=== PATIENT | female | born 2005 | race African-American/Black ===

== ENCOUNTER 2024-01-14 17:22 | Inpatient (IN) | payer MEDICAID, SELFPAY ==
--- NOTE | ~2024-01-14 | CT_ITS ---
EXAMINATION: CT head/brain wo IV con CLINICAL INFORMATION: head strike, altered COMPARISON: No prior imaging available on PACS at time of dictation TECHNIQUE: Contiguous axial imaging was performed from the skull base to vertex without intravenous contrast. Sagittal and coronal reformatted images were obtained. This CT examination was performed using dose optimization techniques as appropriate, variously including the following: * Automated exposure control * Adjustment of mA and/or kV according to patient size (this includes techniques or standardized protocols for targeted exams where dose is matched to indication/reason for exam; i.e. extremities or head) Use of iterative reconstruction technique DLP: 681 mGy-cm FINDINGS: The ventricles and sulci are normal in size and configuration without significant volume loss or hydrocephalus. There is no abnormal attenuation within the brain parenchyma. No territorial loss of costa-white differentiation. No acute intracranial hemorrhage or extra-axial fluid collection. No mass lesion, significant mass effect, or herniation pattern. The orbits are grossly normal. Paranasal sinuses are well aerated. Small right mastoid effusion. Osseous structures are intact. CT/CT head/brain wo IV con IMPRESSION: No acute intracranial abnormality. Electronically signed by: Rayne Clemons MD 01/14/2024 09:20 PM EDT
--- NOTE | 2024-01-14 17:26 | PC.NURSE ---
immediately upon arriving to ed 13H, patient asked if she would behave if hand cuffs are removed, patient states no security called to bedside, PD at bedside
[2024-01-14 17:35] VITALS: BP 162/94; PULSE 118; O2SAT 98
[2024-01-14 17:50] VITALS: BMI 25.8
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
[2024-01-14] MEDS: LORazepam 2 MG/ML VIAL IM (18:20)
[2024-01-14] MEDS: Haloperidol Lactate 5 MG/ML VIAL 10 MG IM (18:20)
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
[2024-01-14 19:13] LABS: Appearance Urine Clear; Color Urine Yellow; Glucose Urine UA Negative (Negative); Leukocyte Esterase Urine Negative (Negative); Nitrite Urine Negative (Negative); Specific Gravity - Urine 1.015 (1.005-1.025); UMIC TRIGGER UA YES; Urine Blood Small (1+) (Negative); Urine Ketones Negative (Negative); Urine Protein Negative (Neg-Trace)
[2024-01-14 19:14] LABS: UPreg QC Valid YES; Urine Pregnancy NEGATIVE (NEGATIVE)
[2024-01-14 19:21] LABS: Amphetamine Screen Urine Not Detected (Not Detect); Barbiturates, Urine Not Detected (Not Detect); Benzodiazepines Screen Urine Not Detected (Not Detect); Buprenorphine Scr Not Detected (Not Detect); Cannabinoid Screen Urine Not Detected (Not Detect); Cocaine Screen Urine Not Detected (Not Detect); Fentanyl, urine Not Detected (Not Detect); Methadone Screen, Urine Not Detected (Not Detect); Opiate Screen Urine Not Detected (Not Detect); Oxycodone Screen Urine Not Detected (Not Detect); Phencyclidine Screen Urine Not Detected (Not Detect)
[2024-01-14 19:42] LABS: Bacteria Urine None Seen (None Seen); Hyaline Casts Urine 0-2 /LPF (0-2); RBC Urine 0-2 /HPF (0-2); Squamous Epithelial Cell Urine 0-2 /HPF (0-2); WBC Urine 0-5 /HPF (0-5)
[2024-01-14 20:00] VITALS: BP 145/89; PULSE 92; RESP 16; TEMP 37; O2SAT 96
--- NOTE | 2024-01-14 20:03 | PC.NURSE ---
Restraints removed, pt clam and cooperative.
[2024-01-14 20:11] LABS: MANUAL DIFF FLAG NO
[2024-01-14 20:12] LABS: Basophils Absolute Auto 0.1 X10*3/uL (0.0-0.2); Basophils Percent Auto 0.6 % (0-2); Eosinophils Percent Auto 0.2 % (0-4); Hematocrit 40.1 % (37.0-47.0); Hemoglobin 14.6 g/dl (12.0-16.0); Imm Gran Abs Auto 0.03 X10*3/uL (0.00-0.03); Imm Gran Pct Auto 0.3 % (0.0-0.4); Lymphocytes Absolute Auto 1.6 X10*3/uL (1.2-4.9); Lymphocytes Percent Auto 14.1 % (20-40); Mean Corpuscular HGB Conc 36.4 g/dl (31.0-35.0); Mean Corpuscular Hemoglobin 31.7 pg (27.0-33.0); Mean Corpuscular Volume 87.2 fL (80.0-98.0); Mean Platelet Volume 9.1 fL (9.4-12.3); Monocytes Absolute Auto 0.5 X10*3/uL (0.1-1.2); Monocytes Percent Auto 4.5 % (2-11); Neutrophils Absolute Auto 9.3 x10*3/uL (2.0-8.3); Neutrophils Percent Auto 80.3 % (45-73); Platelet Count 316 X10*3/uL (160-400); Red Cell Distribution Width 11.4 % (11.0-16.0); White Blood Count 11.5 X10*3/uL (4.8-10.8)
[2024-01-14 20:47] LABS: Alanine Aminotransferase 17 U/L (0-31); Albumin Level 4.2 g/dL (3.5-5.0); Alkaline Phosphatase 68 U/L (39-117); Anion Gap 11 (12-20); Aspartate Amino Transferase 16 U/L (5-31); Bilirubin Total 0.3 mg/dL (0.0-1.0); Blood Urea Nitrogen 12 mg/dL (9-16); Calcium 10.1 mg/dL (8.4-10.2); Carbon Dioxide 22 mmol/L (22-29); Chloride 110 mmol/L (96-108); Creatinine Clr Calc Pharmacy 120.2; Estimated Glomerular Filt Rate > 60; Ethanol < 10 mg/dL; Glucose Random 92 mg/dL (60-115); Potassium 4.1 mmol/L (3.3-5.1); Sodium 139 mmol/L (135-145); Total Protein 7.1 g/dL (6.5-8.0)
[2024-01-14 20:48] LABS: Acetaminophen LAB < 3 mcg/mL (<30); Salicylate < 5.0 mg/dL (15-30)
[2024-01-14 22:00] VITALS: RESP 20
[2024-01-15] VITALS (7 sets, daily range): BP systolic 112–145; BP diastolic 62–85; PULSE 65–103; RESP 14–20; TEMP 36.6–37.2; O2SAT 94–100
[2024-01-15] MEDS: Acetaminophen 325 MG TABLET 650 MG PO (01:08)
[2024-01-15] MEDS: Ondansetron ODT 4 MG TAB.RAPDIS TRANSLINGU (01:09)
--- NOTE | 2024-01-15 01:30 | PC.NURSE ---
PT complaining of headache. 10/10 pain, and nausea. PA verbal read back order for tylenol and zofran. Careteam plan for follow up in the morning. If pt is settle and stable through the night pt can be discharged home to [facility].
[2024-01-15] MEDS: diphenhydrAMINE HCL 25 MG CAPSULE 50 MG PO (05:53)
[2024-01-15] MEDS: LORazepam 1 MG TABLET 2 MG PO ×2 (05:54→14:55)
[2024-01-15] MEDS: HaloperidoL 5 MG TABLET PO (05:54)
--- NOTE | 2024-01-15 06:13 | PC.NURSE ---
PT hitting head and endorsing SI. provided pt with headphones to listen to music, provided theraputic communication, and medicated PT as per MA. Pt appears to be more calm and in more pleasant mood at this time. sitter at bedside. safety precautions in place
--- NOTE | 2024-01-15 08:42 | PC.NURSE ---
Pt has been calm since this RN arrival at 7am. Ate breakfast. AMbulatory to BR w/o difficulty to bathroom with sitter. Listening to music, making needs known w/o incident. Skin PWD. restraints removed from bed rails.
[2024-01-15] MEDS: QUEtiapine Fumarate 50 MG TABLET PO (11:38)
[2024-01-15] MEDS: fluPHENAZine HCl 5 MG TABLET PO (11:38)
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
--- NOTE | 2024-01-15 12:21 | PHA.MEDREC ---
Addendum entered by Sofía Mark RPh 01/15/24 12:45: Med rec reviewed by this [facility]. Naltrexone is 1/2 tablet daily. Original Note: Pharmacy Consult ? Medication Reconciliation Pharmacy has completed the medication reconciliation. Confirmed medications with [facility] on [address] [place] [address] CT found in patient claims. They confirmed she picked up Fluphenazine 5mg 1 tab TID on 01/10, Quetiapine 50mg 1 tab BID on 01/08, Trazodone 150mg 1 tab at bedtime on 12/28, Naltrexone 50mg 1 tab daily on 12/18, Levomefolate Calcium 7.5mg 1 tab daily on 12/17, Vienva 0.1-20mg 1 tab daily, and Famotidine 40mg 1 tab BID on 10/25.
--- NOTE | 2024-01-15 12:59 | MHC.CARE ---
T/w spoke with patient's father José Miguel, who is agreeable to picking patinet up after work. He is in [facility] so anticipates arriving around 5pm. He shares that typically patient discharges from the ED go more smoothly for patient when she is given a sedating medication so she is calmly able to leave and then tends to return home and go right to bed. This was communicated to Dr Albrecht.
[2024-01-15] MEDS: diphenhydrAMINE HCL 50 MG/ML VIAL IM (17:56)
[2024-01-15] MEDS: Haloperidol Lactate 5 MG/ML VIAL 10 MG IM (17:56)
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
--- NOTE | 2024-01-15 18:28 | PC.NURSE ---
RE; belongings all belongings moved to pod locker 6
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
[2024-01-16 06:41] VITALS: RESP 16
[2024-01-16] MEDS: Calcium Carbonate 750 MG TAB.CHEW 1500 MG PO (07:04)
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
--- NOTE | 2024-01-16 08:18 | MHC.EDTECH ---
Patient ambulated to bathroom to shower, AM care done , bed lined change. Sitting in community room to listen to music. RN aware
[2024-01-16] MEDS: OLANZapine ODT 10 MG TAB.RAPDIS TRANSLINGU (08:19)
--- NOTE | 2024-01-16 08:21 | PC.NURSE ---
Nursing Communication PT approached nursing station c/o Ah - unspecified voices. made aware with orders.
--- NOTE | 2024-01-16 11:43 | MHC.CARE ---
Pt went to meet with Pt to complete updated MSU. Pt was asleep in her room and unable to be woken. Care team spoke with pod nurse who stated that Pt was hearing voices and having hallucinations and was given 10mg of Zyprexa. Pt will be asleep for a few hours. MSU followup needed.
[2024-01-16 14:00] VITALS: BP 124/70; PULSE 90; RESP 20; TEMP 36.9; O2SAT 97
--- NOTE | 2024-01-16 15:00 | MHC.CARE ---
Innovation Manager called and spoke with Mar at [facility] to inquire on bed availability for patient. Needs to be F/U on Thursday, per Mar.
[2024-01-16] MEDS: polyethylene glycoL 3350 17 GM POWD.PACK PO (15:12)
[2024-01-16] MEDS: traZODone HCL 50 MG TABLET 150 MG PO (20:34)
[2024-01-16] MEDS: QUEtiapine Fumarate 50 MG TABLET PO (20:34)
[2024-01-16] MEDS: Famotidine 20 MG TABLET 40 MG PO (20:34)
[2024-01-16] MEDS: Naltrexone HCl 50 MG TABLET 25 MG PO (20:34)
[2024-01-16] MEDS: fluPHENAZine HCl 2.5 MG TABLET 7.5 MG PO (20:57)
[2024-01-17 06:21] VITALS: BP 140/65; PULSE 85; RESP 14; TEMP 36.1; O2SAT 97
[2024-01-17] MEDS: Albuterol Sulfate 90 MCG 8 GM INHALER 2 PUFF INHALE (07:55)
[2024-01-17] MEDS: Famotidine 20 MG TABLET 40 MG PO ×2 (08:36→20:07)
[2024-01-17] MEDS: QUEtiapine Fumarate 50 MG TABLET PO ×2 (08:36→20:08)
[2024-01-17] MEDS: fluPHENAZine HCl 2.5 MG TABLET 7.5 MG PO ×3 (08:36→20:08)
[2024-01-17] MEDS: Naltrexone HCl 50 MG TABLET 25 MG PO (08:36)
[2024-01-17] MEDS: Calcium Carbonate 750 MG TAB.CHEW PO (16:43)
[2024-01-17] MEDS: Ondansetron ODT 4 MG TAB.RAPDIS TRANSLINGU (18:28)
[2024-01-17] MEDS: traZODone HCL 50 MG TABLET 150 MG PO (20:07)
[2024-01-17 21:05] VITALS: BP 143/75; PULSE 83; RESP 18; TEMP 36.6; O2SAT 98
--- NOTE | 2024-01-17 21:15 | MHC.EDTECH ---
Patient was given two tuna sandwiches and a cup of sarabjit tim.
--- NOTE | 2024-01-17 23:26 | PC.NURSE ---
Assumed care of pt. Pt sleeping, easily rousable, no acute distress at this time.
--- NOTE | 2024-01-18 | ECG_ITS ---
Test Reason : check for prolonged qt Blood Pressure : / mmHG Vent. Rate : 097 BPM Atrial Rate : 097 BPM P-R Int : 112 ms QRS Dur : 082 ms QT Int : 348 ms P-R-T Axes : 048 068 046 degrees QTc Int : 441 ms Normal sinus rhythm with sinus arrhythmia Normal ECG No previous ECGs available Referred By: Generic ED Physician Electronically Signed By:OLGA DE LA CRUZ
[2024-01-18] MEDS: LORazepam 1 MG TABLET 2 MG PO (05:44)
[2024-01-18] MEDS: OLANZapine 5 MG TABLET PO ×2 (05:44→16:32)
--- NOTE | 2024-01-18 05:49 | PC.NURSE ---
Pt woke and notified this RN that she was hearing voices, was feeling unsafe and requested medication. MD Muniz ordered meds, given by this RN.
[2024-01-18 06:00] VITALS: RESP 16
[2024-01-18] MEDS: QUEtiapine Fumarate 50 MG TABLET PO ×2 (08:22→20:28)
[2024-01-18] MEDS: Naltrexone HCl 50 MG TABLET 25 MG PO (08:22)
[2024-01-18] MEDS: fluPHENAZine HCl 2.5 MG TABLET 7.5 MG PO ×3 (08:22→20:28)
[2024-01-18] MEDS: Famotidine 20 MG TABLET 40 MG PO ×2 (08:22→20:28)
--- NOTE | 2024-01-18 08:49 | MHC.CARE ---
CARE Team spoke with Pts father José Miguel, he is in agreement with admission at [facility].
[2024-01-18 12:46] VITALS: BP 112/79; PULSE 75; RESP 16; TEMP 37.1; O2SAT 99
[2024-01-18 13:24] VITALS: BP 138/86; PULSE 100; RESP 18; TEMP 36.6; O2SAT 98
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
[2024-01-18] MEDS: LORazepam 2 MG/ML VIAL IM (17:10)
[2024-01-18] MEDS: OLANZapine 10 MG VIAL IM (17:11)
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
[2024-01-18] MEDS: Albuterol Sulfate 90 MCG 8 GM INHALER 2 PUFF INHALE (18:22)
[2024-01-18] MEDS: traZODone HCL 50 MG TABLET 150 MG PO (20:28)
[2024-01-19] MEDS: Albuterol Sulfate 90 MCG 8 GM INHALER 2 PUFF INHALE (07:18)
[2024-01-19] MEDS: Naltrexone HCl 50 MG TABLET 25 MG PO (07:54)
[2024-01-19] MEDS: fluPHENAZine HCl 2.5 MG TABLET 7.5 MG PO ×3 (07:54→19:44)
[2024-01-19] MEDS: Famotidine 20 MG TABLET 40 MG PO ×2 (07:54→16:36)
[2024-01-19] MEDS: QUEtiapine Fumarate 50 MG TABLET PO ×2 (07:54→19:43)
[2024-01-19 08:00] VITALS: BP 124/67; PULSE 101; RESP 18; TEMP 36.5; O2SAT 96
[2024-01-19] MEDS: OLANZapine 5 MG TABLET PO ×2 (08:07→11:54)
[2024-01-19] MEDS: LORazepam 1 MG TABLET PO ×3 (08:07→19:08)
[2024-01-19 08:23] LABS: Estimated Average Glucose 100 mg/dL; Hemoglobin A1C 118.0644 umol/L; Hemoglobin A1c % 5.1 % (<6.0)
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
[2024-01-19 08:44] LABS: Cholesterol 195 mg/dL (<200); HDL Cholesterol 49 mg/dL (>40); LDL Cholesterol Calculated 117 mg/dL (<100); Magnesium 1.7 mg/dL (1.6-2.6); Triglycerides 149 mg/dL (<150)
[2024-01-19 08:59] LABS: Free T4 (Free Thyroxine) 0.86 ng/dL (0.71-1.85); Thyroid Stimulating Hormone 0.89 uIU/mL (0.32-4.0)
[2024-01-19 09:11] LABS: Folate 17.7 ng/mL (> or = 4.0); Vitamin B12 644 pg/mL (200-900)
[2024-01-19] MEDS: Magnesium Hydrox/Alum Hydrox 30 ML ORAL.SUSP PO ×3 (14:19→19:44)
[2024-01-19 14:55] VITALS: BP 117/59; PULSE 123; RESP 18; TEMP 37.1; O2SAT 96
[2024-01-19] MEDS: Milk of Magnesia 30 ML ORAL.SUSP PO (15:41)
[2024-01-19] MEDS: Acetaminophen 325 MG TABLET 650 MG PO (16:02)
[2024-01-19] MEDS: OLANZapine ODT 10 MG TAB.RAPDIS TRANSLINGU (19:08)
[2024-01-19] MEDS: traZODone HCL 50 MG TABLET 150 MG PO (19:43)
[2024-01-19] MEDS: Calcium Carbonate 750 MG TAB.CHEW PO (20:22)
[2024-01-20 08:00] VITALS: BP 111/57; PULSE 70; TEMP 36.4; O2SAT 98
[2024-01-20] MEDS: fluPHENAZine HCl 2.5 MG TABLET 7.5 MG PO ×3 (08:33→19:55)
[2024-01-20] MEDS: Famotidine 20 MG TABLET 40 MG PO ×2 (08:33→17:27)
[2024-01-20] MEDS: Naltrexone HCl 50 MG TABLET 25 MG PO (08:34)
[2024-01-20] MEDS: QUEtiapine Fumarate 50 MG TABLET PO ×4 (08:39→20:00)
[2024-01-20] MEDS: Lactase TABLET 2 TAB PO ×2 (12:27→17:27)
[2024-01-20] MEDS: Acetaminophen 325 MG TABLET 650 MG PO ×2 (13:23→19:55)
[2024-01-20 15:20] VITALS: BP 98/54; PULSE 77; RESP 16; TEMP 36.9; O2SAT 99
--- NOTE | 2024-01-20 17:07 | HO.PSYCHPN ---
Subjective Subjective Date of Service: 01/20/24 Reason For Visit: Psychosis Subjective Notes: Conditional Voluntary Healthcare Proxy: No Guardianship: No Medical Problems Affecting Mental Status: No Interim History: Pt presents with an improved mood today. She reports she slept well (team reports 8 hours). She requested Ensure/Lactaid. Team was able to get her a boot s/p ankle sprain R side pre admission. She approaches tw with appropriate questions States she fees safe, comfortable on the unit. Denies SI, HI, AH, VH Some mood lability noted at times. Tolerating Seroquel increase to QID without sedation or agitation at this time. Medication Compliance: Yes Side effects from medications: No Attending Groups: Intermittent Review of Systems Acute medical concerns: No Medical Review of Systems: unchanged Review of Systems Review of Systems R Foot s/p ankle sprain with boot per team efforts Yes all other systems are reviewed and are negative Mental Status Exam Mental Status Exam Patient Appearance: Appropriate Patient Orientation: Person, Place, Time and Situation Level of Consciousness: Alert Patient Behavior: Talkative, Anxious, Distractible and Good Eye Contact Mood Description: Labile Affect Description: Labile Patient Cognition Impaired: No Ability to Follow Directions: Good Speech Pattern: Spontaneous Speech Memory Description: Episodic Impaired Hallucinations: None Thought Process: Distracted and Rumination Thought Content: positive for Circumstantial, positive for Perseveration and positive for Suicidal Ideation (denies) Depressive Symptoms: Thoughts of /Suicide (denies) Judgement: Fair Diagnostics Vital Signs (24Hr): Vital Signs - 24 hr 01/20/24 08:00 01/20/24 15:20 Temperature 97.6 F 98.4 F Pulse Rate 70 77 Respiratory Rate 16 Blood Pressure 111/57 L 98/54 L Pulse Oximetry 98 99 Oxygen Delivery Method Room Air Room Air BMI result Body Mass Index 25.8 Labs 01/14/24 20:07 01/14/24 20:07 Labs: Laboratory Results - last 48 hr 01/19/24 08:00 Estimat Average Glucose 100 Hemoglobin A1c % 5.1 Magnesium 1.7 Triglycerides 149 Cholesterol 195 LDL Cholesterol, Calc 117 H HDL Cholesterol 49 Vitamin B12 644 Folate 17.7 TSH 0.89 Free T4 0.86 Imaging Radiology Impressions: ITS Impressions Head CT 01/14/24 20:03 IMPRESSION: No acute intracranial abnormality. Electronically signed by: Rayne Clemons MD 01/14/2024 09:20 PM EDT Medications Medications Current Medications Acetaminophen (Acetaminophen 325 Mg Tablet) 650 mg PO Q6H PRN PRN Reason: Headache/Pain Mild Scale (1-3) Last Admin: 01/20/24 13:23 Dose: 650 mg Al Hydroxide/Mg Hydroxide (Magnesium Hydrox/Alum Hydrox 30 Ml Oral.Susp) 30 ml PO Q6H PRN PRN Reason: Heartburn/Nausea Last Admin: 01/19/24 19:44 Dose: 30 ml Albuterol Sulfate (Albuterol Sulfate 90 Mcg 8 Gm Inhaler) 2 puff INHALE Q6H PRN PRN Reason: Shortness of Breath Last Admin: 01/19/24 07:18 Dose: 2 puff Calcium Carbonate (Calcium Carbonate 750 Mg Tab.Chew) 750 mg PO Q6H PRN PRN Reason: Heartburn Last Admin: 01/19/24 20:22 Dose: 750 mg Famotidine (Famotidine 20 Mg Tablet) 40 mg PO 0900,1700 [facility] Last Admin: 01/20/24 08:33 Dose: 40 mg Fluphenazine HCl (Fluphenazine Hcl 2.5 Mg Tablet) 7.5 mg PO TID [facility] Last Admin: 01/20/24 15:14 Dose: 7.5 mg Hydroxyzine HCl (Hydroxyzine Hcl 25 Mg Tablet) 25 mg PO Q6H PRN PRN Reason: Anxiety Lactase (Lactase Tablet) 2 tab PO TIDWM [facility] Last Admin: 01/20/24 12:27 Dose: 2 tab Lorazepam (Lorazepam 1 Mg Tablet) 1 mg PO Q4H PRN PRN Reason: anxiety, agitation, aggression Last Admin: 01/19/24 11:54 Dose: 1 mg Magnesium Hydroxide (Milk Of Magnesia 30 Ml Oral.Susp) 30 ml PO DAILY PRN PRN Reason: Constipation Last Admin: 01/19/24 15:41 Dose: 30 ml Naltrexone HCl (Naltrexone Hcl 50 Mg Tablet) 25 mg PO DAILY [facility] Last Admin: 01/20/24 08:34 Dose: 25 mg Nicotine (Nicotine 21 Mg Patch.Td24) 21 mg TRANSDERMA DAILY PRN PRN Reason: nicotine cravings Nicotine Polacrilex (Nicotine Polacrilex 2 Mg Gum) 4 mg BUCCAL Q2H PRN PRN Reason: Nicotine Cravings Non-Formulary Medication (Levomefolate Calcium) 7.5 mg PO DAILY [facility] Non-Formulary Medication (Levonorgestrel-Ethinyl Estrad [Vienva]) 1 tab PO DAILY [facility] Olanzapine (Olanzapine 5 Mg Tablet) 5 mg PO TID PRN PRN Reason: agitation, aggression Last Admin: 01/19/24 11:54 Dose: 5 mg Quetiapine Fumarate (Quetiapine Fumarate 50 Mg Tablet) 50 mg PO QID [facility] Last Admin: 01/20/24 12:27 Dose: 50 mg Trazodone HCl (Trazodone Hcl 50 Mg Tablet) 150 mg PO BEDTIME [facility] Last Admin: 01/19/24 19:43 Dose: 150 mg Allergies Allergies Allergy/AdvReac Type Severity Reaction Status Date / Time divalproex sodium Allergy Unknown Unknown Verified 01/14/24 17:53 [facility] Assessment & Plan Assessment & Plan (1) Autism: Status: Acute Code(s): F84.0 - Autistic disorder (2) Intellectual disability: Status: Acute Code(s): F79 - Unspecified intellectual disabilities (3) Disruptive mood dysregulation disorder: Status: Acute Code(s): F34.81 - Disruptive mood dysregulation disorder Plan Intellectual Disability, Disruptive Mood Dysregulation Disorder, Autism. Plan: Increase Seroquel to 50 mg qid prn Olanzapine prn Collateral Contacts Diagnostics as needed Encourage full milieu Observe, alliance building 01/20/24 Continue tx. Reason for continued inpatient stay Substantial Risk for: rapid decompensation Time Spent With Patient Time: Total time managing care of this patient today ____ minutes.
[2024-01-20] MEDS: LORazepam 1 MG TABLET PO (18:59)
[2024-01-20] MEDS: traZODone HCL 50 MG TABLET 150 MG PO (19:55)
--- NOTE | 2024-01-20 19:56 | PC.NURSE ---
Patient's mood fluctuated from blunted to bright depending on situation. Sometimes I hear voices but I am not hearing them right now. Multiple complaints of left leg pain with frequent requests for an orthopedic boot. Ordered by provider, and arrived at 3:40pm and given to her by the charge entry at which time checks were changed to q 5 minutes for ligature risk. To be handed in to nursing when not in use and also at bedtime. Patient required lots of attention and recognition throughout the shift. I don't want to talk to him. I am mad at him. That's what got me here. Patient refused to call her father to request that 2 medications not in our formulary be brought in for her. 19:33 addendum: Just before change of shift patient became extremely agitated when she was unable to get in touch with her father. Screaming and light headbang x 2 until charg nurse intervened and asked her to talk about her upset. Ativan PRN administered with good effect.
[2024-01-20 20:00] VITALS: BP 129/74; PULSE 84; RESP 16; TEMP 37.1; O2SAT 94
[2024-01-20] MEDS: Calcium Carbonate 750 MG TAB.CHEW PO (20:10)
[2024-01-20] MEDS: OLANZapine 5 MG TABLET PO (20:12)
[2024-01-20] MEDS: Milk of Magnesia 30 ML ORAL.SUSP PO (22:16)
--- NOTE | 2024-01-21 03:33 | PC.NURSE ---
Patient agitation subsided following conversation with father.Observed to be calmer and less demanding. Utilizing boot for c/o L ankle pain. Requested prn Tylenol which was administered with good effect. Boot was turned in to this nurse when patient was ready for bed.
[2024-01-21] MEDS: Calcium Carbonate 750 MG TAB.CHEW PO (07:15)
[2024-01-21] MEDS: Acetaminophen 325 MG TABLET 650 MG PO ×3 (07:20→19:46)
[2024-01-21] MEDS: Lactase TABLET 2 TAB PO ×3 (07:49→16:53)
[2024-01-21 08:00] VITALS: BP 141/103; PULSE 141; RESP 18; TEMP 36.8; O2SAT 96
[2024-01-21] MEDS: fluPHENAZine HCl 2.5 MG TABLET 7.5 MG PO ×3 (08:25→19:54)
[2024-01-21] MEDS: Naltrexone HCl 50 MG TABLET 25 MG PO (08:25)
[2024-01-21] MEDS: QUEtiapine Fumarate 50 MG TABLET PO ×4 (08:26→19:54)
[2024-01-21] MEDS: Famotidine 20 MG TABLET 40 MG PO ×2 (08:26→16:53)
[2024-01-21] MEDS: Magnesium Hydrox/Alum Hydrox 30 ML ORAL.SUSP PO (09:33)
--- NOTE | 2024-01-21 12:09 | P.PNPSI_ITS ---
Subjective Subjective Date of Service: 01/21/24 Reason For Visit: Psychosis Subjective Notes: Conditional Voluntary Healthcare Proxy: No Guardianship: No Medical Problems Affecting Mental Status: No Interim History: Team report pt has been able to talk with her dad and is discussing discharge and a return to school. Tolerating Seroquel increase without adverse effects. Team has talked with father and all agree that pt is in need of a DIRECTOR PATIENT when discharged to assist her and allow family improved boundaries with decrease in potential conflicts with her needed care. As pt and father report she self medicates, VNA for medication assist will probably be helpful as well. Pt states she is feeling better and does not want to miss school. She asks to return to school on Thursday. She is in milieu today, social with peers, mildly labile, and interacting well when observed. Medication Compliance: Yes Side effects from medications: No Attending Groups: Intermittent Review of Systems Acute medical concerns: No Medical Review of Systems: unchanged Review of Systems Review of Systems Yes all other systems are reviewed and are negative Mental Status Exam Mental Status Exam Patient Appearance: Appropriate Patient Orientation: Person, Place, Time and Situation Level of Consciousness: Alert Patient Behavior: Talkative, Anxious, Distractible and Good Eye Contact Mood Description: Labile Affect Description: Labile Patient Cognition Impaired: No Ability to Follow Directions: Good Speech Pattern: Spontaneous Speech Memory Description: Episodic Impaired Hallucinations: None Thought Process: Distracted and Rumination Thought Content: positive for Circumstantial, positive for Perseveration and positive for Suicidal Ideation (denies) Depressive Symptoms: Thoughts of /Suicide (denies) Judgement: Fair Diagnostics Vital Signs (24Hr): Vital Signs - 24 hr 01/20/24 15:20 01/20/24 20:00 01/21/24 08:00 Temperature 98.4 F 98.7 F 98.3 F Pulse Rate 77 84 141 H Respiratory Rate 16 16 18 Blood Pressure 98/54 L 129/74 141/103 H Pulse Oximetry 99 94 96 Oxygen Delivery Method Room Air Room Air Room Air BMI result Body Mass Index 25.8 Labs 01/14/24 20:07 01/14/24 20:07 Imaging Radiology Impressions: ITS Impressions Head CT 01/14/24 20:03 IMPRESSION: No acute intracranial abnormality. Electronically signed by: Rayne Clemons MD 01/14/2024 09:20 PM EDT RP Medications Medications Current Medications Acetaminophen (Acetaminophen 325 Mg Tablet) 650 mg PO Q6H PRN PRN Reason: Headache/Pain Mild Scale (1-3) Last Admin: 01/21/24 12:06 Dose: 650 mg Al Hydroxide/Mg Hydroxide (Magnesium Hydrox/Alum Hydrox 30 Ml Oral.Susp) 30 ml PO Q6H PRN PRN Reason: Heartburn/Nausea Last Admin: 01/21/24 09:33 Dose: 30 ml Albuterol Sulfate (Albuterol Sulfate 90 Mcg 8 Gm Inhaler) 2 puff INHALE Q6H PRN PRN Reason: Shortness of Breath Last Admin: 01/19/24 07:18 Dose: 2 puff Calcium Carbonate (Calcium Carbonate 750 Mg Tab.Chew) 750 mg PO Q6H PRN PRN Reason: Heartburn Last Admin: 01/21/24 07:15 Dose: 750 mg Famotidine (Famotidine 20 Mg Tablet) 40 mg PO 0900,1700 [facility] Last Admin: 01/21/24 08:26 Dose: 40 mg Fluphenazine HCl (Fluphenazine Hcl 2.5 Mg Tablet) 7.5 mg PO TID [facility] Last Admin: 01/21/24 08:25 Dose: 7.5 mg Hydroxyzine HCl (Hydroxyzine Hcl 25 Mg Tablet) 25 mg PO Q6H PRN PRN Reason: Anxiety Lactase (Lactase Tablet) 2 tab PO TIDWM [facility] Last Admin: 01/21/24 12:06 Dose: 2 tab Lorazepam (Lorazepam 1 Mg Tablet) 1 mg PO Q4H PRN PRN Reason: anxiety, agitation, aggression Last Admin: 01/20/24 18:59 Dose: 1 mg Magnesium Hydroxide (Milk Of Magnesia 30 Ml Oral.Susp) 30 ml PO DAILY PRN PRN Reason: Constipation Last Admin: 01/20/24 22:16 Dose: 30 ml Naltrexone HCl (Naltrexone Hcl 50 Mg Tablet) 25 mg PO DAILY [facility] Last Admin: 01/21/24 08:25 Dose: 25 mg Nicotine (Nicotine 21 Mg Patch.Td24) 21 mg TRANSDERMA DAILY PRN PRN Reason: nicotine cravings Nicotine Polacrilex (Nicotine Polacrilex 2 Mg Gum) 4 mg BUCCAL Q2H PRN PRN Reason: Nicotine Cravings Non-Formulary Medication (Levomefolate Calcium) 7.5 mg PO DAILY [facility] Non-Formulary Medication (Levonorgestrel-Ethinyl Estrad [Vienva]) 1 tab PO DAILY [facility] Olanzapine (Olanzapine 5 Mg Tablet) 5 mg PO TID PRN PRN Reason: agitation, aggression Last Admin: 01/20/24 20:12 Dose: 5 mg Quetiapine Fumarate (Quetiapine Fumarate 50 Mg Tablet) 50 mg PO QID [facility] Last Admin: 01/21/24 12:06 Dose: 50 mg Trazodone HCl (Trazodone Hcl 50 Mg Tablet) 150 mg PO BEDTIME [facility] Last Admin: 01/20/24 19:55 Dose: 150 mg Allergies Allergies Allergy/AdvReac Type Severity Reaction Status Date / Time divalproex sodium Allergy Unknown Unknown Verified 01/14/24 17:53 [From Depakote] Assessment & Plan Assessment & Plan (1) Autism: Status: Acute Code(s): F84.0 - Autistic disorder (2) Intellectual disability: Status: Acute Code(s): F79 - Unspecified intellectual disabilities (3) Disruptive mood dysregulation disorder: Status: Acute Code(s): F34.81 - Disruptive mood dysregulation disorder Plan Intellectual Disability, Disruptive Mood Dysregulation Disorder, Autism. Plan: Increase Seroquel to 50 mg qid prn Olanzapine prn Collateral Contacts Diagnostics as needed Encourage full milieu Observe, alliance building 01/21/24 Discharge planning for 01/22/24 with a return to school on 01/25/24. Reason for continued inpatient stay Substantial Risk for: rapid decompensation Time Spent With Patient Time: Total time managing care of this patient today ____ minutes.
[2024-01-21] MEDS: Albuterol Sulfate 90 MCG 8 GM INHALER 2 PUFF INHALE (15:56)
[2024-01-21] MEDS: Flu Vacc TS2024-25(6mos up)/PF 0.5 ML SYRINGE IM (16:53)
[2024-01-21] MEDS: OLANZapine 5 MG TABLET PO (17:15)
[2024-01-21] MEDS: LORazepam 1 MG TABLET PO (17:15)
[2024-01-21] MEDS: Milk of Magnesia 30 ML ORAL.SUSP PO (18:29)
[2024-01-21] MEDS: traZODone HCL 50 MG TABLET 150 MG PO (19:54)
[2024-01-21 20:00] VITALS: BP 133/78; PULSE 108; TEMP 36.7; O2SAT 96
[2024-01-21] MEDS: hydrOXYzine HCL 25 MG TABLET PO (20:37)
[2024-01-22] MEDS: Acetaminophen 325 MG TABLET 650 MG PO (07:58)
[2024-01-22] MEDS: Lactase TABLET 2 TAB PO ×2 (07:58→13:09)
[2024-01-22 08:17] VITALS: BP 136/78; PULSE 124; RESP 16; TEMP 36.6; O2SAT 96
[2024-01-22] MEDS: fluPHENAZine HCl 2.5 MG TABLET 7.5 MG PO (08:56)
[2024-01-22] MEDS: Famotidine 20 MG TABLET 40 MG PO (08:56)
[2024-01-22] MEDS: Naltrexone HCl 50 MG TABLET 25 MG PO (08:57)
[2024-01-22] MEDS: QUEtiapine Fumarate 50 MG TABLET PO ×2 (08:59→13:09)
[2024-01-22] MEDS: Calcium Carbonate 750 MG TAB.CHEW PO (09:26)
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
== END 2024-01-22 14:12 | disposition home or self-care (01) | DRG 753 ==
LOC: HO.ED 01-15 17:56 → HO.PM5 01-18 12:37
PROVIDERS: Physician Assistant; Admitting Provider Clinical Nurse Specialist Psychiatric/Mental Health, Adult; Emergency Provider Emergency Medicine Emergency Medical Services; Visit Provider Clinical Nurse Specialist Psychiatric/Mental Health, Adult
DX: F34.81 Disruptive mood dysregulation disorder (principal); F79 Unspecified intellectual disabilities; F84.0 Autistic disorder; Z23 Encounter for immunization; Z78.1 Physical restraint status; Z79.899 Other long term (current) drug therapy
CPT/HCPCS: 36415; 70450; 80053; 80061; 80143; 80179; 80307; 81001; 81025; 82607; 82746; 83036; 83735; 84439; 84443; 85025; 90656; 92950; 93005; 99285; J1200; J1630; J2060; J2359; S9485

== ENCOUNTER → 2024-01-18 12:29 | Outpatient (BNV) | payer MEDICAID, SELFPAY | PROVIDERS: Admitting Provider Clinical Nurse Specialist Psychiatric/Mental Health, Adult; Emergency Provider Emergency Medicine Emergency Medical Services; Visit Provider Clinical Nurse Specialist Psychiatric/Mental Health, Adult | DX: F34.81 Disruptive mood dysregulation disorder (principal); F84.0 Autistic disorder; F79 Unspecified intellectual disabilities | CPT/HCPCS: 90792; 99231; 99232; 99238 ==

== ENCOUNTER 2024-09-07 15:33 | Inpatient (IN) | payer MEDICAID, SELFPAY ==
[2024-09-07] VITALS (8 sets, daily range): BP systolic 128–138; BP diastolic 62–69; PULSE 91–113; RESP 14–20; TEMP 36.9; O2SAT 94–99; BMI 34.3
--- NOTE | ~2024-09-07 | CT_ITS ---
CLINICAL HISTORY: Strike her head on the floor CT of the head without contrast. Comparison 01/14/2024. Findings: No acute hemorrhage or infarct is seen. No masses are identified and there is no hydrocephalus. There is no mass-effect. Impression: No acute intracranial abnormality is identified. This document has been electronically signed by: Carrington Carrera MD on 09/07/2024 17:54:43
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
--- OUTSIDE RECORDS SUMMARY | 2024-09-07 16:34 | XMS_ITS | Encounter Summary ---
Author Organization [facility] Address [address] [place] [address] Care Team Providers Care Bdc Manager Name Role Phone Vivian Robertson MD Primary Care Provider [phone] Reason for Referral * PRODUCT ANALYST-Consult (Urgent) - Authorized Specialty Diagnoses / Procedures Referred By Shireen christianson Referred To Contact Orthopedic Surgery Diagnoses Left hip pain ORTHO HFC - constipation with acute L hip area/gluteal pain Vivian Robertson MD [address] [place] [address] Phone: tel: fax: [facility] Department of Orthopedics, [address] [address] Phone: tel: fax: Referral ID Status Reason Start Date Expiration Date Visits Requested Visits Authorized [id number] Authorized Specialty Services Required 09/06/2024 03/05/2025 1 1 Encounter Details Date Type Department Care Team (Late st Contact Info) Description 09/06/2024 Community Orders EPICCARE LINK DFLT DEP Vivian Robertson MD [address] [place] [phone] Left hip pain (Primary Dx) Social History Tobacco Use Types Packs/Day Years Used Date Smoking Tobacco: Never Passive Smoke Exposure: Yes Smokeless Tobacco: Never Comments:MOM and dad Alcohol Use Standard Drinks/Week Comments No 0 (1 standard drink = 0.6 oz pur e alcohol) Comments No Sex and Gender Information Value Date Recorded Sex Assigned at Female 09/16/2020 11:50 PM EDT Legal Sex Female 2:19 AM EST Gender Identity Female 09/16/2020 11:50 PM EDT Sexual Orientation Straight 09/16/2020 11 :50 PM EDT documented as of this encounter Plan of Treatment Upcoming Encounters Date Type Department Care Team (Late st Contact Info) Description 11/29/2024 10:15 AM EDT Office Visit [facility], Weight Management [address] [place] [address] Winsome Blackburn MD [address] [place] [address] 11/29/2024 11:00 AM EDT Telemedicine Support [facility], Weight Management [address] [place] [address] Ju Jacinto [address] [place] [address] 11/29/2024 11:45 AM EDT Nutrition [facility], Clinical Nutrition [address] [place] [address] Cindy Juan, YANET [address] [place] [address] Scheduled Referrals Name Type Priority Associated Diagnoses Order Schedule Community Referral to Orthopedics Outpatient Referral Routine Left hip pain Ordered: 09/06/2024 documented as of this encounter Visit Diagnoses Diagnosis Left hip pain- Primary Pain in joint, pelvic region and thigh documented in this encounter Care Teams Bdc Manager Relationship Specialty Start Date End Date Vivian Robertson MD [address] [place] [address] PCP - General General Pediatrics 09/06/24 documented as of this encounter
--- OUTSIDE RECORDS SUMMARY | 2024-09-07 16:34 | XMS_ITS | Encounter Summary ---
Author Organization [facility] Address [address] [place] [address] Care Team Providers Care Child Care Center Assistant Director Name Role Phone Jeanne Rodgers MD Primary Care Provider Vivian Robertson MD Primary Care Provider [phone] Reason for Visit * Reason Comments Medication Refill Encounter Details Date Type Department Care Team (Late st Contact Info) Description 02/20/2022 Refill [facility] Gastroenterology, [address], [address] [place] [address] Brody Wilson MD [address] [place] [address] Gastroesophageal reflux disease, unspecified whether esophagitis present Social History Tobacco Use Types Packs/Day Years Used Date Smoking Tobacco: Passive Smo ke Exposure - Never Smoker Smokeless Tobacco: Never Comments:MOM AND GRANDMOTHER SMOKE Alcohol Use Standard Drinks/Week Comments No 0 (1 standard drink = 0.6 oz pur e alcohol) Comments No Sex and Gender Information Value Date Recorded Sex Assigned at Female 09/16/2020 11:50 PM EDT Legal Sex Female 2:19 AM EST Gender Identity Female 09/16/2020 11:50 PM EDT Sexual Orientation Straight 09/16/2020 11 :50 PM EDT documented as of this encounter Miscellaneous Notes * Telephone Encounter - Sita Silva RN - 02/21/2022 2:03 PM EDT Please sched KP follow up One refill given * Telephone Encounter - Sita Silva RN - 02/21/2022 9:16 AM EDT KP pt Last seen 06-04-21 Dose correct No pending appts documented in this encounter Plan of Treatment Upcoming Encounters Date Type Department Care Team (Late st Contact Info) Description 11/29/2024 10:15 AM EDT Office Visit [facility], Weight Management [address] [place] [address] Winsome Blackburn MD [address] [place] [address] 11/29/2024 11:00 AM EDT Telemedicine Support [facility], Weight Management [address] [place] [address] Ju Jacinto [address] [place] [address] 11/29/2024 11:45 AM EDT Nutrition [facility], Clinical Nutrition [address] [place] [address] Cindy Juan, YANET [address] [place] [address] documented as of this encounter Visit Diagnoses Diagnosis Gastroesophageal reflux disease, unspecified whether esophagitis present documented in this encounter Care Teams Child Care Center Assistant Director Relationship Specialty Start Date End Date Jeanne Rodgers MD [address] [place] [address] PCP - General 01/03/20 09/05/24 Vivian Robertosn MD [address] [place] [address] PCP - General General Pediatrics 09/06/24 documented as of this encounter
--- OUTSIDE RECORDS SUMMARY | 2024-09-07 16:34 | XMS_ITS | Encounter Summary ---
Author Organization [facility] Address [address] [place] [address] Care Team Providers Care Key Operator Name Role Phone Jeanne Rodgers MD Primary Care Provider [phone] Vivian Robertson MD Primary Care Provider [phone] Reason for Referral * NUT STEAMER-Consult (Routine) - Authorized Specialty Diagnoses / Procedures Referred By Contac t Referred To Contact Other Specialties / Weight Management Diagnoses Obesity, unspecified classification, unspecified obesity type, unspecified whether serious comorbidity present Jessica Sorto [address] [place] [address] Phone: tel: fax: Referral ID Status Reason Start Date Expiration Date Visits Requested Visits Authorized [id number] Authorized Specialty Services Required 12/31/2023 12/23/2024 1 1 Encounter Details Date Type Department Care Team (Late st Contact Info) Description 12/31/2023 Community Orders EPICCARE LINK DFLT Jessica Almendarez [address] [place] [phone] Obesity, unspecified classification, unspecified obesity type, unspecified whether serious comorbidity present (Primary Dx) Social History Tobacco Use Types Packs/Day Years Used Date Smoking Tobacco: Never Passive Smoke Exposure: Yes Smokeless Tobacco: Never Comments:MOM AND GRANDMOTHER SMOKE [...] Description 11/29/2024 10:15 AM EDT Office Visit [facility], Weight Management [address] [place], [place] [id number] Winsome Blackburn MD [address] [place] [address] 11/29/2024 11:00 AM EDT Telemedicine Support [facility], Weight Management [address] [place] [address] Ju Jacinto [address] [place] [address] 11/29/2024 11:45 AM EDT Nutrition [facility], Clinical Nutrition [address] [place] [address] [place] [address] Scheduled Referrals Name Type Priority Associated Diagnoses Orde r Schedule Community Referral to Weight Management Outpatient Referral Routine Obesity, unspecified classification, unspecified obesity type, unspecified whether serious comorbidity present Ordered: 12/31/2023 documented as of this encounter Visit Diagnoses Diagnosis Obesity, unspecified classification, unspecified obesity type, unspecified whether serious comorbidity present- Primary documented in this encounter Care Teams Key Operator Relationship Specialty Start Date End Date Jeanne Rodgers MD [address] [place], [place] [id number] PCP - General 01/03/20 09/05/24 Vivian Robertson MD [address] [place] [address] PCP - General General Pediatrics 09/06/24 documented as of this encounter
--- OUTSIDE RECORDS SUMMARY | 2024-09-07 16:34 | XMS_ITS | Encounter Summary ---
Author Organization [facility] Address [address] [place] [address] Care Team Providers Care Rn Or Lvn Name Role Phone Jeanne Rodgers MD Primary Care Provider Vivian Robertson MD Primary Care Provider Reason for Visit * Reason Comments Medication Refill Encounter Details Date Type Department Care Team ([facility] st Contact Info) Description 12/23/[address] [facility] Gastroenterology[address] [address] Angelique Rebolledo, CLAIMS ADJUDICATOR[address] [address] Gastroesophageal reflux disease, unspecified whether esophagitis present [...] Telephone Encounter - Sita Silva RN - 12/24/2020 3:15 PM EDT KP pt Last seen in clinic 09-17-20-NEW Dose correct No pending appts documented in this encounter Plan of Treatment Upcoming Encounters Date Type Department Care Team (Late st Contact Info) Description 11/29/2024 10:15 AM EDT Office Visit [facility], Weight Management [address] [place] [address] Winsome Blackburn MD [address] [place] [address] 11/29/2024 11:00 AM EDT Telemedicine Support [facility], Weight Management [address] [place] [address] Ju Jacinto [address] [place] [address] 11/29/2024 11:45 AM EDT Nutrition [facility], Clinical Nutrition [address] [address] Cindy Juan, YANET [address] [place] [address] documented as of this encounter Visit Diagnoses Diagnosis Gastroesophageal reflux disease, unspecified whether esophagitis present documented in this encounter Care Teams Rn Or Lvn Relationship Specialty Start Date End Date Jeanne Rodgers MD [address] [place] [address] PCP - General 01/03/20 09/05/24 Vivian Robertson MD [address] [place] [address] PCP - General General Pediatrics 09/06/24 documented as of this encounter
--- OUTSIDE RECORDS SUMMARY | 2024-09-07 16:34 | XMS_ITS | Encounter Summary ---
Author Organization [facility] Address [address] [place] [address] Care Team Providers Care Construction Skills Teacher Name Role Phone Jeanne Rodgers MD Primary Care Provider [phone] Vivian Robertson MD Primary Care Provider Reason for Visit * Reason Comments Medication Refill Encounter Details Date Type Department Care Team ([facility] st Contact Info) Description 04/28/2021 Refill [facility] Gastroenterology[address] [address] Angelique Rebolledo, INSPECTOR MACHINE CUT GLASS[address] [address] Gastroesophageal reflux disease, unspecified whether esophagitis present [...] Telephone Encounter - Sita Silva RN - 04/29/2021 10:42 AM EST Scoped 10-16-20 Last seen clinic- NEW 09-17-20 No pending appts- front office left msg in February documented in this encounter Plan of Treatment Upcoming Encounters Date Type Department Care Team (Late st Contact Info) Description 11/29/2024 10:15 AM EDT Office Visit [facility], Weight Management [address] [address] Winsome Blackburn MD [address] [place] [address] 11/29/2024 11:00 AM EDT Telemedicine Support [facility], Weight Management [address] [place] [address] Ju Jacinto [address] [place] [address] 11/29/2024 11:45 AM EDT Nutrition [facility], Clinical Nutrition [address] [address] Cindy Juan, YANET [address] [place] [address] documented as of this encounter Visit Diagnoses Diagnosis Gastroesophageal reflux disease, unspecified whether esophagitis present documented in this encounter Care Teams Construction Skills Teacher Relationship Specialty Start Date End Date Jeanne Rodgers MD [address] [place] [address] PCP - General 01/03/20 09/05/24 Vivian Robertson MD [address] [place] [address] PCP - General General Pediatrics 09/06/24 documented as of this encounter
--- OUTSIDE RECORDS SUMMARY | 2024-09-07 16:34 | XMS_ITS | Encounter Summary ---
Author Organization [facility] Address [address] [place] [address] Care Team Providers Care Detention Attendant Name Role Phone Jeanne Rodgers MD Primary Care Provider Vivian Robertson MD Primary Care Provider [phone] Reason for Visit * Reason Comments Medication Refill Encounter Details Date Type Department Care Team ([facility] st Contact Info) Description 01/01/2022 Refill [facility] Gastroenterology[address] [address] Angelique Rebolledo, PRODUCTION LINE TECHNICIAN[address] [address] Gastroesophageal reflux disease, unspecified whether esophagitis present [...] Telephone Encounter - Sita Silva RN - 01/01/2022 11:57 AM EDT Please schedule follow up Refill provided * Telephone Encounter - Sita Silva RN - 01/01/2022 10:18 AM EDT Last seen 06-04-21 Dose correct No pending appts documented in this encounter Plan of Treatment Upcoming Encounters Date Type Department Care Team (Late st Contact Info) Description 11/29/2024 10:15 AM EDT Office Visit [facility], Weight Management [address] [place] [address] Winsome Blackburn MD [address] [place] [address] 11/29/2024 11:00 AM EDT Telemedicine Support [facility], Weight Management [address] [place] [address] Ju Jacinto [address] [place] [address] 11/29/2024 11:45 AM EDT Nutrition [facility], Clinical Nutrition 505 [place] [address] [place] [address] documented as of this encounter Visit Diagnoses Diagnosis Gastroesophageal reflux disease, unspecified whether esophagitis present documented in this encounter Care Teams Detention Attendant Relationship Specialty Start Date End Date Jeanne Rodgers MD [address] [place] [address] PCP - General 01/03/20 09/05/24 Vivian Robertson MD [address] [place] [address] PCP - General General Pediatrics 09/06/24 documented as of this encounter
--- OUTSIDE RECORDS SUMMARY | 2024-09-07 16:34 | XMS_ITS | Encounter Summary ---
Author Organization [facility] Address [address] [place] [address] Care Team Providers Care Dairy Machine Operator Farmworker Name Role Phone Jeanne Rodgers MD Primary Care Provider Vivian Robertson MD Primary Care Provider [phone] Reason for Visit * Reason Comments Medication Refill Encounter Details Date Type Department Care Team ([facility] st Contact Info) Description 01/22/2021 Refill [facility] Gastroenterology[address] [address] Kiersten Salazar, CHIEF TECHNICAL OFFICER [address] [place] [address] Gastroesophageal reflux disease, unspecified whether esophagitis present [...] Telephone Encounter - Sita Silva RN - 01/22/2021 10:11 AM EDT NEW pt 09-17-20 Scoped 10-19-20- normal Dose correct No pending appts documented in this encounter Plan of Treatment Upcoming Encounters Date Type Department Care Team (Late st Contact Info) Description 11/29/2024 10:15 AM EDT Office Visit [facility], Weight Management [address] [place] [address] Winsome Blackburn MD [address] [place] [address] 11/29/2024 11:00 AM EDT Telemedicine Support [facility], Weight Management [address] [place] [address] Ju Jacinto [address] [place] [address] 11/29/2024 11:45 AM EDT Nutrition [facility], Clinical Nutrition [address] [address] Cindy Juan, YANET [address] [place] [address] documented as of this encounter Visit Diagnoses Diagnosis Gastroesophageal reflux disease, unspecified whether esophagitis present documented in this encounter Care Teams Dairy Machine Operator Farmworker Relationship Specialty Start Date End Date Jeanne Rodgers MD [address] [place] [address] PCP - General 01/03/20 09/05/24 Vivian Robertson MD [address] [place] [address] PCP - General General Pediatrics 09/06/24 documented as of this encounter
--- OUTSIDE RECORDS SUMMARY | 2024-09-07 16:34 | XMS_ITS | Encounter Summary ---
Author Organization [facility] Address [address] [place] [address] Care Team Providers Care Deburring And Tooling Machine Operator Name Role Phone Jeanne Rodgers MD Primary Care Provider [phone] Vivian Robertson MD Primary Care Provider Reason for Visit * Reason Comments Medication Refill Encounter Details Date Type Department Care Team ([facility] st Contact Info) Description 08/16/[address] [facility] Gastroenterology[address] [address] Angelique Rebolledo, CENTRIFUGE SEPARATOR TENDER[address] [address] Gastroesophageal reflux disease, unspecified whether esophagitis present [...] Telephone Encounter - Sita Silva RN - 08/16/2021 12:53 PM EDT KP pt Last seen 06-04-21- pantoprazole was stoped and changed to aciphex documented in this encounter Plan of Treatment Upcoming Encounters Date Type Department Care Team (Late st Contact Info) Description 11/29/2024 10:15 AM EDT Office Visit [facility], Weight Management [address] [place] [address] Winsome Blackburn MD [address] [place] [address] 11/29/2024 11:00 AM EDT Telemedicine Support [facility], Weight Management [address] [place] [address] Ju Jacinto [address] [place] [address] 11/29/2024 11:45 AM EDT Nutrition [facility], Clinical Nutrition [address] [address] Cindy Juan, YANET [address] [place] [address] documented as of this encounter Visit Diagnoses Diagnosis Gastroesophageal reflux disease, unspecified whether esophagitis present documented in this encounter Care Teams Deburring And Tooling Machine Operator Relationship Specialty Start Date End Date Jeanne Rodgers MD [address] [place] [address] PCP - General 01/03/20 09/05/24 Vivian Robertson MD [address] [place] [address] PCP - General General Pediatrics 09/06/24 documented as of this encounter
--- OUTSIDE RECORDS SUMMARY | 2024-09-07 16:34 | XMS_ITS | Encounter Summary ---
Author Organization [facility] Address [address] [place] [address] Care Team Providers Care Security Incident Response Engineer Name Role Phone Jeanne Rodgers MD Primary Care Provider [phone] Vivian Robertson MD Primary Care Provider Reason for Visit * Reason Comments Medication Refill Encounter Details Date Type Department Care Team ([facility] st Contact Info) Description 10/04/2021 Refill [facility] Gastroenterology[address] [address] Angelique Rebolledo, VENUE ATTENDANT[address] [address] Gastroesophageal reflux disease, unspecified whether esophagitis present [...] encounter Miscellaneous Notes * Telephone Encounter - Dian Lugo RN - 10/07/2021 9:52 AM EDT Please refuse. No longer taking per 06/04/21 OV note plan. documented in this encounter Plan of Treatment Upcoming Encounters Date Type Department Care Team (Late st Contact Info) Description 11/29/2024 10:15 AM EDT Office Visit [facility], Weight Management [address] [place] [address] Winsome Blackburn MD [address] [place] [address] 11/29/2024 11:00 AM EDT Telemedicine Support [facility], Weight Management [address] [place] [address] Ju Jacinto [address] [place] [address] 11/29/2024 11:45 AM EDT Nutrition [facility], Clinical Nutrition 505 [place] [address] Cindy Juan, YANET [address] [place] [address] documented as of this encounter Visit Diagnoses Diagnosis Gastroesophageal reflux disease, unspecified whether esophagitis present documented in this encounter Care Teams Security Incident Response Engineer Relationship Specialty Start Date End Date Jeanne Rodgers MD [address] [place] [address] PCP - General 01/03/20 09/05/24 Vivian Robertson MD [address] [place] [address] PCP - General General Pediatrics 09/06/24 documented as of this encounter
--- OUTSIDE RECORDS SUMMARY | 2024-09-07 16:34 | XMS_ITS | Encounter Summary ---
Author Organization [facility] Address [address] [place] [address] Care Team Providers Care Director Craft Center Name Role Phone Jeanne Rodgers MD Primary Care Provider [phone] Vivian Robertson MD Primary Care Provider [phone] Reason for Visit * Reason Onset Date Comments Medication Refill Medication Refill 06/03/2021 Encounter Details Date Type Department Care Team (Late st Contact Info) Description 05/30/2021 Refill [facility] Gastroenterology[address] [phone] Angelique Rebolledo, VP STRATEGY [address] [place] [address] Gastroesophageal reflux disease, unspecified whether esophagitis present [...] encounter Miscellaneous Notes * Telephone Encounter - Ave Moreland RN - 06/03/2021 1:08 PM EST Refill request for famotidine Last seen: 09/17/2020 Angelique Rebolledo APRN Next appt: 06/04/2021 Angelique Rebolledo APRN Allergies verified Medication Verified Needs 90 day supply * Telephone Encounter - Sita Silva RN - 05/31/2021 10:12 AM EST KP pt Last seen 09-17-2020 Scoped 10-16-2020 Dose correct Next appt 06-04-21 documented in this encounter Plan of Treatment Upcoming Encounters Date Type Department Care Team (Late st Contact Info) Description 11/29/2024 10:15 AM EDT Office Visit [facility], Weight Management 505 [place] [address] Winsome Blackburn MD [address] [place] [address] 11/29/2024 11:00 AM EDT Telemedicine Support [facility], Weight Management [address] [place] [address] Ju Jacinto [address] [place] [address] 11/29/2024 11:45 AM EDT Nutrition [facility], Clinical Nutrition 505 [place] [address] Cindy Juan, YANET [address] [place] [address] documented as of this encounter Visit Diagnoses Diagnosis Gastroesophageal reflux disease, unspecified whether esophagitis present documented in this encounter Care Teams Director Craft Center Relationship Specialty Start Date End Date Jeanne Rodgers MD [address] [place] [address] PCP - General 01/03/20 09/05/24 Vivian Robertson MD [address] [place] [address] PCP - General General Pediatrics 09/06/24 documented as of this encounter
--- OUTSIDE RECORDS SUMMARY | 2024-09-07 16:34 | XMS_ITS | Encounter Summary ---
Author Organization [facility] Address [address] [place] [address] Care Team Providers Care Engineer Exhauster Name Role Phone Yvon Pandey MD Primary Care Provider [phone] Reason for Visit * Reason Comments Medication Refill Encounter Details Date Type Department Care Team (Late st Contact Info) Description 10/12/2022 Refill [facility] [address] [place] [address] Sammi Hyatt, ARELY [address] [place] [address] Medication Refill Social History Tobacco Use Types Packs/Day Years Used Date Smoking Tobacco: Never Assessed Overall Financial Resource Strain (CARDIA) Answe r Date Recorded How hard is it for you to pa y for the very basics like food, housing, medical care, and heating? Not hard at all 09/04/2022 PHQ-2 Answer Date Recorded PHQ-2 Total Score 6 09/04/2022 Hunger Vital Sign Answer Date Recorded Within the past 12 months, y ou worried that your food would run out before you got the money to buy more. Never true 09/05/19 23 Within the past 12 months, t he food you bought just didn't last and you didn't have money to get more. Never true 09/04/2022 PRAPARE - Transportation Answer Date Re corded In the past 12 months, has l ack of transportation kept you from medical appointments or from getting medications? No 08/2022 In the past 12 months, has l ack of transportation kept you from meetings, work, or from getting things needed for daily living? No 09/04/2022 Housing Stability Answer Date Recorded Housing Stability I have a steady place to live 09/04/2022 Interpersonal Safety Answer Date Record ed Is there anyone in your life that is hurting or threatening you in anyway? Not on file 09/04/2022 Physical Indicators of Abuse No evidence of phys ical abuse 09/04/2022 Comments Unknown Sex and Gender Information Value Date Recorded Sex Assigned at Female 09/03/2022 4:58 PM EDT Legal Sex Female 6:29 PM EST Gender Identity Female 09/03/2022 4:58 PM EDT Sexual Orientation Straight 09/03/2022 4: 58 PM EDT documented as of this encounter Plan of Treatment Not on file documented as of this encounter Visit Diagnoses Not on filedocumented in this encounter Additional Health Concerns Assessment Noted Time PHQ-9 Depression Total Score: 6 09/05/19 23 10:00 PM EDT documented as of this encounter Care Teams Engineer Exhauster Relationship Specialty Start Date End Date Yvon Pandey MD [address] [place] [address] PCP - General Pediatrics 07/10/22 documented as of this encounter
--- OUTSIDE RECORDS SUMMARY | 2024-09-07 16:34 | XMS_ITS | Clinical Summary ---
Author Organization [address] Address [address] [place] [address] Phone Care Team Providers Care Pinion And Wheel Truer Name Role Phone Yvon Pandey MD Primary Care Provider [phone] Allergies Active Allergy Reactions Criticality Noted Date Comments Cariprazine Other (See Comments) Medium 07/12/2022 Per father, UNSURE what reactions are to them Haloperidol Lactate Other (See Comments) Medium 2022 rolling eyes Lactase GI Upset Medium 09/04/2022 Olanzapine Other (See Comments) Medium 07/12/2022 Per father, UNSURE what reactions are to them Risperidone Other (See Comments) Medium 09/15/2022 Galactorrhea Medications propranoloL (INDERAL) 10 mg immediate release tablet Take 1 tablet (10 mg total) by mouth 2 (two) times daily. Dispensed 07/07/22, 90 day supply Active cholecalciferol, vitamin D3, 25 mcg (1,000 unit) tablet Take 1 tablet (1,000 Units total) by mouth every morning. 2 Active STOOL SOFTENER 100 mg capsule Take 1 capsule (100 mg total) by mouth every evening. 2 Active levomefolate calcium 7.5 mg Tab Take 7.5 mg by mouth every morning. 3 Active LESSINA 0.1-20 mg-mcg per tablet Take 1 tablet by mouth daily. 2 Active traZODone (DESYREL) 150 mg tablet Take 1 tablet (150 mg total) by mouth at bedtime. 3 Active benztropine (COGENTIN) 0.5 mg tabletIndications: drug-induced extrapyramidal reaction Take 1 tablet (0.5 mg total) by mouth 2 (two) times daily. 28 tablet 1 3 Active fluPHENAZine (PROLIXIN) 5 mg tablet Take 1 tablet (5 mg total) by mouth every 8 (eight) hours. 42 tablet 1 3 Active hydrOXYzine (ATARAX) 25 mg tabletIndications: anxiety Take 1 tablet (25 mg total) by mouth every 4 (four) hours as needed (Anxiety). 30 tablet 3 Active naltrexone (REVIA) 50 mg tabletIndications: Reduction in self harm ideations Take 0.5 tablets (25 mg total) by mouth daily. 14 tablet 1 3 Active sucralfate (CARAFATE) 1 gram tabletIndications: gastric ulcer,gastroesopha geal reflux disease,heartburn Take 1 tablet (1 g total) by mouth 4 (four) times daily before meals & at bedtime. 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 09/05/2022 Severe recurrent major depre ssion without psychotic features 09/04/2022 Rule out, Malingering versus factitious disorder 07/10/2022 Cluster B personality disorder 07/10/2022 Autism 07/09/2022 Major depressive disorder, r ecurrent severe without psychotic features 07/09/2022 Social History Tobacco Use Types Packs/Day Years Used Date Smoking Tobacco: Never Assessed Tobacco Cessation:Counseling Given: Not Answered Overall Financial Resource Strain (CARDIA) Answe r [...] Orientation Straight 09/03/2022 4: 58 PM EDT Last Filed Vital Signs Vital Sign Reading Time Taken Comments Blood Pressure 130/66 09/15/2022 7:53 AM EDT Pulse 80 09/15/2022 7:53 AM EDT Temperature 36 ??C (96.8 ??F) 09/15/2022 7:5 3 AM EDT Respiratory Rate 16 09/15/2022 7:53 AM EDT Oxygen Saturation 98% 09/15/2022 7:5 3 AM EDT Inhaled Oxygen Concentration - - Weight 103.7 kg (228 lb 9.6 oz) 09/04/2022 10:00 PM EDT Height 160 cm (5' 3 ) 09/10/2022 9:00 AM EDT per 06/04/21 office visit documentation Body Mass Index 40.49 09/04/2022 10:00 PM EDT Plan of Treatment Health Maintenance Due Date Last Done Comments MMR Vaccines (1 of 1 - Stand benedicto series) 11/30/2004 DTaP/TDaP Vaccines (1 - Tdap) 11/30/2010 HIV screening 11/30/2016 Varicella Vaccines (1 of 2 - 13+ 2-dose series) 11/30/2016 HPV vaccine series (1 - 3-do se series) 11/30/2018 Chlamydia screening 11/30/2020 Hepatitis C screening 11/30/2021 Hepatitis B vaccine series ( 1 of 3 - 19+ 3-dose series) 11/30/2022 Tetanus adult (Td q 10,TDAP once) 2023 Covid-19 vaccine series ( season) 2024 Influenza Vaccine Pediatric (Season Ended) 2024 RSV Immunization (1 - 1-dose 75+ series) 11/30/2078 HIB Vaccines Aged Out No longer eligi ble based on patient's age to complete this topic Hepatitis A Vaccines Aged Out No long er eligible based on patient's age to complete this topic IPV Vaccines Aged Out No longer eligi ble based on patient's age to complete this topic Meningococcal Vaccine Aged Out No bhavik amando eligible based on patient's age to complete this topic Pneumococcal Vaccine (2 - 49 years) Aged Out No longer eligible based on patient's age to complete this topic Rotavirus Vaccines Aged Out No longer eligible based on patient's age to complete this topic [place] Advance Directives * Full Code (Latest Code Status on File) Date Activated Date Inactivated Comments 09/04/2022 6:34 PM 09/15/2022 9:39 PM Care Teams Pinion And Wheel Truer Relationship Specialty Start Date End Date Yvon Pandey MD [address] [place] [phone] PCP - General Pediatrics 07/10/22
--- OUTSIDE RECORDS SUMMARY | 2024-09-07 16:34 | XMS_ITS | Encounter Summary ---
Author Organization [facility] Address [address] [place] [address] Care Team Providers Care Lead Coater Name Role Phone Yvon Pandey MD Primary Care Provider [phone] Reason for Visit * Reason Comments Medication Refill Encounter Details Date Type Department Care Team (Late st Contact Info) Description 10/25/2022 Refill [facility] [address] [place] [address] Sammi Hyatt, ARELY [address] [place] [address] Medication Refill Social History Tobacco [...] documented as of this encounter Care Teams Lead Coater Relationship Specialty Start Date End Date Yvon Pandey MD [address] [place] [address] PCP - General Pediatrics 07/10/22 documented as of this encounter
--- OUTSIDE RECORDS SUMMARY | 2024-09-07 16:34 | XMS_ITS | Encounter Summary ---
Author Organization [facility] Address [address] [place] [address] Care Team Providers Care Lens Edge Grinder Machine Name Role Phone Yvon Pandey MD Primary Care Provider [phone] Marylou, Jude RPH Unavailable Marylou, Jude RPH Unavailable Marylou, Jude RPH Unavailable Marylou, Jude RPH Unavailable Marylou, Jude RPH Unavailable Encounter Details Date Type Department Care Team (Late st Contact Info) Description 07/02/2024 10:01 AM EST Hospital Encounter [facility] [address] [place] [address] Man Sims MD [address] [place], [place] [id number] Social History Tobacco Use Types Packs/Day Years [...] AM EST XR FINGER (4TH) 2+ VIEWS-RIGHT ??07/02/2024 10:01 AM REASON FOR STUDY: Fourth digit [...] disease. IMPRESSION: No acute fracture or dislocation. Jodee Baker PA-C IMG DIAGNOSTIC IMAGING ORD ERABLES Final Result documented in this encounter Visit Diagnoses Not on filedocumented in this encounter Care Teams Lens Edge Grinder Machine Relationship Specialty Start Date End Date Yvon Pandey MD [address] [place] [address] PCP - General Pediatric, General 08/19/17 Jude Hickman [facility] [address] [place], [place] [phone] Pharmacist 08/20/17 Jude Hickman [facility] [address] [place] [address] Pharmacist 05/31/18 Jude Hickman [facility] [address] [place] [address] Pharmacist 09/13/18 Jude Hickman [facility] [address] [place] [address] Pharmacist 09/21/18 Jude Hickman [facility] [address] [place] [address] Pharmacist 10/18/18 documented as of this encounter
--- OUTSIDE RECORDS SUMMARY | 2024-09-07 16:34 | XMS_ITS | Encounter Summary ---
Author Organization [facility] Address [address] [place] [address] Care Team Providers Care Parachute Repairer Name Role Phone Jeanne Rodgers MD Primary Care Provider [phone] Vivian Robertson MD Primary Care Provider Reason for Visit * Reason Comments Medication Refill Encounter Details Date Type Department Care Team ([facility] st Contact Info) Description 09/28/2021 Refill [facility] Gastroenterology[address] [address] Angelique Rebolledo, HARBOR TUG CAPTAIN[address] [address] Gastroesophageal reflux disease, unspecified whether esophagitis present [...] encounter Miscellaneous Notes * Telephone Encounter - Barbra Elias - 10/02/2021 9:31 AM EDT LVM to schedule * Telephone Encounter - Sita Sliva RN - 10/01/2021 4:27 PM EDT Please schedule follow up Refill provided * Telephone Encounter - Sita Silva RN - 10/01/2021 4:18 PM EDT Last seen clinic 06-04-21 Dose correct No pending appts documented in this encounter Plan of Treatment Upcoming Encounters Date Type Department Care Team (Late st Contact Info) Description 11/29/2024 10:15 AM EDT Office Visit [facility], Weight Management [address] [place] [address] Winsome Blackburn MD [address] [place] [address] 11/29/2024 11:00 AM EDT Telemedicine Support [facility], Weight Management [address] [place] [address] Ju Jacinto [address] [place] [address] 11/29/2024 11:45 AM EDT Nutrition [facility], Clinical Nutrition 505 [place] [address] [place] [address] documented as of this encounter Visit Diagnoses Diagnosis Gastroesophageal reflux disease, unspecified whether esophagitis present documented in this encounter Care Teams Parachute Repairer Relationship Specialty Start Date End Date Jeanne Rodgers MD [address] [place] [address] PCP - General 01/03/20 09/05/24 Vivian Robertson MD [address] [place] [address] PCP - General General Pediatrics 09/06/24 documented as of this encounter
--- OUTSIDE RECORDS SUMMARY | 2024-09-07 16:34 | XMS_ITS | Encounter Summary ---
Author Organization [facility] Address [address] [place] [address] Care Team Providers Care Groundsman Name Role Phone Jeanne Rodgers MD Primary Care Provider Vivian Robertson MD Primary Care Provider Encounter Details Date Type Department Care Team (Late st Contact Info) Description 02/24/2024 Community Orders EPICCARE LINK DFLT [facility] Jeanne Rodgers MD [address] [place] [address] Social History Tobacco Use Types Packs/Day Years [...] Description 11/29/2024 10:15 AM EDT Office Visit [facility], Weight Management 505 [facility] [place] [address] [place] [address] Winsome Blackburn MD [address] [place] [address] 11/29/2024 11:00 AM EDT Telemedicine Support [facility], Weight Management [address] [address] Ju Jacinto [address] [place] [id number] 11/29/2024 11:45 AM EDT Nutrition [facility], Clinical Nutrition [address] [address] Cindy Juan, RD [address] [place] [address] documented as of this encounter Visit Diagnoses Not on filedocumented in this encounter Care Teams Groundsman Relationship Specialty Start Date End Date Jeanne Rodgers MD [address] [place], [place] [id number] PCP - General 01/03/20 09/05/24 Vivian Robertson MD [address] [place], [place] [phone] PCP - General General Pediatrics 09/06/24 documented as of this encounter
--- OUTSIDE RECORDS SUMMARY | 2024-09-07 16:34 | XMS_ITS | Encounter Summary ---
Author Organization [facility] Address [address] [place] [address] Care Team Providers Care Musical Instrument Maker Name Role Phone Jeanne Rodgers MD Primary Care Provider [phone] Vivian Robertson MD Primary Care Provider Reason for Visit * Reason Comments Medication Refill Encounter Details Date Type Department Care Team ([facility] st Contact Info) Description 07/01/2021 Refill [facility] Gastroenterology[address] [address] Brody Wilson MD [address] [place] [address] Gastroesophageal reflux disease, unspecified whether esophagitis present [...] Telephone Encounter - Sita Silva RN - 07/01/2021 9:26 AM EST Last seen 06-04-21 Dose correct No pending appts documented in this encounter Plan of Treatment Upcoming Encounters Date Type Department Care Team (Late st Contact Info) Description 11/29/2024 10:15 AM EDT Office Visit [facility], Weight Management [address] [address] Winsome Blackburn MD [address] [place] [address] 11/29/2024 11:00 AM EDT Telemedicine Support [facility], Weight Management 505 [place] [address] Ju Jacinto [address] [place] [address] 11/29/2024 11:45 AM EDT Nutrition [facility], Clinical Nutrition [address] [place] [address] Cindy Juan, RD [address] [place] [address] documented as of this encounter Visit Diagnoses Diagnosis Gastroesophageal reflux disease, unspecified whether esophagitis present documented in this encounter Care Teams Musical Instrument Maker Relationship Specialty Start Date End Date Jeanne Rodgers MD [address] [place] [address] PCP - General 01/03/20 09/05/24 Vivian Robertson MD [address] [place] [address] PCP - General General Pediatrics 09/06/24 documented as of this encounter
--- OUTSIDE RECORDS SUMMARY | 2024-09-07 16:34 | XMS_ITS | Encounter Summary ---
Author Organization [facility] Address [address] [place] [address] Care Team Providers Care Gold Beater Name Role Phone Jeanne Rodgers MD Primary Care Provider Vivian Robertson MD Primary Care Provider [phone] Reason for Visit * Reason Comments Medication Refill Encounter Details Date Type Department Care Team (Late st Contact Info) Description 12/24/2020 Refill [facility] Gastroenterology[address] [address] Kiersten Salazar, RESIDENT CARE COORDINATOR [address] [place] [address] Gastroesophageal reflux disease, unspecified whether esophagitis present [...] Description 11/29/2024 10:15 AM EDT Office Visit [facility], Weight Management [address] [address] Winsome Blackburn MD [address] [place] [address] 11/29/2024 11:00 AM EDT Telemedicine Support [facility], Weight Management [address] [address] Ju Jacinto [address] [place] [address] 11/29/2024 11:45 AM EDT Nutrition [facility], Clinical Nutrition [address] [place] [address] Cindy Juan, YANET [address] [place] [address] documented as of this encounter Visit Diagnoses Diagnosis Gastroesophageal reflux disease, unspecified whether esophagitis present documented in this encounter Care Teams Gold Beater Relationship Specialty Start Date End Date Jeanne Rodgers MD [address] [place] [address] PCP - General 01/03/20 09/05/24 Vivian Robertson MD [address] [place] [address] PCP - General General Pediatrics 09/06/24 documented as of this encounter
--- OUTSIDE RECORDS SUMMARY | 2024-09-07 16:34 | XMS_ITS | Encounter Summary ---
Author Organization [facility] Address [address] [place] [address] Care Team Providers Care Floodplain Manager Name Role Phone Jeanne Rodgers MD Primary Care Provider [phone] Vivian Robertson MD Primary Care Provider [phone] Reason for Visit * Reason Comments Medication Refill Encounter Details Date Type Department Care Team ([facility] st Contact Info) Description 05/26/2021 Refill [facility] Gastroenterology[address] [address] Angelique Rebolledo, QUARRYING MANAGER[address] [address] Gastroesophageal reflux disease, unspecified whether esophagitis present [...] Telephone Encounter - Ave Moreland RN - 05/27/2021 9:42 AM EST Refill request for protonix Last seen: 09/17/2020 Angelique Rebolledo APRN Next appt: Visit date not found Allergies verified Medication Verified Needs f/u appt documented in this encounter Plan of Treatment Upcoming Encounters Date Type Department Care Team (Late st Contact Info) Description 11/29/2024 10:15 AM EDT Office Visit [facility], Weight Management [address] [address] Winsome Blackburn MD [address] [place] [address] 11/29/2024 11:00 AM EDT Telemedicine Support [facility], Weight Management [address] [address] Ju Jacinto [address] [place] [address] 11/29/2024 11:45 AM EDT Nutrition [facility], Clinical Nutrition [address] [address] Cindy Juan, YANET [address] [place] [address] documented as of this encounter Visit Diagnoses Diagnosis Gastroesophageal reflux disease, unspecified whether esophagitis present documented in this encounter Care Teams Floodplain Manager Relationship Specialty Start Date End Date Jeanne Rodgers MD [address] [place] [address] PCP - General 01/03/20 09/05/24 Vivian Robertson MD [address] [place] [address] PCP - General General Pediatrics 09/06/24 documented as of this encounter
--- OUTSIDE RECORDS SUMMARY | 2024-09-07 16:34 | XMS_ITS | Encounter Summary ---
Author Organization [facility] Address [address] [place] [address] Care Team Providers Care Fitness Studies Teacher Name Role Phone Jeanne Rodgers MD Primary Care Provider Vivian Robertson MD Primary Care Provider Reason for Visit * Reason Comments Medication Refill Encounter Details Date Type Department Care Team (Late st Contact Info) Description 10/08/2021 Refill [facility] Gastroenterology, [address], [address] [place] [address] Angelique Rebolledo, WATER FABRICATOR OPERATOR [address] [place] [address] Gastroesophageal reflux disease, unspecified whether esophagitis present [...] Telephone Encounter - Sita Silva RN - 10/16/2021 1:16 PM EDT Last seen 06-04-21 Dose correct No pending appts documented in this encounter Plan of Treatment Upcoming Encounters Date Type Department Care Team (Late st Contact Info) Description 11/29/2024 10:15 AM EDT Office Visit [facility], Weight Management [address] [place] [address] Winsome Blackburn MD [address] [place] [address] 11/29/2024 11:00 AM EDT Telemedicine Support [facility], Weight Management [address] [place] [address] Ju Jacinto [address] [place] [address] 11/29/2024 11:45 AM EDT [facility], Clinical Nutrition [address] [place] [phone] Cindy Juan, YANET [address] [place] [address] documented as of this encounter Visit Diagnoses Diagnosis Gastroesophageal reflux disease, unspecified whether esophagitis present documented in this encounter Care Teams Fitness Studies Teacher Relationship Specialty Start Date End Date Jeanne Rodgers MD [address] [place] [address] PCP - General 01/03/20 09/05/24 Vivian Robertson MD [address] [place] [address] PCP - General General Pediatrics 09/06/24 documented as of this encounter
--- OUTSIDE RECORDS SUMMARY | 2024-09-07 16:34 | XMS_ITS | Clinical Summary ---
Author Organization [facility] Address [address] [place] [address] Care Team Providers Care Coffin Maker Name Role Phone Yvon Pandey MD Primary Care Provider [phone] Marylou, Jude RPH Unavailable Marylou, Jude RPH Unavailable Marylou, Jude RPH Unavailable Marylou, Jude RPH Unavailable Marylou, Jude RPH Unavailable Allergies Active Allergy Reactions Criticality Noted Date Comments Aripiprazole Diarrhea,Dyskinesia/ Dystonia Medium 09/12/2018 Chlorpromazine Dyskinesia/Dystonia, Other (See Comments) Medium 09/23/2018 Mother unsure Valproic Acid GI Intolerance/Nausea/V omiting Low 12/30/2021 Haloperidol Dyskinesia/Dystonia, Other (See Comments) Medium 09/23/2018 Mother unsure No Known Food Allergy Unknown/Patient an d Family Unable to Define Medium 09/03/2018 Olanzapine Other (See Comments),Dyskinesia /Dystonia Medium 09/09/2018 Reported facial ticks and erratic behaviors Medications * This document contains information received from the source organization and may not represent a complete record from that organization. Levonorgestrel-Et hinyl Estrad (LESSINA PO) Take 1 tablet by mouth daily. Active docusate sodium (COLACE) 100 MG capsuleIndication s:Constipation, unspecified constipation type Take 1 capsule (100 mg total) by mouth nightly. 30 capsule 2 Active famotidine (PEPCID) 40 MG tabletIndications :Autism spectrum disorder Take 1 tablet (40 mg total) by mouth daily. Do not start before March 01, 2022. 30 tablet 2 Active PANTOprazole (PROTONIX) 40 MG EC tabletIndications :Autism spectrum disorder Take 1 tablet (40 mg total) by mouth daily. Do not start before March 01, 2022. 30 tablet 2 Active traZODone (DESYREL) 150 MG tabletIndications :Autism spectrum disorder Take 1 tablet (150 mg total) by mouth nightly. 30 tablet 2 Active hydrOXYzine HCl (ATARAX) 50 MG tabletIndications :Autism spectrum disorder Take 1 tablet (50 mg total) by mouth 4 times daily (every 6 hours) as needed for anxiety. 30 tablet 2 Active QUEtiapine (SEROquel) 50 MG tabletIndications :Autism spectrum disorder Take 1 tablet (50 mg total) by mouth 4 times daily (every 6 hours) as needed (agitation) . 14 tablet 1 4 Active benztropine (COGENTIN) 0.5 MG tabletIndications :Autism spectrum disorder Take 1 tablet (0.5 mg total) by mouth 2 (two) times a day. 28 tablet 1 4 Active fluPHENAZine (PROLIXIN) 2.5 MG tabletIndications :Autism spectrum disorder Take 3 tablets (7.5 mg total) by mouth 3 (three) times a day. 126 tablet 1 4 Active QUEtiapine (SEROquel) 50 MG tablet Take 1 tablet (50 mg total) by mouth 2 (two) times a day. 14 tablet 4 Active ARIPiprazole (ABILIFY) 5 MG tablet Take 2.5 mg by mouth nightly. 06/01/19 19 Discontinu ed(Stop Taking at Discharge) Active Problems Problem Noted Date Diagnosed Date My Safety Plan 09/08/2023 Overview (09/08/2023): Jeanne Safety Plan Creation Date: 09/08/23 ?? Step 1: Warning signs: Warning Signs Start hurting self - hitting self, hitting head against wall, scratching Hearing voices Yelling ?? Step 2: Internal coping strategies - Things I can do to take my mind off my problems without contacting another person: Strategies Music Sleep Weighted vest ?? Step 3: People and social settings that provide distraction: Name Contact Information Paulo Encarnacion ? Step 4: People whom I can ask for help during a crisis: Name Contact Information [facility]lysha Vazquez [facility] [address] Janeen Garza ?? Step 5: Professionals or agencies I can contact during a crisis: Clinician/Agency Name Phone Emergency Contact Mom ?? Suicide Prevention Lifeline Phone: Call or Text 698 Crisis Text Line: Text HOME to 108580 ?? Step 6: Making the environment safer (plan for lethal means safety): -no access to firearms, keep medications locked/out of access ?? Optional: What is most important to me and worth living for?: ?? Jeanne Safety Plan. Addie Bettencourt and Ambrose Mccurdy. Used with permission of the authors. 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 Aggressive behavior 05/26/2018 Depression 05/26/2018 Depression with suicidal ideation 08/19/2017 Depressive disorder 08/19/2017 Threatening to others 08/19/2017 Suicidal ideation 08/19/2017 Encounters Date Type Department Care Team Description 07/02/2024 10:01 AM EST Hospital Encounter [facility] [address] [place] [address] Man Sims MD 07/02/2024 9:30 AM EST Office Visit [facility] [employer] [address] [place] [address] Man Sims MD Prucker, Haylie A, PA-C Soft tissue injury of finger of right hand, initial encounter (Primary Dx); Pain of finger of right hand 07/02/2024 Travel from Last 3 Months Family History Medical History Relation Name Comments Drug abuse Father Suicide completion Maternal Uncle Anxiety disorder Mother Depression Mother Relation Name Status Comments Father Maternal Uncle Mother Social History Tobacco Use Types Packs/Day Years Used Date Smoking Tobacco: Never Smokeless Tobacco: Never Tobacco Cessation:Counseling Given: Not Answered Alcohol Use Standard Drinks/Week Comments No 0 [...] Orientation Heterosexual (straight) 01/07 9:10 PM EDT Last Filed Vital Signs Vital Sign Reading Time Taken Comments Blood Pressure 118/80 07/02/2024 9:53 AM EST Pulse 96 07/02/2024 9:53 AM EST Temperature 36.6 ??C (97.9 ??F) 07/02/2024 9:53 AM ES T Respiratory Rate 18 09/20/2023 2:49 PM EDT Oxygen Saturation 98% 07/02/2024 9:53 AM EST Inhaled Oxygen Concentration - - Weight 95.3 kg (210 lb) 07/02/2024 9:53 AM EST Height 160 cm (5' 3 ) 07/02/2024 9:53 AM EST Body Mass Index 37.2 07/02/2024 9:53 AM EST Plan of Treatment Health Maintenance Due Date Last Done Comments HPV Vaccines (1 - 3-dose series) 11/30/2018 DTaP/Tdap/Td Vaccines (1 - Tdap) 11/30/2022 Hepatitis B Vaccines (1 of 3 - 19+ 3-dose series) 11/30/2022 COVID-19 Vaccine ( season) 2024 Influenza Vaccine 12/02/2024 02/06/2019, , 03/03/2017, Additional history exists HIV Screening Completed 11/02/2018 Hepatitis C Virus Screening Completed 11/02/2018 Influenza Vaccine Discontinued 02/06/2019, , 03/03/2017, Additional history exists Pneumococcal Vaccine: Pediatric (0-5 Years) and At-Risk Patients (6 to 49 Years) Aged Out No longer eligible based on patient's age to complete this topic Procedures Procedure Name Priority Date/Time Associated Diagnosis Comments XR FINGER (4TH) 2+ VIEWS-RIGHT STAT 07/02/2024 10:08 AM EST Pain of finger of right hand HIV 1/2 AG/AB CMIA REFLEX TO CONFIRMATION Routine 11/02/2018 8:00 AM EDT HEPATITIS C ANTIBODY REFLEX HCV RT-PCR, QUANT Routine 11/02/2018 8:00 AM EDT from Last 3 Months or Most Recently Relevant to Health Maintenance Results * XR Finger (4th) 2+ views-Right [...] IMG DIAGNOSTIC IMAGING ORD ERABLES Final Result * Hepatitis C Antibody reflex HCV RT-PCR, Quant (11/02/2018 8:00 AM EDT) Hepatitis C Antibody 0.19 0.00 - 0.79 S/CO ratio HOSPITAL LAB Comment: Nonreactive Performed at [facility], [place], [place] License [id number] ??CLIA [id number] 11/02/2018 8:00 AM EDT 11/02/2018 1:58 PM EDT us Raquel Tello MANAGER [facility] BLOOD ORDERABLES Zamzam l Result HOSPITAL LAB * HIV 1/2 Ag/Ab CMIA Reflex to Confirmation (11/02/2018 8:00 AM EDT) HIV 1/2 Ag/Ab CMIA Nonreactive Nonreactive HOSPITAL LAB Comment: Results show no evidence of infection by HIV 1/2. If clinically indicated, repeat CMIA or test by nucleic acid amplification. Performed at [facility], [place], [place] ??[place] License [id number] ??CLIA [id number] 11/02/2018 8:00 AM EDT 11/02/2018 1:58 PM EDT us Raquel Tello MANAGER [facility] BLOOD ORDERABLES Zamzam l Result HOSPITAL LAB from Last 3 Months or Most Recently Relevant to Health Maintenance Insurance [facility] Advance Directives * Full Code (Latest Code Status on File) Date Activated Date Inactivated Comments 09/01/2023 10:21 AM 09/10/2023 8:48 AM * Full Code Date Activated Date Inactivated Comments 08/31/2023 12:10 PM 09/01/2023 10:21 AM * Full Code Date Activated Date Inactivated Comments 02/14/2022 4:15 PM 08/27/2023 5:14 AM * Full Code Date Activated Date Inactivated Comments 01/07/2022 8:36 PM 02/03/2022 2:22 PM * Full Code Date Activated Date Inactivated Comments 09/03/2018 9:20 PM 09/12/2018 5:40 PM Question Answer Comments Decision Thoroughly Discussed with: Patient Care Teams Coffin Maker Relationship Specialty Start Date End Date Yvon Pandey MD [address] [place] [address] PCP - General Pediatric, General 08/19/17 [facility] [address] [facility] [place], [place] [phone] Pharmacist 08/20/17 Jude Hickman [facility] [address] [facility], [place] [id number] Pharmacist 05/31/18 [facility] [address] [facility], [place] [phone] Pharmacist 09/13/18 uJde Hickman [facility] [address] [facility] [place] [address] Pharmacist 09/21/18 Jude Hickman [facility] [address] [facility] [place] [address] Pharmacist 10/18/18
--- OUTSIDE RECORDS SUMMARY | 2024-09-07 16:34 | XMS_ITS | Clinical Summary ---
Author Organization [facility] Address [address] [place] [address] Care Team Providers Care Chef Under Name Role Phone Vivian Robertson MD Primary Care Provider [phone] Source Comments Please note that some or all of the patient's information could have additional privacy protections. State laws allow health care providers to render certain types of treatment to minors without parental consent. Please do not assume that this information can be shared solely by obtaining just the consent of the patient's parent/guardian. Please determine if all or part of the patient's care was rendered without parent/guardian involvement. And, if so, obtain the minor's consent prior to disclosure.[facility] Allergies Active Allergy Reactions Criticality Noted Date Comments Aripiprazole Diarrhea Medium 09/12/2018 Cariprazine Other (See Comments) Medium 07/12/2022 Per father, UNSURE what reactions are to them Chlorpromazine Other (See Comments) Medium 09/23/2018 Mother unsure Haloperidol Other (See Comments) Medium 09/23/2018 Mother unsure Lactose (Intolerance) 09/17/2020 Mother reports lactaid pills used as needed Olanzapine Other (See Comments) Medium 09/09/2018 Reported facial ticks and erratic behaviors Risperidone Other (See Comments) Medium 09/15/2022 Galactorrhea Valproic Acid Nausea And Vomiting Low 12/30/2021 Medications levomefolate (L-METHYLFOLATE) 7.5 mg Tablet tablet Take 7.5 mg by mouth daily Active cholecalciferol, vitamin D3, (VITAMIN D3) 25 mcg (1,000 unit) tablet Take 2,000 Units by mouth Active docusate (COLACE) 100 MG capsule Take by mouth 2 (two) times daily Active levonorgestrel-et hinyl estradiol (AVIANE,ALESSE,LE SSINA) 0.1-20 mg-mcg per tablet Take by mouth daily Active traZODone (DESYREL) 150 MG tablet Take 150 mg by mouth Active benztropine (COGENTIN) 0.5 MG tablet Take 0.5 mg by mouth 2 (two) times daily Active fluphenazine (PROLIXIN) 5 MG tablet TAKE 1 TABLET BY MOUTH THREE TIMES DAILY Active hydrOXYzine (ATARAX) 25 MG tablet Active naltrexone (DEPADE) 50 mg tablet Take 25 mg by mouth daily Active omega 4-mej-gag-fish oil (FISH OIL) 1,200 (144-216) mg Capsule Take by mouth Active fluPHENAZine (PROLIXIN) 2.5 MG tablet 4 Active famotidine (PEPCID) 40 MG tabletIndications :Gastroesophageal reflux disease, unspecified whether esophagitis present,Other constipation TAKE 1 TABLET(40 MG) BY MOUTH TWICE DAILY 180 tablet 4 Active QUEtiapine (SEROQUEL) 50 MG tablet Take 50 mg by mouth 4 Active polyethylene glycol (MIRALAX) 17 gram/dose powder Take 17 g by mouth daily Active dexlansoprazole (DEXILANT) 30 mg capsuleIndication s:Gastroesophagea l reflux disease, unspecified whether esophagitis present,Vomiting, unspecified vomiting type, unspecified whether nausea present Take 1 capsule (30 mg) by mouth daily 30 capsule 2 5 10/18/19 25 Active Active Problems Patient Care Coordination No te Formatting of this note migh t be different from the original. [facility] Nedra Brown LCSW, Clinical Dramatic Teacher, (05.20.2018) Re-referral: Kaylee Garcia LCSW - Tel. [phone] (03.01.2024) Problem Noted Date Diagnosed Date Gastroesophageal reflux dise ase, unspecified whether esophagitis present 09/17/2020 Overview (09/17/2020): Added automatically from request for surgery [id number] Behavior problem in pediatric patient 06/15/2018 Syncope, unspecified syncope type 06/24/2017 DMDD (disruptive mood dysregulation disorder) Encounters Date Type Department Care Team Description 09/06/2024 Community Orders EPICCARE LINK DFLT Vivian Roland MD Left hip pain (Primary Dx) 07/12/2024 8:05 AM EDT Ancillary Procedure [facility] OR IMAGING [address] [place] [phone] Brody Wilson MD 07/12/2024 8:01 AM EDT Anesthesia Event [facility] [address] [place] [address] Jonathan Perdue MD Breitmaier, Mallory, NP 07/12/2024 7:51 AM EDT - 07/12/2024 8:21 AM EDT Surgery [facility] [address] [place], [place] [phone] Brody Wilson MD PANENDOSCOPY BIOPSY/EGD/UPPER ENDOSCOPY 07/12/2024 6:53 AM EDT - 07/12/2024 9:45 AM EDT Hospital Encounter [facility] [address] [place] [address] Brody Wilson MD Discharge Disposition: Home or Self Care 06/27/2024 Orders Only [facility] Diagnostic Imagin [address] [phone] Radiology, Radiologist, MD 06/14/2024 2:15 PM EST Office Visit [facility] G[facility]ology, [place] [address] [facility] [address] [place] [address] Angelique Rebolledo, KARENA Gastroesophageal reflux disease, unspecified whether esophagitis present (Primary Dx) from Last 3 Months Family History Medical History Relation Name Comments ADD / ADHD Brother 1 Anxiety disorder Brother 1 Autism Brother 1 Depression Brother 1 Developmental delay Brother 2 Justice Eliazar Learning disabilities Brother 2 Justice Eliazar Obesity Brother 3 José Miguel Mayorga Anxiety disorder Father José Miguel Mayorga Depression Father José Miguel Mayorga Gallbladder disease Father José Miguel Mayorga Obesity Father José Miguel Mayorga Anemia Maternal Grandmother Naomi Pendleton Thalass emia Anesthesia problems Maternal Grandmother Naomi Pendleton PONV Asthma Maternal Grandmother Naomi Pendleton All the time Cancer Maternal Grandmother Naomi Pendleton Breast x 3/had breast surgery to remove them Depression Maternal Grandmother Naomi Pendleton Diabetes Maternal Grandmother Naomi Pendleton Type 2 Esophagitis Maternal Grandmother Naomi Pendleton ROSANGELA disease Maternal Grandmother Naomi Pendleton Hypertension Maternal Grandmother Naomi Pendleton Anxiety disorder Maternal Uncle 1 Anemia Maternal Uncle 2 Dejuan Pendleton Thallasse sarah Gallbladder disease Maternal Uncle 2 Dejuan Pendleton Hypertension Maternal Uncle 2 Dejuan Pendleton Anesthesia problems Maternal great-grandmother PONV Anemia Mother Jazmine Pendleton Thalassemia Anesthesia problems Mother Jazmine Pendleton PONV Anxiety disorder Mother Jazmine Pendleton Asthma Mother Jazmine Pendleton Seasonal Autoimmune disease Mother Jazmine Pendleton Psoriat ic Arthritis, Thalassemia Anemia, Antiphosphilipid Syndrome, Hx DVT/PE, Depression Mother Jazmine Pendleton Esophagitis Mother Jazmine Pendleton ROSANGELA disease Mother Jazmine Pendleton Gallbladder disease Mother Jazmine Pendleton Irritable bowel syndrome Mother Jazmine Pendleton Obesity Mother Jazmine Pendleton Anxiety disorder Paternal Aunt Anxiety disorder Paternal Uncle ADD / ADHD Sister 1 Aura Mayorga Anxiety disorder Sister 1 Aura Mayorga Autism Sister 1 Aura Mayorga Depression Sister 1 Aura Mayorga ROSANGELA disease Sister 1 Aura Mayorga Obesity Sister 1 Aura Mayorga Anemia Sister 2 Mine Mayorga Thalassemia Depression Sister 2 Mine Mayorga Diabetes Sister 2 Mine Mayorga Pre ROSANGELA disease Sister 2 Mine Mayorga Obesity Sister 2 Mine Mayorga Relation Name Status Comments Brother 1 Brother 2 Justice Mayorga Brother 3 José Miguel Mayorga Father José Miguel Mayorga Maternal Grandmother Naomi Pendleton Maternal Uncle 1 Maternal Uncle 2 Dejuan Pendleton Maternal great-grandmother Mother Jazmine Pendleton Other Great Uncle completed suici de Paternal Aunt Paternal Uncle Sister 1 Aura Mayorga Sister 2 Mine Mayorga Social History Tobacco Use Types Packs/Day Years Used Date Smoking Tobacco: Never Passive Smoke Exposure: Yes Smokeless Tobacco: Never Tobacco Cessation:Counseling Given: Not Answered Comments:MOM and dad Alcohol Use Standard Drinks/Week Comments No 0 (1 standard drink = 0.6 oz pur e alcohol) Comments No Sex and Gender Information Value Date Recorded Sex Assigned at Female 09/16/2020 11:50 PM EDT Legal Sex Female 2:19 AM EST Gender Identity Female 09/16/2020 11:50 PM EDT Sexual Orientation Straight 09/16/2020 11 :50 PM EDT Last Filed Vital Signs Vital Sign Reading Time Taken Comments Blood Pressure 121/87 07/12/2024 9:16 AM EDT Pulse 111 07/12/2024 9:16 AM EDT Temperature 36.7 ??C (98.1 ??F) 07/12/2024 9:16 AM ED T Respiratory Rate 21 07/12/2024 9:16 AM EDT Oxygen Saturation 96% 07/12/2024 9:16 AM EDT Inhaled Oxygen Concentration - - Weight 119 kg (262 lb 5.6 oz) 07/12/2024 7:21 AM EDT Height 163 cm (5' 4.17 ) 07/12/2024 7:21 AM EDT Body Mass Index 44.79 07/12/2024 7:21 AM EDT Plan of Treatment Upcoming Encounters Date Type Department Care Team (Late st Contact Info) Description 11/29/2024 10:15 AM EDT Office Visit [facility], Weight Management [address] [place] [address] Winsome Blackburn MD [address] [place] [address] 11/29/2024 11:00 AM EDT Telemedicine Support [facility], Weight Management [address] [place] [address] Ju Jacinto [address] [place], [place] [phone] 11/29/2024 11:45 AM EDT Nutrition [facility], Clinical Nutrition [address] [place] [address] Cindy Juan, YANET [address] [place] [address] Health Maintenance Due Date Last Done Comments DTaP/TDAP/TD VACCINES (1 - Tdap) 11/30/2010 ADOLESCENT HIV SCREENING 11/30/2016 COVID-19 Vaccine (2023-2 5 season) 2024 INFLUENZA Discontinued NIRSEVIMAB VACCINES UNDER 8 MONTHS Aged Out No longer eligible b ased on patient's age to complete this topic Procedures Procedure Name Priority Date/Time Associated Diagnosis Comments ES INTRAOPERATIVE IMAGING Routine 07/12/2024 8:01 AM EDT NC EGD TRANSORAL BIOPSY SINGLE/MULTIPLE 07/12/2024 7:56 AM EDT Gastroesophageal reflux disease, unspecified whether esophagitis present Special Needs Autism, ADHD,Asthma POCT, , URINE(ED&IP) Routine 07/12/2024 7:35 AM EDT SURGICAL PATHOLOGY EXAM Routine 07/12/2024 12:00 AM EDT FL UPPER GI OUTSIDE STUDY 06/21/2024 12:00 AM EST VITAMIN D 25 HYDROXY Routine 06/14/2024 2:55 PM EST Gastroesophageal reflux disease, unspecified whether esophagitis present TSH AND FREE T4 Routine 06/14/2024 2:55 PM EST Gastroesophageal reflux disease, unspecified whether esophagitis present TISSUE TRANSGLUTAMINASE, IGA Routine 06/14/2024 2:55 PM EST Gastroesophageal reflux disease, unspecified whether esophagitis present IMMUNOGLOBULIN A, QUANTITATIVE Routine 06/14/2024 2:55 PM EST Gastroesophageal reflux disease, unspecified whether esophagitis present GAMMA GLUTAMYL TRANS (GGT) Routine 06/14/2024 2:55 PM EST Gastroesophageal reflux disease, unspecified whether esophagitis present ERYTHROCYTE SEDIMENT RATE (ESR) Routine 06/14/2024 2:55 PM EST Gastroesophageal reflux disease, unspecified whether esophagitis present ENDOMYSIAL IGA AB SCREEN, REFLEX TO TITER Routine 06/14/2024 2:55 PM EST Gastroesophageal reflux disease, unspecified whether esophagitis present COMPREHENSIVE METABOLIC PANEL Routine 06/14/2024 2:55 PM EST Gastroesophageal reflux disease, unspecified whether esophagitis present CBC WITH AUTO DIFFERENTIAL Routine 06/14/2024 2:55 PM EST Gastroesophageal reflux disease, unspecified whether esophagitis present from Last 3 Months Results * ES Intraoperative Imaging (07/12/2024 8:01 AM EDT) Narrative 07/12/2024 8:01 AM EDT NOTE: ??These images were obtained as part of an Operating Room procedure. An interpretation of these images in not included in the Radiology PACS system. ??Please refer to Operative Notes. us Brody Wilson MD OR ENDO IMAGING Final Result * POCT,,urine(ED&IP) (07/12/2024 7:35 AM EDT) Preg Test, Ur Negative Negative [facility] POCT Lot Number [id number] [facility] POCT QC Check [facility] POCT Urine URINE SPECIMEN / Unknown 07/12/2024 7:35 AM EDT Brody Wilson MD POINT OF CARE TEST ORDERABLE S Final Result [facility] POCT CLIA ID: [id number] State ID: [id number] [place] [id number] * Surgical pathology exam (07/12/2024 12:00 AM EDT) [facility] [id number] ?? CLIA ID [id number] [address] [place], [place] ??[address] / [phone] Surgical Pathology Report PATIENT NAME: QUOC MAYORGA [facility] REC NUMBER: [id number] (AGE): 2005 (Age: 18) SPECIMEN NUMBER: [id number] DATE OBTAINED: 07/12/2024 DIAGNOSIS A ??DUODENUM, BIOPSY: ??DUODENAL MUCOSA; NO INTRAEPITHELIAL LYMPHOCYTOSIS; NORMAL VILLOUS ARCHITECTURE. ?? B ??STOMACH, BIOPSY: ??GASTRIC OXYNTIC MUCOSA; NO HELICOBACTER PYLORI ORGANISMS. ?? C ??ESOPHAGUS, BIOPSY: ??ESOPHAGEAL SQUAMOUS MUCOSA; NO EOSINOPHILS. ?? la/07/13/2024 Electronically Signed Out ? WAYNE CHRISTINE MD COMMENT [id number] X 3 Clinical Information and History: HX GE reflux F/U TRT 806 TIF 810 Tissue(s) Submitted: A: DUODENUM B: STOMACH C: ESOPHAGUS Gross Description: Specimen A is received in formalin labeled per the requisition as duodenum and consists of four meyers-white to meyers-pink irregular soft tissues ranging in size from 0.2 cm to 0.3 cm in greatest dimension. ??The specimen is submitted in toto labeled A1. Specimen B is received in formalin labeled per the requisition as stomach and consists of three meyers-white to meyers-pink irregular soft tissues ranging in size from 0.2 cm to 0.3 cm in greatest dimension. ??The specimen is submitted in toto labeled B1. Specimen C is received in formalin labeled per the requisition as esophagus and consists of three meyers-white irregular soft tissues ranging in size from 0.2 cm to 0.3 cm in greatest dimension. ??The specimen is submitted in toto labeled C1. [facility] Tissue (Esophagus, Distal third) 07/12/2024 07/12/2024 1:07 PM EDT us Brody Wilson MD PATHOLOGY/CYTOLOGY ORDERABLE S Final Result [facility] [address] [place] [phone], [facility] [phone] * FL upper gi outside study (06/21/2024 12:00 AM EST) 06/27/2024 1:40 PM EST Narrative [facility] - 06/27/2024 1:40 PM EST This is a non-reportable study used for image storage. It has been automatically finalized and does not contain a result. Procedure Note Radiology, Paper [facility] - 06/27/2024 This is a non-reportable study used for image storage. It has beenautomatically finalized and does not contain a result. Radiologist Radiology RAD FLUOROSCOPY ORDERAB LES Final Result Performing Organization Address [facility]/ZIP Co de Phone Number [facility] [address] [place], [place] [id number] * TSH and Free T4 (06/14/2024 2:55 PM EST) TSH 1.49 mIU/L [facility] Comment: ?Reference Range ?> or = 20 Years ??0.40-4.50 ? Ranges ?First trimester ?0.26-2.66 ?Second trimester ?? 0.55-2.73 ?Third trimester ?0.43-2.91 Free T4 0.9 0.8 - 1.4 ng/dL [facility] Blood 06/14/2024 2:55 PM EST 06/14/2024 2:56 PM EST Narrative [facility] - 06/17/2024 8:09 AM EST FASTING:NO FASTING: NO Resulting Agency Comment Performing Organization Information: ?Site ID: [id number] ?Name: [facility] ?Address: [address] [place] [phone] ?Director: Tita Gonzalez M.D. Angelique Rebolledo APRN LAB BLOOD ORDERABLES Fin al Result Performing Organization Address City/[facility]/ZIP Co de Phone Number [facility] [address] [phone] [facility] [address] [place] [address] * Erythrocyte Sediment Rate (ESR) (06/14/2024 2:55 PM EST) [facility] Sed Rate by Modified Westergren 17 < OR = 20 mm/h [facility] [employer] Blood 06/14/2024 2:55 PM EST 06/14/2024 2:56 PM EST Narrative [facility] - 06/17/2024 8:09 AM EST FASTING:NO FASTING: NO Resulting Agency Comment Performing Organization Information: ?Site ID: [id number] ?Name: [facility] ?Address: [address] [place] [phone] ?Director: Tita Gonzalez M.D. Angelique Rebolledo FILM PROCESS OPERATOR LAB BLOOD ORDERABLES Fin al Result [facility] [address] [phone] [facility] [address] [place] [address] * CBC auto differential (06/14/2024 2:55 PM EST) [facility] WBC 7.3 3.8 - 10.8 Thousand/u L [facility] [employer] [employer] RBC 4.44 3.80 - 5.10 Million/uL [facility] [employer] Hemoglobin 13.8 11.7 - 15.5 g/dL [facility] Hematocrit 40.3 35.0 - 45.0 % [facility] MCV 90.8 80.0 - 100.0 fL [facility] MCH 31.1 27.0 - 33.0 pg [facility] [employer] [facility] MCHC 34.2 32.0 - 36.0 g/dL [facility] Comment: For adults, a slight decrease in the calculated MCHC value (in the range of 30 to 32 g/dL) is most likely not clinically significant; however, it should be interpreted with caution in correlation with other red cell parameters and the patient's clinical condition. RDW 11.9 11.0 - 15.0 % [facility] [employer] Platelets 340 140 - 400 Thousand/u L [facility] MPV 9.7 7.5 - 12.5 fL [facility] [employer] Neutrophils Absolute 4,285 1,500 - 7,800 cells/uL [facility] Lymphocytes Absolute 2,321 850 - 3,900 cells/uL [facility] Monocytes Absolute 409 200 - 950 cells/uL [facility] Eosinophils Absolute 234 15 - 500 cells/uL [facility] Basophils Absolute 51 0 - 200 cells/uL [facility] Neutrophils 58.7 % [facility] [employer] Lymphs 31.8 % [facility] Monocytes 5.6 % [facility] [employer] Eos 3.2 % [facility] [employer] Basos 0.7 % [facility] Blood 06/14/2024 2:55 PM EST 06/14/2024 2:56 PM EST Narrative [facility] - 06/17/2024 8:09 AM EST FASTING:NO FASTING: NO Resulting Agency Comment Performing Organization Information: ?Site ID: [id number] ?Name: [facility] [employer] ?Address: [address] [place] [phone] ?Director: Tita Gonzalez M.D. Angelique Rebolledo APRN LAB BLOOD ORDERABLES Fin al Result [facility] [address] [place] [address] [facility] [address] [place] [address] * Endomysial antibody, IgA titer (06/14/2024 2:55 PM EST) Endomysial IgA Negative Negative [facility] 06/14/2024 2:55 PM EST 06/14/2024 2:56 PM EST Narrative [facility] - 06/17/2024 8:09 AM EST FASTING:NO FASTING: NO Resulting Agency Comment Performing Organization Information: ?Site ID: [id number] ?Name: [facility] ?Address: [address] [place] [address] [place] ?Director: Fernando Martinez M.D.,PhD Angelique Rebolledo APRN LAB BLOOD ORDERABLES Fin al Result Performing Organization Address [facility] de Phone Number [facility] [address] [facility]/[address] [place], [place] * Tissue transglutaminase, IgA (06/14/2024 2:55 PM EST) [facility] Signature Transglutaminase IgA <1.0 U/mL [facility] Comment: Value ?Interpretation ----- ? <15.0 ?Antibody not detected > or = 15.0 ?Antibody detected Blood 06/14/2024 2:55 PM EST 06/14/2024 2:56 PM EST Narrative [facility] - 06/17/2024 8:09 AM EST FASTING:NO FASTING: NO Resulting Agency Comment Performing Organization Information: ?Site ID: [id number] ?Name: [facility] ?Address: [address] [place] [phone] ?Director: Tita Gonzalez M.D. Angelique Rebolledo APRN LAB BLOOD ORDERABLES Fin al Result Performing Organization Address City/[facility]/ZIP Co de Phone Number [facility] [address] [place] [phone] [facility] [address] [place] [address] * Vitamin D 25 hydroxy (06/14/2024 2:55 PM EST) Vitamin D, 25-OH, Total, IA 46 30 - 100 ng/mL [facility] Comment: Vitamin D Status ? 25-OH Vitamin D: Deficiency: ?<20 ng/mL Insufficiency: ? 20 - 29 ng/mL Optimal: ? > or = 30 ng/mL For 25-OH Vitamin D testing on patients on D2-supplementation and patients for whom quantitation of D2 and D3 fractions is required, the [facility](TM) 25-OH VIT D, (D2,D3), LC/MS/MS is recommended: order code 66832 (patients >2yrs). See Note 1 Note 1 For additional information, please refer to http://education.[employer]/faq/XGP991 (This link is being provided for informational/ educational purposes only.) Blood 06/14/2024 2:55 PM EST 06/14/2024 2:56 PM EST Narrative [facility] - 06/17/2024 8:09 AM EST FASTING:NO FASTING: NO Resulting Agency Comment Performing Organization Information: ?Site ID: [id number] ?Name: [facility] ?Address: [address] [place] [phone] ?Director: Tita Gonzalez M.D. Angelique Rebolledo APRN LAB BLOOD ORDERABLES Fin al Result [facility] [address] [phone] [facility] [address] [place] [address] * Gamma GT (06/14/2024 2:55 PM EST) GGT 32 3 - 40 U/L [facility] [employer] Blood 06/14/2024 2:55 PM EST 06/14/2024 2:56 PM EST Narrative [facility] - 06/17/2024 8:09 AM EST FASTING:NO FASTING: NO Resulting Agency Comment Performing Organization Information: ?Site ID: [id number] ?Name: [facility] ?Address: [address] [place] [phone] ?Director: Tita Gonzalez M.D. Angelique Rebolledo APRN LAB BLOOD ORDERABLES Fin al Result Performing Organization Address [facility] Number [facility] [address] [place] [phone] [facility] [address] [place] [phone] * Immunoglobulin A, Quantitative (06/14/2024 2:55 PM EST) IgA 113 47 - 310 mg/dL [facility] [employer] Blood 06/14/2024 2:55 PM EST 06/14/2024 2:56 PM EST Narrative [facility] - 06/17/2024 8:09 AM EST FASTING:NO FASTING: NO Resulting Agency Comment Performing Organization Information: ?Site ID: [id number] ?Name: [facility] [employer] [employer] ?Address: [address] [place] [phone] ?Director: Tita Gonzalez M.D. Angelique Rebolledo APRN LAB BLOOD ORDERABLES Fin al Result Performing Organization Address [facility] Phone Number [facility] [address] [place] [phone] [facility] [address] [place] [phone] * Comprehensive metabolic panel (CMP): Na, K, CL, Co2, Gluc, Ca, BUN, Creat, B/C, T.Prot, Alb, Glb, A/G, AST, ALT, ALKP, T.Bili (06/14/2024 2:55 PM EST) Glucose 92 65 - 139 mg/dL [facility] Comment: ? Non-fasting reference interval BUN 11 7 - 25 mg/dL [facility] Creatinine 0.71 0.50 - 0.96 mg/dL [facility] EGFR 125 > OR = 60 mL/min/1. 73m2 [facility] BUN/Creatinine Ratio SEE NOTE: 6 - 22 (calc) [facility] Comment: ?? Not Reported: BUN and Creatinine are within ?? reference range. ? Sodium 138 135 - 146 mmol/L [facility] Potassium 4.2 3.5 - 5.3 mmol/L [facility] Chloride 108 98 - 110 mmol/L [facility] CO2 22 20 - 32 mmol/L [facility] Calcium 9.2 8.6 - 10.2 mg/dL [facility] Total Protein 6.5 6.1 - 8.1 g/dL [facility] Albumin 4.1 3.6 - 5.1 g/dL [facility] Globulin, Total 2.4 1.9 - 3.7 g/dL (calc) Proximetry A/G Ratio 1.7 1.0 - 2.5 (calc) Proximetry Total Bilirubin 0.3 0.2 - 1.2 mg/dL Proximetry Alkaline Phosphatase 67 31 - 125 U/L Proximetry AST 17 10 - 30 U/L Proximetry ALT 26 6 - 29 U/L Proximetry Blood 06/14/2024 2:55 PM EST 06/14/2024 2:56 PM EST Narrative P2[facility]-Next [facility] - 06/17/2024 8:09 AM EST FASTING:NO FASTING: NO Resulting Agency Comment Performing Organization Information: ?Site ID: [id number] ?Name: [email or web address] ?Address: [address] [place] [id number] ?Director: Tita Gonzalez M.D. Angelique Karina Rebolledo APRN LAB BLOOD ORDERABLES Fin al Result [facility] [address] [place] [address] [facility] [address] [place] [address] from Last 3 Months Insurance Care Teams Chef Under Relationship Specialty Start Date End Date Vivian Robertson MD [address] [place] [address] PCP - General General Pediatrics 09/06/24
--- OUTSIDE RECORDS SUMMARY | 2024-09-07 16:34 | XMS_ITS | Encounter Summary ---
Author Organization [facility] Address [address] [place] [address] Care Team Providers Care Compliance And Control Analyst Name Role Phone Jeanne Rodgers MD Primary Care Provider [phone] Vivian Robertson MD Primary Care Provider Reason for Visit * Reason Comments Medication Refill Encounter Details Date Type Department Care Team (Late st Contact Info) Description 01/24/2022 Refill [facility] Gastroenterology, [address] Floor, [address] [place] [address] Brody Wilson MD [address] [place] [address] Gastroesophageal reflux disease, unspecified whether esophagitis present [...] Telephone Encounter - Sita Silva RN - 01/27/2022 9:29 AM EDT Last seen 06-04-21 ?? Dose correct ?? No pending appts Refill sent - now requesting 90 day supply documented in this encounter Plan of Treatment Upcoming Encounters Date Type Department Care Team (Late st Contact Info) Description 11/29/2024 10:15 AM EDT Office Visit [facility], Weight Management [address] [address] Winsome Blackburn MD [address] [place] [address] 11/29/2024 11:00 AM EDT Telemedicine Support [facility], Weight Management [address] [place] [address] Ju Jacinto [address] [place] [address] 11/29/2024 11:45 AM EDT Nutrition [facility], Clinical Nutrition [address] [address] Cindy Juan, YANET [address] [place] [address] documented as of this encounter Visit Diagnoses Diagnosis Gastroesophageal reflux disease, unspecified whether esophagitis present documented in this encounter Care Teams Compliance And Control Analyst Relationship Specialty Start Date End Date Jeanne Rodgers MD [address] [place] [address] PCP - General 01/03/20 09/05/24 Vivian Robertson MD [address] [place] [address] PCP - General General Pediatrics 09/06/24 documented as of this encounter
--- OUTSIDE RECORDS SUMMARY | 2024-09-07 16:34 | XMS_ITS ---
Author Name [facility] Organization Unknown Results Test Name/Text Value Interpretation Date Range Source INFLUENZA A BY PCR INFLUENZA A NEGATIVE. Normal [id number] [facility] INFLUENZA B BY PCR INFLUENZA B NEGATIVE. Normal [id number] [facility] RPR NONREACTIVE Normal [id number] - [facility] GLYCOHEMOGLOBIN (A1C) 5.5% Normal [id number] 4 - 5.6 [facility] ALT (SGPT) 20U/L Normal [id number] 12 - 78 [facility] TSH 1.64uIU/mL Normal [id number] 0.35 - 4.5 [facility] POTASSIUM SERUM 4.6mmol/L Normal [id number] 3.5 - 5.1 C [facility] SODIUM 141mmol/L Normal [id number] 136 - 145 [facility] CO2 24mmol/L Normal [id number] 21 - 32 [facility] GLUCOSE 88mg/dL Normal [id number] 74 - 100 [facility] CHLORIDE 108mmol/L Above high normal [id number] 98 - 107 [facility] CREATININE 0.95mg/dL Normal [id number] 0.55 - 1.3 [facility] BUN 11mg/dL Normal [id number] 7 - 18 [facility] CALCIUM 9.8mg/dL Normal [id number] 8.5 - 10.1 [facility] PATIENT FASTING? NO Normal [id number] [facility] LDL 147 Above high normal [id number] 0 - 129 [facility] CHOLESTEROL 207mg/dL Above high normal [id number] - 200 [facility] HDL 46mg/dL Normal [id number] - [facility] TRIGLYCERIDE 72mg/dL Normal [id number] - 150 [facility] GFRE 81 Normal [id number] 60 - [facility] GGT 27U/L Normal [id number] 5 - 55 [facility] AST (SGOT) 17U/L Normal [id number] 15 - 37 [facility] LYMPHS 36% Normal [id number] 16 - 50 [facility] PLATELET COUNT 277K/uL Normal [id number] 150 - 480 [facility] MPV 10fL Normal [id number] 8 - 12 [facility] MCHC 32.8g/dL Normal [id number] 31 - 36 [facility] ABSOLUTE NUCLEATED RBC 0K/uL Normal [id number] 0 - 0.012 [facility] BASOPHILS 1% Normal [id number] 0 - 2 [facility] ABSOLUTE GRANULOCYTES 3.6K/uL Normal [id number] 2.2 - 7.3 [facility] MCH 31PG Normal [id number] 27 - 34 [facility] EOSINOPHILS 1% Normal [id number] 0 - 6 [facility] ABSOLUTE BASO 0.1K/uL Normal [id number] 0 - 0.2 [facility] GRANULOCYTES 55% Normal [id number] 23 - 78 [facility] RBC 5.08M/uL Normal [id number] 4 - 5.4 [facility] NUCLEATED RBC 0% Normal [id number] 0 - 0.2 [facility] HCT 47.9% Above high normal [id number] 36 - 46 [facility] WBC 6.6K/uL Normal [id number] 3.7 - 10.3 [facility] MONOCYTES 7% Normal [id number] 0 - 12 [facility] IMMATURE GRANULOCYTES 0% Normal [id number] 0 - 0.45 [facility] HGB 15.7g/dL Normal [id number] 12.1 - 15.7 [facility] ABSOLUTE LYMPHS 2.4K/uL Normal [id number] 1.5 - 4.9 C [facility] MCV 94fL Normal [id number] 83 - 102 [facility] ABSOLUTE IMMATURE GRANULOCYTES 0K/uL Normal [id number] 0 - 0.3 [facility] RDW 11.9% Normal [id number] 11.1 - 13.3 [facility] ABSOLUTE EOS 0.1K/uL Normal [id number] 0 - 0.7 [facility] ABSOLUTE MONOS 0.5K/uL Normal [id number] 0.2 - 1.5 [facility] PCP NEG Normal [id number] - [facility] AMPHETAMINES NEG Normal [id number] - [facility] COCAINE NEG Normal [id number] - [facility] BARBITURATES NEG Normal [id number] - [facility] BENZODIAZEPINES NEG Normal [id number] - C [facility] MARIJUANA NEG Normal [id number] - [facility] H OPIATES NEG Normal [id number] - [facility] HCO3 SerPl-sCnc 29mmol/L Normal [id number] 21 - 32 Y [facility] Calcium SerPl-mCnc 9.4mg/dL Normal [id number] 9.1 - 10.3 [facility] Glucose SerPl-mCnc 91mg/dL Normal [id number] 65 - 110 [facility] Creat SerPl-mCnc 0.8mg/dL Normal [id number] 0.55 - 1.02 [facility] BUN SerPl-mCnc 9mg/dL Normal [id number] 7 - 18 [facility] eGFRcr SerPlBld CKD-EPI 1 60mL/min/1.73m2 Normal [id number] - [facility] Sodium SerPl-sCnc 141mmol/L Normal [id number] 136 - 145 [facility] Anion Gap3 SerPl-sCnc 5mmol/L Normal [id number] 5 - 15 [facility] Potassium SerPl-sCnc 4.2mmol/L Normal [id number] 3.5 - 5.1 [facility] Chloride SerPl-sCnc 107mmol/L Normal [id number] 98 - 10 7 [facility] Hgb A1c MFr Bld 5.2% Normal [id number] 4.2 - 6.3 Y [facility] RBC # Bld Auto 4.67M/uL Normal [id number] 4 - 6 YN [facility] PMV Bld Auto 9.5fL Normal [id number] 8 - 12 [facility] RDW RBC Auto-Rto 11.8% Normal [id number] 11 - 15 [facility] BKR WAM BASOPHIL ABSOLUTE COUNT. 0.79t3829/uL Normal [id number] 0 - 1 [facility] Basophils/leuk NFr Bld Auto 1% Normal [id number] 0 - 1.4 [facility] Eosinophil # Bld Auto 0.49p2342/uL Normal [id number] 0 - 1 [facility] Monocytes # Bld Auto 0.02b9085/uL Normal [id number] 0 - 1 [facility] MCV RBC Auto 93.4fL Normal [id number] 80 - 100 [facility] Platelet # Bld Auto 667f1084/uL Normal [id number] 150 - 420 [facility] Lymphocytes # Bld Auto 2.45c3616/uL Normal [id number] 0.6 - 3.7 [facility] Eosinophil/leuk NFr Bld Auto 5.3% Above high normal [id number] 0 - 5 [facility] MCH RBC Qn Auto 31pg Normal [id number] 27 - 33 Y [facility] WBC # Bld Auto 6.2s5639/uL Normal [id number] 4 - 11 [facility] Imm Granulocytes/leuk NFr Bld Auto 0.1% Normal [id number] 0 - 1 [facility] Neutrophils/leuk NFr Bld Auto 55.9% Normal [id number] 39 - 72 [facility] Hct VFr Bld Auto 43.6% Normal [id number] 35 - 45 [facility] Imm Granulocytes # Bld Auto 0.47q4890/uL Normal [id number] 0 - 0.3 [facility] MCHC RBC Auto-mCnc 33.3g/dL Normal [id number] 31 - 36 [facility] Monocytes/leuk NFr Bld Auto 6.6% Normal [id number] 4 - 12 [facility] BKR WAM ABSOLUTE NEUTROPHIL COUNT. 3.1l0376/uL Normal [id number] 2 - 7.6 [facility] Lymphocytes/leuk NFr Bld Auto 31.1% Normal [id number] 17 - 50 [facility] nRBC/100 WBC Bld Auto-Rto 0% Normal [id number] 0 - 1 [facility] Hgb Bld-mCnc 14.5g/dL Normal [id number] 11.7 - 15.5 [facility] History of Medication Use Medication Directions Dispensed Refills Start Date End Date [facility] 0.9% sodium chloride infusion at 40 mL/hr, Intravenous, Continuous, Starting on Thu07/12/24 at 0745, Begin IV fluid prior to the start of the procedure, Pre-op 07/12/2024 active lidocaine (LMX) 4 % cream Topical (Top), Every 1 hour PRN, Venipuncture, Starting on Thu07/12/24 at 0735, For 2 doses, Pre-op, Apply to: Venipuncture Site 07/12/2024 active QUEtiapine (SEROquel) 50 MG tablet Take 1 tablet (50 mg total) by mouth 2 (two) times a day. 09/08/2023 active QUEtiapine (SEROQUEL) 50 MG tablet Take 50 mg by mouth 09/08/2023 activ e fluPHENAZine (PROLIXIN) 2.5 MG tablet 08/01/2023 active famotidine (PEPCID) 40 MG tablet Take 1 tablet (40 mg) by mouth 2 (two) times daily 03/31/2023 06/30/2023 aborted docusate sodium (COLACE) 100 MG capsule Take 1 capsule (100 mg total) by mouth nightly. 02/28/2022 active RABEprazole (ACIPHEX) 20 mg tablet TAKE 1 TABLET(20 MG) BY MOUTH DAILY 10/16/2021 01/24/2022 active RABEprazole (ACIPHEX) 20 mg tablet Take 1 tablet (20 mg) by mouth daily 06/04/2021 06/05/2022 active famotidine (PEPCID) 40 MG tablet TAKE 1 TABLET BY MOUTH EVERY NIGHT AT BEDTIME 10/19/2020 01/25/2021 active FLUoxetine (PROZAC) 20 MG capsule Take 20 mg by mouth daily 03/31/2023 aborted polyethylene glycol (MIRALAX) 17 gram/dose powder Take 17 g by mouth daily prn 03/31/2023 aborted fluphenazine (PROLIXIN) 5 MG tablet TAKE 1 TABLET BY MOUTH THREE TIMES DAILY active levonorgestrel-ethi nyl estradiol (AVIANE,ALESSE,LESS TA) 0.1-20 mg-mcg per tablet Take by mouth daily activ e sucralfate (CARAFATE) 1 gram tablet TAKE 1 TABLET BY MOUTH TWICE DAILY FOR 4 WEEKS active trazodone HCl (TRAZODONE ORAL) Take 100 mg by mouth nightly active Problems Problem Status Onset Date Problem Type Date of Resolution Source DMDD (disruptive mood dysregulation disorder) active [facility]Act [facility] Syncope, unspecified syncope type active 2017-06-24 ProblemAct [facility] Behavior problem in pediatric patient active 2018-06-15 [facility]Act [facility] Gastroesophageal reflux disease, unspecified whether esophagitis present active 2020-09-17 ProblemAct [facility] Alteration in patient safety due to identified suicide risk active 2023-09-08 ProblemAct [facility] Autism spectrum disorder active 2022-02-14 ProblemAct [facility] Perirectal skin irritation active 2018-11-01 ProblemAct [facility] Suicidal ideation active 2017-08-19 ProblemAct [facility] Pain of finger of right hand active EncounterDiagnosisAct [facility] Heartburn active 2018-11-01 ProblemAct [facility] Depression active 2018-05-26 ProblemAct [facility] Soft tissue injury of finger of right hand, initial encounter active EncounterDiagnosisAct [facility] Takes dietary supplements active 2018-11-01 ProblemAct [facility] Homicidal ideation active 2018-09-03 ProblemAct [facility] Aggressive behavior active 2018-05-26 ProblemAct [facility] 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 Ambulatory Gastro-esophageal reflux disease without esophagitis Gastro-esophageal reflux disease without esophagitis [facility] ([facility]) 5 Ambulatory [facility] 5 Ambulatory Unspecified injury o f right wrist, hand and finger(s), initial encounter Unspecified injury of right wrist, hand and finger(s), initial encounter [facility]ulatory GASTROESOPHAGEAL REFLUX DISEASE GASTROESOPHAGEAL REFLUX DISEASE [facility] 5 Ambulatory Gastro-esophageal reflux disease without esophagitis Gastro-esophageal reflux disease without esophagitis [facility] ([facility]) 5 Ambulatory [place] [facility] 4 Observation Suicidal ideations Suicidal ideations [facility] 4 Emergency Autistic disorder Autistic disorder [facility] 4 Emergency Autistic disorder [place] [facility] 4 Ambulatory [facility] 4 Ambulatory Gastroesophageal Reflux Gastroesophageal Reflux [facility] ([facility]) 4 Inpatient ASD ASD [facility] 4 Ambulatory Other constipation Other constipation [facility] ([facility]) 3 Ambulatory [facility] [address] [facility] 3 Emergency Psychiatric Evaluation [facility] 3 Emergency [place] [facility] 2 Emergency Psychiatric Evaluation [facility] 2 Ambulatory [facility] 2 Observation Unspecified beha vioral and emotional disorders with onset usually occurring in childhood and adolescence [place] [facility] 2 Emergency Depression, unspecified [place] [facility] 2 Emergency Impulse disorder , unspecified [place] [facility] 2 Ambulatory [facility] 2 Ambulatory [facility] 1 Care Team Organization Name Specialty Phone Email Start Date End Da te [facility] ([facility]) 09/01/2023 [facility] 08/18/2023 024 [facility] ([facility]) Jeanne Rodgers Primary Care 023 03/31/2023 [facility] Jeanne Rodgers Primary Care 03/31/2023 [facility] 03/05/2023 024 [facility] YVON PANDEY Primary Care 09/03/2022 12/21/2023 [facility] Yvon Pandey MD Primary Care 09/03/2022 3 [facility] 07/09/2022 12/21/2023 [facility] 07/09/2022 07/09/2022 [facility] Yvon Primary Care 04/04/2022 [facility]. Yvon Pandey MD Primary Care 03/07/202204/03 [facility] 03/05/2022 [facility] YVON PANDEY Primary Care 02/11/2022 08/11/2024 [facility] eJanne Rodgers Primary Care 01/25/2022 [facility] Yvon Pandey MD Primary Care 12/30/2021 02/04/20
--- OUTSIDE RECORDS SUMMARY | 2024-09-07 16:34 | XMS_ITS | Encounter Summary ---
Author Organization [facility] Address [address] [place] [address] Care Team Providers Care Torpedo Specialist Name Role Phone Jeanne Rodgers MD Primary Care Provider [phone] Vivian Robertson MD Primary Care Provider Reason for Visit * Reason Comments Medication Refill Encounter Details Date Type Department Care Team (Late st Contact Info) Description 07/30/2022 Refill [facility] Gastroenterology[address] [address] Angelique Rebolledo, FOOD SUPERVISOR[address] [address] Gastroesophageal reflux disease, unspecified whether esophagitis present [...] 11/29/2024 10:15 AM EDT Office Visit [facility], Weight Management [address] [address] Winsome Blackburn MD [address] [place] [address] 11/29/2024 11:00 AM EDT Telemedicine Support [facility], Weight Management [address] [address] Ju Jacinto [address] [place] [address] 11/29/2024 11:45 AM EDT Nutrition [facility], Clinical Nutrition [address] [place] [address] Cindy Juan, YANET [address] [place] [address] documented as of this encounter Visit Diagnoses Diagnosis Gastroesophageal reflux disease, unspecified whether esophagitis present documented in this encounter Care Teams Torpedo Specialist Relationship Specialty Start Date End Date Jeanne Rodgers MD [address] [place] [address] PCP - General 01/03/20 09/05/24 Vivian Robertson MD [address] [place] [address] PCP - General General Pediatrics 09/06/24 documented as of this encounter
[2024-09-07 16:54] LABS: Appearance Urine Clear; Color Urine Yellow; Glucose Urine UA Negative (Negative); Leukocyte Esterase Urine Negative (Negative); Nitrite Urine Negative (Negative); PH 8.5 (5.0-9.0); Specific Gravity - Urine 1.015 (1.005-1.025); Urine Blood Negative (Negative); Urine Ketones Negative (Negative); Urine Protein Negative (Neg-Trace)
[2024-09-07 16:55] LABS: UPreg QC Valid YES; Urine Pregnancy NEGATIVE (NEGATIVE)
[2024-09-07 17:01] LABS: Amphetamine Screen Urine Not Detected (Not Detect); Barbiturates, Urine Not Detected (Not Detect); Benzodiazepines Screen Urine Not Detected (Not Detect); Buprenorphine Scr Not Detected (Not Detect); Cannabinoid Screen Urine Not Detected (Not Detect); Cocaine Screen Urine Not Detected (Not Detect); Fentanyl, urine Not Detected (Not Detect); Methadone Screen, Urine Not Detected (Not Detect); Opiate Screen Urine Not Detected (Not Detect); Oxycodone Screen Urine Not Detected (Not Detect); Phencyclidine Screen Urine Not Detected (Not Detect)
[2024-09-07 17:05] LABS: MANUAL DIFF FLAG NO
[2024-09-07 17:12] LABS: Basophils Absolute Auto 0.1 X10*3/uL (0.0-0.2); Basophils Percent Auto 0.8 % (0-2); Eosinophils Absolute Auto 0.1 X10*3/uL (0.0-0.4); Eosinophils Percent Auto 0.7 % (0-4); Hematocrit 37.9 % (37.0-47.0); Hemoglobin 13.7 g/dl (12.0-16.0); Imm Gran Abs Auto 0.05 X10*3/uL (0.00-0.03); Imm Gran Pct Auto 0.6 % (0.0-0.4); Lymphocytes Absolute Auto 1.5 X10*3/uL (1.2-4.9); Lymphocytes Percent Auto 17.3 % (20-40); Mean Corpuscular HGB Conc 36.1 g/dl (31.0-35.0); Mean Corpuscular Hemoglobin 31.1 pg (27.0-33.0); Mean Corpuscular Volume 86.1 fL (80.0-98.0); Mean Platelet Volume 9.2 fL (9.4-12.3); Monocytes Absolute Auto 0.3 X10*3/uL (0.1-1.2); Monocytes Percent Auto 3.9 % (2-11); Neutrophils Absolute Auto 6.7 x10*3/uL (2.0-8.3); Neutrophils Percent Auto 76.7 % (45-73); Platelet Count 321 X10*3/uL (160-400); Red Cell Distribution Width 11.2 % (11.0-16.0); White Blood Count 8.7 X10*3/uL (4.8-10.8)
[2024-09-07 17:18] LABS: Ethanol < 10 mg/dL
[2024-09-07 17:28] LABS: Alanine Aminotransferase 23 U/L (0-31); Albumin Level 4.3 g/dL (3.5-5.0); Alkaline Phosphatase 78 U/L (39-117); Anion Gap 12 (12-20); Aspartate Amino Transferase 20 U/L (5-31); Bilirubin Direct 0.1 mg/dL (0.0-0.5); Bilirubin Total 0.3 mg/dL (0.0-1.0); Blood Urea Nitrogen 12 mg/dL (9-16); Calcium 9.7 mg/dL (8.4-10.2); Carbon Dioxide 22 mmol/L (22-29); Chloride 110 mmol/L (96-108); Estimated Glomerular Filt Rate > 60; Glucose Random 97 mg/dL (60-115); Lipase 30 U/L (8-78); Potassium 4.5 mmol/L (3.3-5.1); Sodium 139 mmol/L (135-145); Total Protein 7.2 g/dL (6.5-8.0)
--- NOTE | 2024-09-07 17:52 | PC.NURSE ---
Pt in [place] starting to escalate, starting to scratch herself, hit her head, yelling at staff. aware, IM ordered, pt moved to room at this time, pt to be moved to POD once room available. Christinay aware as pt is unwilling to take medication and is now yelling and swearing at staff that she is not hurting herself and she is fine. This RN educated that she is not proving to be showing safe behaviors at this time.
[2024-09-07] MEDS: OLANZapine 10 MG VIAL IM (18:10)
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
--- NOTE | 2024-09-08 | ECG_ITS ---
Test Reason : CHECK QTC Blood Pressure : */* mmHG Vent. Rate : 78 BPM Atrial Rate : 78 BPM P-R Int : 122 ms QRS Dur : 90 ms QT Int : 360 ms P-R-T Axes : 33 62 24 degrees QTcB Int : 410 ms Normal sinus rhythm with sinus arrhythmia Normal ECG When compared with ECG of 18-Jan-2024 07:46, No significant change was found Referred By: Akanksha Knapp Electronically Signed By: RUPAL DE LA ROSA
[2024-09-08 05:47] VITALS: BP 115/55; PULSE 68; RESP 16; TEMP 36.3; O2SAT 98
[2024-09-08] MEDS: Acetaminophen 325 MG TABLET 650 MG PO ×2 (07:21→16:17)
--- NOTE | 2024-09-08 07:24 | MHC.EDTECH ---
This pct brought in patients tray and the patient refused her breakfast another pct offerd alternative and the patient still refused. RN Aware
--- NOTE | 2024-09-08 08:24 | PHA.MEDREC ---
Addendum entered by Hunter Mann RPh 09/08/24 08:37: Reviewed by [facility] Original Note: Pharmacy Consult ? Medication Reconciliation Pharmacy has reviewed the medication reconciliation done by nursing. Utilized claims to confirm med list.
--- NOTE | 2024-09-08 08:24 | MHC.EDTECH ---
pt set up for shower s/p vomiting on self after attempting to eat breakfast. RN aware
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
--- NOTE | 2024-09-08 11:49 | PC.NURSE ---
med rec completed with patients father
[2024-09-08] MEDS: Naltrexone HCl 50 MG TABLET 25 MG PO (12:37)
[2024-09-08] MEDS: Benztropine Mesylate 0.5 MG TABLET PO ×2 (12:37→20:16)
[2024-09-08] MEDS: Famotidine 20 MG TABLET 40 MG PO ×2 (12:37→20:14)
[2024-09-08] MEDS: polyethylene glycoL 3350 17 GM POWD.PACK PO (12:37)
--- NOTE | 2024-09-08 13:20 | PC.NURSE ---
report given to aldo vora
[2024-09-08 14:44] VITALS: BMI 45.4
[2024-09-08 14:45] VITALS: BP 124/89; PULSE 92; RESP 18; TEMP 36.4; O2SAT 98
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
[2024-09-08] MEDS: QUEtiapine Fumarate 50 MG TABLET PO ×2 (15:35→20:15)
[2024-09-08] MEDS: fluPHENAZine HCl 5 MG TABLET PO ×2 (15:35→20:15)
[2024-09-08] MEDS: Magnesium Hydrox/Alum Hydrox 30 ML ORAL.SUSP PO (15:41)
[2024-09-08] MEDS: Nicotine Polacrilex 2 MG GUM 4 MG BUCCAL ×2 (16:47→20:03)
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
[2024-09-08] MEDS: hydrOXYzine HCL 25 MG TABLET PO (18:11)
[2024-09-08 19:34] VITALS: BP 114/59; PULSE 86; RESP 18; TEMP 36.9; O2SAT 98
[2024-09-08] MEDS: traZODone HCL 50 MG TABLET 150 MG PO (20:15)
[2024-09-08] MEDS: Docusate Sodium 100 MG CAPSULE PO (20:16)
[2024-09-08] MEDS: carBAMazepine ER 200 MG TAB.ER.12H PO (20:16)
[2024-09-08] MEDS: Milk of Magnesia 30 ML ORAL.SUSP PO (20:16)
[2024-09-09] MEDS: hydrOXYzine HCL 25 MG TABLET PO ×2 (05:30→16:06)
[2024-09-09] MEDS: Acetaminophen 325 MG TABLET 650 MG PO ×2 (06:22→12:25)
[2024-09-09 07:25] VITALS: BP 109/51; PULSE 86; RESP 16; TEMP 36.4; O2SAT 98
[2024-09-09] MEDS: fluPHENAZine HCl 5 MG TABLET PO ×3 (08:17→21:29)
[2024-09-09] MEDS: Famotidine 20 MG TABLET 40 MG PO ×2 (08:17→21:29)
[2024-09-09] MEDS: Naltrexone HCl 50 MG TABLET 25 MG PO (08:17)
[2024-09-09] MEDS: carBAMazepine ER 200 MG TAB.ER.12H PO ×2 (08:17→21:29)
[2024-09-09] MEDS: Benztropine Mesylate 0.5 MG TABLET PO ×2 (08:17→21:29)
[2024-09-09] MEDS: QUEtiapine Fumarate 50 MG TABLET PO ×4 (08:18→21:29)
[2024-09-09 08:22] LABS: Estimated Average Glucose 105 mg/dL; Hemoglobin A1C 127.0602 umol/L; Hemoglobin A1c % 5.3 % (<6.0)
[2024-09-09] MEDS: Magnesium Hydrox/Alum Hydrox 30 ML ORAL.SUSP PO ×2 (08:34→16:37)
[2024-09-09 08:36] LABS: Cholesterol 191 mg/dL (<200); HDL Cholesterol 37 mg/dL (>40); LDL Cholesterol Calculated 128 mg/dL (<100); Triglycerides 134 mg/dL (<150)
[2024-09-09 08:44] LABS: Free T4 (Free Thyroxine) 0.96 ng/dL (0.71-1.85); Thyroid Stimulating Hormone 1.52 uIU/mL (0.32-4.0)
--- NOTE | 2024-09-09 08:49 | P.PNPSI_ITS ---
Subjective Subjective Date of Service: 09/09/24 Reason For Visit: agitation Interim History: Active on unit, social with peers. attending groups. labile. Patient reports feeling angry today; pt stated, I feel pissed off because I want to hurt my dad but I can't because I'm in here . Patient reports auditory hallucinations of Micky , telling her to hurt people in my school and my dad . denies SI/VH. Per nursing slept 8 hours. Medication Compliance: Yes Side effects from medications: No Attending Groups: Yes Mental Status Exam Mental Status Exam Patient Appearance: Appropriate Patient Orientation: Person, Place and Situation Level of Consciousness: Awake and Alert Patient Behavior: Appropriate and Cooperative Mood Description: Labile Affect Description: Labile Ability to Follow Directions: Good Speech Pattern: Mumbled and Rapid Hallucinations: Auditory Delusions: Not Present Thought Process: Linear Thought Content: positive for Homicidal Ideation Judgement: Poor Diagnostics Vital Signs (24Hr): Vital Signs - 24 hr 09/08/24 14:45 09/08/24 19:34 09/09/24 07:25 Temperature 97.5 F 98.4 F 97.6 F Pulse Rate 92 86 86 Respiratory Rate 18 18 16 Blood Pressure 124/89 114/59 L 109/51 L Pulse Oximetry 98 98 98 Oxygen Delivery Method Room Air Room Air Room Air BMI result Body Mass Index 45.4 Labs 09/07/24 16:59 09/07/24 16:59 Labs: Laboratory Results - last 48 hr 09/07/24 09/07/24 09/09/24 16:43 16:59 07:46 WBC 8.7 RBC 4.40 Hgb 13.7 Hct 37.9 MCV 86.1 MCH 31.1 MCHC 36.1 H RDW 11.2 Plt Count 321 MPV 9.2 L Immature Gran % (Auto) 0.6 H Neut % (Auto) 76.7 H Lymph % (Auto) 17.3 L [place] % (Auto) 3.9 Eos % (Auto) 0.7 Baso % (Auto) 0.8 Lymph # (Auto) 1.5 [place] # (Auto) 0.3 Eos # (Auto) 0.1 Baso # (Auto) 0.1 Abs Immat Gran (auto) 0.05 H Absolute Neuts (auto) 6.7 Absolute Nucleated RBC 0.000 Nucleated RBC % (auto) 0.0 Sodium 139 Potassium 4.5 Chloride 110 H Carbon Dioxide 22 Anion Gap 12 BUN 12 Creatinine 0.73 Estim Creat Clear Calc 134.0 Estimated GFR > 60 Random Glucose 97 Estimat Average Glucose 105 Hemoglobin A1c % 5.3 Calcium 9.7 Total Bilirubin 0.3 Direct Bilirubin 0.1 AST 20 ALT 23 Alkaline Phosphatase 78 Total Protein 7.2 Albumin 4.3 Triglycerides 134 Cholesterol 191 LDL Cholesterol, Calc 128 H HDL Cholesterol 37 L Lipase 30 TSH 1.52 Free T4 0.96 Urine Color Yellow Urine Appearance Clear Urine pH 8.5 Ur Specific [place] 1.015 Urine Protein Negative Urine Glucose (UA) Negative Urine Ketones Negative Urine Blood Negative Urine Nitrite Negative Ur Leukocyte Esterase Negative Urine Test NEGATIVE Urine Opiates Screen Not Detected Ur Buprenorphine Scrn Not Detected Ur Oxycodone Screen Not Detected Urine Methadone Screen Not Detected Urine Fentanyl Screen Not Detected Ur Barbiturates Screen Not Detected Ur Phencyclidine Scrn Not Detected Ur Amphetamines Screen Not Detected U Benzodiazepines Scrn Not Detected Urine Cocaine Screen Not Detected U Marijuana (THC) Screen Not Detected Ethyl Alcohol < 10 Medications Medications Current Medications Acetaminophen (Acetaminophen 325 Mg Tablet) 650 mg PO Q6H PRN PRN Reason: Headache/Pain, Scale 1-10 Last Admin: 09/09/24 06:22 Dose: 650 mg Al Hydroxide/Mg Hydroxide (Magnesium Hydrox/Alum Hydrox 30 Ml Oral.Susp) 30 ml PO Q6H PRN PRN Reason: Heartburn/Nausea Last Admin: 09/09/24 08:34 Dose: 30 ml Benztropine Mesylate (Benztropine Mesylate 0.5 Mg Tablet) 0.5 mg PO BID [facility] Last Admin: 09/09/24 08:17 Dose: 0.5 mg Calcium Carbonate (Calcium Carbonate 750 Mg Tab.Chew) 750 mg PO Q4H PRN PRN Reason: Heartburn Carbamazepine (Carbamazepine Er 200 Mg Tab.Er.12h) 200 mg PO BID [facility] Last Admin: 09/09/24 08:17 Dose: 200 mg Docusate Sodium (Docusate Sodium 100 Mg Capsule) 100 mg PO BEDTIME [facility] Last Admin: 09/08/24 20:16 Dose: 100 mg Famotidine (Famotidine 20 Mg Tablet) 40 mg PO BID [facility] Last Admin: 09/09/24 08:17 Dose: 40 mg Fluphenazine HCl (Fluphenazine Hcl 5 Mg Tablet) 5 mg PO TID [facility] Last Admin: 09/09/24 08:17 Dose: 5 mg Hydroxyzine HCl (Hydroxyzine Hcl 25 Mg Tablet) 25 mg PO Q6H PRN PRN Reason: mild anxiety Last Admin: 09/09/24 05:30 Dose: 25 mg Magnesium Hydroxide (Milk Of Magnesia 30 Ml Oral.Susp) 30 ml PO DAILY PRN PRN Reason: Constipation Last Admin: 09/08/24 20:16 Dose: 30 ml Naltrexone HCl (Naltrexone Hcl 50 Mg Tablet) 25 mg PO DAILY [facility] Last Admin: 09/09/24 08:17 Dose: 25 mg Nicotine Polacrilex (Nicotine Polacrilex 2 Mg Gum) 4 mg BUCCAL Q2H PRN PRN Reason: Nicotine Cravings Last Admin: 09/08/24 20:03 Dose: 4 mg Non-Formulary Medication (Levomefolate Calcium) 7.5 mg PO DAILY [facility] Non-Formulary Medication (Levonorgestrel-Ethinyl Estrad [Vienva]) 1 tab PO DAILY [facility] Olanzapine (Olanzapine 5 Mg Tablet) 5 mg PO TID PRN PRN Reason: Agitation/Psychosis Polyethylene Glycol (Polyethylene Glycol 3350 17 Gm Powd.Pack) 17 gm PO ONCE PRN PRN Reason: Constipation Last Admin: 09/08/24 12:37 Dose: 17 gm Quetiapine Fumarate (Quetiapine Fumarate 50 Mg Tablet) 50 mg PO TID [facility] Last Admin: 09/09/24 08:18 Dose: 50 mg Trazodone HCl (Trazodone Hcl 50 Mg Tablet) 150 mg PO BEDTIME [facility] Last Admin: 09/08/24 20:15 Dose: 150 mg Allergies Allergies Allergy/AdvReac Type Severity Reaction Status Date / Time divalproex sodium Allergy Unknown Unknown Verified 09/07/24 15:49 [From Depakote] Assessment & Plan Assessment & Plan (1) Disruptive mood dysregulation disorder: Status: Acute Code(s): F34.81 - Disruptive mood dysregulation disorder (2) Autism: Status: Acute Code(s): F84.0 - Autistic disorder (3) Intellectual disability: Status: Acute Code(s): F79 - Unspecified intellectual disabilities Plan currently presenting as in a manic state. start tegretol for mood stabilization (VPA listed as an allergy). continue outpt regimen otherwise. 09/09: Active on unit, social with peers. attending groups. labile. Patient reports feeling angry today; pt stated, I feel pissed off because I want to hurt my dad but I can't because I'm in here . Patient reports auditory hallucinations of Micky , telling her to hurt people in my school and my dad . denies SI/VH. Per nursing slept 8 hours. Continue current tx plan. Patient educated on: medication risk/benefits Reason for continued inpatient stay Substantial Risk for: harm to others and med/psych decompensation Time Spent With Patient Time: Total time managing care of this patient today _20___ minutes.
[2024-09-09] MEDS: Nicotine Polacrilex 2 MG GUM 4 MG BUCCAL (08:51)
[2024-09-09 08:59] LABS: Folate 17.2 ng/mL (> or = 4.0); Vitamin B12 681 pg/mL (200-900)
[2024-09-09] MEDS: OLANZapine 5 MG TABLET PO ×3 (12:26→21:29)
[2024-09-09] MEDS: Calcium Carbonate 750 MG TAB.CHEW PO (12:54)
[2024-09-09] MEDS: Ondansetron ODT 8 MG TAB.RAPDIS TRANSLINGU (12:54)
[2024-09-09] MEDS: Ibuprofen 400 MG TABLET PO ×2 (14:25→21:30)
[2024-09-09] MEDS: polyethylene glycoL 3350 17 GM POWD.PACK PO (17:50)
[2024-09-09 20:00] VITALS: RESP 16
[2024-09-09] MEDS: traZODone HCL 50 MG TABLET 150 MG PO (21:29)
[2024-09-09] MEDS: Docusate Sodium 100 MG CAPSULE PO (21:29)
[2024-09-10] MEDS: Acetaminophen 325 MG TABLET 650 MG PO ×2 (06:52→20:20)
[2024-09-10] MEDS: OLANZapine 5 MG TABLET PO ×3 (06:54→20:19)
[2024-09-10] MEDS: Magnesium Hydrox/Alum Hydrox 30 ML ORAL.SUSP PO (06:54)
[2024-09-10 08:00] VITALS: BP 134/67; PULSE 106; RESP 16; TEMP 36.6; O2SAT 97
[2024-09-10] MEDS: Naltrexone HCl 50 MG TABLET 25 MG PO (08:31)
[2024-09-10] MEDS: Benztropine Mesylate 0.5 MG TABLET PO ×2 (08:31→20:20)
[2024-09-10] MEDS: Famotidine 20 MG TABLET 40 MG PO ×2 (08:31→20:19)
[2024-09-10] MEDS: QUEtiapine Fumarate 50 MG TABLET PO ×4 (08:31→20:19)
[2024-09-10] MEDS: fluPHENAZine HCl 5 MG TABLET PO ×3 (08:31→20:19)
[2024-09-10] MEDS: carBAMazepine ER 200 MG TAB.ER.12H PO ×2 (08:31→20:19)
[2024-09-10] MEDS: Ibuprofen 400 MG TABLET PO (10:52)
--- NOTE | 2024-09-10 11:55 | P.PNPSI_ITS ---
Subjective Subjective Date of Service: 09/10/24 Reason For Visit: agitation Subjective Notes: Section 12B Interim History: Patient was seen and discussed in rounds today. Records and plans were reviewed. She has some somatic complaints. Eating is variable. She is on ensure. Does have auditory and some visual hallucinations. Continues to endorse depression and anxiety also. Hyperverbal. Need he at times. Encouraged to use her p.r.n. Zyprexa. No changes were made today Review of Systems Review of Systems Yes all other systems are reviewed and are negative Mental Status Exam Mental Status Exam Patient Appearance: Appropriate Patient Orientation: Person, Place and Situation Level of Consciousness: Awake and Alert Patient Behavior: Appropriate and Cooperative Mood Description: Labile Affect Description: Labile Ability to Follow Directions: Good Speech Pattern: Mumbled and Rapid Hallucinations: Auditory Delusions: Not Present Thought Process: Linear Thought Content: positive for Homicidal Ideation Judgement: Poor Diagnostics Vital Signs (24Hr): Vital Signs - 24 hr 09/09/24 20:00 09/10/24 08:00 Temperature 97.8 F Pulse Rate 106 H Respiratory Rate 16 16 Blood Pressure 134/67 Pulse Oximetry 97 Oxygen Delivery Method Room Air BMI result Body Mass Index 45.4 Labs 09/07/24 16:59 09/07/24 16:59 Labs: Laboratory Results - last 48 hr 09/09/24 07:46 Estimat Average Glucose 105 Hemoglobin A1c % 5.3 Triglycerides 134 Cholesterol 191 LDL Cholesterol, Calc 128 H HDL Cholesterol 37 L Vitamin B12 681 Folate 17.2 TSH 1.52 Free T4 0.96 Medications Medications Current Medications Acetaminophen (Acetaminophen 325 Mg Tablet) 650 mg PO Q6H PRN PRN Reason: Headache/Pain, Scale 1-10 Last Admin: 09/10/24 06:52 Dose: 650 mg Al Hydroxide/Mg Hydroxide (Magnesium Hydrox/Alum Hydrox 30 Ml Oral.Susp) 30 ml PO Q6H PRN PRN Reason: Heartburn/Nausea Last Admin: 09/10/24 06:54 Dose: 30 ml Benztropine Mesylate (Benztropine Mesylate 0.5 Mg Tablet) 0.5 mg PO BID [facility] Last Admin: 09/10/24 08:31 Dose: 0.5 mg Calcium Carbonate (Calcium Carbonate 750 Mg Tab.Chew) 750 mg PO Q4H PRN PRN Reason: Heartburn Last Admin: 09/09/24 12:54 Dose: 750 mg Carbamazepine (Carbamazepine Er 200 Mg Tab.Er.12h) 200 mg PO BID [facility] Last Admin: 09/10/24 08:31 Dose: 200 mg Docusate Sodium (Docusate Sodium 100 Mg Capsule) 100 mg PO BEDTIME [facility] Last Admin: 09/09/24 21:29 Dose: 100 mg Famotidine (Famotidine 20 Mg Tablet) 40 mg PO BID [facility] Last Admin: 09/10/24 08:31 Dose: 40 mg Fluphenazine HCl (Fluphenazine Hcl 5 Mg Tablet) 5 mg PO TID [facility] Last Admin: 09/10/24 08:31 Dose: 5 mg Hydroxyzine HCl (Hydroxyzine Hcl 25 Mg Tablet) 25 mg PO Q6H PRN PRN Reason: mild anxiety Last Admin: 09/09/24 16:06 Dose: 25 mg Ibuprofen (Ibuprofen 400 Mg Tablet) 400 mg PO Q6H PRN PRN Reason: Pain, Moderate(Pain Scale 4-6) Last Admin: 09/10/24 10:52 Dose: 400 mg Magnesium Hydroxide (Milk Of Magnesia 30 Ml Oral.Susp) 30 ml PO DAILY PRN PRN Reason: Constipation Last Admin: 09/08/24 20:16 Dose: 30 ml Naltrexone HCl (Naltrexone Hcl 50 Mg Tablet) 25 mg PO DAILY [facility] Last Admin: 09/10/24 08:31 Dose: 25 mg Nicotine Polacrilex (Nicotine Polacrilex 2 Mg Gum) 4 mg BUCCAL Q2H PRN PRN Reason: Nicotine Cravings Last Admin: 09/09/24 08:51 Dose: 4 mg Non-Formulary Medication (Levomefolate Calcium) 7.5 mg PO DAILY [facility] Non-Formulary Medication (Levonorgestrel-Ethinyl Estrad [Vienva]) 1 tab PO DAILY [facility] Olanzapine (Olanzapine 5 Mg Tablet) 5 mg PO TID PRN PRN Reason: Agitation/Psychosis Last Admin: 09/10/24 06:54 Dose: 5 mg Ondansetron HCl (Ondansetron Odt 8 Mg Tab.Rapdis) 8 mg TRANSLINGU Q12H PRN PRN Reason: Nausea and Vomiting Last Admin: 09/09/24 12:54 Dose: 8 mg Polyethylene Glycol (Polyethylene Glycol 3350 17 Gm Powd.Pack) 17 gm PO ONCE PRN PRN Reason: Constipation Last Admin: 09/09/24 17:50 Dose: 17 gm Quetiapine Fumarate (Quetiapine Fumarate 50 Mg Tablet) 50 mg PO QID [facility] Last Admin: 09/10/24 08:31 Dose: 50 mg Trazodone HCl (Trazodone Hcl 50 Mg Tablet) 150 mg PO BEDTIME [facility] Last Admin: 09/09/24 21:29 Dose: 150 mg Allergies Allergies Allergy/AdvReac Type Severity Reaction Status Date / Time divalproex sodium Allergy Unknown Unknown Verified 09/07/24 15:49 [From Depakote] Assessment & Plan Assessment & Plan (1) Disruptive mood dysregulation disorder: Status: Acute Code(s): F34.81 - Disruptive mood dysregulation disorder (2) Autism: Status: Acute Code(s): F84.0 - Autistic disorder (3) Intellectual disability: Status: Acute Code(s): F79 - Unspecified intellectual disabilities Plan currently presenting as in a manic state. start tegretol for mood stabilization (VPA listed as an allergy). continue outpt regimen otherwise. 09/09: Active on unit, social with peers. attending groups. labile. Patient reports feeling angry today; pt stated, I feel pissed off because I want to hurt my dad but I can't because I'm in here . Patient reports auditory hallucinations of Micky , telling her to hurt people in my school and my dad . denies SI/VH. Per nursing slept 8 hours. Continue current tx plan. 09/10: Continue current regimen and plans Reason for continued inpatient stay Substantial Risk for: med/psych decompensation Time Spent With Patient Time: Total time managing care of this patient today ____ minutes.
[2024-09-10] MEDS: Lidocaine 4 % Patch ADH..PATCH 1 PATCH TRANSDERMA (14:03)
[2024-09-10] MEDS: hydrOXYzine HCL 25 MG TABLET PO (14:41)
[2024-09-10] MEDS: Artificial Tears 15 ML DROPS 2 DROP EYE-BOTH (16:08)
[2024-09-10] MEDS: Nicotine 7 MG PATCH.TD24 TRANSDERMA (16:53)
[2024-09-10] MEDS: Calcium Carbonate 750 MG TAB.CHEW PO (17:05)
[2024-09-10 19:51] VITALS: BP 147/85; PULSE 110; RESP 18; TEMP 36.8; O2SAT 96
[2024-09-10] MEDS: Docusate Sodium 100 MG CAPSULE PO (20:19)
[2024-09-10] MEDS: traZODone HCL 50 MG TABLET 150 MG PO (20:20)
[2024-09-10] MEDS: Ondansetron ODT 8 MG TAB.RAPDIS TRANSLINGU (20:45)
[2024-09-10] MEDS: chlorproMAZINE HCl 25 MG TABLET 50 MG PO (22:42)
[2024-09-11] MEDS: OLANZapine 5 MG TABLET PO (05:39)
[2024-09-11] MEDS: hydrOXYzine HCL 25 MG TABLET PO ×2 (05:39→20:16)
[2024-09-11] MEDS: Artificial Tears 15 ML DROPS 2 DROP EYE-BOTH ×2 (05:47→13:05)
[2024-09-11] MEDS: Acetaminophen 325 MG TABLET 650 MG PO ×3 (06:00→19:11)
[2024-09-11] MEDS: Ondansetron ODT 8 MG TAB.RAPDIS TRANSLINGU (07:43)
--- NOTE | 2024-09-11 07:48 | P.PNPSI_ITS ---
Subjective Subjective Date of Service: 09/11/24 Reason For Visit: agitation Subjective Notes: Section 12B Interim History: Patient was seen and discussed in rounds today. Records and plans were reviewed. She had difficulty evening, becoming agitated, complaining of auditory and some visual hallucinations, hitting herself on the head etc.. I ordered p.r.n. Thorazine which was very helpful. I discontinued p.r.n. Zyprexa and added Thorazine 50 mg t.i.d. p.r.n.. No side effects reported She has been redirectable. She also had a bout of diarrhea and is requesting medication but I encouraged her to wait and see how things show this morning. She was okay with that. No active SI. Zofran was changed to 4 mg t.i.d. p.r.n. with meals. Review of Systems Review of Systems Possible diarrhea Yes all other systems are reviewed and are negative Mental Status Exam Mental Status Exam Narrative: In today's visit she is alert, oriented and pleasant. Normal speech. Minimal eye contact. Affect is appropriate and somewhat irritable. No overt signs of psychosis but admits to AVH. No overt delusions. Denies active SI. Cognitively is grossly intact. Judgment is intact Diagnostics Vital Signs (24Hr): Vital Signs - 24 hr 09/10/24 08:00 09/10/24 19:51 Temperature 97.8 F 98.2 F Pulse Rate 106 H 110 H Respiratory Rate 16 18 Blood Pressure 134/67 147/85 H Pulse Oximetry 97 96 Oxygen Delivery Method Room Air Room Air BMI result Body Mass Index 45.4 Labs 09/07/24 16:59 09/07/24 16:59 Labs: Laboratory Results - last 48 hr 09/09/24 07:46 Estimat Average Glucose 105 Hemoglobin A1c % 5.3 Triglycerides 134 Cholesterol 191 LDL Cholesterol, Calc 128 H HDL Cholesterol 37 L Vitamin B12 681 Folate 17.2 TSH 1.52 Free T4 0.96 Medications Medications Current Medications Acetaminophen (Acetaminophen 325 Mg Tablet) 650 mg PO Q6H PRN PRN Reason: Headache/Pain, Scale 1-10 Last Admin: 09/11/24 06:00 Dose: 650 mg Al Hydroxide/Mg Hydroxide (Magnesium Hydrox/Alum Hydrox 30 Ml Oral.Susp) 30 ml PO Q6H PRN PRN Reason: Heartburn/Nausea Last Admin: 09/10/24 06:54 Dose: 30 ml Artificial Tears (Artificial Tears 15 Ml Drops) 2 drop EYE-BOTH Q4H PRN PRN Reason: Dry Eyes Last Admin: 09/11/24 05:47 Dose: 2 drop Benztropine Mesylate (Benztropine Mesylate 0.5 Mg Tablet) 0.5 mg PO BID [facility] Last Admin: 09/10/24 20:20 Dose: 0.5 mg Calcium Carbonate (Calcium Carbonate 750 Mg Tab.Chew) 750 mg PO Q4H PRN PRN Reason: Heartburn Last Admin: 09/10/24 17:05 Dose: 750 mg Carbamazepine (Carbamazepine Er 200 Mg Tab.Er.12h) 200 mg PO BID [facility] Last Admin: 09/10/24 20:19 Dose: 200 mg Docusate Sodium (Docusate Sodium 100 Mg Capsule) 100 mg PO BEDTIME [facility] Last Admin: 09/10/24 20:19 Dose: 100 mg Famotidine (Famotidine 20 Mg Tablet) 40 mg PO BID [facility] Last Admin: 09/10/24 20:19 Dose: 40 mg Fluphenazine HCl (Fluphenazine Hcl 5 Mg Tablet) 5 mg PO TID [facility] Last Admin: 09/10/24 20:19 Dose: 5 mg Hydroxyzine HCl (Hydroxyzine Hcl 25 Mg Tablet) 25 mg PO Q6H PRN PRN Reason: mild anxiety Last Admin: 09/11/24 05:39 Dose: 25 mg Ibuprofen (Ibuprofen 400 Mg Tablet) 400 mg PO Q6H PRN PRN Reason: Pain, Moderate(Pain Scale 4-6) Last Admin: 09/10/24 10:52 Dose: 400 mg Lidocaine (Lidocaine 4 % Patch Adh..Patch) 1 patch TRANSDERMA DAILY [facility]; Protocol Last Admin: 09/10/24 14:03 Dose: 1 patch Magnesium Hydroxide (Milk Of Magnesia 30 Ml Oral.Susp) 30 ml PO DAILY PRN PRN Reason: Constipation Last Admin: 09/08/24 20:16 Dose: 30 ml Naltrexone HCl (Naltrexone Hcl 50 Mg Tablet) 25 mg PO DAILY [facility] Last Admin: 09/10/24 08:31 Dose: 25 mg Nicotine (Nicotine 7 Mg Patch.Td24) 7 mg TRANSDERMA DAILY PRN PRN Reason: Nicotine Cravings Last Admin: 09/10/24 16:53 Dose: 7 mg Nicotine Polacrilex (Nicotine Polacrilex 2 Mg Gum) 4 mg BUCCAL Q2H PRN PRN Reason: Nicotine Cravings Last Admin: 09/09/24 08:51 Dose: 4 mg Non-Formulary Medication (Levomefolate Calcium) 7.5 mg PO DAILY [facility] Non-Formulary Medication (Levonorgestrel-Ethinyl Estrad [Vienva]) 1 tab PO DAILY [facility] Olanzapine (Olanzapine 5 Mg Tablet) 5 mg PO TID PRN PRN Reason: Agitation/Psychosis Last Admin: 09/11/24 05:39 Dose: 5 mg Polyethylene Glycol (Polyethylene Glycol 3350 17 Gm Powd.Pack) 17 gm PO ONCE PRN PRN Reason: Constipation Last Admin: 09/09/24 17:50 Dose: 17 gm Quetiapine Fumarate (Quetiapine Fumarate 50 Mg Tablet) 50 mg PO QID [facility] Last Admin: 09/10/24 20:19 Dose: 50 mg Trazodone HCl (Trazodone Hcl 50 Mg Tablet) 150 mg PO BEDTIME [facility] Last Admin: 09/10/24 20:20 Dose: 150 mg Allergies Allergies Allergy/AdvReac Type Severity Reaction Status Date / Time divalproex sodium Allergy Unknown Unknown Verified 09/07/24 15:49 [From Depakote] Assessment & Plan Assessment & Plan (1) Disruptive mood dysregulation disorder: Status: Acute Code(s): F34.81 - Disruptive mood dysregulation disorder (2) Autism: Status: Acute Code(s): F84.0 - Autistic disorder (3) Intellectual disability: Status: Acute Code(s): F79 - Unspecified intellectual disabilities Plan currently presenting as in a manic state. start tegretol for mood stabilization (VPA listed as an allergy). continue outpt regimen otherwise. 09/09: Active on unit, social with peers. attending groups. labile. Patient reports feeling angry today; pt stated, I feel pissed off because I want to hurt my dad but I can't because I'm in here . Patient reports auditory hallucinations of Micky , telling her to hurt people in my school and my dad . denies SI/VH. Per nursing slept 8 hours. Continue current tx plan. 09/10: Continue current regimen and plans 09/11: Continue current regimen and plans. Zofran was changed to 4 mg t.i.d. p.r.n. with meals Guardian/Caregiver educated on: medication risk/benefits Reason for continued inpatient stay Substantial Risk for: med/psych decompensation Time Spent With Patient Time: Total time managing care of this patient today ____ minutes.
[2024-09-11 07:53] VITALS: BP 116/69; PULSE 93; RESP 16; TEMP 36.4; O2SAT 97
[2024-09-11] MEDS: Naltrexone HCl 50 MG TABLET 25 MG PO (08:27)
[2024-09-11] MEDS: carBAMazepine ER 200 MG TAB.ER.12H PO ×2 (08:27→20:07)
[2024-09-11] MEDS: Famotidine 20 MG TABLET 40 MG PO ×2 (08:27→20:07)
[2024-09-11] MEDS: fluPHENAZine HCl 5 MG TABLET PO ×2 (08:27→20:06)
[2024-09-11] MEDS: QUEtiapine Fumarate 50 MG TABLET PO ×4 (08:27→20:06)
[2024-09-11] MEDS: Benztropine Mesylate 0.5 MG TABLET PO ×2 (08:27→20:07)
[2024-09-11] MEDS: Lidocaine 4 % Patch ADH..PATCH 1 PATCH TRANSDERMA (08:30)
[2024-09-11] MEDS: Nicotine 7 MG PATCH.TD24 TRANSDERMA (08:45)
[2024-09-11] MEDS: Calcium Carbonate 750 MG TAB.CHEW PO (10:11)
[2024-09-11] MEDS: chlorproMAZINE HCl 25 MG TABLET 50 MG PO (13:14)
[2024-09-11] MEDS: Sodium Chloride 0.65 % Nasal 44 ML SPRBTL 1 SPRAY NOSTRIL-B (13:41)
[2024-09-11 14:00] VITALS: BP 136/80; PULSE 76; RESP 16; TEMP 36.8; O2SAT 96
[2024-09-11 20:00] VITALS: BP 133/63; PULSE 105; RESP 16; TEMP 36.6; O2SAT 96
[2024-09-11] MEDS: traZODone HCL 50 MG TABLET 150 MG PO (20:08)
[2024-09-11] MEDS: Magnesium Hydrox/Alum Hydrox 30 ML ORAL.SUSP PO (20:16)
[2024-09-11] MEDS: Docusate Sodium 100 MG CAPSULE PO (22:17)
[2024-09-12] MEDS: hydrOXYzine HCL 25 MG TABLET PO ×3 (03:19→20:16)
[2024-09-12] MEDS: Ibuprofen 400 MG TABLET PO (06:39)
[2024-09-12 07:05] VITALS: BP 118/67; PULSE 106; RESP 14; TEMP 36.7; O2SAT 95
[2024-09-12] MEDS: Famotidine 20 MG TABLET 40 MG PO ×2 (08:19→20:15)
[2024-09-12] MEDS: Naltrexone HCl 50 MG TABLET 25 MG PO (08:19)
[2024-09-12] MEDS: carBAMazepine ER 200 MG TAB.ER.12H PO (08:19)
[2024-09-12] MEDS: QUEtiapine Fumarate 50 MG TABLET PO ×2 (08:19→11:34)
[2024-09-12] MEDS: fluPHENAZine HCl 5 MG TABLET PO (08:19)
[2024-09-12] MEDS: Benztropine Mesylate 0.5 MG TABLET PO ×2 (08:19→20:16)
[2024-09-12] MEDS: Sodium Chloride 0.65 % Nasal 44 ML SPRBTL 1 SPRAY NOSTRIL-B (08:23)
[2024-09-12] MEDS: Artificial Tears 15 ML DROPS 2 DROP EYE-BOTH (08:23)
[2024-09-12] MEDS: Nicotine 7 MG PATCH.TD24 TRANSDERMA (08:26)
[2024-09-12] MEDS: Lidocaine 4 % Patch ADH..PATCH 1 PATCH TRANSDERMA (08:59)
[2024-09-12] MEDS: Magnesium Hydrox/Alum Hydrox 30 ML ORAL.SUSP PO (09:56)
[2024-09-12] MEDS: QUEtiapine Fumarate 25 MG TABLET 75 MG PO ×3 (12:41→20:16)
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
[2024-09-12] MEDS: fluPHENAZine HCl 2.5 MG TABLET 7.5 MG PO ×2 (15:36→20:15)
[2024-09-12 20:00] VITALS: BP 135/70; PULSE 112; RESP 20; TEMP 37.1; O2SAT 96
[2024-09-12] MEDS: Calcium Carbonate 750 MG TAB.CHEW PO (20:14)
[2024-09-12] MEDS: Acetaminophen 325 MG TABLET 650 MG PO (20:15)
[2024-09-12] MEDS: Docusate Sodium 100 MG CAPSULE PO (20:15)
[2024-09-12] MEDS: carBAMazepine ER 200 MG TAB.ER.12H 400 MG PO (20:16)
[2024-09-12] MEDS: traZODone HCL 50 MG TABLET 150 MG PO (20:16)
[2024-09-12 20:59] LABS: MANUAL DIFF FLAG NO
[2024-09-12 21:05] LABS: Basophils Absolute Auto 0.1 X10*3/uL (0.0-0.2); Basophils Percent Auto 0.8 % (0-2); Eosinophils Absolute Auto 0.1 X10*3/uL (0.0-0.4); Eosinophils Percent Auto 1.7 % (0-4); Hematocrit 39.5 % (37.0-47.0); Hemoglobin 13.8 g/dl (12.0-16.0); Imm Gran Abs Auto 0.01 X10*3/uL (0.00-0.03); Imm Gran Pct Auto 0.1 % (0.0-0.4); Lymphocytes Absolute Auto 2.3 X10*3/uL (1.2-4.9); Lymphocytes Percent Auto 31.6 % (20-40); Mean Corpuscular HGB Conc 34.9 g/dl (31.0-35.0); Mean Corpuscular Hemoglobin 30.8 pg (27.0-33.0); Mean Corpuscular Volume 88.2 fL (80.0-98.0); Mean Platelet Volume 9.1 fL (9.4-12.3); Monocytes Absolute Auto 0.4 X10*3/uL (0.1-1.2); Monocytes Percent Auto 5.4 % (2-11); Neutrophils Absolute Auto 4.3 x10*3/uL (2.0-8.3); Neutrophils Percent Auto 60.4 % (45-73); Platelet Count 337 X10*3/uL (160-400); Red Blood Count 4.48 X10*6/uL (4.20-5.50); Red Cell Distribution Width 11.4 % (11.0-16.0); White Blood Count 7.2 X10*3/uL (4.8-10.8)
[2024-09-12 21:15] LABS: Alanine Aminotransferase 45 U/L (0-31); Albumin Level 4.2 g/dL (3.5-5.0); Alkaline Phosphatase 78 U/L (39-117); Anion Gap 13 (12-20); Aspartate Amino Transferase 25 U/L (5-31); Bilirubin Direct < 0.2 mg/dL (0.0-0.5); Bilirubin Total 0.2 mg/dL (0.0-1.0); Blood Urea Nitrogen 15 mg/dL (9-16); Calcium 9.2 mg/dL (8.4-10.2); Carbon Dioxide 22 mmol/L (22-29); Chloride 108 mmol/L (96-108); Creatinine Clr Calc Pharmacy 127.2; Estimated Glomerular Filt Rate > 60; Glucose Random 101 mg/dL (60-115); Potassium 4.2 mmol/L (3.3-5.1); Sodium 139 mmol/L (135-145)
[2024-09-12 21:16] LABS: Carbamazepine Tegretol 8.8 mcg/mL (5.0-12.0)
[2024-09-13] MEDS: hydrOXYzine HCL 25 MG TABLET PO (03:31)
[2024-09-13] MEDS: QUEtiapine Fumarate 50 MG TABLET PO (03:31)
[2024-09-13] MEDS: fluPHENAZine HCl 2.5 MG TABLET 7.5 MG PO (07:50)
[2024-09-13] MEDS: Naltrexone HCl 50 MG TABLET 25 MG PO (07:50)
[2024-09-13] MEDS: Benztropine Mesylate 0.5 MG TABLET PO (07:51)
[2024-09-13] MEDS: carBAMazepine ER 200 MG TAB.ER.12H 400 MG PO (07:51)
[2024-09-13] MEDS: Famotidine 20 MG TABLET 40 MG PO (07:52)
[2024-09-13] MEDS: QUEtiapine Fumarate 25 MG TABLET 75 MG PO (07:52)
[2024-09-13] MEDS: Lidocaine 4 % Patch ADH..PATCH 1 PATCH TRANSDERMA (07:53)
[2024-09-13] MEDS: Acetaminophen 325 MG TABLET 650 MG PO (07:59)
[2024-09-13] MEDS: Nicotine 7 MG PATCH.TD24 TRANSDERMA (08:00)
[2024-09-13] MEDS: Ondansetron ODT 4 MG TAB.RAPDIS TRANSLINGU (08:50)
[2024-09-13] MEDS: LORazepam 1 MG TABLET 2 MG PO (10:10)
[2024-09-13] MEDS: QUEtiapine Fumarate 100 MG TABLET PO (10:11)
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
== END 2024-09-13 11:28 | disposition home or self-care (01) | DRG 753 ==
LOC: HO.ED 18:13 → HO.PADLT16 09-08 12:23
PROVIDERS: Admitting Provider Psychiatry & Neurology Psychiatry; Emergency Provider Emergency Medicine; Visit Provider Psychiatry & Neurology Psychiatry
DX: F34.81 Disruptive mood dysregulation disorder (principal); R45.850 Homicidal ideations; F84.0 Autistic disorder; F17.210 Nicotine dependence, cigarettes, uncomplicated; F79 Unspecified intellectual disabilities; Z71.6 Tobacco abuse counseling; Z79.899 Other long term (current) drug therapy
CPT/HCPCS: 36415; 70450; 80048; 80061; 80076; 80156; 80307; 81003; 81025; 82607; 82746; 83036; 83690; 84439; 84443; 85025; 93005; 99285; J2359

== ENCOUNTER → 2024-09-07 15:57 | Outpatient (BNV) | payer MEDICAID, SELFPAY | PROVIDERS: Emergency Provider Emergency Medicine; Visit Provider Radiology Diagnostic Radiology | DX: S09.90XA Unspecified injury of head, initial encounter (principal); W22.8XXA Striking against or struck by other objects, initial encounter | CPT/HCPCS: 70450 ==

== ENCOUNTER → 2024-09-08 09:16 | Outpatient (BNV) | payer MEDICAID, SELFPAY | PROVIDERS: Admitting Provider Psychiatry & Neurology Psychiatry; Emergency Provider Emergency Medicine; Visit Provider Internal Medicine | DX: Z13.6 Encounter for screening for cardiovascular disorders (principal) | CPT/HCPCS: 93010 ==

== ENCOUNTER → 2024-09-08 12:15 | Outpatient (BNV) | payer MEDICAID, SELFPAY | PROVIDERS: Admitting Provider Psychiatry & Neurology Psychiatry; Emergency Provider Emergency Medicine; Visit Provider Psychiatry & Neurology Psychiatry | DX: F34.81 Disruptive mood dysregulation disorder (principal); F84.0 Autistic disorder; F79 Unspecified intellectual disabilities | CPT/HCPCS: 90792; 99231; 99232; 99239 ==

== ENCOUNTER 2024-09-13 11:48 | Inpatient (IN) | payer MEDICAID, SELFPAY ==
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
[2024-09-13 12:04] VITALS: BP 140/92; PULSE 98; RESP 15; TEMP 36.4; O2SAT 98; BMI 51.5
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
[2024-09-13 13:04] LABS: Alanine Aminotransferase 37 U/L (0-31); Albumin Level 4.3 g/dL (3.5-5.0); Alkaline Phosphatase 83 U/L (39-117); Anion Gap 16 (12-20); Aspartate Amino Transferase 22 U/L (5-31); Bilirubin Total 0.2 mg/dL (0.0-1.0); Blood Urea Nitrogen 14 mg/dL (9-16); Calcium 9.3 mg/dL (8.4-10.2); Carbon Dioxide 19 mmol/L (22-29); Chloride 107 mmol/L (96-108); Creatinine Clr Calc Pharmacy 169.3; Estimated Glomerular Filt Rate > 60; Ethanol 12 mg/dL; Glucose Random 87 mg/dL (60-115); Potassium 4.2 mmol/L (3.3-5.1); Sodium 138 mmol/L (135-145); Total Protein 7.1 g/dL (6.5-8.0)
[2024-09-13 13:06] LABS: HCG Quantitative < 2 mIU/mL
[2024-09-13] MEDS: QUEtiapine Fumarate 25 MG TABLET 75 MG PO ×2 (13:22→23:48)
--- OUTSIDE RECORDS SUMMARY | 2024-09-13 13:30 | XMS_ITS | Clinical Summary ---
Author Organization [address] Address [address] [place] [address] Phone Care Team Providers Care Lactation Consultant Name Role Phone Yvon Pandey MD Primary Care Provider [phone] Allergies Active Allergy Reactions Criticality Noted Date [...] 6:34 PM 09/15/2022 9:39 PM Care Teams Lactation Consultant Relationship Specialty Start Date End Date Yvon Pandey MD [address] [place] [id number] PCP - General Pediatrics 07/10/22
--- OUTSIDE RECORDS SUMMARY | 2024-09-13 13:30 | XMS_ITS | Clinical Summary ---
Author Organization [facility] Address [address] [place] [address] Care Team Providers Care Solder Deposit Operator Name Role Phone Yvon Pandey MD Primary Care Provider [phone] Marylou, Jude RPH Unavailable Marylou, Jude RPH [...] crisis: Name Contact Information Alysha Vazquez [facility] Janeen Garza ?? Step 5: Professionals or agencies I can contact during a crisis: Clinician/Agency Name Phone Emergency Contact Mom ?? Suicide Prevention Lifeline Phone: Call or Text 888 Crisis Text Line: Text HOME to 870371 ?? Step 6: Making the environment safer [...] Description 07/02/2024 10:01 AM EST Hospital Encounter [facility] [address] [place] [address] Man Sims MD 07/02/2024 9:30 AM EST Office Visit [facility] [place] [address] [place] [address] Man Sims MD Prucker, Haylie A, PA-C [...] ratio HOSPITAL LAB Comment: Nonreactive Performed at [facility], [place], [place] ??CT License [id number] ??CLIA [id number] 11/02/2018 8:00 AM EDT 11/02/2018 1:58 PM EDT us Raquel Tello [facility] LAB BLOOD ORDERABLES Zamzam l Result HOSPITAL LAB * HIV 1/2 Ag/Ab CMIA Reflex to Confirmation (11/02/2018 8:00 AM EDT) HIV 1/2 Ag/Ab CMIA Nonreactive Nonreactive HOSPITAL LAB Comment: Results show no evidence of infection by HIV 1/2. If clinically indicated, repeat CMIA or test by nucleic acid amplification. Performed at [facility], [place], [place] ??CT License [id number] ??CLIA [id number] 11/02/2018 8:00 AM EDT 11/02/2018 1:58 PM EDT us Raquel Tello [facility] BLOOD ORDERABLES Zamzam l Result HOSPITAL LAB from Last 3 Months or Most Recently Relevant to Health Maintenance Insurance [facility] Advance Directives * Full Code (Latest Code [...] Decision Thoroughly Discussed with: Patient Care Teams Solder Deposit Operator Relationship Specialty Start Date End Date Yvon Pandey MD [address] [facility] [address] PCP - General Pediatric, General 08/19/17 [facility] [address] [facility], [place] [phone] Pharmacist 08/20/17 Jude Hickman [facility] [address] [facility], [place] [phone] Pharmacist 05/31/18 [facility] [address] [facility], [place] [phone] Pharmacist 09/13/18 Jude Hickman [facility] [address] [facility] [address] Pharmacist 09/21/18 Jude Hickman [facility] [address] [facility] [address] Pharmacist 10/18/18
--- OUTSIDE RECORDS SUMMARY | 2024-09-13 13:30 | XMS_ITS | Encounter Summary ---
Author Organization [facility] Address [address] [place] [address] Care Team Providers Care Tower Erector Name Role Phone Yvon Pandey MD Primary Care Provider [phone] Marylou, Jude RPH Unavailable Marylou, Jude RPH Unavailable Marylou, Jude RPH Unavailable Marylou, Jude RPH Unavailable Marylou, Jude RPH Unavailable Encounter Details Date Type Department Care Team (Late st Contact Info) Description 07/02/2024 10:01 AM EST Hospital Encounter [facility] [address] [place] [address] Man Sims MD [address] [place], [place] [phone] Social History Tobacco Use Types Packs/Day Years [...] on filedocumented in this encounter Care Teams Tower Erector Relationship Specialty Start Date End Date Yvon Pandey MD [address] [place] [address] PCP - General Pediatric, General 08/19/17 Jude Hickman [facility] [address] [place], [place] [phone] Pharmacist 08/20/17 Jude Hickman [facility] [address] [place] [address] Pharmacist 05/31/18 Jude Hickman [facility] [address] [place] [address] Pharmacist 09/13/18 Jude Hickman [facility] [address] [place] [address] Pharmacist 09/21/18 Jude Hickman [facility] [address] [place] [address] Pharmacist 10/18/18 documented as of this encounter
--- OUTSIDE RECORDS SUMMARY | 2024-09-13 13:30 | XMS_ITS | Encounter Summary ---
Author Organization [facility] Address [address] [place] [address] Care Team Providers Care Catering Cook Name Role Phone Jeanne Rodgers MD Primary Care Provider Vivian Robertson MD Primary Care Provider Reason for Visit * Reason Comments Medication Refill Encounter Details Date Type Department Care Team ([facility] st Contact Info) Description 12/23/2020 Refill [facility] Gastroenterology[address] [address] Angelique Rebolledo, CAB SUPERVISOR[address] [address] Gastroesophageal reflux disease, unspecified whether esophagitis present [...] Visit [facility], Weight Management [address] [place] [address] Winsome Blackburn MD [address] [place] [address] 11/29/2024 11:00 AM EDT Telemedicine Support [facility], Weight Management [address] [place] [address] Ju Jacinto [address] [place] [address] 11/29/2024 11:45 AM EDT Nutrition [facility], Clinical Nutrition [address] [address] Cindy Juan, YANET [address] [place] [address] documented as of this encounter Visit Diagnoses Diagnosis Gastroesophageal reflux disease, unspecified whether esophagitis present documented in this encounter Care Teams Catering Cook Relationship Specialty Start Date End Date Jeanne Rodgers MD [address] [place] [address] PCP - General 01/03/20 09/05/24 Vivian Robertson MD [address] [place] [address] PCP - General General Pediatrics 09/06/24 documented as of this encounter
--- OUTSIDE RECORDS SUMMARY | 2024-09-13 13:31 | XMS_ITS | Encounter Summary ---
Author Organization [facility] Address [address] [place] [phone] Care Team Providers Care Service Desk Technician Name Role Phone Yvon Pandey MD Primary Care Provider [phone] Reason for Visit * Reason Comments Medication Refill Encounter Details Date Type Department Care Team (Late st Contact Info) Description 10/12/2022 Refill [facility] [address] [place] [address] Sammi Hyatt, ARELY [address] [place] [address] Medication Refill Social History Tobacco [...] documented as of this encounter Care Teams Service Desk Technician Relationship Specialty Start Date End Date Yvon Pandey MD [address] [place] [address] PCP - General Pediatrics 07/10/22 documented as of this encounter
--- OUTSIDE RECORDS SUMMARY | 2024-09-13 13:31 | XMS_ITS | Encounter Summary ---
Author Organization [facility] Address [address] [place] [address] Care Team Providers Care Intelligence Support Officer Name Role Phone Vivian Robertson MD Primary Care Provider [phone] Reason for Referral * CHECKER DUMP GROUNDS-Consult (Urgent) - Closed Specialty Diagnoses / Procedures Referred By Shireen christianson Referred To Contact Orthopedic Surgery Diagnoses Left hip pain ORTHO HFC - constipation with acute L hip area/gluteal pain Vivian Robertson MD [address] [place] [address] Phone: tel: fax: [facility] Department of Orthopedics, [address] [address] Phone: tel: fax: Referral ID Status Reason Start Date Expiration Date V isits Requested Visits Authorized [id number] Closed Specialty Services Required 09/06/2024 03/05/2025 1 1 Encounter Details Date Type Department Care Team (Late st Contact Info) Description 09/06/2024 Community Orders EPICCARE LINK DFLT DEP Vivian Robertson MD [address] [place] [phone] Left hip pain (Primary Dx) Social History [...] Description 11/29/2024 10:15 AM EDT Office Visit [facility], Weight Management [address] [place] [address] Winsome Blackburn MD [address] [place] [address] 11/29/2024 11:00 AM EDT Telemedicine Support [facility], Weight Management [address] [place] [address] uJ Jacinto [address] [place] [address] 11/29/2024 11:45 AM EDT Nutrition [facility], Clinical Nutrition [address] [place] [address] [place] [address] Scheduled Referrals Name Type Priority Associated Diagnoses Order Schedule Community Referral to Orthopedics Outpatient Referral Routine Left hip pain Ordered: 09/06/2024 documented as of this encounter Visit Diagnoses Diagnosis Left hip pain- Primary Pain in joint, pelvic region and thigh documented in this encounter Care Teams Intelligence Support Officer Relationship Specialty Start Date End Date Vivian Robertson MD [address] [place] [phone] PCP - General General Pediatrics 5/6/25 documented as of this encounter
--- OUTSIDE RECORDS SUMMARY | 2024-09-13 13:31 | XMS_ITS | Encounter Summary ---
Author Organization [facility] Address [address] [place] [address] Care Team Providers Care Scheme Technician Name Role Phone Jeanne Rodgers MD Primary Care Provider [phone] Vivian Robertson MD Primary Care Provider [phone] Reason for Visit * Reason Comments Medication Refill Encounter Details Date Type Department Care Team (Late st Contact Info) Description 07/30/2022 Refill [facility] Gastroenter[address] [address] Angelique Rebolledo, PARACHUTE MANUFACTURING SUPERVISOR[address] [address] Gastroesophageal reflux disease, unspecified whether esophagitis present [...] 11/29/2024 10:15 AM EDT Office Visit [facility], Weight Management [address] [address] Winsome Blackburn MD [address] [place] [address] 11/29/2024 11:00 AM EDT Telemedicine Support [facility], Weight Management [address] [address] Ju Jacinto [address] [place] [address] 11/29/2024 11:45 AM EDT Nutrition [facility], Clinical Nutrition 505 [place] [address] Cindy Juan, YANET [address] [place] [address] documented as of this encounter Visit Diagnoses Diagnosis Gastroesophageal reflux disease, unspecified whether esophagitis present documented in this encounter Care Teams Scheme Technician Relationship Specialty Start Date End Date Jeanne Rodgers MD [address] [place] [address] PCP - General 01/03/20 09/05/24 Vivian Robertson MD [address] [place] [address] PCP - General General Pediatrics 09/06/24 documented as of this encounter
--- OUTSIDE RECORDS SUMMARY | 2024-09-13 13:31 | XMS_ITS | Encounter Summary ---
Author Organization [facility] Address [address] [place] [address] Care Team Providers Care Manager Customer Service Name Role Phone Jeanne Rodgers MD Primary Care Provider [phone] Vivian Robertson MD Primary Care Provider [phone] Reason for Referral * SHORE MAN-Consult (Routine) - Authorized Specialty Diagnoses / Procedures Referred By Contac t Referred To Contact Other Specialties / Weight Management Diagnoses Obesity, unspecified classification, unspecified obesity type, unspecified whether serious comorbidity present Jessica Sorto [address] [place] [address] Phone: tel: fax: Referral ID Status Reason Start Date Expiration Date Visits Requested Visits Authorized [id number] Authorized Specialty Services Required 12/31/2023 12/23/2024 1 1 Encounter Details Date Type Department Care Team (Late st Contact Info) Description 12/31/2023 Community Orders EPICCARE LINK DFLT Jessica Almendarez [address] [place] [address] Obesity, unspecified classification, unspecified obesity type, unspecified [...] Description 11/29/2024 10:15 AM EDT Office Visit [facility], Weight Management [address] [place], [place] [phone] Winsome Blackburn MD [address] [place] [address] 11/29/2024 11:00 AM EDT Telemedicine Support [facility], Weight Management [address] [place] [address] Ju Jacinto [address] [place] [address] 11/29/2024 11:45 AM EDT Nutrition , Clinical Nutrition 505 [place] [address] [place] [address] Scheduled Referrals Name Type Priority Associated Diagnoses Orde r Schedule Community Referral to Weight Management Outpatient Referral Routine Obesity, unspecified classification, unspecified obesity type, unspecified whether serious comorbidity present Ordered: 12/31/2023 documented as of this encounter Visit Diagnoses Diagnosis Obesity, unspecified classification, unspecified obesity type, unspecified whether serious comorbidity present- Primary documented in this encounter Care Teams Manager Customer Service Relationship Specialty Start Date End Date Jeanne Rodgers MD [address] [place], [place] [id number] PCP - General 01/03/20 09/05/24 Vivian Robertson MD [address] [place] [address] PCP - General General Pediatrics 09/06/24 documented as of this encounter
--- OUTSIDE RECORDS SUMMARY | 2024-09-13 13:31 | XMS_ITS | Encounter Summary ---
Author Organization [facility] Address [address] [place] [address] Care Team Providers Care Health Companion Name Role Phone Jeanne Rodgers MD Primary Care Provider Vivian Robertson MD Primary Care Provider Reason for Visit * Reason Comments Medication Refill Encounter Details Date Type Department Care Team ([facility] st Contact Info) Description 09/28/2021 Refill [facility] Gastroenterology[address] [address] Angelique Rebolledo, GENERAL SERVICE TECHNICIAN[address] [address] Gastroesophageal reflux disease, unspecified whether esophagitis present [...] to schedule * Telephone Encounter - Sita Silva RN - 10/01/2021 4:27 PM EDT Please schedule follow up Refill provided * Telephone Encounter - Sita Silva RN - 10/01/2021 4:18 PM EDT Last seen clinic 06-04-21 Dose correct No pending appts documented in this encounter Plan of Treatment Upcoming Encounters Date Type Department Care Team (Late st Contact Info) Description 11/29/2024 10:15 AM EDT Office Visit [facility], Weight Management [address] [place] [address] Winsome Blackburn MD [address] [place] [address] 11/29/2024 11:00 AM EDT Telemedicine Support [facility], Weight Management 505 [place] [address] Ju Jacinto [address] [place] [address] 11/29/2024 11:45 AM EDT Nutrition [facility], Clinical Nutrition 505 [place] [address] [place] [address] documented as of this encounter Visit Diagnoses Diagnosis Gastroesophageal reflux disease, unspecified whether esophagitis present documented in this encounter Care Teams Health Companion Relationship Specialty Start Date End Date Jeanne Rodgers MD [address] [place] [address] PCP - General 01/03/20 09/05/24 Vivian Robertson MD [address] [place] [address] PCP - General General Pediatrics 09/06/24 documented as of this encounter
--- OUTSIDE RECORDS SUMMARY | 2024-09-13 13:31 | XMS_ITS | Encounter Summary ---
Author Organization [facility] Address [address] [place] [id number] Care Team Providers Care Seo Professional Name Role Phone Yvon Pandey MD Primary Care Provider [phone] Reason for Visit * Reason Comments Medication Refill Encounter Details Date Type Department Care Team (Late st Contact Info) Description 10/25/2022 Refill [facility] [address] [place] [address] Sammi Hyatt, ARELY [address] [place] [address] Medication Refill Social History Tobacco [...] documented as of this encounter Care Teams Seo Professional Relationship Specialty Start Date End Date Yvon Pandey MD [address] [place] [address] PCP - General Pediatrics 07/10/22 documented as of this encounter
--- OUTSIDE RECORDS SUMMARY | 2024-09-13 13:31 | XMS_ITS | Encounter Summary ---
Author Organization [facility] Address [address] [place] [address] Care Team Providers Care Consumer Credit Counselor Name Role Phone Jeanne Rodgers MD Primary Care Provider [phone] Vivian Robertson MD Primary Care Provider Reason for Visit * Reason Comments Medication Refill Encounter Details Date Type Department Care Team (Late st Contact Info) Description 02/20/2022 Refill [facility] Gastroenterology, [address], [address] [place] [address] Brody Wilson MD [address] [place] [address] Gastroesophageal reflux disease, unspecified whether esophagitis present [...] Description 11/29/2024 10:15 AM EDT Office Visit [facility], Weight Management 505 [place] [address] Winsome Blackburn MD [address] [place] [address] 11/29/2024 11:00 AM EDT Telemedicine Support [facility], Weight Management 505 [place] [address] Ju Jacinto [address] [place] [address] 11/29/2024 11:45 AM EDT Nutrition [facility], Clinical Nutrition [address] [place] [address] Cindy Juan, YANET [address] [place] [address] documented as of this encounter Visit Diagnoses Diagnosis Gastroesophageal reflux disease, unspecified whether esophagitis present documented in this encounter Care Teams Consumer Credit Counselor Relationship Specialty Start Date End Date Jeanne Rodgers MD [address] [place] [address] PCP - General 01/03/20 09/05/24 Vivian Robertson MD [address] [place] [address] PCP - General General Pediatrics 09/06/24 documented as of this encounter
--- OUTSIDE RECORDS SUMMARY | 2024-09-13 13:31 | XMS_ITS | Encounter Summary ---
Author Organization [facility] Address [address] [place] [address] Care Team Providers Care Setter Out Name Role Phone Jeanne Rodgers MD Primary Care Provider Vivian Robertson MD Primary Care Provider [phone] Reason for Visit * Reason Comments Medication Refill Encounter Details Date Type Department Care Team ([facility] st Contact Info) Description 05/26/2021 Refill [facility] Gastroenterology[address] [address] Angelique Rebolledo, SUPERVISOR TREATING AND PUMPING[address] [address] Gastroesophageal reflux disease, unspecified whether esophagitis present [...] [facility], Weight Management [address] [address] Winsome Blackburn MD [address] [place] [address] 11/29/2024 11:00 AM EDT Telemedicine Support [facility], Weight Management [address] [address] Ju Jacinto [address] [place] [address] 11/29/2024 11:45 AM EDT Nutrition [facility], Clinical Nutrition [address] [address] Cindy Juan, YANET [address] [place] [address] documented as of this encounter Visit Diagnoses Diagnosis Gastroesophageal reflux disease, unspecified whether esophagitis present documented in this encounter Care Teams Setter Out Relationship Specialty Start Date End Date Jeanne Rodgers MD [address] [place] [address] PCP - General 01/03/20 09/05/24 Vivian Robertson MD [address] [place] [address] PCP - General General Pediatrics 09/06/24 documented as of this encounter
--- OUTSIDE RECORDS SUMMARY | 2024-09-13 13:31 | XMS_ITS | Encounter Summary ---
Author Organization [facility] Address [address] [place] [address] Care Team Providers Care Laundry Agent Name Role Phone Jeanne Rodgers MD Primary Care Provider [phone] Vivian Robertson MD Primary Care Provider Reason for Visit * Reason Onset Date Comments Medication Refill Medication Refill 06/03/2021 Encounter Details Date Type Department Care Team (Late st Contact Info) Description 05/30/2021 Refill [facility] Gastroenter[address] [phone] Angelique Rebolledo, ONLINE CONTENT DEVELOPER [address] [place] [address] Gastroesophageal reflux disease, unspecified whether esophagitis present [...] Description 11/29/2024 10:15 AM EDT Office Visit [facility], Weight Management [address] [place] [address] Winsome Blackburn MD [address] [place] [address] 11/29/2024 11:00 AM EDT Telemedicine Support [facility], Weight Management [address] [place] [address] Ju Jacinto [address] [place] [address] 11/29/2024 11:45 AM EDT Nutrition [facility], Clinical Nutrition 505 [place] [address] Cindy Juan, YANET [address] [place] [address] documented as of this encounter Visit Diagnoses Diagnosis Gastroesophageal reflux disease, unspecified whether esophagitis present documented in this encounter Care Teams Laundry Agent Relationship Specialty Start Date End Date Jeanne Rodgers MD [address] [place] [address] PCP - General 01/03/20 09/05/24 Vivian Robertson MD [address] [place] [address] PCP - General General Pediatrics 09/06/24 documented as of this encounter
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
--- NOTE | 2024-09-13 18:57 | MHC.CARE ---
Patient evaluated by the CARE Team, current disposition [facility] IPLOC. Provider, Trista york
[2024-09-13] MEDS: Magnesium Hydrox/Alum Hydrox 30 ML ORAL.SUSP PO (22:45)
[2024-09-13] MEDS: Famotidine 20 MG TABLET 40 MG PO (23:48)
[2024-09-13] MEDS: Benztropine Mesylate 0.5 MG TABLET PO (23:48)
[2024-09-13] MEDS: traZODone HCL 50 MG TABLET 150 MG PO (23:48)
[2024-09-13] MEDS: carBAMazepine ER 200 MG TAB.ER.12H PO (23:57)
[2024-09-13] MEDS: Docusate Sodium 100 MG CAPSULE PO (23:57)
[2024-09-14 06:09] VITALS: BP 132/70; PULSE 85; RESP 16; TEMP 37; O2SAT 97
--- NOTE | 2024-09-14 08:26 | ECG_ITS ---
Test Reason : ADMISSION Blood Pressure : */* mmHG Vent. Rate : 87 BPM Atrial Rate : 87 BPM P-R Int : 124 ms QRS Dur : 90 ms QT Int : 344 ms P-R-T Axes : 36 66 33 degrees QTcB Int : 413 ms Normal sinus rhythm Low voltage QRS Borderline ECG When compared with ECG of 08-Sep-2024 09:16, No significant change was found Referred By: Benson Allen Electronically Signed By: LANA SPAIN MD
[2024-09-14] MEDS: QUEtiapine Fumarate 25 MG TABLET 75 MG PO ×4 (09:51→20:34)
[2024-09-14] MEDS: Famotidine 20 MG TABLET 40 MG PO ×2 (09:51→20:33)
[2024-09-14] MEDS: carBAMazepine ER 200 MG TAB.ER.12H PO (09:51)
[2024-09-14] MEDS: fluPHENAZine HCl 2.5 MG TABLET 7.5 MG PO ×3 (09:51→20:32)
[2024-09-14] MEDS: Benztropine Mesylate 0.5 MG TABLET PO ×2 (09:51→20:33)
[2024-09-14] MEDS: Naltrexone HCl 50 MG TABLET 25 MG PO (09:52)
[2024-09-14] MEDS: Lidocaine 4 % Patch ADH..PATCH 1 PATCH TRANSDERMA (09:53)
--- NOTE | 2024-09-14 10:21 | PC.NURSE ---
pt's father will bring non formulary meds in later today, pt sleeping in room, ate some breakfast, states she has a dairy and gluten allergy, father states she does not have a gluten allergy, pt medicated as ordered, pleasant and cooperative skin wpd,
[2024-09-14 14:23] LABS: Basophils Absolute Auto 0.1 X10*3/uL (0.0-0.2); Eosinophils Absolute Auto 0.1 X10*3/uL (0.0-0.4); Eosinophils Percent Auto 1.8 % (0-4); Hematocrit 43.4 % (37.0-47.0); Hemoglobin 14.5 g/dl (12.0-16.0); Imm Gran Abs Auto 0.03 X10*3/uL (0.00-0.03); Imm Gran Pct Auto 0.5 % (0.0-0.4); Lymphocytes Percent Auto 33.2 % (20-40); Mean Corpuscular HGB Conc 33.4 g/dl (31.0-35.0); Mean Corpuscular Hemoglobin 30.1 pg (27.0-33.0); Mean Platelet Volume 9.2 fL (9.4-12.3); Monocytes Absolute Auto 0.3 X10*3/uL (0.1-1.2); Monocytes Percent Auto 5.5 % (2-11); NRBC Pct Auto 0.3 /100WBC (0.0-0.2); Neutrophils Absolute Auto 3.5 x10*3/uL (2.0-8.3); Platelet Count 328 X10*3/uL (160-400); Red Blood Count 4.82 X10*6/uL (4.20-5.50); Red Cell Distribution Width 11.5 % (11.0-16.0)
--- NOTE | 2024-09-14 15:22 | PHA.MEDREC ---
Pharmacy Consult ? Medication Reconciliation Pharmacy reviewed med rec done by nursing. Spoke with patients father in ED waiting room and he had list on his phone that he stated was up to date and I was able to utilize. He confirmed the Quetiapine 25mg tab changed and the patient is now taking it TID instead of QID and that changed a few months ago . He also stated the patient is not taking Carbamazepine as far as the dad knows and doesn't know why she is taking that medication here.
[2024-09-14] MEDS: Nicotine Polacrilex 2 MG GUM 4 MG BUCCAL ×2 (16:03→19:16)
[2024-09-14 18:00] VITALS: BP 126/74; PULSE 84; RESP 18; TEMP 36.6; O2SAT 98
[2024-09-14] MEDS: Magnesium Hydrox/Alum Hydrox 30 ML ORAL.SUSP PO (18:19)
[2024-09-14] MEDS: hydrOXYzine HCL 25 MG TABLET PO (19:16)
[2024-09-14] MEDS: OLANZapine 5 MG TABLET PO (19:16)
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
[2024-09-14 20:00] VITALS: BP 145/64; PULSE 117; TEMP 36.8; O2SAT 98
[2024-09-14] MEDS: Acetaminophen 325 MG TABLET 650 MG PO (20:14)
[2024-09-14 20:22] VITALS: BMI 51.5
[2024-09-14] MEDS: carBAMazepine 200 MG TABLET PO (20:31)
[2024-09-14] MEDS: traZODone HCL 50 MG TABLET 150 MG PO (20:31)
[2024-09-14] MEDS: Docusate Sodium 100 MG CAPSULE PO (20:33)
[2024-09-14] MEDS: Milk of Magnesia 30 ML ORAL.SUSP PO (20:34)
[2024-09-15] MEDS: hydrOXYzine HCL 25 MG TABLET PO ×2 (05:59→11:35)
[2024-09-15] MEDS: OLANZapine 5 MG TABLET PO ×2 (05:59→15:46)
[2024-09-15] MEDS: Nicotine Polacrilex 2 MG GUM 4 MG BUCCAL (05:59)
[2024-09-15] MEDS: Acetaminophen 325 MG TABLET 650 MG PO (07:56)
[2024-09-15] MEDS: Naltrexone HCl 50 MG TABLET 25 MG PO (07:57)
[2024-09-15] MEDS: carBAMazepine 200 MG TABLET PO ×2 (07:57→19:49)
[2024-09-15] MEDS: QUEtiapine Fumarate 25 MG TABLET 75 MG PO ×4 (07:57→19:51)
[2024-09-15] MEDS: Benztropine Mesylate 0.5 MG TABLET PO ×2 (07:57→19:51)
[2024-09-15] MEDS: Nicotine 7 MG PATCH.TD24 TRANSDERMA (07:58)
[2024-09-15] MEDS: Famotidine 20 MG TABLET 40 MG PO ×2 (07:58→19:50)
[2024-09-15] MEDS: Lidocaine 4 % Patch ADH..PATCH 1 PATCH TRANSDERMA (07:58)
[2024-09-15] MEDS: fluPHENAZine HCl 2.5 MG TABLET 7.5 MG PO ×3 (07:58→19:50)
[2024-09-15] MEDS: Cholecalciferol (Vitamin D3) 25 MCG TABLET 50 MCG PO (08:09)
[2024-09-15 08:17] VITALS: BP 122/78; PULSE 104; TEMP 37.3; O2SAT 98
[2024-09-15] MEDS: LEVONORGESTREL ETHINYL ESTRAD 1 EACH PO (08:50)
[2024-09-15] MEDS: LEVOMEFOLATE CALCIUM 7.5 MG 7.5 EACH PO (08:51)
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
[2024-09-15 09:15] LABS: Estimated Average Glucose 105 mg/dL; Hemoglobin A1C 132.9364 umol/L; Hemoglobin A1c % 5.3 % (<6.0); Total Hemoglobin (HGBA1C) 3853.0837 umol/L
[2024-09-15 09:20] LABS: Alanine Aminotransferase 32 U/L (0-31); Albumin Level 4.4 g/dL (3.5-5.0); Alkaline Phosphatase 90 U/L (39-117); Anion Gap 12 (12-20); Aspartate Amino Transferase 19 U/L (5-31); Bilirubin Total 0.3 mg/dL (0.0-1.0); Blood Urea Nitrogen 13 mg/dL (9-16); Calcium 9.7 mg/dL (8.4-10.2); Carbon Dioxide 27 mmol/L (22-29); Chloride 103 mmol/L (96-108); Cholesterol 210 mg/dL (<200); Creatinine Clr Calc Pharmacy 138.8; Estimated Glomerular Filt Rate > 60; Glucose Random 133 mg/dL (60-115); HDL Cholesterol 42 mg/dL (>40); LDL Cholesterol Calculated 141 mg/dL (<100); Sodium 137 mmol/L (135-145); Total Protein 7.4 g/dL (6.5-8.0); Triglycerides 135 mg/dL (<150)
[2024-09-15 09:33] LABS: Free T4 (Free Thyroxine) 0.89 ng/dL (0.71-1.85)
[2024-09-15 09:46] LABS: Folate 16.1 ng/mL (> or = 4.0); Vitamin B12 654 pg/mL (200-900)
[2024-09-15 11:50] VITALS: BMI 45.3
[2024-09-15] MEDS: polyethylene glycoL 3350 17 GM POWD.PACK PO (15:38)
--- NOTE | 2024-09-15 16:03 | ED.GENADULT ---
HPI - General Adult General Chief complaint: Psychiatric Symptoms Stated complaint: Crisis Time Seen by Provider: 09/13/24 12:21 Source: patient, family, RN notes reviewed and old records reviewed Mode of arrival: ambulatory Limitations: no limitations Related Data Previous Rx's ?Medication ?Instructions ?Recorded acetaminophen 325 mg tablet 650 mg (2 x 325 mg) PO Q6H PRN 09/22/24 Headache/Pain, Scale 1-10 #0 tabs benztropine 0.5 mg tablet 0.5 mg PO BID #60 tabs 09/22/24 carbamazepine 200 mg tablet 200 mg PO BID #60 tabs 09/22/24 cholecalciferol (vitamin D3) 25 50 mcg (2 x 25 mcg (1,000 unit)) 09/22/24 mcg (1,000 unit) tablet PO DAILY #60 tabs docusate sodium 100 mg capsule 100 mg PO BEDTIME #30 caps 09/22/24 famotidine 20 mg tablet 40 mg (2 x 20 mg) PO BID #60 tabs 09/22/24 fluphenazine HCl 10 mg tablet 10 mg PO TID #90 tabs 09/22/24 hydroxyzine HCl 25 mg tablet 25 mg PO Q6H PRN mild anxiety #30 09/22/24 tabs levomefolate calcium 7.5 mg tablet 7.5 mg PO DAILY #30 tabs 09/22/24 levonorgestrel-ethinyl estradiol 1 tab PO DAILY #30 tabs 09/22/24 0.1 mg-20 mcg tablet lidocaine 4 % topical patch 1 patch transdermal DAILY #30 ea 09/22/24 (Lidocaine Pain Relief) naltrexone 50 mg tablet 25 mg (1/2 x 50 mg) PO DAILY #30 09/22/24 tabs nicotine (polacrilex) 2 mg gum 4 mg buccal Q2H PRN Nicotine 09/22/24 Cravings #100 ea nicotine 7 mg/24 hr daily 7 mg transdermal DAILY PRN 09/22/24 transdermal patch Nicotine Cravings #30 ea olanzapine 5 mg tablet 5 mg PO Q4H PRN agitation #30 tabs 09/22/24 polyethylene glycol 3350 17 gram 17 g PO DAILY PRN Constipation #30 09/22/24 oral powder packet packets prazosin 1 mg capsule 3 mg PO BEDTIME #90 caps 09/22/24 quetiapine 25 mg tablet 75 mg (3 x 25 mg) PO QID #360 tabs 09/22/24 trazodone 50 mg tablet 50 mg PO BEDTIME MRX1 PRN Insomnia 09/22/24 #60 tabs trazodone 50 mg tablet 150 mg (3 x 50 mg) PO BEDTIME #90 09/22/24 tabs Allergies Allergy/AdvReac Type Severity Reaction Status Date / Time divalproex sodium Allergy Unknown Unknown Verified 09/13/24 12:14 [From Depakote] gluten Allergy Stomach Verified 09/14/24 10:07 Upset Milk Containing Products Allergy Stomach Verified 09/14/24 10:07 (Dairy) Upset PMFSH Past Medical History Medical History Disruptive mood dysregulation disorder Intellectual disability Autism Social History Social History Household Members: Family Household Members Other:: brother, father Housing: House Do you presently have visiting nurse or other home services: No Patient Tobacco Use Status: Current everyday Tobacco user e-Cigarette/Vaping Use: Currently Using Second Hand Smoke Exposure: No service: No Sexual orientation: Unable to collect Physical Exam ED Vital Signs: BMI result Body Mass Index 51.5 Medications Administered Discontinued Medications Generic Name Dose Route Start Last Admin Trade Name Freq PRN Reason Stop Dose Admin Acetaminophen 650 mg 09/14/24 15:47 09/23/24 08:53 Acetaminophen 325 Mg Tablet PO 650 mg Q6H PRN Administration Headache/Pain, Scale 1-10 Al Hydroxide/Mg Hydroxide 30 ml 09/13/24 22:40 09/13/24 22:45 Magnesium Hydrox/Alum Hydrox 30 Ml Oral.Susp PO 09/13/24 22:41 30 ml ONCE ONE Administration Al Hydroxide/Mg Hydroxide 30 ml 09/14/24 15:47 09/23/24 07:19 Magnesium Hydrox/Alum Hydrox 30 Ml Oral.Susp PO 30 ml Q6H PRN Administration Heartburn/Nausea Benztropine Mesylate 0.5 mg 09/13/24 23:15 09/23/24 08:24 Benztropine Mesylate 0.5 Mg Tablet PO 0.5 mg BID CHUCK Administration Carbamazepine 200 mg 09/13/24 23:15 09/14/24 09:51 Carbamazepine Er 200 Mg Tab.Er.12h PO 200 mg BID CHUCK Administration Carbamazepine 200 mg 09/14/24 21:00 09/23/24 08:24 Carbamazepine 200 Mg Tablet PO 200 mg BID CHUCK Administration Docusate Sodium 100 mg 09/13/24 23:15 09/22/24 20:41 Docusate Sodium 100 Mg Capsule PO 100 mg BEDTIME CHUCK Administration Famotidine 40 mg 09/13/24 23:15 09/23/24 08:27 Famotidine 20 Mg Tablet PO 40 mg BID CHUCK Administration Fluphenazine HCl 7.5 mg 09/13/24 23:15 09/16/24 08:50 Fluphenazine Hcl 2.5 Mg Tablet PO 7.5 mg TID CHUCK Administration Fluphenazine HCl 10 mg 09/16/24 15:00 09/23/24 08:27 Fluphenazine Hcl 5 Mg Tablet PO 10 mg TID CHUCK Administration Hydroxyzine HCl 25 mg 09/14/24 15:47 09/20/24 17:04 Hydroxyzine Hcl 25 Mg Tablet PO 25 mg Q6H PRN Administration mild anxiety Lidocaine 1 patch 09/14/24 09:00 09/23/24 08:21 Lidocaine 4 % Patch Adh..Patch TRANSDERMA 1 patch DAILY CHUCK Administration Protocol Magnesium Hydroxide 30 ml 09/14/24 15:47 09/14/24 20:34 Milk Of Magnesia 30 Ml Oral.Susp PO 30 ml DAILY PRN Administration Constipation Naltrexone HCl 25 mg 09/14/24 09:00 09/23/24 08:25 Naltrexone Hcl 50 Mg Tablet PO 25 mg DAILY CHUCK Administration Nicotine 7 mg 09/13/24 23:15 09/23/24 08:53 Nicotine 7 Mg Patch.Td24 TRANSDERMA 7 mg DAILY PRN Administration Nicotine Cravings Nicotine Polacrilex 4 mg 09/14/24 15:47 09/15/24 05:59 Nicotine Polacrilex 2 Mg Gum BUCCAL 4 mg Q2H PRN Administration Nicotine Cravings Pt Own (Levomefolate 7.5 mg 09/14/24 09:00 09/23/24 08:19 Calcium 7.5 Mg PO 7.5 mg Tablet) DAILY CHUCK Administration Pt Own ( 1 tab 09/14/24 09:00 09/23/24 08:20 Levonorgestrel- PO 1 tab Ethinyl Estrad [ DAILY CHUCK Administration Vienva] 0.1-20 Mg- Mcg Tablet) Olanzapine 5 mg 09/14/24 15:50 09/22/24 18:30 Olanzapine 5 Mg Tablet PO 5 mg Q4H PRN Administration agitation Ondansetron HCl 4 mg 09/15/24 13:34 09/19/24 13:25 Ondansetron Odt 4 Mg Tab.Rapdis TRANSLINGU 09/19/24 23:59 4 mg Q8H PRN Administration Nausea and Vomiting Polyethylene Glycol 17 gm 09/15/24 15:25 09/21/24 09:28 Polyethylene Glycol 3350 17 Gm Powd.Pack PO 17 gm DAILY PRN Administration Constipation Prazosin HCl 1 mg 09/16/24 21:00 09/16/24 20:30 Prazosin Hcl 1 Mg Capsule PO 1 mg BEDTIME CHUCK Administration Protocol Prazosin HCl 2 mg 09/17/24 21:00 09/17/24 20:16 Prazosin Hcl 1 Mg Capsule PO 2 mg BEDTIME CHUCK Administration Protocol Prazosin HCl 3 mg 09/18/24 21:00 09/22/24 20:40 Prazosin Hcl 1 Mg Capsule PO 3 mg BEDTIME CHUCK Administration Protocol Quetiapine Fumarate 75 mg 09/13/24 13:06 09/13/24 13:22 Quetiapine Fumarate 25 Mg Tablet PO 09/13/24 13:07 75 mg ONCE ONE Administration Quetiapine Fumarate 75 mg 09/13/24 23:15 09/23/24 08:26 Quetiapine Fumarate 25 Mg Tablet PO 75 mg QID CHUCK Administration Trazodone HCl 150 mg 09/13/24 23:15 09/22/24 20:40 Trazodone Hcl 50 Mg Tablet PO 150 mg BEDTIME CHUCK Administration Trazodone HCl 50 mg 09/14/24 15:47 09/22/24 20:40 Trazodone Hcl 50 Mg Tablet PO 50 mg BEDTIME MRX1 PRN Administration Insomnia Vitamin D 50 mcg 09/15/24 09:00 09/23/24 08:26 Cholecalciferol (Vitamin D3) 25 Mcg Tablet PO 50 mcg DAILY CHUCK Administration Medical Decision Making Lab Data 09/14/24 14:06 09/15/24 08:43 Labs: Lab Results 09/13/24 09/14/24 Range/Units 12:27 14:06 WBC 6.0 (4.8-10.8) X10*3/uL RBC 4.82 (4.20-5.50) X10*6/uL Hgb 14.5 (12.0-16.0) g/dl Hct 43.4 (37.0-47.0) % MCV 90.0 (80.0-98.0) fL MCH 30.1 (27.0-33.0) pg MCHC 33.4 (31.0-35.0) g/dl RDW 11.5 (11.0-16.0) % Plt Count 328 (160-400) X10*3/uL MPV 9.2 L (9.4-12.3) fL Immature Gran % (Auto) 0.5 H (0.0-0.4) % Neut % (Auto) 58.0 (45-73) % Lymph % (Auto) 33.2 (20-40) % [place] % (Auto) 5.5 (2-11) % Eos % (Auto) 1.8 (0-4) % Baso % (Auto) 1.0 (0-2) % Lymph # (Auto) 2.0 (1.2-4.9) X10*3/uL [place] # (Auto) 0.3 (0.1-1.2) X10*3/uL Eos # (Auto) 0.1 (0.0-0.4) X10*3/uL Baso # (Auto) 0.1 (0.0-0.2) X10*3/uL Abs Immat Gran (auto) 0.03 (0.00-0.03) X10*3/uL Absolute Neuts (auto) 3.5 (2.0-8.3) x10*3/uL Absolute Nucleated RBC 0.020 H (0.0-0.012) X10*3/uL Nucleated RBC % (auto) 0.3 H (0.0-0.2) /100WBC Sodium 138 (135-145) mmol/L Potassium 4.2 (3.3-5.1) mmol/L Chloride 107 (96-108) mmol/L Carbon Dioxide 19 L (22-29) mmol/L Anion Gap 16 (12-20) BUN 14 (9-16) mg/dL Creatinine 0.73 (0.5-1.4) mg/dL Estim Creat Clear Calc 169.3 Estimated GFR > 60 Random Glucose 87 (60-115) mg/dL Calcium 9.3 (8.4-10.2) mg/dL Total Bilirubin 0.2 (0.0-1.0) mg/dL AST 22 (5-31) U/L ALT 37 H (0-31) U/L Alkaline Phosphatase 83 (39-117) U/L Total Protein 7.1 (6.5-8.0) g/dL Albumin 4.3 (3.5-5.0) g/dL Beta HCG, Quant < 2 mIU/mL Ethyl Alcohol 12 mg/dL Discharge Plan Discharge Clinical Impression: Homicidal ideation Patient Disposition: Admitted As Inpatient Interventions: Admission Worksheet (ED) Last Done: 09/14/24 17:52 Discharge Date/Time: 09/14/24 17:53
[2024-09-15] MEDS: traZODone HCL 50 MG TABLET 150 MG PO (19:50)
[2024-09-15] MEDS: Docusate Sodium 100 MG CAPSULE PO (19:51)
[2024-09-15 20:00] VITALS: BP 136/65; BP 136/85; PULSE 104; RESP 16; TEMP 36.3; O2SAT 98
[2024-09-16] MEDS: OLANZapine 5 MG TABLET PO ×3 (01:51→15:33)
[2024-09-16] MEDS: hydrOXYzine HCL 25 MG TABLET PO ×2 (01:51→15:34)
[2024-09-16] MEDS: Famotidine 20 MG TABLET 40 MG PO ×2 (05:01→20:28)
[2024-09-16 08:00] VITALS: BP 116/54; PULSE 90; RESP 16; TEMP 36.3; O2SAT 96
[2024-09-16] MEDS: LEVONORGESTREL ETHINYL ESTRAD 1 EACH PO (08:49)
[2024-09-16] MEDS: LEVOMEFOLATE CALCIUM 7.5 MG 7.5 EACH PO (08:49)
[2024-09-16] MEDS: Nicotine 7 MG PATCH.TD24 TRANSDERMA (08:50)
[2024-09-16] MEDS: QUEtiapine Fumarate 25 MG TABLET 75 MG PO ×4 (08:50→20:28)
[2024-09-16] MEDS: fluPHENAZine HCl 2.5 MG TABLET 7.5 MG PO (08:50)
[2024-09-16] MEDS: Cholecalciferol (Vitamin D3) 25 MCG TABLET 50 MCG PO (08:52)
[2024-09-16] MEDS: Benztropine Mesylate 0.5 MG TABLET PO ×2 (08:52→20:29)
[2024-09-16] MEDS: carBAMazepine 200 MG TABLET PO ×2 (08:52→20:29)
[2024-09-16] MEDS: Naltrexone HCl 50 MG TABLET 25 MG PO (08:53)
[2024-09-16] MEDS: Lidocaine 4 % Patch ADH..PATCH 1 PATCH TRANSDERMA (08:53)
[2024-09-16] MEDS: Ondansetron ODT 4 MG TAB.RAPDIS TRANSLINGU (09:31)
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
[2024-09-16] MEDS: Magnesium Hydrox/Alum Hydrox 30 ML ORAL.SUSP PO ×2 (12:58→21:25)
[2024-09-16] MEDS: fluPHENAZine HCl 5 MG TABLET 10 MG PO ×2 (15:33→20:27)
[2024-09-16] MEDS: polyethylene glycoL 3350 17 GM POWD.PACK PO (16:51)
[2024-09-16 20:00] VITALS: BP 135/84; PULSE 97; RESP 16; TEMP 36.7; O2SAT 99
[2024-09-16] MEDS: traZODone HCL 50 MG TABLET 150 MG PO (20:29)
[2024-09-16] MEDS: Prazosin HCL 1 MG CAPSULE PO (20:30)
[2024-09-16] MEDS: Docusate Sodium 100 MG CAPSULE PO (20:30)
[2024-09-17] MEDS: OLANZapine 5 MG TABLET PO ×3 (05:47→16:56)
[2024-09-17] MEDS: hydrOXYzine HCL 25 MG TABLET PO ×2 (05:47→11:40)
[2024-09-17] MEDS: Lidocaine 4 % Patch ADH..PATCH 1 PATCH TRANSDERMA (08:55)
[2024-09-17] MEDS: Famotidine 20 MG TABLET 40 MG PO ×2 (08:56→20:16)
[2024-09-17] MEDS: fluPHENAZine HCl 5 MG TABLET 10 MG PO ×3 (08:56→20:17)
[2024-09-17] MEDS: QUEtiapine Fumarate 25 MG TABLET 75 MG PO ×4 (08:56→20:15)
[2024-09-17] MEDS: LEVONORGESTREL ETHINYL ESTRAD 1 EACH PO (08:56)
[2024-09-17] MEDS: Benztropine Mesylate 0.5 MG TABLET PO ×2 (08:56→20:17)
[2024-09-17] MEDS: Cholecalciferol (Vitamin D3) 25 MCG TABLET 50 MCG PO (08:57)
[2024-09-17] MEDS: LEVOMEFOLATE CALCIUM 7.5 MG 7.5 EACH PO (08:57)
[2024-09-17] MEDS: carBAMazepine 200 MG TABLET PO ×2 (08:58→20:17)
[2024-09-17] MEDS: Ondansetron ODT 4 MG TAB.RAPDIS TRANSLINGU ×2 (09:00→17:41)
[2024-09-17] MEDS: Naltrexone HCl 50 MG TABLET 25 MG PO (09:20)
[2024-09-17 10:00] VITALS: BP 124/79; PULSE 87; TEMP 37.2; O2SAT 99
[2024-09-17] MEDS: Acetaminophen 325 MG TABLET 650 MG PO (10:07)
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
[2024-09-17] MEDS: Magnesium Hydrox/Alum Hydrox 30 ML ORAL.SUSP PO (18:33)
[2024-09-17 20:00] VITALS: BP 132/86; PULSE 117; RESP 16; TEMP 36.3; O2SAT 97
[2024-09-17 20:16] VITALS: BP 132/64
[2024-09-17] MEDS: Docusate Sodium 100 MG CAPSULE PO (20:16)
[2024-09-17] MEDS: Prazosin HCL 1 MG CAPSULE 2 MG PO (20:16)
[2024-09-17] MEDS: traZODone HCL 50 MG TABLET 150 MG PO (20:16)
[2024-09-18] MEDS: hydrOXYzine HCL 25 MG TABLET PO (02:40)
[2024-09-18] MEDS: OLANZapine 5 MG TABLET PO (02:40)
[2024-09-18] MEDS: traZODone HCL 50 MG TABLET PO (02:41)
[2024-09-18 07:55] VITALS: BP 137/66; PULSE 97; TEMP 36.7; O2SAT 96
[2024-09-18] MEDS: LEVOMEFOLATE CALCIUM 7.5 MG 7.5 EACH PO (08:23)
[2024-09-18] MEDS: LEVONORGESTREL ETHINYL ESTRAD 1 EACH PO (08:24)
[2024-09-18] MEDS: QUEtiapine Fumarate 25 MG TABLET 75 MG PO ×4 (08:25→20:12)
[2024-09-18] MEDS: Cholecalciferol (Vitamin D3) 25 MCG TABLET 50 MCG PO (08:25)
[2024-09-18] MEDS: Benztropine Mesylate 0.5 MG TABLET PO ×2 (08:26→20:11)
[2024-09-18] MEDS: Famotidine 20 MG TABLET 40 MG PO ×2 (08:26→20:11)
[2024-09-18] MEDS: fluPHENAZine HCl 5 MG TABLET 10 MG PO ×3 (08:26→20:12)
[2024-09-18] MEDS: carBAMazepine 200 MG TABLET PO ×2 (08:27→20:11)
[2024-09-18] MEDS: Naltrexone HCl 50 MG TABLET 25 MG PO (08:28)
[2024-09-18] MEDS: Lidocaine 4 % Patch ADH..PATCH 1 PATCH TRANSDERMA (08:28)
[2024-09-18] MEDS: Nicotine 7 MG PATCH.TD24 TRANSDERMA (08:44)
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
[2024-09-18] MEDS: Acetaminophen 325 MG TABLET 650 MG PO (16:57)
[2024-09-18] MEDS: Magnesium Hydrox/Alum Hydrox 30 ML ORAL.SUSP PO (19:49)
[2024-09-18 20:00] VITALS: BP 126/64; PULSE 104; RESP 16; TEMP 36.6; O2SAT 99
[2024-09-18] MEDS: Docusate Sodium 100 MG CAPSULE PO (20:11)
[2024-09-18] MEDS: traZODone HCL 50 MG TABLET 150 MG PO (20:11)
[2024-09-18 20:12] VITALS: BP 124/74
[2024-09-18] MEDS: Prazosin HCL 1 MG CAPSULE 3 MG PO (20:12)
[2024-09-19] MEDS: hydrOXYzine HCL 25 MG TABLET PO (03:31)
[2024-09-19] MEDS: OLANZapine 5 MG TABLET PO (03:31)
--- NOTE | 2024-09-19 05:32 | PC.NURSE ---
Patient woke up at 0320 c/o nightmares despite increase in Prazosin. She was given prn Zyprexa and Hydroxyzine with positive effect. She was able to sleep in a chair in the kitchen until 0515, at which time she woke up and said she was going to her room to sleep.
[2024-09-19 08:00] VITALS: BP 128/60; PULSE 77; RESP 18; TEMP 38; O2SAT 98
[2024-09-19] MEDS: Benztropine Mesylate 0.5 MG TABLET PO ×2 (08:46→20:21)
[2024-09-19] MEDS: QUEtiapine Fumarate 25 MG TABLET 75 MG PO ×4 (08:46→20:19)
[2024-09-19] MEDS: Naltrexone HCl 50 MG TABLET 25 MG PO (08:47)
[2024-09-19] MEDS: Famotidine 20 MG TABLET 40 MG PO ×2 (08:47→20:21)
[2024-09-19] MEDS: fluPHENAZine HCl 5 MG TABLET 10 MG PO ×3 (08:47→20:18)
[2024-09-19] MEDS: Cholecalciferol (Vitamin D3) 25 MCG TABLET 50 MCG PO (08:47)
[2024-09-19] MEDS: carBAMazepine 200 MG TABLET PO ×2 (08:47→20:20)
[2024-09-19] MEDS: LEVONORGESTREL ETHINYL ESTRAD 1 EACH PO (09:11)
[2024-09-19] MEDS: LEVOMEFOLATE CALCIUM 7.5 MG 7.5 EACH PO (09:11)
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
[2024-09-19] MEDS: Ondansetron ODT 4 MG TAB.RAPDIS TRANSLINGU (13:25)
[2024-09-19] MEDS: Magnesium Hydrox/Alum Hydrox 30 ML ORAL.SUSP PO (18:40)
[2024-09-19] MEDS: Acetaminophen 325 MG TABLET 650 MG PO (19:14)
[2024-09-19 20:00] VITALS: BP 136/73; PULSE 123; TEMP 37.7; O2SAT 97
[2024-09-19] MEDS: traZODone HCL 50 MG TABLET 150 MG PO (20:18)
[2024-09-19 20:19] VITALS: BP 136/73
[2024-09-19] MEDS: Prazosin HCL 1 MG CAPSULE 3 MG PO (20:19)
[2024-09-19] MEDS: Docusate Sodium 100 MG CAPSULE PO (20:20)
[2024-09-19 20:35] VITALS: PULSE 115; TEMP 36.9
[2024-09-20] MEDS: traZODone HCL 50 MG TABLET PO (00:31)
[2024-09-20] MEDS: OLANZapine 5 MG TABLET PO ×2 (00:31→17:05)
[2024-09-20 07:56] VITALS: BP 141/59; PULSE 104; TEMP 36.3; O2SAT 96
[2024-09-20] MEDS: Magnesium Hydrox/Alum Hydrox 30 ML ORAL.SUSP PO ×2 (08:24→20:56)
[2024-09-20] MEDS: Benztropine Mesylate 0.5 MG TABLET PO ×2 (08:47→20:20)
[2024-09-20] MEDS: fluPHENAZine HCl 5 MG TABLET 10 MG PO ×3 (08:47→20:22)
[2024-09-20] MEDS: QUEtiapine Fumarate 25 MG TABLET 75 MG PO ×4 (08:47→20:20)
[2024-09-20] MEDS: Cholecalciferol (Vitamin D3) 25 MCG TABLET 50 MCG PO (08:48)
[2024-09-20] MEDS: Naltrexone HCl 50 MG TABLET 25 MG PO (08:48)
[2024-09-20] MEDS: Lidocaine 4 % Patch ADH..PATCH 1 PATCH TRANSDERMA (08:48)
[2024-09-20] MEDS: Famotidine 20 MG TABLET 40 MG PO ×2 (08:48→20:21)
[2024-09-20] MEDS: LEVOMEFOLATE CALCIUM 7.5 MG 7.5 EACH PO (08:50)
[2024-09-20] MEDS: LEVONORGESTREL ETHINYL ESTRAD 1 EACH PO (08:51)
[2024-09-20] MEDS: carBAMazepine 200 MG TABLET PO ×2 (08:54→20:22)
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
[2024-09-20] MEDS: hydrOXYzine HCL 25 MG TABLET PO (17:04)
[2024-09-20] MEDS: Acetaminophen 325 MG TABLET 650 MG PO (18:01)
[2024-09-20 20:00] VITALS: BP 118/64; PULSE 112; TEMP 36.6; O2SAT 97
[2024-09-20] MEDS: traZODone HCL 50 MG TABLET 150 MG PO (20:18)
[2024-09-20 20:19] VITALS: BP 118/69
[2024-09-20] MEDS: Prazosin HCL 1 MG CAPSULE 3 MG PO (20:19)
[2024-09-20] MEDS: Docusate Sodium 100 MG CAPSULE PO (20:19)
[2024-09-21] MEDS: Acetaminophen 325 MG TABLET 650 MG PO ×2 (07:11→20:46)
[2024-09-21 07:52] VITALS: BP 127/73; PULSE 104; TEMP 36.4; O2SAT 96
[2024-09-21] MEDS: LEVONORGESTREL ETHINYL ESTRAD 1 EACH PO (08:44)
[2024-09-21] MEDS: LEVOMEFOLATE CALCIUM 7.5 MG 7.5 EACH PO (08:44)
[2024-09-21] MEDS: Naltrexone HCl 50 MG TABLET 25 MG PO (08:44)
[2024-09-21] MEDS: fluPHENAZine HCl 5 MG TABLET 10 MG PO ×3 (08:46→20:42)
[2024-09-21] MEDS: Benztropine Mesylate 0.5 MG TABLET PO ×2 (08:46→20:46)
[2024-09-21] MEDS: Famotidine 20 MG TABLET 40 MG PO ×2 (08:46→20:43)
[2024-09-21] MEDS: Cholecalciferol (Vitamin D3) 25 MCG TABLET 50 MCG PO (08:46)
[2024-09-21] MEDS: carBAMazepine 200 MG TABLET PO ×2 (08:47→20:45)
[2024-09-21] MEDS: Nicotine 7 MG PATCH.TD24 TRANSDERMA (08:47)
[2024-09-21] MEDS: Lidocaine 4 % Patch ADH..PATCH 1 PATCH TRANSDERMA (08:47)
[2024-09-21] MEDS: polyethylene glycoL 3350 17 GM POWD.PACK PO (09:28)
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
[2024-09-21] MEDS: QUEtiapine Fumarate 25 MG TABLET 75 MG PO ×4 (09:43→20:45)
[2024-09-21] MEDS: Magnesium Hydrox/Alum Hydrox 30 ML ORAL.SUSP PO ×2 (12:17→18:13)
[2024-09-21 19:45] VITALS: BP 134/78; PULSE 114; RESP 16; TEMP 36.6; O2SAT 98
[2024-09-21] MEDS: Prazosin HCL 1 MG CAPSULE 3 MG PO (20:41)
[2024-09-21] MEDS: Docusate Sodium 100 MG CAPSULE PO (20:45)
[2024-09-21] MEDS: traZODone HCL 50 MG TABLET 150 MG PO (20:48)
[2024-09-22 07:00] VITALS: BMI 45.0
[2024-09-22 08:00] VITALS: BP 164/97; PULSE 116; RESP 18; TEMP 36.9; O2SAT 98
[2024-09-22] MEDS: Benztropine Mesylate 0.5 MG TABLET PO ×2 (08:21→20:39)
[2024-09-22] MEDS: fluPHENAZine HCl 5 MG TABLET 10 MG PO ×3 (08:21→20:41)
[2024-09-22] MEDS: carBAMazepine 200 MG TABLET PO ×2 (08:22→20:41)
[2024-09-22] MEDS: Cholecalciferol (Vitamin D3) 25 MCG TABLET 50 MCG PO (08:22)
[2024-09-22] MEDS: QUEtiapine Fumarate 25 MG TABLET 75 MG PO ×4 (08:23→20:41)
[2024-09-22] MEDS: Famotidine 20 MG TABLET 40 MG PO ×2 (08:23→20:39)
[2024-09-22] MEDS: Naltrexone HCl 50 MG TABLET 25 MG PO (08:25)
[2024-09-22] MEDS: Nicotine 7 MG PATCH.TD24 TRANSDERMA (08:29)
[2024-09-22] MEDS: LEVONORGESTREL ETHINYL ESTRAD 1 EACH PO (08:31)
[2024-09-22] MEDS: LEVOMEFOLATE CALCIUM 7.5 MG 7.5 EACH PO (08:31)
[2024-09-22] MEDS: Lidocaine 4 % Patch ADH..PATCH 1 PATCH TRANSDERMA (08:32)
[2024-09-22] MEDS: Magnesium Hydrox/Alum Hydrox 30 ML ORAL.SUSP PO ×2 (08:49→14:59)
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
[2024-09-22] MEDS: Acetaminophen 325 MG TABLET 650 MG PO (13:50)
[2024-09-22] MEDS: OLANZapine 5 MG TABLET PO (18:30)
[2024-09-22 20:00] VITALS: BP 151/85; PULSE 113; RESP 16; TEMP 37.7; O2SAT 95
[2024-09-22] MEDS: Prazosin HCL 1 MG CAPSULE 3 MG PO (20:40)
[2024-09-22] MEDS: traZODone HCL 50 MG TABLET 150 MG PO (20:40)
[2024-09-22] MEDS: traZODone HCL 50 MG TABLET PO (20:40)
[2024-09-22] MEDS: Docusate Sodium 100 MG CAPSULE PO (20:41)
[2024-09-23] MEDS: Magnesium Hydrox/Alum Hydrox 30 ML ORAL.SUSP PO (07:19)
[2024-09-23 08:00] VITALS: BP 156/84; PULSE 124; RESP 16; TEMP 36.6; O2SAT 96
[2024-09-23] MEDS: LEVOMEFOLATE CALCIUM 7.5 MG 7.5 EACH PO (08:19)
[2024-09-23] MEDS: LEVONORGESTREL ETHINYL ESTRAD 1 EACH PO (08:20)
[2024-09-23] MEDS: Lidocaine 4 % Patch ADH..PATCH 1 PATCH TRANSDERMA (08:21)
[2024-09-23] MEDS: Benztropine Mesylate 0.5 MG TABLET PO (08:24)
[2024-09-23] MEDS: carBAMazepine 200 MG TABLET PO (08:24)
[2024-09-23] MEDS: Naltrexone HCl 50 MG TABLET 25 MG PO (08:25)
[2024-09-23] MEDS: QUEtiapine Fumarate 25 MG TABLET 75 MG PO (08:26)
[2024-09-23] MEDS: Cholecalciferol (Vitamin D3) 25 MCG TABLET 50 MCG PO (08:26)
[2024-09-23] MEDS: fluPHENAZine HCl 5 MG TABLET 10 MG PO (08:27)
[2024-09-23] MEDS: Famotidine 20 MG TABLET 40 MG PO (08:27)
[2024-09-23] MEDS: Nicotine 7 MG PATCH.TD24 TRANSDERMA (08:53)
[2024-09-23] MEDS: Acetaminophen 325 MG TABLET 650 MG PO (08:53)
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
== END 2024-09-23 11:15 | disposition home or self-care (01) | DRG 753 ==
LOC: HO.ED 14:12 → HO.PM5 09-14 15:53
PROVIDERS: Registered Nurse Emergency; Admitting Provider Clinical Nurse Specialist Psychiatric/Mental Health, Adult; Emergency Provider Emergency Medicine; Visit Provider Clinical Nurse Specialist Psychiatric/Mental Health, Adult
DX: F34.81 Disruptive mood dysregulation disorder (principal); R45.850 Homicidal ideations; F84.0 Autistic disorder; F17.210 Nicotine dependence, cigarettes, uncomplicated; F79 Unspecified intellectual disabilities; Z71.6 Tobacco abuse counseling; Z79.899 Other long term (current) drug therapy
CPT/HCPCS: 36415; 80053; 80061; 80307; 82607; 82746; 83036; 83735; 84439; 84443; 84702; 85025; 93005; 99285; S9485

== ENCOUNTER → 2024-09-14 08:26 | Outpatient (BNV) | payer MEDICAID, SELFPAY | PROVIDERS: Admitting Provider Clinical Nurse Specialist Psychiatric/Mental Health, Adult; Emergency Provider Emergency Medicine; Visit Provider Internal Medicine Cardiovascular Disease | DX: Z13.6 Encounter for screening for cardiovascular disorders (principal) | CPT/HCPCS: 93010 ==

== ENCOUNTER → 2024-09-14 15:47 | Outpatient (BNV) | payer MEDICAID, SELFPAY | PROVIDERS: Admitting Provider Clinical Nurse Specialist Psychiatric/Mental Health, Adult; Emergency Provider Emergency Medicine; Visit Provider Nurse Practitioner Family | DX: F34.81 Disruptive mood dysregulation disorder (principal); F84.0 Autistic disorder; R45.850 Homicidal ideations; F79 Unspecified intellectual disabilities | CPT/HCPCS: 90792; 99231; 99232; 99238 ==

== ENCOUNTER 2024-12-12 14:46 | Inpatient (IN) | payer MEDICAID, SELFPAY ==
--- OUTSIDE RECORDS SUMMARY | 2024-07-02 11:01 | XMS_ITS | Encounter Summary ---
Author Organization [facility] Address [address] [place] [address] Care Team Providers Care Order Management Specialist Name Role Phone Yvon Pandey MD Primary Care Provider [phone] Marylou, Jude RPH Unavailable Marylou, Jude RPH Unavailable Marylou, Jude RPH Unavailable Marylou, Jude RPH Unavailable Marylou, Jude RPH Unavailable Encounter Details Date Type Department Care Team (Late st Contact Info) Description 07/02/2024 10:01 AM EST Hospital Encounter [facility] [address] [place] [phone] Man Sims MD [address] [place] [address] Social History Tobacco Use Types [...] on filedocumented in this encounter Care Teams Order Management Specialist Relationship Specialty Start Date End Date Yvon Pandey MD [address] [place] [phone] PCP - General Pediatric, General 08/19/17 Jude Hickman [facility] [address] [facility] [place] [address] Pharmacist 08/20/17 Jude Hickman [facility] [address] [facility] [place] [address] Pharmacist 05/31/18 Jude Hickman [facility] [address] [facility] [place] [address] Pharmacist 09/13/18 Jude Hickman [facility] [address] [facility] [place] [address] Pharmacist 09/21/18 Jude Hickman [facility] [address] [facility] [place] [address] Pharmacist 10/18/18 documented as of this encounter
--- NOTE | ~2024-12-12 | CT_ITS ---
EXAMINATION: CT HEAD WITHOUT CONTRAST CLINICAL INFORMATION: Headache, head banging today COMPARISON: December 25, 2024 TECHNIQUE: Contiguous axial imaging was performed from the skull base to vertex without intravenous administration of contrast. This CT examination was performed using dose optimization techniques as appropriate, variously including the following: *Automated exposure control *Adjustment of mA and/or kV according to patient size (this includes techniques or standardized protocols for targeted exams where dose is matched to indication/reason for exam; i.e. extremities or head) *Use of iterative reconstruction technique DLP: 823 mGY*cm FINDINGS: There is no acute ischemic change. There is no intracranial hemorrhage. There is no mass-effect or midline shift. Basal cisterns and ventricles are within normal limits for age/cerebral volume. Orbits are symmetrical and unremarkable. Paranasal sinuses and mastoid air cells are pneumatized. There are no bony abnormalities. CT/CT head/brain wo IV con IMPRESSION: No acute intracranial abnormality. Electronically signed by: Ashvin Lee MD 12/30/2024 04:33 PM EDT
--- NOTE | ~2024-12-12 | XR_ITS ---
EXAMINATION: XR FOOT, LEFT CLINICAL INFORMATION: pain, edema COMPARISON: None available. TECHNIQUE: AP, lateral, and oblique views of the left foot. FINDINGS: No fracture or destructive bone lesion. Normal alignment. Joint spaces are preserved. No radiopaque foreign body. XR/XR foot LT min 3V IMPRESSION: No acute fracture or dislocation. Electronically signed by: Nathaly Harris MD 12/15/2024 12:54 PM EDT
--- NOTE | ~2024-12-12 | CT_ITS ---
CLINICAL HISTORY: head banging CT head without contrast Comparison: CT/SR - CT HEAD/BRAIN WO IV CON - 09/07/24 17:05 EDT Findings: No intra-axial mass, midline shift, hydrocephalus, or acute hemorrhage. No significant atrophy-like change or white matter disease. There is no sinus or mastoid fluid. The orbits are unremarkable. There is no acute fracture. IMPRESSION: 1. No acute intracranial findings. This document has been electronically signed by: Kandice Schaffer MD on 12/25/2024 13:25:57
--- NOTE | ~2024-12-12 | XR_ITS ---
CLINICAL HISTORY: nausea and vomiting 1 view abdomen Comparison: None provided Findings: No consolidation of the imaged lung bases with mild atelectasis. No small bowel dilatation in the imaged abdomen. Severe stool burden is present, including the cecum. Mild/minimal pubic rami deformities appear old/chronic. IMPRESSION: 1. No small bowel obstruction. 2. Severe stool burden. This document has been electronically signed by: Be Avitia MD on 01/02/2025 19:10:50
[2024-12-12 14:48] VITALS: BP 130/86; PULSE 107; O2SAT 98; BMI 29.9
[2024-12-12 14:57] VITALS: BP 137/77; PULSE 107; RESP 16; O2SAT 96
[2024-12-12 15:06] VITALS: BP 137/77; PULSE 107; RESP 16; O2SAT 96
--- NOTE | 2024-12-12 15:23 | ED_ITS ---
HPI - Psych General Chief Complaint: Psychiatric Symptoms Stated Complaint: SI, FALL +VE HEADSTRIKE Time Seen by Provider: 12/12/24 15:23 Source: patient and EMS Mode of arrival: EMS Limitations: no limitations History of Present Illness ED Provider: Shi Mueller PA-C HPI Narrative: 19-year-old female with history of autism, intellectual disability, disruptive mood dysregulation disorder who presents to the ER via EMS from [employer] [facility] for evaluation after she was banging her head against the wall and hitting herself in the head. No LOC. She denies being on anticoagulation. She states she has been wanting to hurt herself since Thursday and has had suicidial thoughts. She reports she went deep sea fishing on Thursday and she tried to jump overboard to kill herself and the police were called. She went to the police station until she calmed down and never went to a hospital. She states she flushed all of her psych medications down the toilet and does not want to take them. She states her father makes her want to kill herself. She denies any physical or verbal abuse at home. She reports drinking 1 can of alcoholic [place] this morning and smoking a little bit of marijuana today. She denies other drug use. She states she was last admitted psychiatrically here at some point this year but can not recall when. She denies a headache, she has an ice pack on a small hematoma on her forehead. She denies any neck pain, vision changes, lethargy, confusion, nausea or vomiting. No chest pain or shortness of breath. MD complaint: suicidal ideation, feels depressed and other (self harm) Onset (ago): day(s) (4) Duration: constant History of same: Yes Relieving factors: none Exacerbating factors: none Context: recent alcohol abuse, recent drug abuse and not taking psychiatric medications Associated psychiatric symptoms: depression and suicidal ideation Associated symptoms: denies other symptoms Treatments prior to arrival: placed on mental health hold If self harm: admits thoughts of self harm, has plan, has acted on plan and self-inflicted trauma Related Data Home Medications ?Medication ?Instructions ?Recorded ?Confirmed dexlansoprazole 30 mg 30 mg PO DAILY 12/12/2412/02 capsule,biphase delayed release (Dexilant) levomefolate calcium 7.5 mg tablet 7.5 mg PO DAILY 03/2812/12/24 levonorgestrel-ethinyl estradiol 1 tab PO DAILY 12/12/24 0.1 mg-20 mcg tablet (Vienva) quetiapine 50 mg tablet 50 mg PO QID 12/12/24 trazodone 50 mg tablet 50 mg PO BEDTIME 12/12/24 Previous Rx's ?Medication ?Instructions ?Recorded benztropine 0.5 mg tablet 0.5 mg PO BID #60 tabs 09/22 naltrexone 50 mg tablet 25 mg (1/2 x 50 mg) PO DAILY #30 09/22/24 tabs nicotine (polacrilex) 2 mg gum 4 mg buccal Q2H PRN [place] otine 09/22/24 Cravings #100 ea prazosin 1 mg capsule 3 mg PO BEDTIME #90 caps quetiapine 25 mg tablet 75 mg (3 x 25 mg) PO QID #36 0 tabs 09/22/24 trazodone 50 mg tablet 150 mg (3 x 50 mg) PO BEDTIM E #90 09/22/24 tabs Allergies Allergy/AdvReac Type Severity Reaction Status Date / Time divalproex sodium (From Allergy Unknown Unknown Verified 12/12/24 14:51 Depakote) chlorpromazine (From Allergy Unknown Verified 12/12/24 14:51 Thorazine) egg Allergy Abdominal Verified 12/13/24 07:07 Pain gluten Allergy Stomach Verified 12/12/24 14:51 Upset Milk Containing Products Allergy Stomach Verified 12/12/24 14:51 (Dairy) Upset Review of Systems 2 Review of Systems: Yes all other systems are reviewed and are negative [facility] Past Medical History Medical History Acute anxiety Disruptive mood dysregulation disorder Intellectual disability Autism Social History Social History Household Members: Family Household Members Other:: brother, father Housing: House Do you presently have visiting nurse or other home services: No Alcohol intake: current Alcohol type: beer Patient Tobacco Use Status: Current everyday Tobacco user Smoked in Last 30 Days: Yes e-Cigarette/Vaping Use: Currently Using Frequency of e-Cigarette/Vaping Use: daily Patient Interested in Nicotine Replacement: Yes Patient Given Instructions on How to Stop Smoking: Yes Date Education Initiated: 12/13/24 Second Hand Smoke Exposure: No Use of substances other than those prescribed or required for medical reasons: Yes Substance Use Type: Marijuana Substance Use Frequency: Chronic Longstanding Currently Displaying Signs/Symptoms of Drug Intoxication Withdrawal: No Have you been hit, kicked, punched, or otherwise hurt by someone within the past year? If so, by whom?: No Do you feel safe in your current relationship?: No Current Relationship Is there a partner from a previous relationship who is making you feel unsafe now?: No Are you made to feel afraid or neglected: No Advance Directives: No Advance Directives Information Provided: Yes Do you have thoughts of harming others: None Do you have a plan to hurt others: No Plan Recently lost weight without trying: Unsure Patient : No : No Poor oral hygiene: No service: No Sexual orientation: Straight/Heterosexual Physical Exam 2 Vital Signs: Vital Signs: Last Vital Signs Temp 97.3 F 12/15/24 08:00 Pulse 115 H 12/15/24 08:00 Resp 16 12/15/24 08:00 BP 154/93 H 12/15/24 08:00 Pulse Ox 96 12/15/24 08:00 O2 Del Method Room Air 12/14/24 20:00 BMI result Body Mass Index 29.9 Appearance: Alert. Oriented X3. No acute distress. Head: normocephalic, 2-3cm area on the superior forehead with swelling and erythema, mildly tender. no crepitus. Eyes: Pupils equal, round and reactive to light. ENT: Pharynx normal. No tonsillar swelling or exudate. Neck: Normal inspection. Neck supple. no midline tenderness CVS: Normal heart rate and rhythm. Pulses normal. Respiratory: No respiratory distress. Breath sounds normal. Abdomen: Obese, soft and nontender. +BS x4 Skin: Skin warm and dry. Normal skin color. Normal skin turgor. No rashes. Extremities: No lower extremity edema. No joint swelling. Neuro/psych: Oriented X 3. No motor deficit. No sensory deficit. CN II-XII intact. Hyperactive speech, impulsive behavior, +SI Course Reevaluation(s) Reevaluation #1: Physician observation started at 1629. Patient placed in physician observation because patient is awaiting CARE team evaluation for the possible need of inpatient psych admission. At the time observation was started patient's vital signs were stable. Patient is alert and oriented. Neuro exam is non-focal. CV: RRR and lungs are clear. Will continue to monitor. Time: 16:29 Reevaluation #2: Time: 06:45 Date: 12/13/24 Provider: Benson Allen MD Patient in physician observation for psychiatric evaluation.? No acute events reported overnight. No current complaints. VS stable.? Patient is in bed search status/pending CARE team evaluation. Will continue to monitor. Medications Administered Generic Name Dose Route Start Last Admin Trade Name Freq PRN Reason Stop Dose Admin Acetaminophen 650 mg 12/13/24 14:13 12/15/24 13:51 Acetaminophen 325 Mg Tablet PO 650 mg Q6H PRN Administration Headache/Pain, Scale 1-10 Al Hydroxide/Mg Hydroxide 30 ml 12/13/24 14:13 12/13/24 18:39 Magnesium Hydrox/Alum Hydrox 30 Ml Oral.Susp PO 30 ml Q6H PRN Administration Heartburn/Nausea Benztropine Mesylate 0.5 mg 12/13/24 09:00 12/15/24 08:12 Benztropine Mesylate 0.5 Mg Tablet PO 0.5 mg BID CHUCK Administration Hydroxyzine HCl 25 mg 12/13/24 14:13 12/15/24 07:18 Hydroxyzine Hcl 25 Mg Tablet PO 25 mg Q6H PRN Administration mild anxiety Ibuprofen 800 mg 12/14/24 15:41 12/15/24 08:12 Ibuprofen 800 Mg Tablet PO 800 mg TIDWM PRN Administration severe headache Lidocaine 1 patch 12/14/24 17:15 12/15/24 08:11 Lidocaine 4 % Patch Adh..Patch TRANSDERMA 1 patch DAILY CHUCK Administration Protocol Loratadine 10 mg 12/15/24 09:30 12/15/24 13:51 Loratadine 10 Mg Tablet PO 10 mg DAILY CHUCK Administration Naltrexone HCl 25 mg 12/13/24 09:00 12/15/24 08:12 Naltrexone Hcl 50 Mg Tablet PO 25 mg DAILY CHUCK Administration Nicotine 21 mg 12/13/24 14:13 12/15/24 08:11 Nicotine 21 Mg Patch.Td24 TRANSDERMA 21 mg DAILY PRN Administration smoking cessation Nicotine Polacrilex 4 mg 12/12/24 22:01 12/14/24 05:44 Nicotine Polacrilex 2 Mg Gum BUCCAL 4 mg Q2H PRN Administration Nicotine Cravings Olanzapine 5 mg 12/13/24 14:13 12/15/24 15:59 Olanzapine 5 Mg Tablet PO 5 mg TID PRN Administration agitation Omeprazole 20 mg 12/13/24 09:00 12/15/24 07:03 Omeprazole 20 Mg Capsule.Dr PO 20 mg DAILY@0630 CHUCK Administration Prazosin HCl 3 mg 12/13/24 21:00 12/14/24 21:03 Prazosin Hcl 1 Mg Capsule PO 3 mg BEDTIME CHUCK Administration Protocol Quetiapine Fumarate 50 mg 12/13/24 09:00 12/15/24 16:01 Quetiapine Fumarate 50 Mg Tablet PO 50 mg QID CHUCK Administration Trazodone HCl 150 mg 12/13/24 21:00 12/14/24 21:02 Trazodone Hcl 50 Mg Tablet PO 150 mg BEDTIME CHUCK Administration Trazodone HCl 50 mg 12/13/24 21:00 12/14/24 21:05 Trazodone Hcl 50 Mg Tablet PO 50 mg BEDTIME CHUCK Administration Trazodone HCl 50 mg 12/13/24 14:13 12/14/24 01:46 Trazodone Hcl 50 Mg Tablet PO 50 mg BEDTIME MRX1 PRN Administration Insomnia Discontinued Medications Generic Name Dose Route Start Last Admin Trade Name Freq PRN Reason Stop Dose Admin Benztropine Mesylate 0.5 mg 12/12/24 22:41 12/12/24 22:46 Benztropine Mesylate 0.5 Mg Tablet PO 12/12/24 22:42 0.5 mg ONCE ONE Administration Ibuprofen 600 mg 12/13/24 08:25 12/13/24 08:37 Ibuprofen 600 Mg Tablet PO 12/13/24 08:26 600 mg ONCE ONE Administration Quetiapine Fumarate 75 mg 12/13/24 09:00 12/13/24 12:23 Quetiapine Fumarate 25 Mg Tablet PO 75 mg QID CHUCK Administration Quetiapine Fumarate 75 mg 12/12/24 22:39 12/12/24 22:46 Quetiapine Fumarate 25 Mg Tablet PO 12/12/24 22:40 75 mg ONCE ONE Administration Trazodone HCl 150 mg 12/12/24 22:39 12/12/24 22:47 Trazodone Hcl 50 Mg Tablet PO 12/12/24 22:40 150 mg ONCE ONE Administration Medical Decision Making Medical Decision Making [facility] Narrative: 19-year-old female with history of intellectual disability, autism, disruptive mood dysregulation disorder who presents to the ER from her day program for evaluation of self-harm. She was hitting herself in the head and hit her head against the wall. No loss of consciousness. She has a small hematoma on her forehead it is minimally tender. She denies headache. No neck pain. CT head not necessary at this point per [place] [facility] Injury receommendations. Will monitor closely in the ER patient admitted to Differential Diagnosis Differential Diagnoses: The differential diagnosis associated with the presentation includes closed heady injury, low suspicion for intracranial bleed or skull fracture, substance induced mood disorder, acute psychosis, schizophrenia, schizoaffective disorder, PTSD, bipolar disorder, major depression with psychotic features Admission/Observation Consideration of admission/observation: Escalation of care including admission/observation considered Lab Data [facility] Lab Attestation statement: I reviewed the patient's lab results. no metabolic derangement 12/12/24 15:35 12/14/24 09:13 Labs: Lab Results 12/12/24 Range/Units 15:35 WBC 7.1 (4.8-10.8) X10*3/uL RBC 4.45 (4.20-5.50) X10*6/uL Hgb 13.5 (12.0-16.0) g/dl Hct 39.9 (37.0-47.0) % MCV 89.7 (80.0-98.0) fL MCH 30.3 (27.0-33.0) pg MCHC 33.8 (31.0-35.0) g/dl RDW 11.7 (11.0-16.0) % Plt Count 268 (160-400) X10*3/uL MPV 9.1 L (9.4-12.3) fL Immature Gran % (Auto) 0.4 (0.0-0.4) % Neut % (Auto) 67.1 (45-73) % Lymph % (Auto) 23.0 (20-40) % [place] % (Auto) 7.5 (2-11) % Eos % (Auto) 1.3 (0-4) % Baso % (Auto) 0.7 (0-2) % Lymph # (Auto) 1.6 (1.2-4.9) X10*3/uL [place] # (Auto) 0.5 (0.1-1.2) X10*3/uL Eos # (Auto) 0.1 (0.0-0.4) X10*3/uL Baso # (Auto) 0.1 (0.0-0.2) X10*3/uL Abs Immat Gran (auto) 0.03 (0.00-0.03) X10*3/uL Absolute Neuts (auto) 4.7 (2.0-8.3) x10*3/uL Absolute Nucleated RBC 0.000 (0.0-0.012) X10*3/uL Nucleated RBC % (auto) 0.0 (0.0-0.2) /100WBC Sodium 140 (135-145) mmol/L Potassium 4.0 (3.3-5.1) mmol/L Chloride 110 H (96-108) mmol/L Carbon Dioxide 23 (22-29) mmol/L Anion Gap 11 L (12-20) BUN 13 (9-16) mg/dL Creatinine 0.78 (0.5-1.4) mg/dL Estim Creat Clear Calc 124.5 Estimated GFR > 60 Random Glucose 96 (60-115) mg/dL Calcium 8.9 D (8.4-10.2) mg/dL Magnesium 1.9 (1.6-2.6) mg/dL Total Bilirubin 0.3 (0.0-1.0) mg/dL Direct Bilirubin 0.1 (0.0-0.5) mg/dL AST 23 (5-31) U/L ALT 21 (0-31) U/L Alkaline Phosphatase 75 (39-117) U/L Total Protein 6.9 (6.5-8.0) g/dL Albumin 4.4 (3.5-5.0) g/dL Urine Color Yellow Urine Appearance Cloudy Urine pH 8.5 (5.0-9.0) Ur Specific Pep 1.010 (1.005-1.025) Urine Protein Negative (Neg-Trace) mg/dL Urine Glucose (UA) Negative (Negative) mg/dL Urine Ketones Negative (Negative) mg/dL Urine Blood Negative (Negative) Urine Nitrite Negative (Negative) Ur Leukocyte Esterase Negative (Negative) Urine Test NEGATIVE (NEGATIVE) Urine Opiates Screen POSITIVE H (Not Detect) Ur Buprenorphine Scrn Not Detected (Not Detect) ng/mL Ur Oxycodone Screen Not Detected (Not Detect) ng/mL Urine Methadone Screen Not Detected (Not Detect) ng/mL Urine Fentanyl Screen POSITIVE H (Not Detect) Ur Barbiturates Screen Not Detected (Not Detect) Ur Phencyclidine Scrn Not Detected (Not Detect) Ur Amphetamines Screen Not Detected (Not Detect) U Benzodiazepines Scrn Not Detected (Not Detect) Urine Cocaine Screen POSITIVE H (Not Detect) U Marijuana (THC) Screen Not Detected (Not Detect) Ethyl Alcohol < 10 mg/dL Independent Historian Clinical information obtained from an independent historian. History obtained from or confirmed by: EMS External Record Review External record reviewed: Inpatient record, Prior outpatient labs and Prior outpatient radiology Prescription Management I considered prescription management with: Other (antipsychotic ) Chronic Conditions Patient?s care impacted by: Other (autism, intellectual disability ) Social Determinants Patient?s care significantly limited by Social Determinants of Health including: Problems related to primary support group and Other Social Determinant of Health Critical Care Time Critical Care Time Critical Care Time: No Discharge Plan Discharge Clinical Impression: Disruptive mood dysregulation disorder, Suicidal ideation Closed head injury Qualifiers: Encounter type: initial encounter Qualified Code(s): S09.90XA - Unspecified injury of head, initial encounter Patient Disposition: Admitted As Inpatient Interventions: Admission Worksheet (ED) Last Done: 12/13/24 16:03 Discharge Date/Time: 12/13/24 16:03
--- OUTSIDE RECORDS SUMMARY | 2024-12-12 15:36 | XMS_ITS | Clinical Summary ---
Author Organization [address] Address [address] [place] [address] Phone Care Team Providers Care Project Internship Name Role Phone Yvon Pandey MD Primary Care Provider [phone] Allergies Active Allergy Reactions Criticality Noted Date [...] 80 09/15/2022 7:53 AM EDT Temperature 36 C (96.8 F) 09/15/2022 7:53 AM EDT Respiratory Rate 16 09/15/2022 7:53 [...] 2023 Covid-19 vaccine series ( season) 2024 Cervical cancer screening 11/30/2024 Influenza Vaccine Pediatric (#1) 2024 RSV Immunization (1 - 1-dose 75+ [...] 6:34 PM 09/15/2022 9:39 PM Care Teams Project Internship Relationship Specialty Start Date End Date Yvon Pandey MD [address] [place] [id number] PCP - General Pediatrics 07/10/22
--- OUTSIDE RECORDS SUMMARY | 2024-12-12 15:36 | XMS_ITS ---
Author Name [facility] Organization Unknown Results Test Name/Text Value Interpretation Date Range Source INFLUENZA A BY PCR INFLUENZA A NEGATIVE. Normal 06/26/2023 [facility] INFLUENZA B BY PCR INFLUENZA B NEGATIVE. Normal 06/26/2023 [facility] RPR NONREACTIVE Normal 06/18/2023 - [facility] GLYCOHEMOGLOBIN (A1C) 5.5 % Normal 06/17/2023 4 - 5.6 [facility] ALT (SGPT) 20.0 U/L Normal 06/17/2023 12 - 78 [facility] TSH 1.64 uIU/mL Normal 06/17/2023 0.35 - 4.5 [facility] POTASSIUM SERUM 4.6 mmol/L Normal 06/17/2023 3.5 - 5.1 [facility] SODIUM 141.0 mmol/L Normal 06/17/2023 136 - 145 [facility] MH CO2 24.0 mmol/L Normal 06/17/2023 21 - 32 [facility] GLUCOSE 88.0 mg/dL Normal 06/17/2023 74 - 100 [facility] CHLORIDE 108.0 mmol/L Above high normal 06/17/2023 98 - 107 [facility] CREATININE 0.95 mg/dL Normal 06/17/2023 0.55 - 1.3 [facility] MH BUN 11.0 mg/dL Normal 06/17/2023 7 - 18 [facility] CALCIUM 9.8 mg/dL Normal 06/17/2023 8.5 - 10.1 [facility] PATIENT FASTING? NO Normal 06/17/2023 [facility] LDL 147.0 Above high normal 06/17/2023 0 - 129 [facility] CHOLESTEROL 207.0 mg/dL Above high normal 06/17/2023 - 200 [facility] HDL 46.0 mg/dL Normal 06/17/2023 - [facility] TRIGLYCERIDE 72.0 mg/dL Normal 06/17/2023 - 150 [facility] GFRE 81.0 Normal 06/17/2023 60 - [facility] GGT 27.0 U/L Normal 06/17/2023 5 - 55 [facility] AST (SGOT) 17.0 U/L Normal 06/17/2023 15 - 37 [facility] LYMPHS 36.0 % Normal 06/17/2023 16 - 50 [facility] PLATELET COUNT 277.0 K/uL Normal 06/17/2023 150 - 480 [facility] MPV 10.0 fL Normal 06/17/2023 8 - 12 [facility] MCHC 32.8 g/dL Normal 06/17/2023 31 - 36 [facility] ABSOLUTE NUCLEATED RBC 0.0 K/uL Normal 06/17/2023 0 - 0.012 [facility] BASOPHILS 1.0 % Normal 06/17/2023 0 - 2 [facility] ABSOLUTE GRANULOCYTES 3.6 K/uL Normal 06/17/2023 2.2 - 7 .3 [facility] MCH 31.0 PG Normal 06/17/2023 27 - 34 [facility] EOSINOPHILS 1.0 % Normal 06/17/2023 0 - 6 [facility] ABSOLUTE BASO 0.1 K/uL Normal 06/17/2023 0 - 0.2 [facility]H GRANULOCYTES 55.0 % Normal 06/17/2023 23 - 78 [facility] MH RBC 5.08 M/uL Normal 06/17/2023 4 - 5.4 [facility] NUCLEATED RBC 0.0 % Normal 06/17/2023 0 - 0.2 [facility]H HCT 47.9 % Above high normal 06/17/2023 36 - 46 C [facility] WBC 6.6 K/uL Normal 06/17/2023 3.7 - 10.3 [facility] MONOCYTES 7.0 % Normal 06/17/2023 0 - 12 [facility] IMMATURE GRANULOCYTES 0.0 % Normal 06/17/2023 0 - 0.4 5 [facility] HGB 15.7 g/dL Normal 06/17/2023 12.1 - 15.7 [facility] ABSOLUTE LYMPHS 2.4 K/uL Normal 06/17/2023 1.5 - 4.9 [facility] MCV 94.0 fL Normal 06/17/2023 83 - 102 [facility] IMMATURE GRANULOCYTES 0.0 K/uL Normal 06/17/2023 0 - 0.3 [facility] RDW 11.9 % Normal 06/17/2023 11.1 - 13.3 [facility] ABSOLUTE EOS 0.1 K/uL Normal 06/17/2023 0 - 0.7 [facility] ABSOLUTE MONOS 0.5 K/uL Normal 06/17/2023 0.2 [facility]G Normal 06/16/2023 - [facility] AMPHETAMINES NEG Normal 06/16/2023 - [facility] COCAINE [facility]G Normal 06/16/2023 - [facility] BARBITURATES NEG Normal 06/16/2023 - [facility] BENZODIAZEPINES NEG Normal 06/16/2023 - [facility] NEG Normal 06/16/2023 - [facility] OPIATES NEG Normal 06/16/2023 - [facility] History of Medication Use Medication Directions Dispensed Refills Start Date End Date Stat 0.9% sodium chloride infusion at 40 mL/hr, Intravenous, Continuous, Starting on Thu07/12/24 at 0745, Begin IV fluid prior to the start of the procedure, Pre-op 07/12/2024 active lidocaine (LMX) 4 % cream Topical (Top), Every 1 hour PRN, Venipuncture, Starting on Thu07/12/24 at 0735, For 2 doses, Pre-op, Apply to: Venipuncture Site 07/12/2024 active 03/03/2024 active 12/31/2023 active QUEtiapine (SEROquel) 50 MG tablet Take 1 tablet (50 mg total) by mouth 2 (two) times a day. 09/08/2023 active QUEtiapine (SEROQUEL) 50 MG tablet Take 50 mg by mouth 09/08/2023 active 08/04/2023 active fluPHENAZine (PROLIXIN) 2.5 MG tablet 08/01/2023 active 06/29/2023 active 04/15/2023 04/22/2023 completed famotidine (PEPCID) 40 MG tablet Take 1 tablet (40 mg) by mouth 2 (two) times daily 03/31/2023 06/30/2023 aborted 12/25/2022 active 11/10/2022 active 11/10/2022 active 11/10/2022 active 11/10/2022 active OptiChamber Ginger Lg Mask null 11/10/2022 active docusate sodium (COLACE) 100 MG capsule Take 1 capsule (100 mg total) by mouth nightly. 02/28/2022 active 01/27/2022 active 11/28/2021 active 11/28/2021 active 11/28/2021 active 11/28/2021 active 11/28/2021 active 11/28/2021 active 11/28/2021 active 11/28/2021 active RABEprazole (ACIPHEX) 20 mg tablet TAKE 1 TABLET(20 MG) BY MOUTH DAILY 10/16/2021 01/24/2022 active 10/07/2021 active RABEprazole (ACIPHEX) 20 mg tablet Take 1 tablet (20 mg) by mouth daily 06/04/2021 06/05/2022 active 04/23/2021 active 04/23/2021 active famotidine (PEPCID) 40 MG tablet TAKE 1 TABLET BY MOUTH EVERY NIGHT AT BEDTIME 10/19/2020 01/25/2021 active 05/07/2020 active 05/07/2020 active 12/30/2019 active 12/30/2019 active FLUoxetine (PROZAC) 20 MG capsule Take 20 mg by mouth daily 03/31/2023 aborted polyethylene glycol (MIRALAX) 17 gram/dose powder Take 17 g by mouth daily prn 03/31/2023 aborted fluphenazine (PROLIXIN) 5 MG tablet TAKE 1 TABLET BY MOUTH THREE TIMES DAILY active levonorgestrel-eth inyl estradiol (AVIANE,ALESSE,LES SYLVAIN) 0.1-20 mg-mcg per tablet Take by mouth daily active sucralfate (CARAFATE) 1 gram tablet TAKE 1 TABLET BY MOUTH TWICE DAILY FOR 4 WEEKS active trazodone HCl (TRAZODONE ORAL) Take 100 mg by mouth nightly active Allergies Allergen Reaction Severity Comment Documented Date Source Status RISPERIDONE OTHER (SEE COMMENTS) Galactorrhea 09/15/2022 [facility] active CARIPRAZINE OTHER (SEE COMMENTS) Per father, UNSURE what reactions are to them 07/12/2022 [facility] active VALPROIC ACID NAUSEA AND VOMITING 12/30/2021 [facility] active LACTOSE (INTOLERANCE) Mother reports lactaid pills used as needed 09/17/2020 [facility] active HALOPERIDOL OTHER (SEE COMMENTS) Mother unsure 09/23/2018 [facility] active ARIPIPRAZOLE DYSKINESIA/D YSTONIA 09/12/2018 [facility] active OLANZAPINE OTHER (SEE COMMENTS)DYS KINESIA/DYST ONIA Reported facial ticks and erratic behaviors 09/09/2018 [facility] active NO KNOWN FOOD ALLERGY UNKNOWN/CHRIS ENT AND FAMILY UNABLE TO DEFINE 09/03/2018 [facility] active CHLORPROMAZINE OTHER (SEE COMMENTS) Mother unsure [facility] EGG ENS_[facility] HCT DEPAKOTE E[facility] KLONOPIN ENS_[facility] HCT MILK CONTAINING PRODUCTS (DAIRY) ENS_[facility] RISPERDAL ENS_[facility] HCT ZYPREXA ENS_[facility] Problems Problem Status Onset Date Problem Type Date of Resolution Source Cutting self active ProblemAct E[facility]J [facility] Autistic disorder active ProblemAct E NS_[facility] Obesity active ProblemAct [facility] Chronic constipation active ProblemAct [facility] Intermittent explosive outburst active ProblemAct [facility] Halina thyroiditis active ProblemAct [facility] Hypercholesterolemia active ProblemAct [facility] Oppositional defiant disorder active ProblemAct [facility] Gastroesophageal reflux disease without esophagitis active ProblemAct E[facility] Disorder of vision active ProblemAct [facility] Attention deficit hyperactivity disorder active ProblemAct ENS_F JBUS [facility] Asthma active ProblemAct [facility] Suicidal thoughts active ProblemAct E [facility] Intolerance to lactose active ProblemAct [facility] Food allergy diet active ProblemAct E NS_[facility] Headache active ProblemAct E[facility] DMDD (disruptive mood dysregulation disorder) active ProblemAct [facility] Syncope, unspecified syncope type active 2017-06-05 1 [facility]Act [facility] Behavior problem in pediatric patient active 2018-06-04 2 ProblemAct [facility] Gastroesophageal reflux disease, unspecified whether esophagitis present active 2020-09-01 7 ProblemAct [facility] Alteration in patient safety due to identified suicide risk active 7 ProblemAct CCT Autism spectrum disorder active 2022-02 4 ProblemAct [facility] Perirectal skin irritation active 1 ProblemAct [facility] Suicidal ideation active 2017-08-02 8 ProblemAct [facility] Pain of finger of right hand active EncounterDiagnosisAct [facility] Heartburn active 1 ProblemAct [facility] Depression active 2018-05-05 3 ProblemAct [facility] Soft tissue injury of finger of right hand, initial encounter active EncounterDiagnosisAct H [facility] Takes dietary supplements active 1 ProblemAct [facility] Homicidal ideation active 3 ProblemAct [facility] Aggressive behavior active 2018-05-05 3 ProblemAct [facility] Affective psychosis active 3 ProblemAct [facility] Pain active 1 ProblemAct [facility] Lactose intolerance active 1 ProblemAct [facility] Encounters Encounter Type Encounter Reason Primary Diagnosis Location Date [facility] 5 Ambulatory [facility] ([facility] 5 [facility] ([facility]) 5 Ambulatory Morbid (severe) obesity due to excess calories Morbid (severe) obesity due to excess calories [facility] ([facility]) 5 Ambulatory [facility] 5 Ambulatory [facility] 5 Ambulatory [facility] 5 Ambulatory Gastro-esophageal reflux disease without esophagitis Gastro-esophageal reflux disease without esophagitis [facility] ([facility]) 5 Ambulatory [facility] 5 Ambulatory Unspecified injury o f right wrist, hand and finger(s), initial encounter Unspecified injury of right wrist, hand and finger(s), initial encounter [facility] 5 Ambulatory GASTROESOPHAGEAL REFLUX DISEASE GASTROESOPHAGEAL REFLUX DISEASE [facility] 5 Ambulatory Gastro-esophageal reflux disease without esophagitis Gastro-esophageal reflux disease without esophagitis [facility] ([facility]) 5 Ambulatory [facility] 4 Observation Suicidal ideations Suicidal ideations [facility] [employer] 4 Emergency Autistic disorder Autistic disorder [facility] 4 Emergency Autistic disorder [place] [employer] 4 Ambulatory [facility] 4 Ambulatory Gastroesophageal Reflux Gastroesophageal Reflux [facility] ([facility]) 4 Inpatient ASD ASD [facility] 4 Ambulatory Other constipation Other constipation Con [facility] ([facility]) 3 Ambulatory [facility] 3 Inpatient [facility] 3 Emergency Psychiatric Evaluation [facility] 3 Emergency [place] [employer] 2 Emergency Psychiatric Evaluation [facility] [employer] 2 Ambulatory [facility] 2 Observation Unspecified beha vioral and emotional disorders with onset usually occurring in childhood and adolescence [place] [employer] 2 Emergency Depression, unspecified [place] [employer] 2 Emergency Impulse disorder , unspecified [place] [employer] 2 Ambulatory [facility] 2 Ambulatory [facility] 1 Care Team Organization Name Specialty Phone Email Start Date End [facility] Yvon Pandey MD Primary Care 12/07/2024 [facility] Primary Care 11/30/2024 [facility] ([facility]) 11/03/2024 [facility] 09/01/2023 [facility] 08/18/2023 024 [facility] ([facility] Jeanne Rodgers Primary Care 023 03/31/2023 [facility] Jeanne Rodgers Primary Care 03/31/2023 [facility] 03/05/2023 024 [facility] YVON PANDEY Primary Care 09/03/2022 12/21/2023 [facility] Yvon Pandey MD Primary Care 09/03/2022 3 [facility] 07/09/2022 12/21/2023 [facility] 07/09/2022 07/09/2022 [facility] Dannie Sanz Primary Care 04/04/[address] [facility] 03/07/202204/03 [facility] 03/05/2022 [facility] YVON PANDEY Primary Care 02/11/2022 08/11/2024 [facility] Jeanne Rodgers Primary Care 01/25/2022 [facility] Yvon Pandey MD Primary Care 12/30/2021 02/04/20 22
[2024-12-12 15:48] LABS: MANUAL DIFF FLAG NO
[2024-12-12 15:51] LABS: Hematocrit 39.9 % (37.0-47.0); Hemoglobin 13.5 g/dl (12.0-16.0); Imm Gran Abs Auto 0.03 X10*3/uL (0.00-0.03); Imm Gran Pct Auto 0.4 % (0.0-0.4); Lymphocytes Absolute Auto 1.6 X10*3/uL (1.2-4.9); Mean Corpuscular HGB Conc 33.8 g/dl (31.0-35.0); Mean Corpuscular Hemoglobin 30.3 pg (27.0-33.0); Mean Corpuscular Volume 89.7 fL (80.0-98.0); NRBC Abs Auto 0.000 X10*3/uL (0.0-0.012); NRBC Pct Auto 0.0 /100WBC (0.0-0.2); Platelet Count 268 X10*3/uL (160-400); Red Blood Count 4.45 X10*6/uL (4.20-5.50); White Blood Count 7.1 X10*3/uL (4.8-10.8)
[2024-12-12 15:52] LABS: Appearance Urine Cloudy; Glucose Urine UA Negative (Negative); PH 8.5 (5.0-9.0); Specific Gravity - Urine 1.010 (1.005-1.025); UPreg QC Valid YES
[2024-12-12 16:14] LABS: Alanine Aminotransferase 21 U/L (0-31); Albumin Level 4.4 g/dL (3.5-5.0); Alkaline Phosphatase 75 U/L (39-117); Anion Gap 11 (12-20); Aspartate Amino Transferase 23 U/L (5-31); Blood Urea Nitrogen 13 mg/dL (9-16); Calcium 8.9 mg/dL (8.4-10.2); Carbon Dioxide 23 mmol/L (22-29); Chloride 110 mmol/L (96-108); Creatinine Clr Calc Pharmacy 124.5; Estimated Glomerular Filt Rate > 60; Magnesium 1.9 mg/dL (1.6-2.6); Potassium 4.0 mmol/L (3.3-5.1); Sodium 140 mmol/L (135-145); Total Protein 6.9 g/dL (6.5-8.0)
[2024-12-12 17:39] VITALS: BP 139/67; PULSE 104; RESP 19; O2SAT 95
[2024-12-12 19:13] LABS: Cannabinoid Screen Urine Not Detected (Not Detect)
[2024-12-12 22:51] VITALS: BP 143/83; PULSE 86; RESP 18; TEMP 36.6; O2SAT 98
--- NOTE | 2024-12-13 | ECG_ITS ---
Test Reason : CHECK PROLONGED QT Blood Pressure : */* mmHG Vent. Rate : 82 BPM Atrial Rate : 82 BPM P-R Int : 124 ms QRS Dur : 88 ms QT Int : 366 ms P-R-T Axes : 35 59 19 degrees QTcB Int : 427 ms Normal sinus rhythm with sinus arrhythmia Normal ECG When compared with ECG of 14-Sep-2024 09:06, No significant change was found Referred By: Medhat Muniz Electronically Signed By: Apollo Jones
[2024-12-13 06:21] VITALS: BP 148/83; PULSE 64; RESP 16; TEMP 36.7; O2SAT 99
[2024-12-13 07:33] VITALS: BP 140/97; PULSE 100; RESP 12; TEMP 36.4; O2SAT 97
--- NOTE | 2024-12-13 07:48 | PC.NURSE ---
Assumed care of patient at 0645, patient appears to be in no apparent this am, ambulating around BH pod with steady gait, calm and cooperative, offering no complaints to this RN. Pt continues to be loud and boisterous when conversing with peers. Continue plan of care for IPLOC
[2024-12-13 15:30] VITALS: BP 132/76; PULSE 100; RESP 16; TEMP 36.6; O2SAT 98
[2024-12-13] MEDS: Nicotine 21 MG PATCH.TD24 TRANSDERMA (17:05)
[2024-12-13] MEDS: Magnesium Hydrox/Alum Hydrox 30 ML ORAL.SUSP PO (18:39)
--- NOTE | 2024-12-13 18:49 | PC.ADMIT ---
Radha (prefers lisa) arrived from [facility] ED Pod via wheelchair at 1540. She is alert, oriented x4. She was cooperative with skin and safety check. Skin check only remarkable for a new somewhat discolored 1.5 inch bump in the middle of her forehead from banging her head yesterday. Her speech is pressured and slightly garbled.. She currently denies urges to harm herself. But continues to report I want to kill my dad, he triggers me, I hate him. He's my guardian, I can't change that .?She will seek staff if she feels the urge to self harm. She is known to this unit, last admission 09/2024. Per care team assessment ?Pt. is a 19 year old, Turkish speaking female who was brought in by ambulance from her school, the [employer] for crisis intervention, secondary to banging her head against the wall/hitting herself in the head. Pt. has a reported history of Autism, Intellectual disabilities and Disruptive Mood D/O Pt. reported that on Thursday, she attempted to jump from a fishing boat to harm herself and was brought to the police station. Upon talking with her dad and Legal Guardian, José Miguel, this was an untrue report. Upon assessment, pt. endorses suicidal ideation with a plan to stab herself with a knife, and reports having access to knives. Pt. also endorses homicidal ideation towards her father, with a plan to stab him as well. Pt. reports that her mom went back home to [place] last week and she has been upset since. Pt. reports that her dad makes her want to kill herself , stating, him and his face triggers me. Pt. reports that she became upset at school today, and began banging her head on the floor and the pandey. Pt. also shared that she flushed her medications down the toilet when she was upset. Per her father, she is not safe to go home and requires inpatient level of care.? Lisa complains of AH, ?mostly its ok, but sometimes its mean, I don't like when they're mean.? Lisa was oriented to unit and routine, and is on 15min safety checks.? [
[2024-12-13 19:41] VITALS: BP 107/59; PULSE 100; TEMP 35.8; O2SAT 98
[2024-12-13 20:14] VITALS: BP 107/59
[2024-12-14 07:54] VITALS: BP 124/80; RESP 16; TEMP 36.1; O2SAT 98
[2024-12-14] MEDS: Nicotine 21 MG PATCH.TD24 TRANSDERMA (08:28)
[2024-12-14 09:47] LABS: Alanine Aminotransferase 21 U/L (0-31); Albumin Level 4.4 g/dL (3.5-5.0); Alkaline Phosphatase 75 U/L (39-117); Anion Gap 13 (12-20); Aspartate Amino Transferase 24 U/L (5-31); Blood Urea Nitrogen 10 mg/dL (9-16); Calcium 9.1 mg/dL (8.4-10.2); Carbon Dioxide 24 mmol/L (22-29); Chloride 106 mmol/L (96-108); Cholesterol 183 mg/dL (<200); Creatinine Clr Calc Pharmacy 124.7; Estimated Glomerular Filt Rate > 60; HDL Cholesterol 31 mg/dL (>40); Potassium 4.3 mmol/L (3.3-5.1); Sodium 139 mmol/L (135-145); Total Protein 6.9 g/dL (6.5-8.0); Triglycerides 93 mg/dL (<150)
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
[2024-12-14 11:22] LABS: Hemoglobin A1C 184.1417 umol/L; Total Hemoglobin (HGBA1C) 5280.8753 umol/L
[2024-12-14] MEDS: Lidocaine 4 % Patch ADH..PATCH 1 PATCH TRANSDERMA (18:18)
[2024-12-14 20:00] VITALS: BP 116/66; PULSE 95; TEMP 36.3; O2SAT 96
[2024-12-15 07:00] VITALS: BMI 41.9
[2024-12-15 08:00] VITALS: BP 154/93; PULSE 115; RESP 16; TEMP 36.3; O2SAT 96
[2024-12-15] MEDS: Lidocaine 4 % Patch ADH..PATCH 1 PATCH TRANSDERMA (08:11)
[2024-12-15] MEDS: Nicotine 21 MG PATCH.TD24 TRANSDERMA (08:11)
--- NOTE | 2024-12-15 09:42 | HO.PSYCHPN ---
Subjective Subjective Date of Service: 12/15/24 Reason For Visit: dysregulated Subjective Notes: Conditional Voluntary Healthcare Proxy: No Guardianship: No Medical Problems Affecting Mental Status: No Interim History: Pt reports pain, edema L foot. XRays taken with negative result. Pt talking about not wanting to return to father's home upon discharge, stating she will do what is needed to not return. Visable in the milieu-social with her peer group. Medication Compliance: Yes Side effects from medications: No Attending Groups: Intermittent Review of Systems as noted Review of Systems: as noted Review of Systems Review of Systems as noted, pain L foot-diagnostics are negative Mental Status Exam Mental Status Exam Patient Appearance: Appropriate Patient Orientation: Person, Place and Time Level of Consciousness: Alert Patient Behavior: Talkative, Distractible and Good Eye Contact Mood Description: Apprehensive Affect Description: Apprehensive Patient Cognition Impaired: Yes Ability to Follow Directions: Good Speech Pattern: Spontaneous Speech Memory Description: Episodic Impaired Hallucinations: None Delusions: Not Present Thought Process: Illogical, Distracted, Rumination and Goal Oriented Thought Content: positive for Circumstantial, positive for Goal Oriented, positive for Perseveration, positive for Preoccupation, positive for Suicidal Ideation and positive for Homicidal Ideation Depressive Symptoms: Diff. Making Decisions, Increased Irritability and Thoughts of /Suicide Judgement: Poor Diagnostics Vital Signs (24Hr): Vital Signs - 24 hr 12/14/24 20:00 12/15/24 08:00 Temperature 97.3 F 97.3 F Pulse Rate 95 115 H Respiratory Rate 16 Blood Pressure 116/66 154/93 H Pulse Oximetry 96 96 Oxygen Delivery Method Room Air BMI result Body Mass Index 30.0 Labs 12/12/24 15:35 12/14/24 09:13 Labs: Laboratory Results - last 48 hr 12/14/24 09:13 Sodium 139 Potassium 4.3 Chloride 106 Carbon Dioxide 24 Anion Gap 13 BUN 10 Creatinine 0.78 Estim Creat Clear Calc 124.7 Estimated GFR > 60 Random Glucose 153 H Estimat Average Glucose 105 Hemoglobin A1c % 5.3 Calcium 9.1 Total Bilirubin 0.4 AST 24 ALT 21 Alkaline Phosphatase 75 Total Protein 6.9 Albumin 4.4 Triglycerides 93 Cholesterol 183 LDL Cholesterol, Calc 134 H HDL Cholesterol 31 L TSH 0.62 Medications Medications Current Medications Acetaminophen (Acetaminophen 325 Mg Tablet) 650 mg PO Q6H PRN PRN Reason: Headache/Pain, Scale 1-10 Last Admin: 12/15/24 03:48 Dose: 650 mg Al Hydroxide/Mg Hydroxide (Magnesium Hydrox/Alum Hydrox 30 Ml Oral.Susp) 30 ml PO Q6H PRN PRN Reason: Heartburn/Nausea Last Admin: 12/13/24 18:39 Dose: 30 ml Benztropine Mesylate (Benztropine Mesylate 0.5 Mg Tablet) 0.5 mg PO BID [facility] Last Admin: 12/15/24 08:12 Dose: 0.5 mg Hydroxyzine HCl (Hydroxyzine Hcl 25 Mg Tablet) 25 mg PO Q6H PRN PRN Reason: mild anxiety Last Admin: 12/15/24 07:18 Dose: 25 mg Ibuprofen (Ibuprofen 800 Mg Tablet) 800 mg PO TIDWM PRN PRN Reason: severe headache Last Admin: 12/15/24 08:12 Dose: 800 mg Lidocaine (Lidocaine 4 % Patch Adh..Patch) 1 patch TRANSDERMA DAILY [facility]; Protocol Last Admin: 12/15/24 08:11 Dose: 1 patch Loratadine (Loratadine 10 Mg Tablet) 10 mg PO DAILY [facility] Magnesium Hydroxide (Milk Of Magnesia 30 Ml Oral.Susp) 30 ml PO DAILY PRN PRN Reason: Constipation Naltrexone HCl (Naltrexone Hcl 50 Mg Tablet) 25 mg PO DAILY [facility] Last Admin: 12/15/24 08:12 Dose: 25 mg Nicotine (Nicotine 21 Mg Patch.Td24) 21 mg TRANSDERMA DAILY PRN PRN Reason: smoking cessation Last Admin: 12/15/24 08:11 Dose: 21 mg Nicotine Polacrilex (Nicotine Polacrilex 2 Mg Gum) 4 mg BUCCAL Q2H PRN PRN Reason: Nicotine Cravings Last Admin: 12/14/24 05:44 Dose: 4 mg Nicotine Polacrilex (Nicotine Polacrilex 2 Mg Gum) 4 mg BUCCAL Q2H PRN PRN Reason: Nicotine Cravings Non-Formulary Medication (Levomefolate Calcium) 7.5 mg PO DAILY [facility] Non-Formulary Medication (Levonorgestrel-Ethinyl Estrad [Vienva]) 1 tab PO DAILY [facility] Olanzapine (Olanzapine 5 Mg Tablet) 5 mg PO TID PRN PRN Reason: agitation Last Admin: 12/15/24 03:48 Dose: 5 mg Omeprazole (Omeprazole 20 Mg Capsule.Dr) 20 mg PO DAILY@0630 [facility] Last Admin: 12/15/24 07:03 Dose: 20 mg Prazosin HCl (Prazosin Hcl 1 Mg Capsule) 3 mg PO BEDTIME [facility]; Protocol Last Admin: 12/14/24 21:03 Dose: 3 mg Quetiapine Fumarate (Quetiapine Fumarate 50 Mg Tablet) 50 mg PO QID [facility] Last Admin: 12/15/24 08:12 Dose: 50 mg Trazodone HCl (Trazodone Hcl 50 Mg Tablet) 150 mg PO BEDTIME [facility] Last Admin: 12/14/24 21:02 Dose: 150 mg Trazodone HCl (Trazodone Hcl 50 Mg Tablet) 50 mg PO BEDTIME [facility] Last Admin: 12/14/24 21:05 Dose: 50 mg Trazodone HCl (Trazodone Hcl 50 Mg Tablet) 50 mg PO BEDTIME MRX1 PRN PRN Reason: Insomnia Last Admin: 12/14/24 01:46 Dose: 50 mg Allergies Allergies Allergy/AdvReac Type Severity Reaction Status Date / Time divalproex sodium (From Allergy Unknown Unknown Verified 12/12/24 14:51 Depakote) chlorpromazine (From Allergy Unknown Verified 12/12/24 14:51 Thorazine) egg Allergy Abdominal Verified 12/13/24 07:07 Pain gluten Allergy Stomach Verified 12/12/24 14:51 Upset Milk Containing Products Allergy Stomach Verified 12/12/24 14:51 (Dairy) Upset Assessment & Plan Assessment & Plan (1) Disruptive mood dysregulation disorder: Status: Acute Code(s): F34.81 - Disruptive mood dysregulation disorder (2) Suicidal ideation: Status: Acute Code(s): R45.851 - Suicidal ideations (3) Autism: Status: Acute Code(s): F84.0 - Autistic disorder (4) Intellectual disability: Status: Acute Code(s): F79 - Unspecified intellectual disabilities Plan Admit, CV, 15 minute checks Continue current regime Observe post positive toxic screen Collateral Contact Diagnostics as indicated Discharge planning. 12/15 Continue regime Discuss with family, OP team a change of living situation Reason for continued inpatient stay Substantial Risk for: inability to function and rapid decompensation Time Spent With Patient Time: Total time managing care of this patient today ____ minutes.
[2024-12-15 20:23] VITALS: BP 136/103; PULSE 105; RESP 16; TEMP 36.6; O2SAT 94
[2024-12-15 20:42] VITALS: BP 136/103
[2024-12-15] MEDS: Magnesium Hydrox/Alum Hydrox 30 ML ORAL.SUSP PO (22:26)
[2024-12-16 08:00] VITALS: BP 139/61; PULSE 99; O2SAT 100
[2024-12-16] MEDS: Lidocaine 4 % Patch ADH..PATCH 1 PATCH TRANSDERMA (08:20)
[2024-12-16] MEDS: Nicotine 21 MG PATCH.TD24 TRANSDERMA (08:24)
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
--- NOTE | 2024-12-16 13:46 | HO.PM.IMCN ---
History of Present Illness Data of Consult Service Date: 12/16/24 Primary Care Provider: Unknown Physician HPI Reason for consult: Left foot pain 19-year-old admitted for disruptive mood dysregulation disorder and suicidal ideation to for further treatment patient is being seen for left foot pain. On exam she is ambulating with a steady gait, she has no pain, redness, bruising to her left foot, x-ray was negative. She has a Lidoderm patch which she reports helps her. No difficulty with bearing weight. Review of Systems Review of Systems: Denies any shortness of breath, chest pain, dizziness, lightheadedness, abdominal pain or discomfort, nausea vomiting or diarrhea PMFSH Medical History Acute anxiety Disruptive mood dysregulation disorder Intellectual disability Autism Social History Household Members: Family Household Members Other:: brother, father Housing: House Do you presently have visiting nurse or other home services: No Alcohol intake: current Alcohol type: beer Patient Tobacco Use Status: Current everyday Tobacco user Smoked in Last 30 Days: Yes e-Cigarette/Vaping Use: Currently Using Frequency of e-Cigarette/Vaping Use: daily Patient Interested in Nicotine Replacement: Yes Patient Given Instructions on How to Stop Smoking: Yes Date Education Initiated: 12/13/24 Second Hand Smoke Exposure: No Use of substances other than those prescribed or required for medical reasons: Yes Substance Use Type: Marijuana Substance Use Frequency: Chronic Longstanding Currently Displaying Signs/Symptoms of Drug Intoxication Withdrawal: No Have you been hit, kicked, punched, or otherwise hurt by someone within the past year? If so, by whom?: No Do you feel safe in your current relationship?: No Current Relationship Is there a partner from a previous relationship who is making you feel unsafe now?: No Are you made to feel afraid or neglected: No Advance Directives: No Advance Directives Information Provided: Yes Do you have thoughts of harming others: None Do you have a plan to hurt others: No Plan Recently lost weight without trying: Unsure Patient : No : No Poor oral hygiene: No service: No Sexual orientation: Straight/Heterosexual Meds Allergies Allergy/AdvReac Type Severity Reaction Status Date / Time divalproex sodium (From Allergy Unknown Unknown Verified 12/12/24 14:51 Depakote) chlorpromazine (From Allergy Unknown Verified 12/12/24 14:51 Thorazine) egg Allergy Abdominal Verified 12/13/24 07:07 Pain gluten Allergy Stomach Verified 12/12/24 14:51 Upset Milk Containing Products Allergy Stomach Verified 12/12/24 14:51 (Dairy) Upset Active Medications: Current Medications Acetaminophen (Acetaminophen 325 Mg Tablet) 650 mg PO Q6H PRN PRN Reason: Headache/Pain, Scale 1-10 Last Admin: 12/16/24 12:04 Dose: 650 mg Al Hydroxide/Mg Hydroxide (Magnesium Hydrox/Alum Hydrox 30 Ml Oral.Susp) 30 ml PO Q6H PRN PRN Reason: Heartburn/Nausea Last Admin: 12/15/24 22:26 Dose: 30 ml Benztropine Mesylate (Benztropine Mesylate 0.5 Mg Tablet) 0.5 mg PO BID [facility] Last Admin: 12/16/24 08:19 Dose: 0.5 mg Hydroxyzine HCl (Hydroxyzine Hcl 25 Mg Tablet) 25 mg PO Q6H PRN PRN Reason: mild anxiety Last Admin: 12/16/24 04:26 Dose: 25 mg Ibuprofen (Ibuprofen 800 Mg Tablet) 800 mg PO TIDWM PRN PRN Reason: severe headache Last Admin: 12/16/24 08:25 Dose: 800 mg Lidocaine (Lidocaine 4 % Patch Adh..Patch) 1 patch TRANSDERMA DAILY [facility]; Protocol Last Admin: 12/16/24 08:20 Dose: 1 patch Loratadine (Loratadine 10 Mg Tablet) 10 mg PO DAILY [facility] Last Admin: 12/16/24 08:19 Dose: 10 mg Magnesium Hydroxide (Milk Of Magnesia 30 Ml Oral.Susp) 30 ml PO DAILY PRN PRN Reason: Constipation Naltrexone HCl (Naltrexone Hcl 50 Mg Tablet) 25 mg PO DAILY [facility] Last Admin: 12/16/24 08:17 Dose: 25 mg Nicotine (Nicotine 21 Mg Patch.Td24) 21 mg TRANSDERMA DAILY PRN PRN Reason: smoking cessation Last Admin: 12/16/24 08:24 Dose: 21 mg Nicotine Polacrilex (Nicotine Polacrilex 2 Mg Gum) 4 mg BUCCAL Q2H PRN PRN Reason: Nicotine Cravings Last Admin: 12/14/24 05:44 Dose: 4 mg Nicotine Polacrilex (Nicotine Polacrilex 2 Mg Gum) 4 mg BUCCAL Q2H PRN PRN Reason: Nicotine Cravings Non-Formulary Medication (Levomefolate Calcium) 7.5 mg PO DAILY [facility] Non-Formulary Medication (Levonorgestrel-Ethinyl Estrad [Vienva]) 1 tab PO DAILY [facility] Olanzapine (Olanzapine 5 Mg Tablet) 5 mg PO TID PRN PRN Reason: agitation Last Admin: 12/15/24 15:59 Dose: 5 mg Omeprazole (Omeprazole 20 Mg Capsule.Dr) 20 mg PO DAILY@0630 [facility] Last Admin: 12/16/24 07:08 Dose: 20 mg Prazosin HCl (Prazosin Hcl 1 Mg Capsule) 3 mg PO BEDTIME [facility]; Protocol Last Admin: 12/15/24 20:42 Dose: 3 mg Quetiapine Fumarate (Quetiapine Fumarate 50 Mg Tablet) 50 mg PO QID [facility] Last Admin: 12/16/24 12:05 Dose: 50 mg Trazodone HCl (Trazodone Hcl 50 Mg Tablet) 150 mg PO BEDTIME [facility] Last Admin: 12/15/24 20:42 Dose: 150 mg Trazodone HCl (Trazodone Hcl 50 Mg Tablet) 50 mg PO BEDTIME [facility] Last Admin: 12/15/24 20:43 Dose: 50 mg Trazodone HCl (Trazodone Hcl 50 Mg Tablet) 50 mg PO BEDTIME MRX1 PRN PRN Reason: Insomnia Last Admin: 12/14/24 01:46 Dose: 50 mg Home Medications ?Medication ?Instructions ?Recorded ?Confirmed ?Last Taken ?Type dexlansoprazole 30 mg 30 mg PO DAILY 12/12/24 12/12/24 Unknown History capsule,biphase delayed release (Dexilant) levomefolate calcium 7.5 mg tablet 7.5 mg PO DAILY 12/12/24 12/12/24 Unknown History levonorgestrel-ethinyl estradiol 1 tab PO DAILY 12/12/24 12/12/24 Unknown History 0.1 mg-20 mcg tablet (Vienva) quetiapine 50 mg tablet 50 mg PO QID 12/12/24 12/12/24 Unknown History trazodone 50 mg tablet 50 mg PO BEDTIME 12/12/24 12/12/24 Unknown History Physical Exam Vital Signs and Narrative: Vital Signs: Last Vital Signs Temp 97.8 F 12/15/24 20:23 Pulse 99 12/16/24 08:00 Resp 16 12/15/24 20:23 BP 139/61 12/16/24 08:00 Pulse Ox 100 12/16/24 08:00 O2 Del Method Room Air 12/16/24 08:00 BMI result Body Mass Index 41.9 CONST: Alert and oriented, in NAD. Well nourished HEENT: Normocephalic, atraumatic, MMM, Eyes clear, Neck supple RESP: Lungs clear, RRR even and regular HEART:,RRR, S1, S2. no edema GI:Abdomen Soft NT, ND. + BS times four :Deferred SKIN: Warm dry and intact, no visible lesions or rashes NEURO:CN II-XII Intact bilaterally, Sensation intact. Speech clear PSYCH: Normal affect Results Labs 12/12/24 15:35 12/14/24 09:13 Assessment and Plan (1) Left foot pain: Status: Acute Plan Left foot pain X-ray was negative Exam benign Patient is using Lidoderm patch which she reports helps her Ambulating at baseline Continue to monitor and report any changes. Thank you for allowing me to participate in the care of this patient. Signing off at this time. Please reconsult of any acute concerns or issues arise
[2024-12-16 20:00] VITALS: BP 148/81; PULSE 107; TEMP 36.7; O2SAT 96
[2024-12-16 21:45] VITALS: BP 148/81
[2024-12-16] MEDS: Magnesium Hydrox/Alum Hydrox 30 ML ORAL.SUSP PO (21:47)
[2024-12-17 08:00] VITALS: BP 142/70; PULSE 85; RESP 16; TEMP 35.7; O2SAT 100
[2024-12-17] MEDS: Lidocaine 4 % Patch ADH..PATCH 1 PATCH TRANSDERMA (08:41)
--- NOTE | 2024-12-17 09:33 | HO.PSYCHPN ---
Subjective Subjective Date of Service: 12/17/24 Reason For Visit: dysregulated Interim History: met with patient; discussed with team No change in presentation; intermittent outburst, yelling in the kitchen this morning and then later on in the hallway. Patient proudly stated she did not sleep at all last night Mental Status Exam Mental Status Exam Patient Appearance: Appropriate and Unkempt Patient Orientation: Person, Place and Time Level of Consciousness: Alert Patient Behavior: Talkative, Distractible and Good Eye Contact Behavior Comments: Intermittent outbursts of yelling Mood Description: Labile and Apprehensive Affect Description: Constricted and Labile Patient Cognition Impaired: Yes Ability to Follow Directions: Fair Speech Pattern: Spontaneous Speech Memory Description: Episodic Impaired Hallucinations: None Delusions: Not Present Thought Process: Illogical, Distracted, Rumination and Goal Oriented Thought Content: positive for Circumstantial, positive for Goal Oriented, positive for Perseveration, positive for Preoccupation, positive for Suicidal Ideation (denies) and positive for Homicidal Ideation (denies) Depressive Symptoms: Diff. Making Decisions and Thoughts of /Suicide (denies) Abnormal Motor Activity Signs and Symptoms: Restlessness Judgement and Insight: Impaired Diagnostics Vital Signs (24Hr): Vital Signs - 24 hr 12/16/24 20:00 12/16/24 21:45 12/17/24 08:00 Temperature 98.1 F 96.3 F L Pulse Rate 107 H 85 Respiratory Rate 16 Blood Pressure 148/81 H 148/81 H 142/70 H Pulse Oximetry 96 100 Oxygen Delivery Method Room Air BMI result Body Mass Index 41.9 Labs 12/12/24 15:35 12/14/24 09:13 Imaging Radiology Impressions: ITS Impressions Foot X-Ray 12/15/24 12:40 IMPRESSION: No acute fracture or dislocation. Electronically signed by: Nathaly Harris MD 12/15/2024 12:54 PM EDT Medications Medications Current Medications Acetaminophen (Acetaminophen 325 Mg Tablet) 650 mg PO Q6H PRN PRN Reason: Headache/Pain, Scale 1-10 Last Admin: 12/17/24 02:32 Dose: 650 mg Al Hydroxide/Mg Hydroxide (Magnesium Hydrox/Alum Hydrox 30 Ml Oral.Susp) 30 ml PO Q6H PRN PRN Reason: Heartburn/Nausea Last Admin: 12/16/24 21:47 Dose: 30 ml Albuterol Sulfate (Albuterol Sulfate 90 Mcg 8 Gm Inhaler) 2 puff INHALE RQ4H PRN PRN Reason: Wheezing Benztropine Mesylate (Benztropine Mesylate 0.5 Mg Tablet) 0.5 mg PO BID [facility] Last Admin: 12/17/24 08:24 Dose: 0.5 mg Hydroxyzine HCl (Hydroxyzine Hcl 25 Mg Tablet) 25 mg PO Q6H PRN PRN Reason: mild anxiety Last Admin: 12/17/24 08:23 Dose: 25 mg Ibuprofen (Ibuprofen 800 Mg Tablet) 800 mg PO TIDWM PRN PRN Reason: severe headache Last Admin: 12/17/24 08:25 Dose: 800 mg Lactase (Lactase Tablet) 1 tab PO TIDWM [facility] Last Admin: 12/17/24 08:41 Dose: 1 tab Lactase (Lactase Tablet) 1 tab PO TID PRN PRN Reason: to consume milk products Last Admin: 12/16/24 18:26 Dose: 1 tab Lidocaine (Lidocaine 4 % Patch Adh..Patch) 1 patch TRANSDERMA DAILY [facility]; Protocol Last Admin: 12/17/24 08:41 Dose: 1 patch Loratadine (Loratadine 10 Mg Tablet) 10 mg PO DAILY [facility] Last Admin: 12/17/24 08:24 Dose: 10 mg Magnesium Hydroxide (Milk Of Magnesia 30 Ml Oral.Susp) 30 ml PO DAILY PRN PRN Reason: Constipation Naltrexone HCl (Naltrexone Hcl 50 Mg Tablet) 25 mg PO DAILY [facility] Last Admin: 12/17/24 08:24 Dose: 25 mg Nicotine (Nicotine 21 Mg Patch.Td24) 21 mg TRANSDERMA DAILY PRN PRN Reason: smoking cessation Last Admin: 12/16/24 08:24 Dose: 21 mg Nicotine Polacrilex (Nicotine Polacrilex 2 Mg Gum) 4 mg BUCCAL Q2H PRN PRN Reason: Nicotine Cravings Last Admin: 12/16/24 19:07 Dose: 4 mg Nicotine Polacrilex (Nicotine Polacrilex 2 Mg Gum) 4 mg BUCCAL Q2H PRN PRN Reason: Nicotine Cravings Non-Formulary Medication (Levomefolate Calcium) 7.5 mg PO DAILY [facility] Non-Formulary Medication (Levonorgestrel-Ethinyl Estrad [Vienva]) 1 tab PO DAILY [facility] Olanzapine (Olanzapine 5 Mg Tablet) 5 mg PO TID PRN PRN Reason: agitation Last Admin: 12/17/24 08:23 Dose: 5 mg Omeprazole (Omeprazole 20 Mg Capsule.Dr) 20 mg PO DAILY@0630 [facility] Last Admin: 12/17/24 06:10 Dose: 20 mg Prazosin HCl (Prazosin Hcl 1 Mg Capsule) 3 mg PO BEDTIME [facility]; Protocol Last Admin: 12/16/24 21:45 Dose: 3 mg Quetiapine Fumarate (Quetiapine Fumarate 50 Mg Tablet) 50 mg PO QID [facility] Last Admin: 12/17/24 08:24 Dose: 50 mg Trazodone HCl (Trazodone Hcl 50 Mg Tablet) 150 mg PO BEDTIME [facility] Last Admin: 12/16/24 21:46 Dose: 150 mg Trazodone HCl (Trazodone Hcl 50 Mg Tablet) 50 mg PO BEDTIME [facility] Last Admin: 12/16/24 21:46 Dose: 50 mg Trazodone HCl (Trazodone Hcl 50 Mg Tablet) 50 mg PO BEDTIME MRX1 PRN PRN Reason: Insomnia Last Admin: 12/14/24 01:46 Dose: 50 mg Allergies Allergies Allergy/AdvReac Type Severity Reaction Status Date / Time divalproex sodium (From Allergy Unknown Unknown Verified 12/12/24 14:51 Depakote) chlorpromazine (From Allergy Unknown Verified 12/12/24 14:51 Thorazine) egg Allergy Abdominal Verified 12/13/24 07:07 Pain gluten Allergy Stomach Verified 12/12/24 14:51 Upset Milk Containing Products Allergy Stomach Verified 12/12/24 14:51 (Dairy) Upset Assessment & Plan Assessment & Plan (1) Autism: Status: Acute Code(s): F84.0 - Autistic disorder (2) Disruptive mood dysregulation disorder: Status: Acute Code(s): F34.81 - Disruptive mood dysregulation disorder (3) Intellectual disability: Status: Acute Code(s): F79 - Unspecified intellectual disabilities (4) Left foot pain: Status: Acute Code(s): M79.672 - Pain in left foot Assessment and Plan: Left foot pain X-ray was negative Exam benign Patient is using Lidoderm patch which she reports helps her Ambulating at baseline Continue to monitor and report any changes. Thank you for allowing me to participate in the care of this patient. Signing off at this time. Please reconsult of any acute concerns or issues arise Plan 12/15 Continue regime Discuss with family, OP team a change of living situation 12/16 Continue regime Pt is willing to begin discussions with father to attempt to address her issues with him 12/17 No change in presentation; intermittent outburst, yelling in the kitchen this morning and then later on in the hallway. Patient proudly stated she did not sleep at all last night PLAN -added mirtazapine 7.5mg Admit, CV, 15 minute checks Continue current regime Observe post positive toxic screen Collateral Contact Diagnostics as indicated Discharge planning. Reason for continued inpatient stay Substantial Risk for: rapid decompensation Time Spent With Patient Time: Total time managing care of this patient today ____ minutes.
[2024-12-17] MEDS: Magnesium Hydrox/Alum Hydrox 30 ML ORAL.SUSP PO (18:43)
[2024-12-17 20:00] VITALS: BP 140/84; PULSE 98; TEMP 36.4; O2SAT 99
[2024-12-18 08:00] VITALS: BP 163/84; PULSE 104; RESP 18; TEMP 36.4; O2SAT 95
[2024-12-18] MEDS: Lidocaine 4 % Patch ADH..PATCH 1 PATCH TRANSDERMA ×2 (08:39→14:09)
[2024-12-18] MEDS: Nicotine 21 MG PATCH.TD24 TRANSDERMA (08:40)
[2024-12-18 09:45] VITALS: BP 103/53; PULSE 80; O2SAT 95
--- NOTE | 2024-12-18 10:23 | P.PNPSI_ITS ---
Subjective Subjective Date of Service: 12/18/24 Reason For Visit: dysregulated Interim History: met with patient; discussed with team slept last night same presentation; denies SI/HI says hard to sleep at night since morning medications make her tired and she ends up napping; she wonders if dosing times can be changed. Mental Status Exam Mental Status Exam Patient Appearance: Appropriate and Unkempt Patient Orientation: Person, Place and Time Level of Consciousness: Alert Patient Behavior: Talkative, Distractible and Good Eye Contact Behavior Comments: Intermittent outbursts of yelling Mood Description: Labile and Apprehensive Affect Description: Constricted and Labile Patient Cognition Impaired: Yes Ability to Follow Directions: Fair Speech Pattern: Spontaneous Speech Memory Description: Episodic Impaired Hallucinations: None Delusions: Not Present Thought Process: Illogical, Distracted, Rumination and Goal Oriented Thought Content: positive for Circumstantial, positive for Goal Oriented, positive for Perseveration, positive for Preoccupation, positive for Suicidal Ideation (denies) and positive for Homicidal Ideation (denies) Depressive Symptoms: Diff. Making Decisions and Thoughts of /Suicide (denies) Abnormal Motor Activity Signs and Symptoms: Restlessness Judgement and Insight: Impaired Diagnostics Vital Signs (24Hr): Vital Signs - 24 hr 12/17/24 20:00 12/18/24 08:00 12/18/24 09:45 Temperature 97.6 F 97.6 F Pulse Rate 98 104 H 80 Respiratory Rate 18 Blood Pressure 140/84 H 163/84 H 103/53 L Pulse Oximetry 99 95 95 Oxygen Delivery Method Room Air Room Air Room Air BMI result Body Mass Index 41.9 Labs 12/12/24 15:35 12/14/24 09:13 Imaging Radiology Impressions: ITS Impressions Foot X-Ray 12/15/24 12:40 IMPRESSION: No acute fracture or dislocation. Electronically signed by: Nathaly Harris MD 12/15/2024 12:54 PM EDT Medications Medications Current Medications Acetaminophen (Acetaminophen 325 Mg Tablet) 650 mg PO Q6H PRN PRN Reason: Headache/Pain, Scale 1-10 Last Admin: 12/18/24 08:11 Dose: 650 mg Al Hydroxide/Mg Hydroxide (Magnesium Hydrox/Alum Hydrox 30 Ml Oral.Susp) 30 ml PO Q6H PRN PRN Reason: Heartburn/Nausea Last Admin: 12/17/24 18:43 Dose: 30 ml Albuterol Sulfate (Albuterol Sulfate 90 Mcg 8 Gm Inhaler) 2 puff INHALE RQ4H PRN PRN Reason: Wheezing Benztropine Mesylate (Benztropine Mesylate 0.5 Mg Tablet) 0.5 mg PO BID [facility] Last Admin: 12/18/24 08:11 Dose: 0.5 mg Hydroxyzine HCl (Hydroxyzine Hcl 25 Mg Tablet) 25 mg PO Q6H PRN PRN Reason: mild anxiety Last Admin: 12/17/24 18:43 Dose: 25 mg Ibuprofen (Ibuprofen 800 Mg Tablet) 800 mg PO TIDWM PRN PRN Reason: severe headache Last Admin: 12/17/24 08:25 Dose: 800 mg Lactase (Lactase Tablet) 1 tab PO TIDWM [facility] Last Admin: 12/18/24 08:11 Dose: 1 tab Lactase (Lactase Tablet) 1 tab PO TID PRN PRN Reason: to consume milk products Last Admin: 12/16/24 18:26 Dose: 1 tab Lidocaine (Lidocaine 4 % Patch Adh..Patch) 1 patch TRANSDERMA DAILY [facility]; Protocol Last Admin: 12/18/24 08:39 Dose: 1 patch Loratadine (Loratadine 10 Mg Tablet) 10 mg PO DAILY [facility] Last Admin: 12/18/24 08:11 Dose: 10 mg Magnesium Hydroxide (Milk Of Magnesia 30 Ml Oral.Susp) 30 ml PO DAILY PRN PRN Reason: Constipation Mirtazapine (Mirtazapine 7.5 Mg Tablet) 7.5 mg PO BEDTIME [facility] Last Admin: 12/17/24 22:19 Dose: 7.5 mg Naltrexone HCl (Naltrexone Hcl 50 Mg Tablet) 25 mg PO DAILY [facility] Last Admin: 12/18/24 08:11 Dose: 25 mg Nicotine (Nicotine 21 Mg Patch.Td24) 21 mg TRANSDERMA DAILY PRN PRN Reason: smoking cessation Last Admin: 12/18/24 08:40 Dose: 21 mg Nicotine Polacrilex (Nicotine Polacrilex 2 Mg Gum) 4 mg BUCCAL Q2H PRN PRN Reason: Nicotine Cravings Last Admin: 12/16/24 19:07 Dose: 4 mg Nicotine Polacrilex (Nicotine Polacrilex 2 Mg Gum) 4 mg BUCCAL Q2H PRN PRN Reason: Nicotine Cravings Non-Formulary Medication (Levomefolate Calcium) 7.5 mg PO DAILY [facility] Non-Formulary Medication (Levonorgestrel-Ethinyl Estrad [Vienva]) 1 tab PO DAILY [facility] Olanzapine (Olanzapine 5 Mg Tablet) 5 mg PO TID PRN PRN Reason: agitation Last Admin: 12/17/24 20:21 Dose: 5 mg Omeprazole (Omeprazole 20 Mg Capsule.Dr) 20 mg PO DAILY@0630 [facility] Last Admin: 12/18/24 06:57 Dose: 20 mg Prazosin HCl (Prazosin Hcl 1 Mg Capsule) 3 mg PO BEDTIME [facility]; Protocol Last Admin: 12/17/24 22:17 Dose: 3 mg Quetiapine Fumarate (Quetiapine Fumarate 50 Mg Tablet) 50 mg PO QID [facility] Last Admin: 12/18/24 08:12 Dose: 50 mg Trazodone HCl (Trazodone Hcl 50 Mg Tablet) 150 mg PO BEDTIME [facility] Last Admin: 12/17/24 22:18 Dose: 150 mg Trazodone HCl (Trazodone Hcl 50 Mg Tablet) 50 mg PO BEDTIME [facility] Last Admin: 12/17/24 22:18 Dose: 50 mg Trazodone HCl (Trazodone Hcl 50 Mg Tablet) 50 mg PO BEDTIME MRX1 PRN PRN Reason: Insomnia Last Admin: 12/14/24 01:46 Dose: 50 mg Allergies Allergies Allergy/AdvReac Type Severity Reaction Status Date / Time divalproex sodium (From Allergy Unknown Unknown Verified 12/12/24 14:51 Depakote) chlorpromazine (From Allergy Unknown Verified 12/12/24 14:51 Thorazine) egg Allergy Abdominal Verified 12/13/24 07:07 Pain gluten Allergy Stomach Verified 12/12/24 14:51 Upset Milk Containing Products Allergy Stomach Verified 12/12/24 14:51 (Dairy) Upset Assessment & Plan Assessment & Plan (1) Autism: Status: Acute Code(s): F84.0 - Autistic disorder (2) Disruptive mood dysregulation disorder: Status: Acute Code(s): F34.81 - Disruptive mood dysregulation disorder (3) Intellectual disability: Status: Acute Code(s): F79 - Unspecified intellectual disabilities (4) Left foot pain: Status: Acute Code(s): M79.672 - Pain in left foot Assessment and Plan: Left foot pain X-ray was negative Exam benign Patient is using Lidoderm patch which she reports helps her Ambulating at baseline Continue to monitor and report any changes. Thank you for allowing me to participate in the care of this patient. Signing off at this time. Please reconsult of any acute concerns or issues arise Plan 12/15 Continue regime Discuss with family, OP team a change of living situation 12/16 Continue regime Pt is willing to begin discussions with father to attempt to address her issues with him 12/17 No change in presentation; intermittent outburst, yelling in the kitchen this morning and then later on in the hallway. Patient proudly stated she did not sleep at all last night 12/18 slept last night; same presentation; denies SI/HI -says hard to sleep at night since morning medications make her tired and she ends up napping; she wonders if dosing times can be changed. -will defer changes to primary team since dosing may be strategic to address behaviors PLAN -added mirtazapine 7.5mg Admit, CV, 15 minute checks Continue current regime Observe post positive toxic screen Collateral Contact Diagnostics as indicated Discharge planning. Patient educated on: diagnosis and medication risk/benefits Informed Consent: further education needed Reason for continued inpatient stay Substantial Risk for: rapid decompensation Time Spent With Patient Time: Total time managing care of this patient today ____ minutes.
[2024-12-18] MEDS: Magnesium Hydrox/Alum Hydrox 30 ML ORAL.SUSP PO (14:27)
[2024-12-18 20:00] VITALS: BP 132/81; PULSE 108; RESP 16; TEMP 37.1; O2SAT 97
[2024-12-18 22:06] VITALS: BP 134/82
[2024-12-19 08:00] VITALS: BP 138/90; PULSE 102; RESP 16; TEMP 36.3; O2SAT 97
[2024-12-19] MEDS: Nicotine 21 MG PATCH.TD24 TRANSDERMA (08:11)
[2024-12-19] MEDS: Lidocaine 4 % Patch ADH..PATCH 1 PATCH TRANSDERMA (08:12)
--- NOTE | 2024-12-19 10:02 | HO.PSYCHPN ---
Subjective Subjective Date of Service: 12/19/24 Reason For Visit: dysregulated Subjective Notes: Conditional Voluntary Healthcare Proxy: No Guardianship: No Medical Problems Affecting Mental Status: No Interim History: Pt tells weekend team that she feels too sedate with Seroquel, however, behavior on the unit is non sedate, alert, interactive, mildly labile, energetic. Continues to report foot pain, will trial Capsaicin cream for added pain mgt. Denies SI, AH,VH. Continues to express anger with school, her father, and circumstances. Denies HI. Reports she will visit with her father this week and is looking forward to this. Medication Compliance: Yes Side effects from medications: No Attending Groups: Intermittent Review of Systems Review of Systems Foot Pain-diagnostics are negative Mental Status Exam Mental Status Exam Patient Appearance: Appropriate Patient Orientation: Person, Place, Time and Situation Level of Consciousness: Alert Patient Behavior: Talkative, Distractible and Good Eye Contact Mood Description: Labile Affect Description: Labile Patient Cognition Impaired: Yes Ability to Follow Directions: Fair Speech Pattern: Spontaneous Speech Memory Description: Episodic Impaired Hallucinations: None Delusions: Not Present Thought Process: Distracted, Rumination and Goal Oriented Thought Content: positive for Circumstantial, positive for Goal Oriented, positive for Perseveration, positive for Preoccupation, positive for Suicidal Ideation (denies) and positive for Homicidal Ideation (denies) Depressive Symptoms: Diff. Making Decisions and Thoughts of /Suicide (denies) Abnormal Motor Activity Signs and Symptoms: Restlessness Judgement: Fair Judgement and Insight: Impaired Diagnostics Vital Signs (24Hr): Vital Signs - 24 hr 12/18/24 20:00 12/18/24 22:06 12/19/24 08:00 Temperature 98.8 F 97.4 F Pulse Rate 108 H 102 H Respiratory Rate 16 16 Blood Pressure 132/81 134/82 138/90 H Pulse Oximetry 97 97 Oxygen Delivery Method Room Air BMI result Body Mass Index 41.9 Labs 12/12/24 15:35 12/14/24 09:13 Imaging Radiology Impressions: ITS Impressions Foot X-Ray 12/15/24 12:40 IMPRESSION: No acute fracture or dislocation. Electronically signed by: Ntahaly Harris MD 12/15/2024 12:54 PM EDT Medications Medications Current Medications Acetaminophen (Acetaminophen 325 Mg Tablet) 650 mg PO Q6H PRN PRN Reason: Headache/Pain, Scale 1-10 Last Admin: 12/18/24 14:09 Dose: 650 mg Al Hydroxide/Mg Hydroxide (Magnesium Hydrox/Alum Hydrox 30 Ml Oral.Susp) 30 ml PO Q6H PRN PRN Reason: Heartburn/Nausea Last Admin: 12/18/24 14:27 Dose: 30 ml Albuterol Sulfate (Albuterol Sulfate 90 Mcg 8 Gm Inhaler) 2 puff INHALE RQ4H PRN PRN Reason: Wheezing Benztropine Mesylate (Benztropine Mesylate 0.5 Mg Tablet) 0.5 mg PO BID [facility] Last Admin: 12/19/24 08:12 Dose: 0.5 mg Hydroxyzine HCl (Hydroxyzine Hcl 25 Mg Tablet) 25 mg PO Q6H PRN PRN Reason: mild anxiety Last Admin: 12/18/24 22:06 Dose: 25 mg Ibuprofen (Ibuprofen 800 Mg Tablet) 800 mg PO TIDWM PRN PRN Reason: severe headache Last Admin: 12/19/24 08:10 Dose: 800 mg Lactase (Lactase Tablet) 1 tab PO TIDWM [facility] Last Admin: 12/19/24 08:22 Dose: 1 tab Lactase (Lactase Tablet) 1 tab PO TID PRN PRN Reason: to consume milk products Last Admin: 12/16/24 18:26 Dose: 1 tab Lidocaine (Lidocaine 4 % Patch Adh..Patch) 1 patch TRANSDERMA DAILY [facility]; Protocol Last Admin: 12/19/24 08:12 Dose: 1 patch Loratadine (Loratadine 10 Mg Tablet) 10 mg PO DAILY [facility] Last Admin: 12/19/24 08:12 Dose: 10 mg Magnesium Hydroxide (Milk Of Magnesia 30 Ml Oral.Susp) 30 ml PO DAILY PRN PRN Reason: Constipation Mirtazapine (Mirtazapine 7.5 Mg Tablet) 7.5 mg PO BEDTIME [facility] Last Admin: 12/18/24 22:06 Dose: 7.5 mg Naltrexone HCl (Naltrexone Hcl 50 Mg Tablet) 25 mg PO DAILY [facility] Last Admin: 12/19/24 08:11 Dose: 25 mg Nicotine (Nicotine 21 Mg Patch.Td24) 21 mg TRANSDERMA DAILY PRN PRN Reason: smoking cessation Last Admin: 12/19/24 08:11 Dose: 21 mg Nicotine Polacrilex (Nicotine Polacrilex 2 Mg Gum) 4 mg BUCCAL Q2H PRN PRN Reason: Nicotine Cravings Last Admin: 12/16/24 19:07 Dose: 4 mg Nicotine Polacrilex (Nicotine Polacrilex 2 Mg Gum) 4 mg BUCCAL Q2H PRN PRN Reason: Nicotine Cravings Non-Formulary Medication (Levomefolate Calcium) 7.5 mg PO DAILY [facility] Non-Formulary Medication (Levonorgestrel-Ethinyl Estrad [Vienva]) 1 tab PO DAILY [facility] Olanzapine (Olanzapine 5 Mg Tablet) 5 mg PO TID PRN PRN Reason: agitation Last Admin: 12/19/24 08:14 Dose: 5 mg Omeprazole (Omeprazole 20 Mg Capsule.Dr) 20 mg PO DAILY@0630 [facility] Last Admin: 12/19/24 06:55 Dose: 20 mg Prazosin HCl (Prazosin Hcl 1 Mg Capsule) 3 mg PO BEDTIME [facility]; Protocol Last Admin: 12/18/24 22:06 Dose: 3 mg Quetiapine Fumarate (Quetiapine Fumarate 50 Mg Tablet) 50 mg PO QID [facility] Last Admin: 12/19/24 08:11 Dose: 50 mg Trazodone HCl (Trazodone Hcl 50 Mg Tablet) 150 mg PO BEDTIME [facility] Last Admin: 12/18/24 22:06 Dose: 150 mg Trazodone HCl (Trazodone Hcl 50 Mg Tablet) 50 mg PO BEDTIME [facility] Last Admin: 12/18/24 22:07 Dose: 50 mg Trazodone HCl (Trazodone Hcl 50 Mg Tablet) 50 mg PO BEDTIME MRX1 PRN PRN Reason: Insomnia Last Admin: 12/14/24 01:46 Dose: 50 mg Allergies Allergies Allergy/AdvReac Type Severity Reaction Status Date / Time divalproex sodium (From Allergy Unknown Unknown Verified 12/12/24 14:51 Depakote) chlorpromazine (From Allergy Unknown Verified 12/12/24 14:51 Thorazine) egg Allergy Abdominal Verified 12/13/24 07:07 Pain Milk Containing Products Allergy Stomach Verified 12/12/24 14:51 (Dairy) Upset Assessment & Plan Assessment & Plan (1) Autism: Status: Acute Code(s): F84.0 - Autistic disorder (2) Disruptive mood dysregulation disorder: Status: Acute Code(s): F34.81 - Disruptive mood dysregulation disorder (3) Intellectual disability: Status: Acute Code(s): F79 - Unspecified intellectual disabilities (4) Left foot pain: Status: Acute Code(s): M79.672 - Pain in left foot Assessment and Plan: Left foot pain X-ray was negative Exam benign Patient is using Lidoderm patch which she reports helps her Ambulating at baseline Continue to monitor and report any changes. Thank you for allowing me to participate in the care of this patient. Signing off at this time. Please reconsult of any acute concerns or issues arise Plan 12/15 Continue regime Discuss with family, OP team a change of living situation 12/16 Continue regime Pt is willing to begin discussions with father to attempt to address her issues with him 12/17 No change in presentation; intermittent outburst, yelling in the kitchen this morning and then later on in the hallway. Patient proudly stated she did not sleep at all last night 12/18 slept last night; same presentation; denies SI/HI -says hard to sleep at night since morning medications make her tired and she ends up napping; she wonders if dosing times can be changed. -will defer changes to primary team since dosing may be strategic to address behaviors 12/19: Asks to change Seroquel however with no anergic presentation noted today. Will continue regime at this time and continue to monitor. PLAN -added mirtazapine 7.5mg Admit, CV, 15 minute checks Continue current regime Observe post positive toxic screen Collateral Contact Diagnostics as indicated Discharge planning. Reason for continued inpatient stay Substantial Risk for: rapid decompensation Time Spent With Patient Time: Total time managing care of this patient today ____ minutes.
[2024-12-19] MEDS: Milk of Magnesia 30 ML ORAL.SUSP PO (15:52)
[2024-12-19 19:30] VITALS: BP 146/86; PULSE 116; RESP 20; TEMP 38.1; O2SAT 96
[2024-12-20 08:00] VITALS: BP 133/65; PULSE 96; RESP 16; TEMP 36.6; O2SAT 99
[2024-12-20] MEDS: Lidocaine 4 % Patch ADH..PATCH 1 PATCH TRANSDERMA (09:22)
[2024-12-20] MEDS: Albuterol Sulfate 90 MCG 8 GM INHALER 2 PUFF INHALE ×2 (09:25→15:58)
[2024-12-20] MEDS: Nicotine 21 MG PATCH.TD24 TRANSDERMA (09:41)
--- NOTE | 2024-12-20 13:13 | P.PNPSI_ITS ---
Subjective Subjective Date of Service: 12/20/24 Reason For Visit: dysregulated Subjective Notes: Conditional Voluntary Healthcare Proxy: No Guardianship: No Medical Problems Affecting Mental Status: No Interim History: Refused Seroquel last evening, today there is evidence of this, pt is presenting with added energy, pressure of speech, lability. She is excited she states that her father has visited. Denies SI,HI,AH,VH. Asks when she may return home. Asked pt if she wanted to return home, yes . Asked if she felt ready to return home, no , however would not elaborate. Energetic, labile, without agitation per team. Medication Compliance: Intermittent Side effects from medications: No Attending Groups: Intermittent Review of Systems Acute medical concerns: No Review of Systems Review of Systems Denies Mental Status Exam Mental Status Exam Patient Appearance: Appropriate Patient Orientation: Person, Place, Time and Situation Level of Consciousness: Alert Patient Behavior: Talkative, Hyperactive, Distractible and Good Eye Contact Mood Description: Labile Affect Description: Labile Patient Cognition Impaired: Yes Ability to Follow Directions: Fair Speech Pattern: Spontaneous Speech Memory Description: Episodic Impaired Hallucinations: None Delusions: Not Present Thought Process: Distracted, Rumination and Goal Oriented Thought Content: positive for Circumstantial, positive for Goal Oriented, positive for Perseveration, positive for Preoccupation, positive for Suicidal Ideation (denies) and positive for Homicidal Ideation (denies) Depressive Symptoms: Diff. Making Decisions and Thoughts of /Suicide (denies) Abnormal Motor Activity Signs and Symptoms: Restlessness Judgement: Fair Judgement and Insight: Impaired Diagnostics Vital Signs (24Hr): Vital Signs - 24 hr 12/19/24 19:30 12/20/24 08:00 Temperature 100.5 F H 97.8 F Pulse Rate 116 H 96 Respiratory Rate 20 16 Blood Pressure 146/86 H 133/65 Pulse Oximetry 96 99 Oxygen Delivery Method Room Air Room Air BMI result Body Mass Index 41.9 Labs 12/12/24 15:35 12/14/24 09:13 Imaging Radiology Impressions: ITS Impressions Foot X-Ray 12/15/24 12:40 IMPRESSION: No acute fracture or dislocation. Electronically signed by: Nathaly Harris MD 12/15/2024 12:54 PM EDT Medications Medications Current Medications Acetaminophen (Acetaminophen 325 Mg Tablet) 650 mg PO Q6H PRN PRN Reason: Headache/Pain, Scale 1-10 Last Admin: 12/19/24 12:27 Dose: 650 mg Al Hydroxide/Mg Hydroxide (Magnesium Hydrox/Alum Hydrox 30 Ml Oral.Susp) 30 ml PO Q6H PRN PRN Reason: Heartburn/Nausea Last Admin: 12/18/24 14:27 Dose: 30 ml Albuterol Sulfate (Albuterol Sulfate 90 Mcg 8 Gm Inhaler) 2 puff INHALE RQ4H PRN PRN Reason: Wheezing Last Admin: 12/20/24 09:25 Dose: 2 puff Benztropine Mesylate (Benztropine Mesylate 0.5 Mg Tablet) 0.5 mg PO BID [facility] Last Admin: 12/20/24 09:21 Dose: 0.5 mg Capsaicin (Capsaicin 0.075% Cream 57 Gm Tube) 1 appl TOPICAL QID [facility]; Protocol PRN Reason: foot pain Last Admin: 12/19/24 20:57 Dose: 1 appl Hydroxyzine HCl (Hydroxyzine Hcl 25 Mg Tablet) 25 mg PO Q6H PRN PRN Reason: mild anxiety Last Admin: 12/19/24 18:55 Dose: 25 mg Ibuprofen (Ibuprofen 800 Mg Tablet) 800 mg PO TIDWM PRN PRN Reason: severe headache Last Admin: 12/19/24 23:23 Dose: 800 mg Lactase (Lactase Tablet) 1 tab PO TIDWM [facility] Last Admin: 12/20/24 11:52 Dose: 1 tab Lactase (Lactase Tablet) 1 tab PO TID PRN PRN Reason: to consume milk products Last Admin: 12/16/24 18:26 Dose: 1 tab Lidocaine (Lidocaine 4 % Patch Adh..Patch) 1 patch TRANSDERMA DAILY [facility]; Protocol Last Admin: 12/20/24 09:22 Dose: 1 patch Loratadine (Loratadine 10 Mg Tablet) 10 mg PO DAILY [facility] Last Admin: 12/20/24 09:21 Dose: 10 mg Magnesium Hydroxide (Milk Of Magnesia 30 Ml Oral.Susp) 30 ml PO DAILY PRN PRN Reason: Constipation Last Admin: 12/19/24 15:52 Dose: 30 ml Mirtazapine (Mirtazapine 7.5 Mg Tablet) 7.5 mg PO BEDTIME [facility] Last Admin: 12/19/24 23:01 Dose: Not Given Naltrexone HCl (Naltrexone Hcl 50 Mg Tablet) 25 mg PO DAILY [facility] Last Admin: 12/20/24 09:21 Dose: 25 mg Nicotine (Nicotine 21 Mg Patch.Td24) 21 mg TRANSDERMA DAILY PRN PRN Reason: smoking cessation Last Admin: 12/20/24 09:41 Dose: 21 mg Nicotine Polacrilex (Nicotine Polacrilex 2 Mg Gum) 4 mg BUCCAL Q2H PRN PRN Reason: Nicotine Cravings Last Admin: 12/20/24 02:04 Dose: 4 mg Nicotine Polacrilex (Nicotine Polacrilex 2 Mg Gum) 4 mg BUCCAL Q2H PRN PRN Reason: Nicotine Cravings Non-Formulary Medication (Levomefolate Calcium) 7.5 mg PO DAILY [facility] Non-Formulary Medication (Levonorgestrel-Ethinyl Estrad [Vienva]) 1 tab PO DAILY [facility] Olanzapine (Olanzapine 5 Mg Tablet) 5 mg PO TID PRN PRN Reason: agitation Last Admin: 12/19/24 08:14 Dose: 5 mg Omeprazole (Omeprazole 20 Mg Capsule.Dr) 20 mg PO DAILY@0630 [facility] Last Admin: 12/20/24 06:30 Dose: Not Given Ondansetron HCl (Ondansetron Odt 4 Mg Tab.Rapdis) 4 mg TRANSLINGU Q8H PRN PRN Reason: Nausea and Vomiting Prazosin HCl (Prazosin Hcl 1 Mg Capsule) 3 mg PO BEDTIME [facility]; Protocol Last Admin: 12/19/24 21:01 Dose: 3 mg Quetiapine Fumarate (Quetiapine Fumarate 50 Mg Tablet) 50 mg PO QID [facility] Last Admin: 12/20/24 11:58 Dose: 50 mg Trazodone HCl (Trazodone Hcl 50 Mg Tablet) 150 mg PO BEDTIME [facility] Last Admin: 12/19/24 23:02 Dose: Not Given Trazodone HCl (Trazodone Hcl 50 Mg Tablet) 50 mg PO BEDTIME [facility] Last Admin: 12/19/24 23:06 Dose: Not Given Trazodone HCl (Trazodone Hcl 50 Mg Tablet) 50 mg PO BEDTIME MRX1 PRN PRN Reason: Insomnia Last Admin: 12/14/24 01:46 Dose: 50 mg Allergies Allergies Allergy/AdvReac Type Severity Reaction Status Date / Time divalproex sodium (From Allergy Unknown Unknown Verified 12/12/24 14:51 Depakote) chlorpromazine (From Allergy Unknown Verified 12/12/24 14:51 Thorazine) Assessment & Plan Assessment & Plan (1) Autism: Status: Acute Code(s): F84.0 - Autistic disorder (2) Disruptive mood dysregulation disorder: Status: Acute Code(s): F34.81 - Disruptive mood dysregulation disorder (3) Intellectual disability: Status: Acute Code(s): F79 - Unspecified intellectual disabilities (4) Left foot pain: Status: Acute Code(s): M79.672 - Pain in left foot Assessment and Plan: Left foot pain X-ray was negative Exam benign Patient is using Lidoderm patch which she reports helps her Ambulating at baseline Continue to monitor and report any changes. Thank you for allowing me to participate in the care of this patient. Signing off at this time. Please reconsult of any acute concerns or issues arise Plan 12/15 Continue regime Discuss with family, OP team a change of living situation 12/16 Continue regime Pt is willing to begin discussions with father to attempt to address her issues with him 12/17 No change in presentation; intermittent outburst, yelling in the kitchen this morning and then later on in the hallway. Patient proudly stated she did not sleep at all last night 12/18 slept last night; same presentation; denies SI/HI -says hard to sleep at night since morning medications make her tired and she ends up napping; she wonders if dosing times can be changed. -will defer changes to primary team since dosing may be strategic to address behaviors 12/20: Continue regime. PLAN -added mirtazapine 7.5mg Admit, CV, 15 minute checks Continue current regime Observe post positive toxic screen Collateral Contact Diagnostics as indicated Discharge planning. Reason for continued inpatient stay Substantial Risk for: rapid decompensation Time Spent With Patient Time: Total time managing care of this patient today ____ minutes.
[2024-12-20] MEDS: LEVONORGESTREL ETHINYL ESTRAD 1 EACH PO (16:29)
[2024-12-20 19:52] VITALS: BP 138/86; PULSE 108; RESP 16; TEMP 36.4; O2SAT 97
[2024-12-20 21:40] VITALS: BP 135/73
[2024-12-21 08:00] VITALS: BP 112/53; PULSE 96; RESP 16; TEMP 36.7; O2SAT 98
[2024-12-21] MEDS: Lidocaine 4 % Patch ADH..PATCH 1 PATCH TRANSDERMA (08:09)
[2024-12-21] MEDS: LEVONORGESTREL ETHINYL ESTRAD 1 EACH PO (08:12)
[2024-12-21] MEDS: Magnesium Hydrox/Alum Hydrox 30 ML ORAL.SUSP PO ×2 (09:32→15:33)
[2024-12-21] MEDS: Nicotine 21 MG PATCH.TD24 TRANSDERMA (09:40)
--- NOTE | 2024-12-21 10:02 | HO.PSYCHPN ---
Subjective Subjective Date of Service: 12/21/24 Reason For Visit: dysregulated Subjective Notes: Conditional Voluntary Healthcare Proxy: No Guardianship: No Medical Problems Affecting Mental Status: No Interim History: Accepting meds today. Continues to report she wants to return home yet does not feel ready or prepared. She also continues to report foot pain, however, capsaicin is helpful. Ambulation is without distress. Pain is experienced with great toe flexion. Medication Compliance: Yes Side effects from medications: No Attending Groups: Intermittent Review of Systems Acute medical concerns: No Medical Review of Systems: unchanged Review of Systems Review of Systems L foot pain Mental Status Exam Mental Status Exam Patient Appearance: Appropriate Patient Orientation: Person, Place, Time and Situation Level of Consciousness: Alert Patient Behavior: Talkative, Distractible and Good Eye Contact Mood Description: Labile Affect Description: Labile Patient Cognition Impaired: No Ability to Follow Directions: Fair Speech Pattern: Spontaneous Speech Memory Description: Episodic Impaired Hallucinations: None Delusions: Not Present Thought Process: Distracted and Goal Oriented Thought Content: positive for Circumstantial, positive for Goal Oriented, positive for Suicidal Ideation (denies) and positive for Homicidal Ideation (denies) Depressive Symptoms: Diff. Making Decisions and Thoughts of /Suicide (denies) Judgement: Fair Judgement and Insight: Impaired Diagnostics Vital Signs (24Hr): Vital Signs - 24 hr 12/20/24 19:52 12/20/24 21:40 12/21/24 08:00 Temperature 97.5 F 98.0 F Pulse Rate 108 H 96 Respiratory Rate 16 16 Blood Pressure 138/86 135/73 112/53 L Pulse Oximetry 97 98 Oxygen Delivery Method Room Air Room Air BMI result Body Mass Index 41.9 Labs 12/12/24 15:35 12/14/24 09:13 Imaging Radiology Impressions: ITS Impressions Foot X-Ray 12/15/24 12:40 IMPRESSION: No acute fracture or dislocation. Electronically signed by: Nathaly Harris MD 12/15/2024 12:54 PM EDT Medications Medications Current Medications Acetaminophen (Acetaminophen 325 Mg Tablet) 650 mg PO Q6H PRN PRN Reason: Headache/Pain, Scale 1-10 Last Admin: 12/21/24 09:31 Dose: 650 mg Al Hydroxide/Mg Hydroxide (Magnesium Hydrox/Alum Hydrox 30 Ml Oral.Susp) 30 ml PO Q6H PRN PRN Reason: Heartburn/Nausea Last Admin: 12/21/24 09:32 Dose: 30 ml Albuterol Sulfate (Albuterol Sulfate 90 Mcg 8 Gm Inhaler) 2 puff INHALE RQ4H PRN PRN Reason: Wheezing Last Admin: 12/20/24 15:58 Dose: 2 puff Benztropine Mesylate (Benztropine Mesylate 0.5 Mg Tablet) 0.5 mg PO BID [facility] Last Admin: 12/21/24 08:09 Dose: 0.5 mg Capsaicin (Capsaicin 0.075% Cream 57 Gm Tube) 1 appl TOPICAL QID PRN; Protocol PRN Reason: foot pain Last Admin: 12/20/24 19:36 Dose: 1 appl Hydroxyzine HCl (Hydroxyzine Hcl 25 Mg Tablet) 25 mg PO Q6H PRN PRN Reason: mild anxiety Last Admin: 12/20/24 18:57 Dose: 25 mg Ibuprofen (Ibuprofen 800 Mg Tablet) 800 mg PO TIDWM PRN PRN Reason: severe headache Last Admin: 12/20/24 22:12 Dose: 800 mg Lactase (Lactase Tablet) 1 tab PO TIDWM [facility] Last Admin: 12/21/24 08:09 Dose: 1 tab Lactase (Lactase Tablet) 1 tab PO TID PRN PRN Reason: to consume milk products Last Admin: 12/16/24 18:26 Dose: 1 tab Lidocaine (Lidocaine 4 % Patch Adh..Patch) 1 patch TRANSDERMA DAILY [facility]; Protocol Last Admin: 12/21/24 08:09 Dose: 1 patch Loratadine (Loratadine 10 Mg Tablet) 10 mg PO DAILY [facility] Last Admin: 12/21/24 08:08 Dose: 10 mg Magnesium Hydroxide (Milk Of Magnesia 30 Ml Oral.Susp) 30 ml PO DAILY PRN PRN Reason: Constipation Last Admin: 12/19/24 15:52 Dose: 30 ml Mirtazapine (Mirtazapine 7.5 Mg Tablet) 7.5 mg PO BEDTIME [facility] Last Admin: 12/20/24 21:45 Dose: 7.5 mg Naltrexone HCl (Naltrexone Hcl 50 Mg Tablet) 25 mg PO DAILY [facility] Last Admin: 12/21/24 08:08 Dose: 25 mg Nicotine (Nicotine 21 Mg Patch.Td24) 21 mg TRANSDERMA DAILY PRN PRN Reason: smoking cessation Last Admin: 12/21/24 09:40 Dose: 21 mg Nicotine Polacrilex (Nicotine Polacrilex 2 Mg Gum) 4 mg BUCCAL Q2H PRN PRN Reason: Nicotine Cravings Last Admin: 12/20/24 02:04 Dose: 4 mg Nicotine Polacrilex (Nicotine Polacrilex 2 Mg Gum) 4 mg BUCCAL Q2H PRN PRN Reason: Nicotine Cravings Pt Own( Levonorgestrel- Ethinyl Estrad [ Vienva] 0.1-20 Mg- Mcg Tablet) 1 tab PO DAILY [facility] Last Admin: 12/21/24 08:12 Dose: 1 tab Olanzapine (Olanzapine 5 Mg Tablet) 5 mg PO TID PRN PRN Reason: agitation Last Admin: 12/20/24 19:34 Dose: 5 mg Omeprazole (Omeprazole 20 Mg Capsule.Dr) 20 mg PO DAILY@0630 [facility] Last Admin: 12/21/24 08:09 Dose: 20 mg Ondansetron HCl (Ondansetron Odt 4 Mg Tab.Rapdis) 4 mg TRANSLINGU Q8H PRN PRN Reason: Nausea and Vomiting Prazosin HCl (Prazosin Hcl 1 Mg Capsule) 3 mg PO BEDTIME [facility]; Protocol Last Admin: 12/20/24 21:40 Dose: 3 mg Quetiapine Fumarate (Quetiapine Fumarate 50 Mg Tablet) 50 mg PO QID [facility] Last Admin: 12/21/24 08:09 Dose: 50 mg Trazodone HCl (Trazodone Hcl 50 Mg Tablet) 150 mg PO BEDTIME [facility] Last Admin: 12/20/24 21:40 Dose: 150 mg Trazodone HCl (Trazodone Hcl 50 Mg Tablet) 50 mg PO BEDTIME [facility] Last Admin: 12/20/24 22:01 Dose: 50 mg Trazodone HCl (Trazodone Hcl 50 Mg Tablet) 50 mg PO BEDTIME MRX1 PRN PRN Reason: Insomnia Last Admin: 12/14/24 01:46 Dose: 50 mg Allergies Allergies Allergy/AdvReac Type Severity Reaction Status Date / Time divalproex sodium (From Allergy Unknown Unknown Verified 12/12/24 14:51 Depakote) chlorpromazine (From Allergy Unknown Verified 12/12/24 14:51 Thorazine) Assessment & Plan Assessment & Plan (1) Autism: Status: Acute Code(s): F84.0 - Autistic disorder (2) Disruptive mood dysregulation disorder: Status: Acute Code(s): F34.81 - Disruptive mood dysregulation disorder (3) Intellectual disability: Status: Acute Code(s): F79 - Unspecified intellectual disabilities (4) Left foot pain: Status: Acute Code(s): M79.672 - Pain in left foot Assessment and Plan: Left foot pain X-ray was negative Exam benign Patient is using Lidoderm patch which she reports helps her Ambulating at baseline Continue to monitor and report any changes. Thank you for allowing me to participate in the care of this patient. Signing off at this time. Please reconsult of any acute concerns or issues arise Plan 12/15 Continue regime Discuss with family, OP team a change of living situation 12/16 Continue regime Pt is willing to begin discussions with father to attempt to address her issues with him 12/17 No change in presentation; intermittent outburst, yelling in the kitchen this morning and then later on in the hallway. Patient proudly stated she did not sleep at all last night 12/18 slept last night; same presentation; denies SI/HI -says hard to sleep at night since morning medications make her tired and she ends up napping; she wonders if dosing times can be changed. -will defer changes to primary team since dosing may be strategic to address behaviors 12/21: Continue tx. Discharge planning. Pt reports she wants discharge, yet does not feel prepared. PLAN -added mirtazapine 7.5mg Admit, CV, 15 minute checks Continue current regime Observe post positive toxic screen Collateral Contact Diagnostics as indicated Discharge planning. Reason for continued inpatient stay Substantial Risk for: rapid decompensation Time Spent With Patient Time: Total time managing care of this patient today ____ minutes.
[2024-12-21 20:00] VITALS: BP 126/72; PULSE 113; TEMP 37.1; O2SAT 98
[2024-12-22 07:00] VITALS: BMI 42.6
[2024-12-22] MEDS: LEVONORGESTREL ETHINYL ESTRAD 1 EACH PO (08:32)
[2024-12-22 10:39] VITALS: BP 134/65; PULSE 74; RESP 16; TEMP 36.9; O2SAT 98
--- NOTE | 2024-12-22 12:43 | P.PNPSI_ITS ---
Subjective Subjective Date of Service: 12/22/24 Reason For Visit: dysregulated Subjective Notes: Conditional Voluntary Healthcare Proxy: No Guardianship: No Medical Problems Affecting Mental Status: No Interim History: Irritable, loud at times, angry. Reports foot pain, issues with increased acid indigestion. Asks for lateral transfer, not liking groups, just meds, music, and art . Discussed that mom may return for a visit. Review of medications-pt feeling they are not helpful-reports anger, feeling tired yet unable to sleep and unhappy, but I am only happy if my mom is here. Discussed adding trileptal 300 mg bid for mood, increasing Mirtazapine to 15 mg to assist with sleep and trialing risperdal 1 mg bid for anger. She agrees. Medication Compliance: Yes Side effects from medications: No Attending Groups: Yes Review of Systems GERD sx, foot pain Medical Review of Systems: unchanged Review of Systems Review of Systems GERD sx Foot pain Mental Status Exam Mental Status Exam Patient Appearance: Appropriate Patient Orientation: Person, Place, Time and Situation Level of Consciousness: Alert Patient Behavior: Talkative, Distractible and Good Eye Contact Mood Description: Labile Affect Description: Labile Patient Cognition Impaired: No Ability to Follow Directions: Fair Speech Pattern: Spontaneous Speech Memory Description: Episodic Impaired Hallucinations: None Delusions: Not Present Thought Process: Distracted and Goal Oriented Thought Content: positive for Circumstantial, positive for Goal Oriented, positive for Suicidal Ideation (denies) and positive for Homicidal Ideation (denies) Depressive Symptoms: Diff. Making Decisions and Thoughts of /Suicide (denies) Judgement: Fair Judgement and Insight: Impaired Diagnostics Vital Signs (24Hr): Vital Signs - 24 hr 12/21/24 20:00 12/22/24 10:39 Temperature 98.7 F 98.4 F Pulse Rate 113 H 74 Respiratory Rate 16 Blood Pressure 126/72 134/65 Pulse Oximetry 98 98 Oxygen Delivery Method Room Air Room Air BMI result Body Mass Index 42.6 Labs 12/12/24 15:35 12/14/24 09:13 Imaging Radiology Impressions: ITS Impressions Foot X-Ray 12/15/24 12:40 IMPRESSION: No acute fracture or dislocation. Electronically signed by: Nathaly Harris MD 12/15/2024 12:54 PM EDT Medications Medications Current Medications Acetaminophen (Acetaminophen 325 Mg Tablet) 650 mg PO Q6H PRN PRN Reason: Headache/Pain, Scale 1-10 Last Admin: 12/22/24 08:33 Dose: 650 mg Al Hydroxide/Mg Hydroxide (Magnesium Hydrox/Alum Hydrox 30 Ml Oral.Susp) 30 ml PO Q6H PRN PRN Reason: Heartburn/Nausea Last Admin: 12/21/24 15:33 Dose: 30 ml Albuterol Sulfate (Albuterol Sulfate 90 Mcg 8 Gm Inhaler) 2 puff INHALE RQ4H PRN PRN Reason: Wheezing Last Admin: 12/20/24 15:58 Dose: 2 puff Benztropine Mesylate (Benztropine Mesylate 0.5 Mg Tablet) 0.5 mg PO BID [facility] Last Admin: 12/22/24 08:33 Dose: 0.5 mg Capsaicin (Capsaicin 0.075% Cream 57 Gm Tube) 1 appl TOPICAL QID PRN; Protocol PRN Reason: foot pain Last Admin: 12/22/24 08:36 Dose: 1 appl Hydroxyzine HCl (Hydroxyzine Hcl 25 Mg Tablet) 25 mg PO Q6H PRN PRN Reason: mild anxiety Last Admin: 12/22/24 08:33 Dose: 25 mg Ibuprofen (Ibuprofen 800 Mg Tablet) 800 mg PO TIDWM PRN PRN Reason: severe headache Last Admin: 12/21/24 20:16 Dose: 800 mg Lactase (Lactase Tablet) 1 tab PO TIDWM [facility] Last Admin: 12/22/24 08:33 Dose: 1 tab Lactase (Lactase Tablet) 1 tab PO TID PRN PRN Reason: to consume milk products Last Admin: 12/16/24 18:26 Dose: 1 tab Lidocaine (Lidocaine 4 % Patch Adh..Patch) 1 patch TRANSDERMA DAILY [facility]; Protocol Last Admin: 12/21/24 08:09 Dose: 1 patch Loratadine (Loratadine 10 Mg Tablet) 10 mg PO DAILY [facility] Last Admin: 12/22/24 08:33 Dose: 10 mg Magnesium Hydroxide (Milk Of Magnesia 30 Ml Oral.Susp) 30 ml PO DAILY PRN PRN Reason: Constipation Last Admin: 12/19/24 15:52 Dose: 30 ml Mirtazapine (Mirtazapine 15 Mg Tablet) 15 mg PO BEDTIME [facility] Naltrexone HCl (Naltrexone Hcl 50 Mg Tablet) 25 mg PO DAILY [facility] Last Admin: 12/22/24 08:32 Dose: 25 mg Nicotine (Nicotine 21 Mg Patch.Td24) 21 mg TRANSDERMA DAILY PRN PRN Reason: smoking cessation Last Admin: 12/21/24 09:40 Dose: 21 mg Nicotine Polacrilex (Nicotine Polacrilex 2 Mg Gum) 4 mg BUCCAL Q2H PRN PRN Reason: Nicotine Cravings Last Admin: 12/21/24 20:15 Dose: 4 mg Nicotine Polacrilex (Nicotine Polacrilex 2 Mg Gum) 4 mg BUCCAL Q2H PRN PRN Reason: Nicotine Cravings Pt Own( Levonorgestrel- Ethinyl Estrad [ Vienva] 0.1-20 Mg- Mcg Tablet) 1 tab PO DAILY [facility] Last Admin: 12/22/24 08:32 Dose: 1 tab Olanzapine (Olanzapine 5 Mg Tablet) 5 mg PO TID PRN PRN Reason: agitation Last Admin: 12/21/24 10:10 Dose: 5 mg Omeprazole (Omeprazole 20 Mg Capsule.Dr) 20 mg PO DAILY@0630 [facility] Last Admin: 12/22/24 08:32 Dose: 20 mg Ondansetron HCl (Ondansetron Odt 4 Mg Tab.Rapdis) 4 mg TRANSLINGU Q8H PRN PRN Reason: Nausea and Vomiting Oxcarbazepine (Oxcarbazepine 300 Mg Tablet) 300 mg PO BID [facility] Prazosin HCl (Prazosin Hcl 1 Mg Capsule) 3 mg PO BEDTIME [facility]; Protocol Last Admin: 12/21/24 22:36 Dose: 3 mg Quetiapine Fumarate (Quetiapine Fumarate 50 Mg Tablet) 50 mg PO QID [facility] Last Admin: 12/22/24 08:33 Dose: 50 mg Risperidone (Risperidone 1 Mg Tablet) 1 mg PO BID [facility] Trazodone HCl (Trazodone Hcl 50 Mg Tablet) 150 mg PO BEDTIME [facility] Last Admin: 12/21/24 22:35 Dose: 150 mg Trazodone HCl (Trazodone Hcl 50 Mg Tablet) 50 mg PO BEDTIME [facility] Last Admin: 12/21/24 22:36 Dose: 50 mg Trazodone HCl (Trazodone Hcl 50 Mg Tablet) 50 mg PO BEDTIME MRX1 PRN PRN Reason: Insomnia Last Admin: 12/14/24 01:46 Dose: 50 mg Allergies Allergies Allergy/AdvReac Type Severity Reaction Status Date / Time divalproex sodium (From Allergy Unknown Unknown Verified 12/12/24 14:51 Depakote) chlorpromazine (From Allergy Unknown Verified 12/12/24 14:51 Thorazine) Assessment & Plan Assessment & Plan (1) Autism: Status: Acute Code(s): F84.0 - Autistic disorder (2) Disruptive mood dysregulation disorder: Status: Acute Code(s): F34.81 - Disruptive mood dysregulation disorder (3) Intellectual disability: Status: Acute Code(s): F79 - Unspecified intellectual disabilities Plan 12/15 Continue regime Discuss with family, OP team a change of living situation 12/16 Continue regime Pt is willing to begin discussions with father to attempt to address her issues with him 12/17 No change in presentation; intermittent outburst, yelling in the kitchen this morning and then later on in the hallway. Patient proudly stated she did not sleep at all last night 12/18 slept last night; same presentation; denies SI/HI -says hard to sleep at night since morning medications make her tired and she ends up napping; she wonders if dosing times can be changed. -will defer changes to primary team since dosing may be strategic to address behaviors 12/21: Continue tx. Discharge planning. Pt reports she wants discharge, yet does not feel prepared. 12/22: Increase Mirtazapine to 15 mg HS to assist with sleep Risperdal 1 mg bid to assist with anger mgt Trileptal 300 mg bid to assist with anger mgt/mood PLAN -added mirtazapine 7.5mg Admit, CV, 15 minute checks Continue current regime Observe post positive toxic screen Collateral Contact Diagnostics as indicated Discharge planning. Reason for continued inpatient stay Substantial Risk for: rapid decompensation Time Spent With Patient Time: Total time managing care of this patient today ____ minutes.
[2024-12-22] MEDS: Magnesium Hydrox/Alum Hydrox 30 ML ORAL.SUSP PO (18:00)
[2024-12-22 20:00] VITALS: BP 125/74; PULSE 97; TEMP 36.9; O2SAT 99
[2024-12-22] MEDS: Albuterol Sulfate 90 MCG 8 GM INHALER 2 PUFF INHALE (23:22)
[2024-12-23] MEDS: Lidocaine 4 % Patch ADH..PATCH 1 PATCH TRANSDERMA (08:23)
[2024-12-23] MEDS: LEVONORGESTREL ETHINYL ESTRAD 1 EACH PO (08:26)
[2024-12-23 09:11] VITALS: BP 110/65; PULSE 123; TEMP 36.4; O2SAT 97
--- NOTE | 2024-12-23 09:58 | P.PNPSI_ITS ---
Subjective Subjective Date of Service: 12/23/24 Reason For Visit: dysregulated Subjective Notes: Conditional Voluntary Healthcare Proxy: No Guardianship: No Medical Problems Affecting Mental Status: No Interim History: Visit with father. Lability continues. Asks for Ensure, my father thinks I need protein shakes . Pt declined offer to meet with father about med changes, they are my meds, not his. Medication Compliance: Yes Side effects from medications: No Attending Groups: Intermittent Review of Systems Acute medical concerns: No Review of Systems Review of Systems Denied today Mental Status Exam Mental Status Exam Patient Appearance: Appropriate Patient Orientation: Person, Place, Time and Situation Level of Consciousness: Alert Patient Behavior: Talkative, Distractible and Good Eye Contact Mood Description: Labile Affect Description: Labile Patient Cognition Impaired: No Ability to Follow Directions: Fair Speech Pattern: Spontaneous Speech Memory Description: Episodic Impaired Hallucinations: None Delusions: Not Present Thought Process: Distracted and Goal Oriented Thought Content: positive for Circumstantial, positive for Goal Oriented, positive for Suicidal Ideation (denies) and positive for Homicidal Ideation (denies) Depressive Symptoms: Diff. Making Decisions and Thoughts of /Suicide (denies) Judgement: Fair Judgement and Insight: Impaired Diagnostics Vital Signs (24Hr): Vital Signs - 24 hr 12/22/24 10:39 12/22/24 20:00 12/23/24 09:11 Temperature 98.4 F 98.4 F 97.6 F Pulse Rate 74 97 123 H Respiratory Rate 16 Blood Pressure 134/65 125/74 110/65 Pulse Oximetry 98 99 97 Oxygen Delivery Method Room Air Room Air Room Air BMI result Body Mass Index 42.6 Labs 12/12/24 15:35 12/14/24 09:13 Imaging Radiology Impressions: ITS Impressions Foot X-Ray 12/15/24 12:40 IMPRESSION: No acute fracture or dislocation. Electronically signed by: Nathaly Harris MD 12/15/2024 12:54 PM EDT Medications Medications Current Medications Acetaminophen (Acetaminophen 325 Mg Tablet) 650 mg PO Q6H PRN PRN Reason: Headache/Pain, Scale 1-10 Last Admin: 12/22/24 17:27 Dose: 650 mg Al Hydroxide/Mg Hydroxide (Magnesium Hydrox/Alum Hydrox 30 Ml Oral.Susp) 30 ml PO Q6H PRN PRN Reason: Heartburn/Nausea Last Admin: 12/22/24 18:00 Dose: 30 ml Albuterol Sulfate (Albuterol Sulfate 90 Mcg 8 Gm Inhaler) 2 puff INHALE RQ4H PRN PRN Reason: Wheezing Last Admin: 12/22/24 23:22 Dose: 2 puff Benztropine Mesylate (Benztropine Mesylate 0.5 Mg Tablet) 0.5 mg PO BID [facility] Last Admin: 12/23/24 08:23 Dose: 0.5 mg Capsaicin (Capsaicin 0.075% Cream 57 Gm Tube) 1 appl TOPICAL QID PRN; Protocol PRN Reason: foot pain Last Admin: 12/22/24 20:57 Dose: 1 appl Hydroxyzine HCl (Hydroxyzine Hcl 25 Mg Tablet) 25 mg PO Q6H PRN PRN Reason: mild anxiety Last Admin: 12/22/24 08:33 Dose: 25 mg Ibuprofen (Ibuprofen 800 Mg Tablet) 800 mg PO TIDWM PRN PRN Reason: severe headache Last Admin: 12/22/24 20:11 Dose: 800 mg Lactase (Lactase Tablet) 1 tab PO TIDWM [facility] Last Admin: 12/23/24 08:22 Dose: 1 tab Lactase (Lactase Tablet) 1 tab PO TID PRN PRN Reason: to consume milk products Last Admin: 12/16/24 18:26 Dose: 1 tab Lidocaine (Lidocaine 4 % Patch Adh..Patch) 1 patch TRANSDERMA DAILY [facility]; Protocol Last Admin: 12/23/24 08:23 Dose: 1 patch Loratadine (Loratadine 10 Mg Tablet) 10 mg PO DAILY [facility] Last Admin: 12/23/24 08:23 Dose: 10 mg Magnesium Hydroxide (Milk Of Magnesia 30 Ml Oral.Susp) 30 ml PO DAILY PRN PRN Reason: Constipation Last Admin: 12/19/24 15:52 Dose: 30 ml Mirtazapine (Mirtazapine 15 Mg Tablet) 15 mg PO BEDTIME [facility] Last Admin: 12/22/24 22:51 Dose: 15 mg Naltrexone HCl (Naltrexone Hcl 50 Mg Tablet) 25 mg PO DAILY [facility] Last Admin: 12/23/24 08:23 Dose: 25 mg Nicotine (Nicotine 21 Mg Patch.Td24) 21 mg TRANSDERMA DAILY PRN PRN Reason: smoking cessation Last Admin: 12/21/24 09:40 Dose: 21 mg Nicotine Polacrilex (Nicotine Polacrilex 2 Mg Gum) 4 mg BUCCAL Q2H PRN PRN Reason: Nicotine Cravings Last Admin: 12/21/24 20:15 Dose: 4 mg Nicotine Polacrilex (Nicotine Polacrilex 2 Mg Gum) 4 mg BUCCAL Q2H PRN PRN Reason: Nicotine Cravings Pt Own( Levonorgestrel- Ethinyl Estrad [ Vienva] 0.1-20 Mg- Mcg Tablet) 1 tab PO DAILY [facility] Last Admin: 12/23/24 08:26 Dose: 1 tab Olanzapine (Olanzapine 5 Mg Tablet) 5 mg PO TID PRN PRN Reason: agitation Last Admin: 12/21/24 10:10 Dose: 5 mg Omeprazole (Omeprazole 20 Mg Capsule.Dr) 20 mg PO DAILY@0630 [facility] Last Admin: 12/23/24 07:15 Dose: 20 mg Ondansetron HCl (Ondansetron Odt 4 Mg Tab.Rapdis) 4 mg TRANSLINGU Q8H PRN PRN Reason: Nausea and Vomiting Oxcarbazepine (Oxcarbazepine 300 Mg Tablet) 300 mg PO BID [facility] Last Admin: 12/23/24 08:23 Dose: 300 mg Prazosin HCl (Prazosin Hcl 1 Mg Capsule) 3 mg PO BEDTIME [facility]; Protocol Last Admin: 12/22/24 22:49 Dose: 3 mg Quetiapine Fumarate (Quetiapine Fumarate 50 Mg Tablet) 50 mg PO QID [facility] Last Admin: 12/23/24 08:22 Dose: 50 mg Risperidone (Risperidone 1 Mg Tablet) 1 mg PO BID [facility] Last Admin: 12/23/24 08:22 Dose: 1 mg Trazodone HCl (Trazodone Hcl 50 Mg Tablet) 150 mg PO BEDTIME [facility] Last Admin: 12/22/24 22:52 Dose: 150 mg Trazodone HCl (Trazodone Hcl 50 Mg Tablet) 50 mg PO BEDTIME [facility] Last Admin: 12/22/24 22:53 Dose: 50 mg Trazodone HCl (Trazodone Hcl 50 Mg Tablet) 50 mg PO BEDTIME MRX1 PRN PRN Reason: Insomnia Last Admin: 12/14/24 01:46 Dose: 50 mg Allergies Allergies Allergy/AdvReac Type Severity Reaction Status Date / Time divalproex sodium (From Allergy Unknown Unknown Verified 12/12/24 14:51 Depakote) chlorpromazine (From Allergy Unknown Verified 12/12/24 14:51 Thorazine) Assessment & Plan Assessment & Plan (1) Autism: Status: Acute Code(s): F84.0 - Autistic disorder (2) Disruptive mood dysregulation disorder: Status: Acute Code(s): F34.81 - Disruptive mood dysregulation disorder (3) Intellectual disability: Status: Acute Code(s): F79 - Unspecified intellectual disabilities (4) Suicidal ideation: Status: Acute Code(s): R45.851 - Suicidal ideations Plan 12/15 Continue regime Discuss with family, OP team a change of living situation 12/16 Continue regime Pt is willing to begin discussions with father to attempt to address her issues with him 12/17 No change in presentation; intermittent outburst, yelling in the kitchen this morning and then later on in the hallway. Patient proudly stated she did not sleep at all last night 12/18 slept last night; same presentation; denies SI/HI -says hard to sleep at night since morning medications make her tired and she ends up napping; she wonders if dosing times can be changed. -will defer changes to primary team since dosing may be strategic to address behaviors 12/21: Continue tx. Discharge planning. Pt reports she wants discharge, yet does not feel prepared. 12/23: Tolerating risperdal, trileptal and mirtazapine increase PLAN -added mirtazapine 7.5mg Admit, CV, 15 minute checks Continue current regime Observe post positive toxic screen Collateral Contact Diagnostics as indicated Discharge planning. Reason for continued inpatient stay Substantial Risk for: rapid decompensation Time Spent With Patient Time: Total time managing care of this patient today ____ minutes.
[2024-12-23] MEDS: Magnesium Hydrox/Alum Hydrox 30 ML ORAL.SUSP PO ×2 (10:04→20:50)
[2024-12-23] MEDS: Nicotine 21 MG PATCH.TD24 TRANSDERMA (14:35)
[2024-12-23 19:56] VITALS: BP 138/102; PULSE 113; RESP 18; TEMP 36.8; O2SAT 99
[2024-12-24 08:00] VITALS: BP 135/86; PULSE 112; TEMP 36.1; O2SAT 98
[2024-12-24] MEDS: Lidocaine 4 % Patch ADH..PATCH 1 PATCH TRANSDERMA (08:39)
[2024-12-24] MEDS: LEVONORGESTREL ETHINYL ESTRAD 1 EACH PO (10:17)
--- NOTE | 2024-12-24 10:38 | P.PNPSI_ITS ---
Subjective Subjective Date of Service: 12/24/24 Reason For Visit: dysregulated Subjective Notes: Conditional Voluntary Healthcare Proxy: No Guardianship: No Medical Problems Affecting Mental Status: No Interim History: Pt reports poor sleep- up every hour thinking fast . Also asks about Metformin ER- discussed with pt as we will trial Olanzapine which she agrees with. Reports she feels angry that she cannot live with her mother and that her mother does not respond to her immediately. We talked of mother needing to work, pt having access to team to discuss concerns and discussion of the benefits of mother's work for pt. She should be here for me now. Presented with higher energy today-loud verbalizations, mild euphoria at times. Attentive to milieu process and behaviors of other peers. Medication Compliance: Yes Side effects from medications: No Attending Groups: Intermittent Review of Systems Acute medical concerns: No Medical Review of Systems: unchanged Review of Systems Review of Systems Reports less pain in her foot today. Mental Status Exam Mental Status Exam Patient Appearance: Appropriate Patient Orientation: Person, Place, Time and Situation Level of Consciousness: Alert Patient Behavior: Talkative, Distractible and Good Eye Contact Mood Description: Labile Affect Description: Labile Patient Cognition Impaired: No Ability to Follow Directions: Fair Speech Pattern: Spontaneous Speech Memory Description: Episodic Impaired Hallucinations: None Delusions: Not Present Thought Process: Distracted and Goal Oriented Thought Content: positive for Circumstantial, positive for Goal Oriented, positive for Suicidal Ideation (denies) and positive for Homicidal Ideation (denies) Depressive Symptoms: Diff. Making Decisions and Thoughts of /Suicide (denies) Judgement: Fair Judgement and Insight: Impaired Diagnostics Vital Signs (24Hr): Vital Signs - 24 hr 12/23/24 19:56 Temperature 98.2 F Pulse Rate 113 H Respiratory Rate 18 Blood Pressure 138/102 H Pulse Oximetry 99 Oxygen Delivery Method Room Air BMI result Body Mass Index 42.6 Labs 12/12/24 15:35 12/24/24 14:33 Imaging Radiology Impressions: ITS Impressions Foot X-Ray 12/15/24 12:40 IMPRESSION: No acute fracture or dislocation. Electronically signed by: Nathaly Harris MD 12/15/2024 12:54 PM EDT Medications Medications Current Medications Acetaminophen (Acetaminophen 325 Mg Tablet) 650 mg PO Q6H PRN PRN Reason: Headache/Pain, Scale 1-10 Last Admin: 12/22/24 17:27 Dose: 650 mg Al Hydroxide/Mg Hydroxide (Magnesium Hydrox/Alum Hydrox 30 Ml Oral.Susp) 30 ml PO Q6H PRN PRN Reason: Heartburn/Nausea Last Admin: 12/23/24 20:50 Dose: 30 ml Albuterol Sulfate (Albuterol Sulfate 90 Mcg 8 Gm Inhaler) 2 puff INHALE RQ4H PRN PRN Reason: Wheezing Last Admin: 12/22/24 23:22 Dose: 2 puff Benztropine Mesylate (Benztropine Mesylate 0.5 Mg Tablet) 0.5 mg PO BID [facility] Last Admin: 12/24/24 08:40 Dose: 0.5 mg Capsaicin (Capsaicin 0.075% Cream 57 Gm Tube) 1 appl TOPICAL QID PRN; Protocol PRN Reason: foot pain Last Admin: 12/24/24 10:17 Dose: 1 appl Hydroxyzine HCl (Hydroxyzine Hcl 25 Mg Tablet) 25 mg PO Q6H PRN PRN Reason: mild anxiety Last Admin: 12/23/24 22:59 Dose: 25 mg Ibuprofen (Ibuprofen 800 Mg Tablet) 800 mg PO TIDWM PRN PRN Reason: severe headache Last Admin: 12/22/24 20:11 Dose: 800 mg Lactase (Lactase Tablet) 1 tab PO TIDWM [facility] Last Admin: 12/24/24 08:40 Dose: 1 tab Lactase (Lactase Tablet) 1 tab PO TID PRN PRN Reason: to consume milk products Last Admin: 12/16/24 18:26 Dose: 1 tab Lidocaine (Lidocaine 4 % Patch Adh..Patch) 1 patch TRANSDERMA DAILY [facility] 234 BEDS AT [facility]; Protocol Last Admin: 12/24/24 08:39 Dose: 1 patch Loratadine (Loratadine 10 Mg Tablet) 10 mg PO DAILY [facility] 234 BEDS AT [facility] Last Admin: 12/24/24 08:40 Dose: 10 mg Magnesium Hydroxide (Milk Of Magnesia 30 Ml Oral.Susp) 30 ml PO DAILY PRN PRN Reason: Constipation Last Admin: 12/19/24 15:52 Dose: 30 ml Mirtazapine (Mirtazapine 15 Mg Tablet) 15 mg PO BEDTIME [facility] 234 BEDS AT [facility] Last Admin: 12/23/24 21:12 Dose: 15 mg Naltrexone HCl (Naltrexone Hcl 50 Mg Tablet) 25 mg PO DAILY [facility] Last Admin: 12/24/24 08:41 Dose: 25 mg Nicotine (Nicotine 21 Mg Patch.Td24) 21 mg TRANSDERMA DAILY PRN PRN Reason: smoking cessation Last Admin: 12/23/24 14:35 Dose: 21 mg Nicotine Polacrilex (Nicotine Polacrilex 2 Mg Gum) 4 mg BUCCAL Q2H PRN PRN Reason: Nicotine Cravings Last Admin: 12/21/24 20:15 Dose: 4 mg Nicotine Polacrilex (Nicotine Polacrilex 2 Mg Gum) 4 mg BUCCAL Q2H PRN PRN Reason: Nicotine Cravings Pt Own( Levonorgestrel- Ethinyl Estrad [ Vienva] 0.1-20 Mg- Mcg Tablet) 1 tab PO DAILY [facility] 234 BEDS [facility] Last Admin: 12/24/24 10:17 Dose: 1 tab Olanzapine (Olanzapine 5 Mg Tablet) 5 mg PO TID PRN PRN Reason: agitation Last Admin: 12/21/24 10:10 Dose: 5 mg Omeprazole (Omeprazole 20 Mg Capsule.Dr) 20 mg PO DAILY@0630 [facility] 234 BEDS AT [facility] Last Admin: 12/24/24 06:40 Dose: 20 mg Ondansetron HCl (Ondansetron Odt 4 Mg Tab.Rapdis) 4 mg TRANSLINGU Q8H PRN PRN Reason: Nausea and Vomiting Last Admin: 12/23/24 21:39 Dose: 4 mg Oxcarbazepine (Oxcarbazepine 300 Mg Tablet) 300 mg PO BID [facility] 234 BEDS AT [facility] Last Admin: 12/24/24 08:41 Dose: 300 mg Prazosin HCl (Prazosin Hcl 1 Mg Capsule) 3 mg PO BEDTIME [facility]CLUDE 234 BEDS AT [facility]; Protocol Last Admin: 12/23/24 21:11 Dose: 3 mg Quetiapine Fumarate (Quetiapine Fumarate 50 Mg Tablet) 50 mg PO QID [facility] 234 BEDS AT [facility] Last Admin: 12/24/24 08:40 Dose: 50 mg Risperidone (Risperidone 1 Mg Tablet) 1 mg PO BID [facility] 234 BEDS AT [facility] Last Admin: 12/24/24 08:41 Dose: 1 mg Trazodone HCl (Trazodone Hcl 50 Mg Tablet) 150 mg PO BEDTIME [facility]CLUDE 234 BEDS AT [facility] Last Admin: 12/23/24 21:11 Dose: 150 mg Trazodone HCl (Trazodone Hcl 50 Mg Tablet) 50 mg PO BEDTIME [facility]CLUDE 234 BEDS AT [facility] Last Admin: 12/23/24 21:12 Dose: 50 mg Trazodone HCl (Trazodone Hcl 50 Mg Tablet) 50 mg PO BEDTIME MRX1 PRN PRN Reason: Insomnia Last Admin: 12/23/24 22:58 Dose: 50 mg Allergies Allergies Allergy/AdvReac Type Severity Reaction Status Date / Time divalproex sodium (From Allergy Unknown Unknown Verified 12/12/24 14:51 Depakote) chlorpromazine (From Allergy Unknown Verified 12/12/24 14:51 Thorazine) Assessment & Plan Assessment & Plan (1) Autism: Status: Acute Code(s): F84.0 - Autistic disorder (2) Disruptive mood dysregulation disorder: Status: Acute Code(s): F34.81 - Disruptive mood dysregulation disorder (3) Intellectual disability: Status: Acute Code(s): F79 - Unspecified intellectual disabilities (4) Suicidal ideation: Status: Acute Code(s): R45.851 - Suicidal ideations Plan 12/15 Continue regime Discuss with family, OP team a change of living situation 12/16 Continue regime Pt is willing to begin discussions with father to attempt to address her issues with him 12/17 No change in presentation; intermittent outburst, yelling in the kitchen this morning and then later on in the hallway. Patient proudly stated she did not sleep at all last night 12/18 slept last night; same presentation; denies SI/HI -says hard to sleep at night since morning medications make her tired and she ends up napping; she wonders if dosing times can be changed. -will defer changes to primary team since dosing may be strategic to address behaviors 12/21: Continue tx. Discharge planning. Pt reports she wants discharge, yet does not feel prepared. 12/23: Tolerating risperdal, trileptal and mirtazapine increase 12/24: Metformin ER 500 mg daily Olanzapine 10 mg bid-pt reports up every hour, racing of thought-if tolerated will taper other agents. PLAN -added mirtazapine 7.5mg Admit, CV, 15 minute checks Continue current regime Observe post positive toxic screen Collateral Contact Diagnostics as indicated Discharge planning. Reason for continued inpatient stay Substantial Risk for: rapid decompensation Time Spent With Patient Time: Total time managing care of this patient today ____ minutes.
[2024-12-24 14:55] LABS: Creatinine Clr Calc Pharmacy 143.1; Estimated Glomerular Filt Rate > 60
--- NOTE | 2024-12-24 18:37 | PC.NURSE ---
Radha became dysregulated and started head banging in her room when other peers on the unit were dysregulated. She was offered and accepted oral Zyprexa. Bruising and swelling noted to forehead. No LOC or change in mental status. Dr. Vela notified and questioned head CT.
[2024-12-24 20:00] VITALS: BP 141/68; PULSE 98; TEMP 36.9; O2SAT 96
[2024-12-24 21:01] VITALS: BP 141/68
[2024-12-25 08:00] VITALS: BP 132/81; PULSE 94; RESP 18; TEMP 36.3; O2SAT 98
[2024-12-25] MEDS: Nicotine 21 MG PATCH.TD24 TRANSDERMA (08:15)
[2024-12-25] MEDS: LEVONORGESTREL ETHINYL ESTRAD 1 EACH PO (08:19)
[2024-12-25] MEDS: Magnesium Hydrox/Alum Hydrox 30 ML ORAL.SUSP PO ×2 (08:49→14:02)
[2024-12-25] MEDS: Milk of Magnesia 30 ML ORAL.SUSP PO ×2 (08:49→21:43)
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
[2024-12-25 19:41] VITALS: BP 136/69; PULSE 101; TEMP 36.5; O2SAT 97
[2024-12-26] MEDS: Lidocaine 4 % Patch ADH..PATCH 1 PATCH TRANSDERMA (09:10)
[2024-12-26] MEDS: LEVONORGESTREL ETHINYL ESTRAD 1 EACH PO (09:13)
[2024-12-26] MEDS: Nicotine 21 MG PATCH.TD24 TRANSDERMA (09:38)
[2024-12-26 11:15] VITALS: BP 140/83; O2SAT 95
[2024-12-26] MEDS: diazePAM 10 MG/2 ML CARTRIDGE 5 MG IM (14:05)
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
--- NOTE | 2024-12-26 14:36 | HO.BHRESTREX ---
Behavioral Restraint Exam Behavioral Health Restraint Exam Type of Restraint: Physical Hold, Medication and Mechanical Reason for Restraint: Substantial Risk and Occurrence of self-harming or suicidal behavior as evidenced by: Medical Concerns for Restraint: Yes; Please note any concerns or recommendations (head banging, forehead was bleeding lightly- will follow up with CAT when stable) Behavioral Assessment / Plan: Concerns / further recommendations, explain below: (pt continues to express anger, she is resting in bed, declines meeting)
--- NOTE | 2024-12-26 14:37 | MHC.PM.REST ---
Restraint Documentation Date of Service: 12/26/24 Time of Documentation: 15:19 Current Situation: After assessment of the patient, a review of the pertinent medical record and a discussion with nursing staff, I feel the patient requires a restrain intervention. Reaction To: a peer head banging, her mother not answering the phone to talk with her, peer feedback Medical Condition: Intellectual disability, Autism, Disruptive Mood Dysregulation Disorder, head banging Behavioral State: Pt released from chair restraint at 1500. She is angry, awake, alert, in bed, not wanting to discuss issues at this time. She denies pain. Continued Need: Release 1500 Time Spent With Patient Time: Total time managing care of this patient today ____ minutes.
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
--- NOTE | 2024-12-26 18:25 | HO.PSYCHPN ---
Subjective Subjective Date of Service: 12/26/24 Reason For Visit: dysregulated Subjective Notes: Conditional Voluntary Healthcare Proxy: No Guardianship: No Medical Problems Affecting Mental Status: No Interim History: A difficult day. Pt angry, agitated, head banging- required restraint-hold, medicine, chair. Not wanting to talk much-expressing anger without being able to identify rationale. Team has implemented a behavioral plan Medication Compliance: Yes Side effects from medications: No Attending Groups: Intermittent Review of Systems Acute medical concerns: No Medical Review of Systems: unchanged Review of Systems Review of Systems That is a stupid question, NO Mental Status Exam Mental Status Exam Patient Appearance: Disheveled Patient Orientation: Person, Place and Situation Level of Consciousness: Alert Patient Behavior: Talkative and Aggressive Mood Description: Hostile, Labile and Angry Affect Description: Hostile, Labile and Angry Patient Cognition Impaired: Yes Ability to Follow Directions: Good Speech Pattern: Spontaneous Speech and Loud Memory Description: Remote Impaired Hallucinations: None Delusions: Present Perceptual Disturbances: Depersonalization and Derealization Thought Process: Distracted and Rumination Thought Content: positive for [place], positive for Circumstantial and positive for Perseveration Abnormal Motor Activity Signs and Symptoms: Aggression and Agitation Judgement: Poor Diagnostics Vital Signs (24Hr): Vital Signs - 24 hr 12/25/24 19:41 12/26/24 11:15 Temperature 97.7 F Pulse Rate 101 H Blood Pressure 136/69 140/83 H Pulse Oximetry 97 95 Oxygen Delivery Method Room Air Room Air BMI result Body Mass Index 42.6 Labs 12/12/24 15:35 12/24/24 14:33 Imaging Radiology Impressions: ITS Impressions Foot X-Ray 12/15/24 12:40 IMPRESSION: No acute fracture or dislocation. Electronically signed by: Nathaly Harris MD 12/15/2024 12:54 PM EDT RP Medications Medications Current Medications Acetaminophen (Acetaminophen 325 Mg Tablet) 650 mg PO Q6H PRN PRN Reason: Headache/Pain, Scale 1-10 Last Admin: 12/25/24 20:40 Dose: 650 mg Al Hydroxide/Mg Hydroxide (Magnesium Hydrox/Alum Hydrox 30 Ml Oral.Susp) 30 ml PO Q6H PRN PRN Reason: Heartburn/Nausea Last Admin: 12/25/24 14:02 Dose: 30 ml Albuterol Sulfate (Albuterol Sulfate 90 Mcg 8 Gm Inhaler) 2 puff INHALE RQ4H PRN PRN Reason: Wheezing Last Admin: 12/22/24 23:22 Dose: 2 puff Benztropine Mesylate (Benztropine Mesylate 0.5 Mg Tablet) 0.5 mg PO BID [facility] Last Admin: 12/26/24 09:10 Dose: 0.5 mg Capsaicin (Capsaicin 0.075% Cream 57 Gm Tube) 1 appl TOPICAL QID PRN; Protocol PRN Reason: foot pain Last Admin: 12/25/24 20:40 Dose: 1 appl Hydroxyzine HCl (Hydroxyzine Hcl 25 Mg Tablet) 25 mg PO Q6H PRN PRN Reason: mild anxiety Last Admin: 12/25/24 08:49 Dose: 25 mg Ibuprofen (Ibuprofen 800 Mg Tablet) 800 mg PO TIDWM PRN PRN Reason: severe headache Last Admin: 12/25/24 17:01 Dose: 800 mg Lactase (Lactase Tablet) 1 tab PO TIDWM [facility] Last Admin: 12/26/24 18:14 Dose: 1 tab Lactase (Lactase Tablet) 1 tab PO TID PRN PRN Reason: to consume milk products Last Admin: 12/16/24 18:26 Dose: 1 tab Lidocaine (Lidocaine 4 % Patch Adh..Patch) 1 patch TRANSDERMA DAILY [facility]; Protocol Last Admin: 12/26/24 09:10 Dose: 1 patch Loratadine (Loratadine 10 Mg Tablet) 10 mg PO DAILY [facility] Last Admin: 12/26/24 09:10 Dose: 10 mg Magnesium Hydroxide (Milk Of Magnesia 30 Ml Oral.Susp) 30 ml PO DAILY PRN PRN Reason: Constipation Last Admin: 12/25/24 21:43 Dose: 30 ml Metformin HCl (Metformin Hcl Er 500 Mg Tab.Er.24h) 500 mg PO DAILY@1700 [facility] Last Admin: 12/26/24 18:15 Dose: 500 mg Mirtazapine (Mirtazapine 15 Mg Tablet) 15 mg PO BEDTIME [facility] Last Admin: 12/25/24 20:19 Dose: 15 mg Naltrexone HCl (Naltrexone Hcl 50 Mg Tablet) 25 mg PO DAILY [facility] Last Admin: 12/26/24 09:14 Dose: 25 mg Nicotine (Nicotine 21 Mg Patch.Td24) 21 mg TRANSDERMA DAILY PRN PRN Reason: smoking cessation Last Admin: 12/26/24 09:38 Dose: 21 mg Nicotine Polacrilex (Nicotine Polacrilex 2 Mg Gum) 4 mg BUCCAL Q2H PRN PRN Reason: Nicotine Cravings Pt Own( Levonorgestrel- Ethinyl Estrad [ Vienva] 0.1-20 Mg- Mcg Tablet) 1 tab PO DAILY [facility] Last Admin: 12/26/24 09:13 Dose: 1 tab Olanzapine (Olanzapine 5 Mg Tablet) 5 mg PO TID PRN PRN Reason: agitation Last Admin: 12/25/24 09:28 Dose: 5 mg Olanzapine (Olanzapine 10 Mg Tablet) 10 mg PO BID [facility] Last Admin: 12/26/24 09:10 Dose: 10 mg Omeprazole (Omeprazole 20 Mg Capsule.Dr) 20 mg PO DAILY@0630 [facility] Last Admin: 12/26/24 08:43 Dose: Not Given Ondansetron HCl (Ondansetron Odt 4 Mg Tab.Rapdis) 4 mg TRANSLINGU Q8H PRN PRN Reason: Nausea and Vomiting Last Admin: 12/25/24 18:12 Dose: 4 mg Prazosin HCl (Prazosin Hcl 1 Mg Capsule) 3 mg PO BEDTIME [facility]; Protocol Last Admin: 12/25/24 20:20 Dose: 3 mg Quetiapine Fumarate (Quetiapine Fumarate 50 Mg Tablet) 50 mg PO TID@0900,1300,1700 [facility] Last Admin: 12/26/24 18:14 Dose: 50 mg Quetiapine Fumarate (Quetiapine Fumarate 100 Mg Tablet) 100 mg PO BEDTIME [facility] Last Admin: 12/25/24 20:20 Dose: 100 mg Trazodone HCl (Trazodone Hcl 50 Mg Tablet) 150 mg PO BEDTIME [facility] Last Admin: 12/25/24 20:20 Dose: 150 mg Trazodone HCl (Trazodone Hcl 50 Mg Tablet) 50 mg PO BEDTIME [facility] Last Admin: 12/25/24 20:20 Dose: 50 mg Trazodone HCl (Trazodone Hcl 50 Mg Tablet) 50 mg PO BEDTIME MRX1 PRN PRN Reason: Insomnia Last Admin: 12/26/24 00:56 Dose: 50 mg Allergies Allergies Allergy/AdvReac Type Severity Reaction Status Date / Time divalproex sodium (From Allergy Unknown Unknown Verified 12/12/24 14:51 Depakote) chlorpromazine (From Allergy Unknown Verified 12/12/24 14:51 Thorazine) Assessment & Plan Assessment & Plan (1) Autism: Status: Acute Code(s): F84.0 - Autistic disorder (2) Disruptive mood dysregulation disorder: Status: Acute Code(s): F34.81 - Disruptive mood dysregulation disorder (3) Intellectual disability: Status: Acute Code(s): F79 - Unspecified intellectual disabilities (4) Suicidal ideation: Status: Acute Code(s): R45.851 - Suicidal ideations Plan 12/15 Continue regime Discuss with family, OP team a change of living situation 12/16 Continue regime Pt is willing to begin discussions with father to attempt to address her issues with him 12/17 No change in presentation; intermittent outburst, yelling in the kitchen this morning and then later on in the hallway. Patient proudly stated she did not sleep at all last night 12/18 slept last night; same presentation; denies SI/HI -says hard to sleep at night since morning medications make her tired and she ends up napping; she wonders if dosing times can be changed. -will defer changes to primary team since dosing may be strategic to address behaviors 12/21: Continue tx. Discharge planning. Pt reports she wants discharge, yet does not feel prepared. 12/23: Tolerating risperdal, trileptal and mirtazapine increase 12/25: Change Seroquel to 50 mg 9am, 1pm, 5pm. Seroquel 100 mg HS to work with sleep. 12/26: DC Olanzapine-not helping. Haldol prn PLAN -added mirtazapine 7.5mg Admit, CV, 15 minute checks Continue current regime Observe post positive toxic screen Collateral Contact Diagnostics as indicated Discharge planning. Reason for continued inpatient stay Substantial Risk for: rapid decompensation Time Spent With Patient Time: Total time managing care of this patient today ____ minutes.
[2024-12-26 20:00] VITALS: BP 132/84; PULSE 145; TEMP 36.7; O2SAT 99
[2024-12-26 20:08] VITALS: BP 131/71
[2024-12-27] MEDS: Magnesium Hydrox/Alum Hydrox 30 ML ORAL.SUSP PO ×2 (06:30→18:31)
[2024-12-27 08:00] VITALS: BP 116/55; PULSE 95; RESP 95; TEMP 36.9; O2SAT 97
[2024-12-27] MEDS: LEVONORGESTREL ETHINYL ESTRAD 1 EACH PO (10:19)
[2024-12-27] MEDS: Nicotine 21 MG PATCH.TD24 TRANSDERMA (10:28)
--- NOTE | 2024-12-27 10:38 | HO.PSYCHPN ---
Subjective Subjective Date of Service: 12/27/24 Reason For Visit: dysregulated Subjective Notes: Conditional Voluntary Healthcare Proxy: No Guardianship: No Medical Problems Affecting Mental Status: No Interim History: I was so mad yesterday because I talked to my father, he made me mad, you asked me what was wrong yesterday, it is him. Improved today, following behavioral plan. Tells team/group she wants to remain in hospital, not return to school or home. Believes behaviors and behavioral plan will help her do this. States she will head bang until she dies. Discussed behavioral plan with pt and team-pt reports she did not make any of the above statements. Pt will remain out of group until tomorrow. Well engaged with team. Medication Compliance: Yes Side effects from medications: Yes (?EPS) Attending Groups: Yes Review of Systems Acute medical concerns: No Medical Review of Systems: unchanged Review of Systems Review of Systems I feel OK. Mental Status Exam Mental Status Exam Patient Appearance: Appropriate Patient Orientation: Person, Place, Time and Situation Level of Consciousness: Alert Patient Behavior: Talkative and Cooperative Mood Description: Labile Affect Description: Labile Patient Cognition Impaired: Yes Ability to Follow Directions: Good Speech Pattern: Spontaneous Speech, Loud and Pressured Memory Description: Episodic Impaired Hallucinations: None Delusions: Present Perceptual Disturbances: Depersonalization and Derealization Thought Process: Distracted and Rumination Thought Content: positive for Perseveration and positive for Suicidal Ideation (denies) Abnormal Motor Activity Signs and Symptoms: Hyperactivity Judgement: Poor Diagnostics Vital Signs (24Hr): Vital Signs - 24 hr 12/26/24 11:15 12/26/24 20:00 12/26/24 20:08 Temperature 98.1 F Pulse Rate 145 H Respiratory Rate Blood Pressure 140/83 H 132/84 131/71 Pulse Oximetry 95 99 Oxygen Delivery Method Room Air Room Air 12/27/24 08:00 Temperature 98.4 F Pulse Rate 95 Respiratory Rate 95 H Blood Pressure 116/55 L Pulse Oximetry 97 Oxygen Delivery Method Room Air BMI result Body Mass Index 42.6 Labs 12/12/24 15:35 12/24/24 14:33 Imaging Radiology Impressions: ITS Impressions Foot X-Ray 12/15/24 12:40 IMPRESSION: No acute fracture or dislocation. Electronically signed by: Nathaly Harris MD 12/15/2024 12:54 PM EDT Medications Medications Current Medications Acetaminophen (Acetaminophen 325 Mg Tablet) 650 mg PO Q6H PRN PRN Reason: Headache/Pain, Scale 1-10 Last Admin: 12/26/24 20:09 Dose: 650 mg Al Hydroxide/Mg Hydroxide (Magnesium Hydrox/Alum Hydrox 30 Ml Oral.Susp) 30 ml PO Q6H PRN PRN Reason: Heartburn/Nausea Last Admin: 12/27/24 06:30 Dose: 30 ml Albuterol Sulfate (Albuterol Sulfate 90 Mcg 8 Gm Inhaler) 2 puff INHALE RQ4H PRN PRN Reason: Wheezing Last Admin: 12/22/24 23:22 Dose: 2 puff Benztropine Mesylate (Benztropine Mesylate 0.5 Mg Tablet) 0.5 mg PO BID CHUCK Last Admin: 12/27/24 10:19 Dose: 0.5 mg Capsaicin (Capsaicin 0.075% Cream 57 Gm Tube) 1 appl TOPICAL QID PRN; Protocol PRN Reason: foot pain Last Admin: 12/27/24 10:22 Dose: 1 appl Haloperidol (Haloperidol 5 Mg Tablet) 5 mg PO TID PRN PRN Reason: agitation, aggression, SIBS Hydroxyzine HCl (Hydroxyzine Hcl 25 Mg Tablet) 25 mg PO Q6H PRN PRN Reason: mild anxiety Last Admin: 12/25/24 08:49 Dose: 25 mg Ibuprofen (Ibuprofen 800 Mg Tablet) 800 mg PO TIDWM PRN PRN Reason: severe headache Last Admin: 12/25/24 17:01 Dose: 800 mg Lactase (Lactase Tablet) 1 tab PO TIDWM CHUCK Last Admin: 12/27/24 10:17 Dose: 1 tab Lactase (Lactase Tablet) 1 tab PO TID PRN PRN Reason: to consume milk products Last Admin: 12/16/24 18:26 Dose: 1 tab Lidocaine (Lidocaine 4 % Patch Adh..Patch) 1 patch TRANSDERMA DAILY [facility]; Protocol Last Admin: 12/26/24 09:10 Dose: 1 patch Loratadine (Loratadine 10 Mg Tablet) 10 mg PO DAILY [facility] Last Admin: 12/27/24 10:19 Dose: Not Given Magnesium Hydroxide (Milk Of Magnesia 30 Ml Oral.Susp) 30 ml PO DAILY PRN PRN Reason: Constipation Last Admin: 12/25/24 21:43 Dose: 30 ml Metformin HCl (Metformin Hcl Er 500 Mg Tab.Er.24h) 500 mg PO DAILY@1700 [facility] Last Admin: 12/26/24 18:15 Dose: 500 mg Mirtazapine (Mirtazapine 15 Mg Tablet) 15 mg PO BEDTIME [facility] Last Admin: 12/26/24 20:09 Dose: 15 mg Naltrexone HCl (Naltrexone Hcl 50 Mg Tablet) 25 mg PO DAILY [facility] Last Admin: 12/27/24 10:18 Dose: Not Given Nicotine (Nicotine 21 Mg Patch.Td24) 21 mg TRANSDERMA DAILY PRN PRN Reason: smoking cessation Last Admin: 12/26/24 09:38 Dose: 21 mg Nicotine Polacrilex (Nicotine Polacrilex 2 Mg Gum) 4 mg BUCCAL Q2H PRN PRN Reason: Nicotine Cravings Pt Own( Levonorgestrel- Ethinyl Estrad [ Vienva] 0.1-20 Mg- Mcg Tablet) 1 tab PO DAILY [facility] Last Admin: 12/27/24 10:19 Dose: 1 tab Omeprazole (Omeprazole 20 Mg Capsule.Dr) 20 mg PO DAILY@0630 [facility] Last Admin: 12/27/24 06:30 Dose: 20 mg Ondansetron HCl (Ondansetron Odt 4 Mg Tab.Rapdis) 4 mg TRANSLINGU Q8H PRN PRN Reason: Nausea and Vomiting Last Admin: 12/25/24 18:12 Dose: 4 mg Prazosin HCl (Prazosin Hcl 1 Mg Capsule) 3 mg PO BEDTIME [facility]; Protocol Last Admin: 12/26/24 20:08 Dose: 3 mg Quetiapine Fumarate (Quetiapine Fumarate 50 Mg Tablet) 50 mg PO TID@0900,1300,1700 [facility] Last Admin: 12/27/24 10:19 Dose: 50 mg Quetiapine Fumarate (Quetiapine Fumarate 100 Mg Tablet) 100 mg PO BEDTIME [facility] Last Admin: 12/26/24 20:09 Dose: 100 mg Trazodone HCl (Trazodone Hcl 50 Mg Tablet) 150 mg PO BEDTIME [facility] Last Admin: 12/26/24 20:08 Dose: 150 mg Trazodone HCl (Trazodone Hcl 50 Mg Tablet) 50 mg PO BEDTIME [facility] Last Admin: 12/26/24 20:08 Dose: 50 mg Trazodone HCl (Trazodone Hcl 50 Mg Tablet) 50 mg PO BEDTIME MRX1 PRN PRN Reason: Insomnia Last Admin: 12/26/24 00:56 Dose: 50 mg Allergies Allergies Allergy/AdvReac Type Severity Reaction Status Date / Time divalproex sodium (From Allergy Unknown Unknown Verified 12/12/24 14:51 Depakote) chlorpromazine (From Allergy Unknown Verified 12/12/24 14:51 Thorazine) Assessment & Plan Assessment & Plan (1) Autism: Status: Acute Code(s): F84.0 - Autistic disorder (2) Disruptive mood dysregulation disorder: Status: Acute Code(s): F34.81 - Disruptive mood dysregulation disorder (3) Intellectual disability: Status: Acute Code(s): F79 - Unspecified intellectual disabilities (4) Suicidal ideation: Status: Acute Code(s): R45.851 - Suicidal ideations Plan 12/15 Continue regime Discuss with family, OP team a change of living situation 12/16 Continue regime Pt is willing to begin discussions with father to attempt to address her issues with him 12/17 No change in presentation; intermittent outburst, yelling in the kitchen this morning and then later on in the hallway. Patient proudly stated she did not sleep at all last night 12/18 slept last night; same presentation; denies SI/HI -says hard to sleep at night since morning medications make her tired and she ends up napping; she wonders if dosing times can be changed. -will defer changes to primary team since dosing may be strategic to address behaviors 12/21: Continue tx. Discharge planning. Pt reports she wants discharge, yet does not feel prepared. 12/23: Tolerating risperdal, trileptal and mirtazapine increase 12/25: Change Seroquel to 50 mg 9am, 1pm, 5pm. Seroquel 100 mg HS to work with sleep. 12/27: Lamictal trial, 25 mg HS PLAN -added mirtazapine 7.5mg Admit, CV, 15 minute checks Continue current regime Observe post positive toxic screen Collateral Contact Diagnostics as indicated Discharge planning. Reason for continued inpatient stay Substantial Risk for: rapid decompensation Time Spent With Patient Time: Total time managing care of this patient today ____ minutes.
[2024-12-27] MEDS: Milk of Magnesia 30 ML ORAL.SUSP PO (13:01)
[2024-12-27] MEDS: Lidocaine 4 % Patch ADH..PATCH 1 PATCH TRANSDERMA (16:32)
[2024-12-27 20:00] VITALS: BP 131/71; PULSE 121; TEMP 36.2; O2SAT 98
[2024-12-27 20:19] VITALS: BP 131/71
[2024-12-28 08:00] VITALS: BP 106/54; PULSE 96; RESP 16; TEMP 36.4; O2SAT 99
[2024-12-28] MEDS: Nicotine 21 MG PATCH.TD24 TRANSDERMA (08:47)
[2024-12-28] MEDS: LEVONORGESTREL ETHINYL ESTRAD 1 EACH PO (08:47)
--- NOTE | 2024-12-28 09:58 | P.PNPSI_ITS ---
Subjective Subjective Date of Service: 12/28/24 Reason For Visit: dysregulated Subjective Notes: Conditional Voluntary Interim History: Patient notes that she is feeling good. She notes that she feels fine after talking on the phone with her mother this morning. She reports mild anxiety and depression. She wants to kick her dad's bad knee and stab his heart. She denies SI/AVH. Medication Compliance: Yes Side effects from medications: No Attending Groups: Intermittent Review of Systems Acute medical concerns: No Mental Status Exam Mental Status Exam Narrative: Appearance: Casually dressed, adequate hygiene Behavior: Talkative.Cooperative throughout the interview. Eye contact is appropriate, and there are no signs of psychomotor agitation or retardation Speech: Loud, pressured Thought process: Logical and goal-directed Thought content: Future oriented no self-harming thoughts Mood: Labile Affect: Blunted SI:denies HI: Reports VH/AH:none Delusions: None Insight/judgment: Impaired insight and judgment Memory/cog: Alert, oriented x 4. grossly intact to conversational testing Diagnostics Vital Signs (24Hr): Vital Signs - 24 hr 12/27/24 20:00 12/27/24 20:19 Temperature 97.2 F Pulse Rate 121 H Blood Pressure 131/71 131/71 Pulse Oximetry 98 Oxygen Delivery Method Room Air BMI result Body Mass Index 42.6 Labs 12/12/24 15:35 12/24/24 14:33 Imaging Radiology Impressions: ITS Impressions Foot X-Ray 12/15/24 12:40 IMPRESSION: No acute fracture or dislocation. Electronically signed by: Nathaly Harris MD 12/15/2024 12:54 PM EDT Medications Medications Current Medications Acetaminophen (Acetaminophen 325 Mg Tablet) 650 mg PO Q6H PRN PRN Reason: Headache/Pain, Scale 1-10 Last Admin: 12/27/24 20:19 Dose: 650 mg Al Hydroxide/Mg Hydroxide (Magnesium Hydrox/Alum Hydrox 30 Ml Oral.Susp) 30 ml PO Q6H PRN PRN Reason: Heartburn/Nausea Last Admin: 12/27/24 18:31 Dose: 30 ml Albuterol Sulfate (Albuterol Sulfate 90 Mcg 8 Gm Inhaler) 2 puff INHALE RQ4H PRN PRN Reason: Wheezing Last Admin: 12/22/24 23:22 Dose: 2 puff Benztropine Mesylate (Benztropine Mesylate 0.5 Mg Tablet) 0.5 mg PO BID [facility] Last Admin: 12/28/24 08:44 Dose: 0.5 mg Capsaicin (Capsaicin 0.075% Cream 57 Gm Tube) 1 appl TOPICAL QID PRN; Protocol PRN Reason: foot pain Last Admin: 12/27/24 10:22 Dose: 1 appl Docusate Sodium (Docusate Sodium 100 Mg Capsule) 100 mg PO BID PRN PRN Reason: Constipation Last Admin: 12/28/24 08:44 Dose: 100 mg Haloperidol (Haloperidol 5 Mg Tablet) 5 mg PO TID PRN PRN Reason: agitation, aggression, SIBS Last Admin: 12/28/24 08:44 Dose: 5 mg Hydroxyzine HCl (Hydroxyzine Hcl 25 Mg Tablet) 25 mg PO Q6H PRN PRN Reason: mild anxiety Last Admin: 12/28/24 08:44 Dose: 25 mg Ibuprofen (Ibuprofen 800 Mg Tablet) 800 mg PO TIDWM PRN PRN Reason: severe headache Last Admin: 12/28/24 08:43 Dose: 800 mg Lactase (Lactase Tablet) 1 tab PO TIDWM CHUCK Last Admin: 12/28/24 08:44 Dose: 1 tab Lactase (Lactase Tablet) 1 tab PO TID PRN PRN Reason: to consume milk products Last Admin: 12/16/24 18:26 Dose: 1 tab Lamotrigine (Lamotrigine 25 Mg Tablet) 25 mg PO BEDTIME [facility] Last Admin: 12/27/24 20:20 Dose: 25 mg Lidocaine (Lidocaine 4 % Patch Adh..Patch) 1 patch TRANSDERMA DAILY [facility]; Protocol Last Admin: 12/27/24 16:32 Dose: 1 patch Loratadine (Loratadine 10 Mg Tablet) 10 mg PO DAILY [facility] Last Admin: 12/27/24 10:19 Dose: Not Given Magnesium Hydroxide (Milk Of Magnesia 30 Ml Oral.Susp) 30 ml PO DAILY PRN PRN Reason: Constipation Last Admin: 12/27/24 13:01 Dose: 30 ml Metformin HCl (Metformin Hcl Er 500 Mg Tab.Er.24h) 500 mg PO DAILY@1700 [facility] Last Admin: 12/27/24 16:31 Dose: 500 mg Mirtazapine (Mirtazapine 15 Mg Tablet) 15 mg PO BEDTIME CHUCK Last Admin: 12/27/24 20:20 Dose: 15 mg Naltrexone HCl (Naltrexone Hcl 50 Mg Tablet) 25 mg PO DAILY [facility] Last Admin: 12/28/24 08:44 Dose: 25 mg Nicotine (Nicotine 21 Mg Patch.Td24) 21 mg TRANSDERMA DAILY PRN PRN Reason: smoking cessation Last Admin: 12/28/24 08:47 Dose: 21 mg Nicotine Polacrilex (Nicotine Polacrilex 2 Mg Gum) 4 mg BUCCAL Q2H PRN PRN Reason: Nicotine Cravings Pt Own( Levonorgestrel- Ethinyl Estrad [ Vienva] 0.1-20 Mg- Mcg Tablet) 1 tab PO DAILY [facility] Last Admin: 12/28/24 08:47 Dose: 1 tab Omeprazole (Omeprazole 20 Mg Capsule.Dr) 20 mg PO DAILY@0630 [facility] Last Admin: 12/28/24 06:33 Dose: 20 mg Ondansetron HCl (Ondansetron Odt 4 Mg Tab.Rapdis) 4 mg TRANSLINGU Q8H PRN PRN Reason: Nausea and Vomiting Last Admin: 12/27/24 11:11 Dose: 4 mg Polyethylene Glycol (Polyethylene Glycol 3350 17 Gm Powd.Pack) 17 gm PO DAILY [facility] Last Admin: 12/27/24 13:46 Dose: 17 gm Prazosin HCl (Prazosin Hcl 1 Mg Capsule) 3 mg PO BEDTIME CHUCK; Protocol Last Admin: 12/27/24 20:19 Dose: 3 mg Quetiapine Fumarate (Quetiapine Fumarate 50 Mg Tablet) 50 mg PO TID@0900,1300,1700 [facility] Last Admin: 12/28/24 08:44 Dose: 50 mg Quetiapine Fumarate (Quetiapine Fumarate 100 Mg Tablet) 100 mg PO BEDTIME CHUCK Last Admin: 12/27/24 20:20 Dose: 100 mg Trazodone HCl (Trazodone Hcl 50 Mg Tablet) 150 mg PO BEDTIME CHUCK Last Admin: 12/27/24 20:19 Dose: 150 mg Trazodone HCl (Trazodone Hcl 50 Mg Tablet) 50 mg PO BEDTIME CHUCK Last Admin: 12/27/24 20:19 Dose: 50 mg Trazodone HCl (Trazodone Hcl 50 Mg Tablet) 50 mg PO BEDTIME MRX1 PRN PRN Reason: Insomnia Last Admin: 12/26/24 00:56 Dose: 50 mg Allergies Allergies Allergy/AdvReac Type Severity Reaction Status Date / Time divalproex sodium (From Allergy Unknown Unknown Verified 12/12/24 14:51 Depakote) chlorpromazine (From Allergy Unknown Verified 12/12/24 14:51 Thorazine) Assessment & Plan Assessment & Plan (1) Autism: Status: Acute Code(s): F84.0 - Autistic disorder (2) Disruptive mood dysregulation disorder: Status: Acute Code(s): F34.81 - Disruptive mood dysregulation disorder (3) Intellectual disability: Status: Acute Code(s): F79 - Unspecified intellectual disabilities (4) Suicidal ideation: Status: Acute Code(s): R45.851 - Suicidal ideations Plan 12/15 Continue regime Discuss with family, OP team a change of living situation 12/16 Continue regime Pt is willing to begin discussions with father to attempt to address her issues with him 12/17 No change in presentation; intermittent outburst, yelling in the kitchen this morning and then later on in the hallway. Patient proudly stated she did not sleep at all last night 12/18 slept last night; same presentation; denies SI/HI -says hard to sleep at night since morning medications make her tired and she ends up napping; she wonders if dosing times can be changed. -will defer changes to primary team since dosing may be strategic to address behaviors 12/21: Continue tx. Discharge planning. Pt reports she wants discharge, yet does not feel prepared. 12/23: Tolerating risperdal, trileptal and mirtazapine increase 12/25: Change Seroquel to 50 mg 9am, 1pm, 5pm. Seroquel 100 mg HS to work with sleep. 12/27: Lamictal trial, 25 mg HS 12/28: Continue current treatment regimen. PLAN -added mirtazapine 7.5mg Admit, CV, 15 minute checks Continue current regime Observe post positive toxic screen Collateral Contact Diagnostics as indicated Discharge planning. Patient educated on: therapeutic strategies Reason for continued inpatient stay Substantial Risk for: rapid decompensation Time Spent With Patient Time: Total time managing care of this patient today ____ minutes.
[2024-12-28] MEDS: Lidocaine 4 % Patch ADH..PATCH 1 PATCH TRANSDERMA (12:53)
[2024-12-28 20:00] VITALS: BP 143/88; PULSE 106; RESP 16; TEMP 37; O2SAT 97
[2024-12-28] MEDS: Magnesium Hydrox/Alum Hydrox 30 ML ORAL.SUSP PO (20:46)
[2024-12-28 20:47] VITALS: BP 143/88
[2024-12-29 07:00] VITALS: BMI 42.3
[2024-12-29 08:00] VITALS: BP 128/57; PULSE 88; RESP 16; TEMP 36.4; O2SAT 95
[2024-12-29] MEDS: LEVONORGESTREL ETHINYL ESTRAD 1 EACH PO (09:02)
[2024-12-29] MEDS: Nicotine 21 MG PATCH.TD24 TRANSDERMA (09:19)
--- NOTE | 2024-12-29 10:09 | P.PNPSI_ITS ---
Subjective Subjective Date of Service: 12/29/24 Reason For Visit: dysregulated Subjective Notes: Conditional Voluntary Healthcare Proxy: No Guardianship: No Medical Problems Affecting Mental Status: No Interim History: Met with pt and discussed in the team. Team report improved behaviors with implementation of behavioral plan. Remains intrusive, loud and demanding at times with a persistant need for redirection, especially in groups. Pt was asked to leave art group due to inability to redirect. Continues to express anger with father, sister, mother, reports she will not attend her meeting on 12/30 and will not listen to family. Discussed her TA sx. Pt reports, at home, using CPAP since I was [age] . She agreed to trial a CPAP this evening to see if this can help with her ability to improve quality of rest. We will also titrate Seroquel to 150 mg HS. Medication Compliance: Yes Side effects from medications: No Attending Groups: Intermittent Review of Systems Acute medical concerns: No Review of Systems Review of Systems GERD sx. Will increase Priolsec to bid Mental Status Exam Mental Status Exam Patient Appearance: Appropriate Patient Orientation: Person, Place, Time and Situation Level of Consciousness: Alert Patient Behavior: Talkative, Cooperative and Good Eye Contact Mood Description: Labile Affect Description: Labile Patient Cognition Impaired: Yes Ability to Follow Directions: Good Speech Pattern: Spontaneous Speech Memory Description: Episodic Impaired Hallucinations: None Delusions: Not Present Thought Process: Distracted Thought Content: positive for Circumstantial, positive for Suicidal Ideation (denies) and positive for Homicidal Ideation (denies) Depressive Symptoms: Difficulty Sleeping Judgement: Fair Diagnostics Vital Signs (24Hr): Vital Signs - 24 hr 12/28/24 20:00 12/28/24 20:47 12/29/24 08:00 Temperature 98.6 F 97.5 F Pulse Rate 106 H 88 Respiratory Rate 16 16 Blood Pressure 143/88 H 143/88 H 128/57 L Pulse Oximetry 97 95 Oxygen Delivery Method Room Air BMI result Body Mass Index 42.6 Labs 12/12/24 15:35 12/24/24 14:33 Imaging Radiology Impressions: ITS Impressions Foot X-Ray 12/15/24 12:40 IMPRESSION: No acute fracture or dislocation. Electronically signed by: Nathaly Harris MD 12/15/2024 12:54 PM EDT Medications Medications Current Medications Acetaminophen (Acetaminophen 325 Mg Tablet) 650 mg PO Q6H PRN PRN Reason: Headache/Pain, Scale 1-10 Last Admin: 12/27/24 20:19 Dose: 650 mg Al Hydroxide/Mg Hydroxide (Magnesium Hydrox/Alum Hydrox 30 Ml Oral.Susp) 30 ml PO Q6H PRN PRN Reason: Heartburn/Nausea Last Admin: 12/28/24 20:46 Dose: 30 ml Albuterol Sulfate (Albuterol Sulfate 90 Mcg 8 Gm Inhaler) 2 puff INHALE RQ4H PRN PRN Reason: Wheezing Last Admin: 12/22/24 23:22 Dose: 2 puff Benztropine Mesylate (Benztropine Mesylate 0.5 Mg Tablet) 0.5 mg PO BID CHUCK Last Admin: 12/29/24 08:57 Dose: 0.5 mg Capsaicin (Capsaicin 0.075% Cream 57 Gm Tube) 1 appl TOPICAL QID PRN; Protocol PRN Reason: foot pain Last Admin: 12/29/24 09:04 Dose: 1 appl Docusate Sodium (Docusate Sodium 100 Mg Capsule) 100 mg PO BID PRN PRN Reason: Constipation Last Admin: 12/28/24 08:44 Dose: 100 mg Haloperidol (Haloperidol 5 Mg Tablet) 5 mg PO TID PRN PRN Reason: agitation, aggression, SIBS Last Admin: 12/29/24 08:58 Dose: 5 mg Hydroxyzine HCl (Hydroxyzine Hcl 25 Mg Tablet) 25 mg PO Q6H PRN PRN Reason: mild anxiety Last Admin: 12/28/24 08:44 Dose: 25 mg Ibuprofen (Ibuprofen 800 Mg Tablet) 800 mg PO TIDWM PRN PRN Reason: severe headache Last Admin: 12/29/24 08:59 Dose: 800 mg Lactase (Lactase Tablet) 1 tab PO TIDWM CHUCK Last Admin: 12/29/24 08:57 Dose: 1 tab Lactase (Lactase Tablet) 1 tab PO TID PRN PRN Reason: to consume milk products Last Admin: 12/16/24 18:26 Dose: 1 tab Lamotrigine (Lamotrigine 25 Mg Tablet) 25 mg PO BEDTIME CHUCK Last Admin: 12/28/24 20:47 Dose: 25 mg Lidocaine (Lidocaine 4 % Patch Adh..Patch) 1 patch TRANSDERMA DAILY CHUCK; Protocol Last Admin: 12/28/24 12:53 Dose: 1 patch Loratadine (Loratadine 10 Mg Tablet) 10 mg PO DAILY REPLACED BY [facility] Last Admin: 12/29/24 08:58 Dose: 10 mg Magnesium Hydroxide (Milk Of Magnesia 30 Ml Oral.Susp) 30 ml PO DAILY PRN PRN Reason: Constipation Last Admin: 12/27/24 13:01 Dose: 30 ml Metformin HCl (Metformin Hcl Er 500 Mg Tab.Er.24h) 500 mg PO DAILY@1700 REPLACED BY [facility] Last Admin: 12/28/24 17:38 Dose: 500 mg Mirtazapine (Mirtazapine 15 Mg Tablet) 15 mg PO BEDTIME REPLACED BY [facility] Last Admin: 12/28/24 20:47 Dose: 15 mg Naltrexone HCl (Naltrexone Hcl 50 Mg Tablet) 25 mg PO DAILY REPLACED BY [facility] Last Admin: 12/29/24 08:58 Dose: 25 mg Nicotine (Nicotine 21 Mg Patch.Td24) 21 mg TRANSDERMA DAILY PRN PRN Reason: smoking cessation Last Admin: 12/29/24 09:19 Dose: 21 mg Nicotine Polacrilex (Nicotine Polacrilex 2 Mg Gum) 4 mg BUCCAL Q2H PRN PRN Reason: Nicotine Cravings Last Admin: 12/28/24 14:08 Dose: 4 mg Pt Own( Levonorgestrel- Ethinyl Estrad [ Vienva] 0.1-20 Mg- Mcg Tablet) 1 tab PO DAILY REPLACED BY [facility] Last Admin: 12/29/24 09:02 Dose: 1 tab Omeprazole (Omeprazole 20 Mg Capsule.Dr) 20 mg PO DAILY@0630 REPLACED BY [facility] Last Admin: 12/29/24 08:58 Dose: 20 mg Ondansetron HCl (Ondansetron Odt 4 Mg Tab.Rapdis) 4 mg TRANSLINGU Q8H PRN PRN Reason: Nausea and Vomiting Last Admin: 12/27/24 11:11 Dose: 4 mg Polyethylene Glycol (Polyethylene Glycol 3350 17 Gm Powd.Pack) 17 gm PO DAILY REPLACED BY [facility] Last Admin: 12/29/24 09:21 Dose: Not Given Prazosin HCl (Prazosin Hcl 1 Mg Capsule) 3 mg PO BEDTIME REPLACED BY [facility]; Protocol Last Admin: 12/28/24 20:47 Dose: 3 mg Quetiapine Fumarate (Quetiapine Fumarate 50 Mg Tablet) 50 mg PO TID@0900,1300,1700 REPLACED BY [facility] Last Admin: 12/29/24 09:01 Dose: 50 mg Quetiapine Fumarate (Quetiapine Fumarate 100 Mg Tablet) 100 mg PO BEDTIME CHUCK Last Admin: 12/28/24 20:47 Dose: 100 mg Trazodone HCl (Trazodone Hcl 50 Mg Tablet) 150 mg PO BEDTIME CHUCK Last Admin: 12/28/24 20:47 Dose: 150 mg Trazodone HCl (Trazodone Hcl 50 Mg Tablet) 50 mg PO BEDTIME CHUCK Last Admin: 12/28/24 20:47 Dose: 50 mg Trazodone HCl (Trazodone Hcl 50 Mg Tablet) 50 mg PO BEDTIME MRX1 PRN PRN Reason: Insomnia Last Admin: 12/26/24 00:56 Dose: 50 mg Allergies Allergies Allergy/AdvReac Type Severity Reaction Status Date / Time divalproex sodium (From Allergy Unknown Unknown Verified 12/12/24 14:51 Depakote) chlorpromazine (From Allergy Unknown Verified 12/12/24 14:51 Thorazine) Assessment & Plan Assessment & Plan (1) Autism: Status: Acute Code(s): F84.0 - Autistic disorder (2) Disruptive mood dysregulation disorder: Status: Acute Code(s): F34.81 - Disruptive mood dysregulation disorder (3) Intellectual disability: Status: Acute Code(s): F79 - Unspecified intellectual disabilities (4) Suicidal ideation: Status: Acute Code(s): R45.851 - Suicidal ideations Plan 12/15 Continue regime Discuss with family, OP team a change of living situation 12/16 Continue regime Pt is willing to begin discussions with father to attempt to address her issues with him 12/17 No change in presentation; intermittent outburst, yelling in the kitchen this morning and then later on in the hallway. Patient proudly stated she did not sleep at all last night 12/18 slept last night; same presentation; denies SI/HI -says hard to sleep at night since morning medications make her tired and she ends up napping; she wonders if dosing times can be changed. -will defer changes to primary team since dosing may be strategic to address behaviors 12/21: Continue tx. Discharge planning. Pt reports she wants discharge, yet does not feel prepared. 12/23: Tolerating risperdal, trileptal and mirtazapine increase 12/25: Change Seroquel to 50 mg 9am, 1pm, 5pm. Seroquel 100 mg HS to work with sleep. 12/27: Lamictal trial, 25 mg HS 12/28: Continue current treatment regimen. 12/29: Increase Prilosec to 20 mg bid CPAP trial-pt uses a CPAP at home Decrease Mirtazapine to 7.5 mg hs Increase Seroquel to 150 mg HS, continue daytime dosing. PLAN -added mirtazapine 7.5mg Admit, CV, 15 minute checks Continue current regime Observe post positive toxic screen Collateral Contact Diagnostics as indicated Discharge planning. Reason for continued inpatient stay Substantial Risk for: rapid decompensation Time Spent With Patient Time: Total time managing care of this patient today ____ minutes.
[2024-12-29 20:00] VITALS: BP 132/89; PULSE 118; RESP 16; TEMP 36.8; O2SAT 97
[2024-12-29 20:38] VITALS: BP 158/83
[2024-12-30 08:00] VITALS: BP 142/85; PULSE 107; RESP 16; TEMP 36.4; O2SAT 97
[2024-12-30] MEDS: LEVONORGESTREL ETHINYL ESTRAD 1 EACH PO (08:36)
[2024-12-30] MEDS: Nicotine 21 MG PATCH.TD24 TRANSDERMA (08:39)
--- NOTE | 2024-12-30 09:45 | HO.PSYCHPN ---
Subjective Subjective Date of Service: 12/30/24 Reason For Visit: dysregulated Subjective Notes: Conditional Voluntary Healthcare Proxy: No Guardianship: No Medical Problems Affecting Mental Status: No Interim History: Family meeting with Maribel Garner SERGEI, pt's father, mother via Zoom. Pt lost control prior to meeting-required prn medications and security-no restraint needed. Pt contines to threaten father's life if discharged. Discussed meds with parents-[employer] trial discussed. Both would prefer not to do this, however they agree that pt needs improved mood mgt. Father discussed the activities he attempts to engage pt in. Parents believe pt has the idea that if she goes to a penitentiary there will be no boundaries set and she will be allowed to do as she wants. At home, father is finding it hard to leave pt at home without her being at risk. By history, in 2019, pt spent 1 year in pt. Discussed CPAP-pt was not truthful-she has never used CPAP, but it was successful last evening. Medication Compliance: Yes Side effects from medications: No Attending Groups: Intermittent Review of Systems Acute medical concerns: No Medical Review of Systems: unchanged Review of Systems Review of Systems Denies Mental Status Exam Mental Status Exam Narrative: Loss of control prior to family meeting, required meds and security to assist her-no restraint needed. Patient Appearance: Appropriate Patient Orientation: Person, Place, Time and Situation Level of Consciousness: Alert Patient Behavior: Talkative, Cooperative and Good Eye Contact Mood Description: Hostile, Labile and Angry Affect Description: Hostile, Labile and Angry Patient Cognition Impaired: Yes Ability to Follow Directions: Good Speech Pattern: Spontaneous Speech Memory Description: Episodic Impaired Hallucinations: None Delusions: Not Present Thought Process: Distracted Thought Content: positive for Circumstantial, positive for Suicidal Ideation (denies) and positive for Homicidal Ideation (denies) Depressive Symptoms: Difficulty Sleeping Judgement: Fair Diagnostics Vital Signs (24Hr): Vital Signs - 24 hr 12/29/24 20:00 12/29/24 20:38 Temperature 98.2 F Pulse Rate 118 H Respiratory Rate 16 Blood Pressure 132/89 158/83 H Pulse Oximetry 97 Oxygen Delivery Method Room Air BMI result Body Mass Index 42.3 Labs 12/12/24 15:35 12/24/24 14:33 Imaging Radiology Impressions: ITS Impressions Foot X-Ray 12/15/24 12:40 IMPRESSION: No acute fracture or dislocation. Electronically signed by: Nathaly Harris MD 12/15/2024 12:54 PM EDT RP Medications Medications Current Medications Acetaminophen (Acetaminophen 325 Mg Tablet) 650 mg PO Q6H PRN PRN Reason: Headache/Pain, Scale 1-10 Last Admin: 12/29/24 14:46 Dose: 650 mg Al Hydroxide/Mg Hydroxide (Magnesium Hydrox/Alum Hydrox 30 Ml Oral.Susp) 30 ml PO Q6H PRN PRN Reason: Heartburn/Nausea Last Admin: 12/28/24 20:46 Dose: 30 ml Albuterol Sulfate (Albuterol Sulfate 90 Mcg 8 Gm Inhaler) 2 puff INHALE RQ4H PRN PRN Reason: Wheezing Last Admin: 12/22/24 23:22 Dose: 2 puff Benztropine Mesylate (Benztropine Mesylate 0.5 Mg Tablet) 0.5 mg PO BID CHUCK Last Admin: 12/30/24 08:35 Dose: 0.5 mg Capsaicin (Capsaicin 0.075% Cream 57 Gm Tube) 1 appl TOPICAL QID PRN; Protocol PRN Reason: foot pain Last Admin: 12/29/24 09:04 Dose: 1 appl Docusate Sodium (Docusate Sodium 100 Mg Capsule) 100 mg PO BID PRN PRN Reason: Constipation Last Admin: 12/30/24 08:35 Dose: 100 mg Haloperidol (Haloperidol 5 Mg Tablet) 5 mg PO TID PRN PRN Reason: agitation, aggression, SIBS Last Admin: 12/30/24 08:41 Dose: 5 mg Hydroxyzine HCl (Hydroxyzine Hcl 25 Mg Tablet) 25 mg PO Q6H PRN PRN Reason: mild anxiety Last Admin: 12/30/24 08:35 Dose: 25 mg Ibuprofen (Ibuprofen 800 Mg Tablet) 800 mg PO TIDWM PRN PRN Reason: severe headache Last Admin: 12/30/24 08:34 Dose: 800 mg Lactase (Lactase Tablet) 1 tab PO TIDWM CHUCK Last Admin: 12/30/24 08:35 Dose: 1 tab Lactase (Lactase Tablet) 1 tab PO TID PRN PRN Reason: to consume milk products Last Admin: 12/16/24 18:26 Dose: 1 tab Lamotrigine (Lamotrigine 25 Mg Tablet) 25 mg PO BEDTIME [facility] Last Admin: 12/29/24 20:39 Dose: 25 mg Lidocaine (Lidocaine 4 % Patch Adh..Patch) 1 patch TRANSDERMA DAILY [facility]; Protocol Last Admin: 12/29/24 16:47 Dose: Not Given Loratadine (Loratadine 10 Mg Tablet) 10 mg PO DAILY [facility] Last Admin: 12/30/24 08:35 Dose: 10 mg Magnesium Hydroxide (Milk Of Magnesia 30 Ml Oral.Susp) 30 ml PO DAILY PRN PRN Reason: Constipation Last Admin: 12/27/24 13:01 Dose: 30 ml Metformin HCl (Metformin Hcl Er 500 Mg Tab.Er.24h) 500 mg PO DAILY@1700 [facility] Last Admin: 12/29/24 16:50 Dose: 500 mg Mirtazapine (Mirtazapine 7.5 Mg Tablet) 7.5 mg PO BEDTIME [facility] Last Admin: 12/29/24 20:38 Dose: 7.5 mg Naltrexone HCl (Naltrexone Hcl 50 Mg Tablet) 25 mg PO DAILY [facility] Last Admin: 12/30/24 09:19 Dose: 25 mg Nicotine (Nicotine 21 Mg Patch.Td24) 21 mg TRANSDERMA DAILY PRN PRN Reason: smoking cessation Last Admin: 12/30/24 08:39 Dose: 21 mg Nicotine Polacrilex (Nicotine Polacrilex 2 Mg Gum) 4 mg BUCCAL Q2H PRN PRN Reason: Nicotine Cravings Last Admin: 12/28/24 14:08 Dose: 4 mg Pt Own( Levonorgestrel- Ethinyl Estrad [ Vienva] 0.1-20 Mg- Mcg Tablet) 1 tab PO DAILY [facility] Last Admin: 12/30/24 08:36 Dose: 1 tab Omeprazole (Omeprazole 20 Mg Capsule.Dr) 20 mg PO BID@0630,1630 [facility] Last Admin: 12/30/24 08:35 Dose: 20 mg Ondansetron HCl (Ondansetron Odt 4 Mg Tab.Rapdis) 4 mg TRANSLINGU Q8H PRN PRN Reason: Nausea and Vomiting Last Admin: 12/29/24 13:08 Dose: 4 mg Polyethylene Glycol (Polyethylene Glycol 3350 17 Gm Powd.Pack) 17 gm PO DAILY [facility] Last Admin: 12/30/24 09:19 Dose: Not Given Prazosin HCl (Prazosin Hcl 1 Mg Capsule) 3 mg PO BEDTIME [facility]; Protocol Last Admin: 12/29/24 20:38 Dose: 3 mg Quetiapine Fumarate (Quetiapine Fumarate 50 Mg Tablet) 50 mg PO TID@0900,1300,1700 [facility] Last Admin: 12/30/24 08:35 Dose: 50 mg Quetiapine Fumarate (Quetiapine Fumarate 50 Mg Tablet) 150 mg PO BEDTIME [facility] Last Admin: 12/29/24 20:39 Dose: 150 mg Trazodone HCl (Trazodone Hcl 50 Mg Tablet) 150 mg PO BEDTIME CHUCK Last Admin: 12/29/24 20:38 Dose: 150 mg Trazodone HCl (Trazodone Hcl 50 Mg Tablet) 50 mg PO BEDTIME [facility] Last Admin: 12/29/24 20:38 Dose: 50 mg Allergies Allergies Allergy/AdvReac Type Severity Reaction Status Date / Time divalproex sodium (From Allergy Unknown Unknown Verified 12/12/24 14:51 Depakote) chlorpromazine (From Allergy Unknown Verified 12/12/24 14:51 Thorazine) Assessment & Plan Assessment & Plan (1) Autism: Status: Acute Code(s): F84.0 - Autistic disorder (2) Disruptive mood dysregulation disorder: Status: Acute Code(s): F34.81 - Disruptive mood dysregulation disorder (3) Intellectual disability: Status: Acute Code(s): F79 - Unspecified intellectual disabilities (4) Suicidal ideation: Status: Acute Code(s): R45.851 - Suicidal ideations Plan 12/15 Continue regime Discuss with family, OP team a change of living situation 12/16 Continue regime Pt is willing to begin discussions with father to attempt to address her issues with him 12/17 No change in presentation; intermittent outburst, yelling in the kitchen this morning and then later on in the hallway. Patient proudly stated she did not sleep at all last night 12/18 slept last night; same presentation; denies SI/HI -says hard to sleep at night since morning medications make her tired and she ends up napping; she wonders if dosing times can be changed. -will defer changes to primary team since dosing may be strategic to address behaviors 12/21: Continue tx. Discharge planning. Pt reports she wants discharge, yet does not feel prepared. 12/23: Tolerating risperdal, trileptal and mirtazapine increase 12/25: Change Seroquel to 50 mg 9am, 1pm, 5pm. Seroquel 100 mg HS to work with sleep. 12/27: Lamictal trial, 25 mg HS 12/28: Continue current treatment regimen. 12/29: Increase Prilosec to 20 mg bid CPAP trial-pt uses a CPAP at home Decrease Mirtazapine to 7.5 mg hs Increase Seroquel to 150 mg HS, continue daytime dosing. 12/30: Sleep study-parents report pt does not use a cpap at home Decrease Seroquel to 100 mg HS DC Remeron PLAN -added mirtazapine 7.5mg Admit, CV, 15 minute checks Continue current regime Observe post positive toxic screen Collateral Contact Diagnostics as indicated Discharge planning. Reason for continued inpatient stay Substantial Risk for: rapid decompensation Time Spent With Patient Time: Total time managing care of this patient today ____ minutes.
[2024-12-30] MEDS: diazePAM 10 MG/2 ML CARTRIDGE 5 MG IM (11:01)
[2024-12-30] MEDS: Magnesium Hydrox/Alum Hydrox 30 ML ORAL.SUSP PO (16:25)
[2024-12-30 20:00] VITALS: BP 173/88; PULSE 118; TEMP 37.1; O2SAT 97
[2024-12-30 20:29] VITALS: BP 173/88
[2024-12-30 20:45] VITALS: BP 120/81; PULSE 118; TEMP 36.9
[2024-12-31 08:00] VITALS: BP 110/60; PULSE 91; RESP 20; TEMP 36.4; O2SAT 96
[2024-12-31] MEDS: Lidocaine 4 % Patch ADH..PATCH 1 PATCH TRANSDERMA (08:20)
[2024-12-31] MEDS: LEVONORGESTREL ETHINYL ESTRAD 1 EACH PO (08:35)
[2024-12-31] MEDS: Nicotine 21 MG PATCH.TD24 TRANSDERMA (08:42)
--- NOTE | 2024-12-31 13:27 | HO.PSYCHPN ---
Subjective Subjective Date of Service: 12/31/24 Reason For Visit: dysregulated Interim History: Active on unit. social with peers. labile. Hitting upper leg with her fist. pt stated, I'm upset because I want to be with my mom in [place]. I want to kill myself and my dad cause he's a bitch . Patient reports auditory hallucinations telling her to harm herself. denies VH. PRN Haldol changed from 5mg PO TID PRN to QID PRN. Medication Compliance: Yes Side effects from medications: No Attending Groups: Yes Mental Status Exam Mental Status Exam Patient Appearance: Appropriate Patient Orientation: Person, Place, Time and Situation Level of Consciousness: Awake and Alert Patient Behavior: Cooperative and Swearing Mood Description: Labile Affect Description: Labile Ability to Follow Directions: Good Speech Pattern: Clear and Includes Profanity Memory Description: Intact Hallucinations: Auditory Delusions: Not Present Thought Process: Intact Thought Content: positive for Intact Diagnostics Vital Signs (24Hr): Vital Signs - 24 hr 12/30/24 20:00 12/30/24 20:29 12/30/24 20:45 Temperature 98.8 F 98.4 F Pulse Rate 118 H 118 H Respiratory Rate Blood Pressure 173/88 H 173/88 H 120/81 Pulse Oximetry 97 Oxygen Delivery Method Room Air 12/31/24 08:00 Temperature 97.5 F Pulse Rate 91 Respiratory Rate 20 Blood Pressure 110/60 Pulse Oximetry 96 Oxygen Delivery Method Room Air BMI result Body Mass Index 42.3 Labs 12/12/24 15:35 12/24/24 14:33 Imaging Radiology Impressions: ITS Impressions Foot X-Ray 12/15/24 12:40 IMPRESSION: No acute fracture or dislocation. Electronically signed by: Nathaly Harris MD 12/15/2024 12:54 PM EDT RP Head CT 12/30/24 16:14 IMPRESSION: No acute intracranial abnormality. Electronically signed by: Ashvin Lee MD 12/30/2024 04:33 PM EDT RP Medications Medications Current Medications Acetaminophen (Acetaminophen 325 Mg Tablet) 650 mg PO Q6H PRN PRN Reason: Headache/Pain, Scale 1-10 Last Admin: 12/29/24 14:46 Dose: 650 mg Al Hydroxide/Mg Hydroxide (Magnesium Hydrox/Alum Hydrox 30 Ml Oral.Susp) 30 ml PO Q6H PRN PRN Reason: Heartburn/Nausea Last Admin: 12/30/24 16:25 Dose: 30 ml Albuterol Sulfate (Albuterol Sulfate 90 Mcg 8 Gm Inhaler) 2 puff INHALE RQ4H PRN PRN Reason: Wheezing Last Admin: 12/22/24 23:22 Dose: 2 puff Benztropine Mesylate (Benztropine Mesylate 0.5 Mg Tablet) 0.5 mg PO BID CHUCK Last Admin: 12/31/24 08:20 Dose: 0.5 mg Capsaicin (Capsaicin 0.075% Cream 57 Gm Tube) 1 appl TOPICAL QID PRN; Protocol PRN Reason: foot pain Last Admin: 12/31/24 11:42 Dose: 1 appl Docusate Sodium (Docusate Sodium 100 Mg Capsule) 100 mg PO BID PRN PRN Reason: Constipation Last Admin: 12/31/24 08:19 Dose: 100 mg Haloperidol (Haloperidol 5 Mg Tablet) 5 mg PO TID PRN PRN Reason: agitation, aggression, SIBS Last Admin: 12/31/24 11:41 Dose: 5 mg Hydroxyzine HCl (Hydroxyzine Hcl 25 Mg Tablet) 25 mg PO Q6H PRN PRN Reason: mild anxiety Last Admin: 12/31/24 10:27 Dose: 25 mg Ibuprofen (Ibuprofen 800 Mg Tablet) 800 mg PO TIDWM PRN PRN Reason: severe headache Last Admin: 12/31/24 08:25 Dose: 800 mg Lactase (Lactase Tablet) 1 tab PO TIDWM CHUCK Last Admin: 12/31/24 11:41 Dose: 1 tab Lactase (Lactase Tablet) 1 tab PO TID PRN PRN Reason: to consume milk products Last Admin: 12/16/24 18:26 Dose: 1 tab Lamotrigine (Lamotrigine 25 Mg Tablet) 25 mg PO BEDTIME [facility] Last Admin: 12/30/24 20:29 Dose: 25 mg Lidocaine (Lidocaine 4 % Patch Adh..Patch) 1 patch TRANSDERMA DAILY [facility]; Protocol Last Admin: 12/31/24 08:20 Dose: 1 patch Loratadine (Loratadine 10 Mg Tablet) 10 mg PO DAILY [facility] Last Admin: 12/31/24 08:20 Dose: 10 mg Magnesium Hydroxide (Milk Of Magnesia 30 Ml Oral.Susp) 30 ml PO DAILY PRN PRN Reason: Constipation Last Admin: 12/27/24 13:01 Dose: 30 ml Metformin HCl (Metformin Hcl Er 500 Mg Tab.Er.24h) 500 mg PO DAILY@1700 [facility] Last Admin: 12/30/24 16:25 Dose: 500 mg Naltrexone HCl (Naltrexone Hcl 50 Mg Tablet) 25 mg PO DAILY [facility] Last Admin: 12/31/24 08:19 Dose: 25 mg Nicotine (Nicotine 21 Mg Patch.Td24) 21 mg TRANSDERMA DAILY PRN PRN Reason: smoking cessation Last Admin: 12/31/24 08:42 Dose: 21 mg Nicotine Polacrilex (Nicotine Polacrilex 2 Mg Gum) 4 mg BUCCAL Q2H PRN PRN Reason: Nicotine Cravings Last Admin: 12/28/24 14:08 Dose: 4 mg Pt Own( Levonorgestrel- Ethinyl Estrad [ Vienva] 0.1-20 Mg- Mcg Tablet) 1 tab PO DAILY [facility] Last Admin: 12/31/24 08:35 Dose: 1 tab Omeprazole (Omeprazole 20 Mg Capsule.Dr) 20 mg PO BID@0630,1630 [facility] Last Admin: 12/31/24 07:20 Dose: 20 mg Ondansetron HCl (Ondansetron Odt 4 Mg Tab.Rapdis) 4 mg TRANSLINGU Q8H PRN PRN Reason: Nausea and Vomiting Last Admin: 12/29/24 13:08 Dose: 4 mg Polyethylene Glycol (Polyethylene Glycol 3350 17 Gm Powd.Pack) 17 gm PO DAILY [facility] Last Admin: 12/31/24 08:24 Dose: 17 gm Prazosin HCl (Prazosin Hcl 1 Mg Capsule) 3 mg PO BEDTIME [facility]; Protocol Last Admin: 12/30/24 20:29 Dose: 3 mg Quetiapine Fumarate (Quetiapine Fumarate 50 Mg Tablet) 50 mg PO TID@0900,1300,1700 [facility] Last Admin: 12/31/24 12:22 Dose: 50 mg Quetiapine Fumarate (Quetiapine Fumarate 100 Mg Tablet) 100 mg PO BEDTIME [facility] Last Admin: 12/30/24 20:28 Dose: 100 mg Trazodone HCl (Trazodone Hcl 50 Mg Tablet) 150 mg PO BEDTIME [facility] Last Admin: 12/30/24 20:28 Dose: 150 mg Trazodone HCl (Trazodone Hcl 50 Mg Tablet) 50 mg PO BEDTIME [facility] Last Admin: 12/30/24 20:28 Dose: 50 mg Allergies Allergies Allergy/AdvReac Type Severity Reaction Status Date / Time divalproex sodium (From Allergy Unknown Unknown Verified 12/12/24 14:51 Depakote) chlorpromazine (From Allergy Unknown Verified 12/12/24 14:51 Thorazine) Assessment & Plan Assessment & Plan (1) Autism: Status: Acute Code(s): F84.0 - Autistic disorder (2) Disruptive mood dysregulation disorder: Status: Acute Code(s): F34.81 - Disruptive mood dysregulation disorder (3) Intellectual disability: Status: Acute Code(s): F79 - Unspecified intellectual disabilities (4) Suicidal ideation: Status: Acute Code(s): R45.851 - Suicidal ideations Plan 12/15 Continue regime Discuss with family, OP team a change of living situation 12/16 Continue regime Pt is willing to begin discussions with father to attempt to address her issues with him 12/17 No change in presentation; intermittent outburst, yelling in the kitchen this morning and then later on in the hallway. Patient proudly stated she did not sleep at all last night 12/18 slept last night; same presentation; denies SI/HI -says hard to sleep at night since morning medications make her tired and she ends up napping; she wonders if dosing times can be changed. -will defer changes to primary team since dosing may be strategic to address behaviors 12/21: Continue tx. Discharge planning. Pt reports she wants discharge, yet does not feel prepared. 12/23: Tolerating risperdal, trileptal and mirtazapine increase 12/25: Change Seroquel to 50 mg 9am, 1pm, 5pm. Seroquel 100 mg HS to work with sleep. 12/27: Lamictal trial, 25 mg HS 12/28: Continue current treatment regimen. 12/29: Increase Prilosec to 20 mg bid CPAP trial-pt uses a CPAP at home Decrease Mirtazapine to 7.5 mg hs Increase Seroquel to 150 mg HS, continue daytime dosing. 12/30: Sleep study-parents report pt does not use a cpap at home Decrease Seroquel to 100 mg HS DC Remeron 12/31: Active on unit. social with peers. labile. Hitting upper leg with her fist. pt stated, I'm upset because I want to be with my mom in [place]. I want to kill myself and my dad cause he's a bitch . Patient reports auditory hallucinations telling her to harm herself. denies VH. PRN Haldol changed from 5mg PO TID PRN to QID PRN PLAN -added mirtazapine 7.5mg Admit, CV, 15 minute checks Continue current regime Observe post positive toxic screen Collateral Contact Diagnostics as indicated Discharge planning. Patient educated on: diagnosis, medication risk/benefits and therapeutic strategies Reason for continued inpatient stay Substantial Risk for: med/psych decompensation Time Spent With Patient Time: Total time managing care of this patient today _20___ minutes.
[2024-12-31 20:00] VITALS: BP 124/85; PULSE 108; TEMP 36.6; O2SAT 97
[2025-01-01 08:00] VITALS: BP 118/60; PULSE 103; RESP 18; TEMP 36.8; O2SAT 96
[2025-01-01] MEDS: Lidocaine 4 % Patch ADH..PATCH 1 PATCH TRANSDERMA (08:26)
[2025-01-01] MEDS: LEVONORGESTREL ETHINYL ESTRAD 1 EACH PO (08:32)
[2025-01-01] MEDS: Nicotine 21 MG PATCH.TD24 TRANSDERMA (08:35)
[2025-01-01 08:51] LABS: Creatinine Clr Calc Pharmacy 134.1; Estimated Glomerular Filt Rate > 60
--- NOTE | 2025-01-01 12:28 | P.PNPSI_ITS ---
Subjective Subjective Date of Service: 01/01/25 Reason For Visit: dysregulated Interim History: Active on unit. social with peers. labile. No self harming behavior so far today. Patient reports she always feels anxious and depressed ; she continues to report Patient auditory hallucinations telling her to harm herself and reports VH of the devil . denies SI/HI at this time. Continue tx plan. Medication Compliance: Yes Side effects from medications: No Attending Groups: Yes Mental Status Exam Mental Status Exam Patient Appearance: Appropriate Patient Orientation: Person, Place, Time and Situation Level of Consciousness: Awake and Alert Patient Behavior: Appropriate and Cooperative Behavior Comments: Intermittent outbursts of yelling Mood Description: Labile Affect Description: Labile Patient Cognition Impaired: Yes Ability to Follow Directions: Good Speech Pattern: Clear Memory Description: Intact Hallucinations: Auditory and Visual Thought Process: Intact Thought Content: positive for Intact Diagnostics Vital Signs (24Hr): Vital Signs - 24 hr 12/31/24 20:00 01/01/25 08:00 Temperature 97.8 F 98.3 F Pulse Rate 108 H 103 H Respiratory Rate 18 Blood Pressure 124/85 118/60 Pulse Oximetry 97 96 Oxygen Delivery Method Room Air Room Air BMI result Body Mass Index 42.3 Labs 12/12/24 15:35 01/01/25 08:08 Labs: Laboratory Results - last 48 hr 01/01/25 08:08 Creatinine 0.87 Estim Creat Clear Calc 134.1 Estimated GFR > 60 Imaging Radiology Impressions: ITS Impressions Foot X-Ray 12/15/24 12:40 IMPRESSION: No acute fracture or dislocation. Electronically signed by: Nathaly Harris MD 12/15/2024 12:54 PM EDT RP Head CT 12/30/24 16:14 IMPRESSION: No acute intracranial abnormality. Electronically signed by: Ashvin Lee MD 12/30/2024 04:33 PM EDT RP Medications Medications Current Medications Acetaminophen (Acetaminophen 325 Mg Tablet) 650 mg PO Q6H PRN PRN Reason: Headache/Pain, Scale 1-10 Last Admin: 12/29/24 14:46 Dose: 650 mg Al Hydroxide/Mg Hydroxide (Magnesium Hydrox/Alum Hydrox 30 Ml Oral.Susp) 30 ml PO Q6H PRN PRN Reason: Heartburn/Nausea Last Admin: 12/30/24 16:25 Dose: 30 ml Albuterol Sulfate (Albuterol Sulfate 90 Mcg 8 Gm Inhaler) 2 puff INHALE RQ4H PRN PRN Reason: Wheezing Last Admin: 12/22/24 23:22 Dose: 2 puff Benztropine Mesylate (Benztropine Mesylate 0.5 Mg Tablet) 0.5 mg PO BID CHUCK Last Admin: 01/01/25 08:28 Dose: 0.5 mg Capsaicin (Capsaicin 0.075% Cream 57 Gm Tube) 1 appl TOPICAL QID PRN; Protocol PRN Reason: foot pain Last Admin: 01/01/25 08:29 Dose: 1 appl Docusate Sodium (Docusate Sodium 100 Mg Capsule) 100 mg PO BID PRN PRN Reason: Constipation Last Admin: 01/01/25 08:31 Dose: 100 mg Haloperidol (Haloperidol 5 Mg Tablet) 5 mg PO QID PRN PRN Reason: agitation, aggression, SIBS Last Admin: 01/01/25 09:27 Dose: 5 mg Hydroxyzine HCl (Hydroxyzine Hcl 25 Mg Tablet) 25 mg PO Q6H PRN PRN Reason: mild anxiety Last Admin: 12/31/24 10:27 Dose: 25 mg Ibuprofen (Ibuprofen 800 Mg Tablet) 800 mg PO TIDWM PRN PRN Reason: severe headache Last Admin: 01/01/25 11:35 Dose: 800 mg Lactase (Lactase Tablet) 1 tab PO TIDWM CHUCK Last Admin: 01/01/25 11:24 Dose: 1 tab Lactase (Lactase Tablet) 1 tab PO TID PRN PRN Reason: to consume milk products Last Admin: 12/16/24 18:26 Dose: 1 tab Lamotrigine (Lamotrigine 25 Mg Tablet) 25 mg PO BEDTIME [facility] Last Admin: 12/31/24 20:43 Dose: 25 mg Lidocaine (Lidocaine 4 % Patch Adh..Patch) 1 patch TRANSDERMA DAILY [facility]; Protocol Last Admin: 01/01/25 08:26 Dose: 1 patch Loratadine (Loratadine 10 Mg Tablet) 10 mg PO DAILY [facility] Last Admin: 01/01/25 08:29 Dose: 10 mg Magnesium Hydroxide (Milk Of Magnesia 30 Ml Oral.Susp) 30 ml PO DAILY PRN PRN Reason: Constipation Last Admin: 12/27/24 13:01 Dose: 30 ml Metformin HCl (Metformin Hcl Er 500 Mg Tab.Er.24h) 500 mg PO DAILY@1700 [facility] Last Admin: 12/31/24 16:07 Dose: 500 mg Naltrexone HCl (Naltrexone Hcl 50 Mg Tablet) 25 mg PO DAILY [facility] Last Admin: 01/01/25 08:27 Dose: 25 mg Nicotine (Nicotine 21 Mg Patch.Td24) 21 mg TRANSDERMA DAILY PRN PRN Reason: smoking cessation Last Admin: 01/01/25 08:35 Dose: 21 mg Nicotine Polacrilex (Nicotine Polacrilex 2 Mg Gum) 4 mg BUCCAL Q2H PRN PRN Reason: Nicotine Cravings Last Admin: 12/28/24 14:08 Dose: 4 mg Pt Own( Levonorgestrel- Ethinyl Estrad [ Vienva] 0.1-20 Mg- Mcg Tablet) 1 tab PO DAILY [facility] Last Admin: 01/01/25 08:32 Dose: 1 tab Omeprazole (Omeprazole 20 Mg Capsule.Dr) 20 mg PO BID@0630,1630 [facility] Last Admin: 01/01/25 07:23 Dose: 20 mg Ondansetron HCl (Ondansetron Odt 4 Mg Tab.Rapdis) 4 mg TRANSLINGU Q8H PRN PRN Reason: Nausea and Vomiting Last Admin: 01/01/25 08:31 Dose: 4 mg Polyethylene Glycol (Polyethylene Glycol 3350 17 Gm Powd.Pack) 17 gm PO DAILY [facility] Last Admin: 01/01/25 08:26 Dose: 17 gm Prazosin HCl (Prazosin Hcl 1 Mg Capsule) 3 mg PO BEDTIME [facility]; Protocol Last Admin: 12/31/24 20:42 Dose: 3 mg Quetiapine Fumarate (Quetiapine Fumarate 50 Mg Tablet) 50 mg PO TID@0900,1300,1700 [facility] Last Admin: 01/01/25 08:29 Dose: 50 mg Quetiapine Fumarate (Quetiapine Fumarate 100 Mg Tablet) 100 mg PO BEDTIME [facility] Last Admin: 12/31/24 20:41 Dose: 100 mg Trazodone HCl (Trazodone Hcl 50 Mg Tablet) 150 mg PO BEDTIME [facility] Last Admin: 12/31/24 20:41 Dose: 150 mg Trazodone HCl (Trazodone Hcl 50 Mg Tablet) 50 mg PO BEDTIME [facility] Last Admin: 12/31/24 20:42 Dose: 50 mg Allergies Allergies Allergy/AdvReac Type Severity Reaction Status Date / Time divalproex sodium (From Allergy Unknown Unknown Verified 12/12/24 14:51 Depakote) chlorpromazine (From Allergy Unknown Verified 12/12/24 14:51 Thorazine) Assessment & Plan Assessment & Plan (1) Autism: Status: Acute Code(s): F84.0 - Autistic disorder (2) Disruptive mood dysregulation disorder: Status: Acute Code(s): F34.81 - Disruptive mood dysregulation disorder (3) Intellectual disability: Status: Acute Code(s): F79 - Unspecified intellectual disabilities (4) Suicidal ideation: Status: Acute Code(s): R45.851 - Suicidal ideations Plan 12/15 Continue regime Discuss with family, OP team a change of living situation 12/16 Continue regime Pt is willing to begin discussions with father to attempt to address her issues with him 12/17 No change in presentation; intermittent outburst, yelling in the kitchen this morning and then later on in the hallway. Patient proudly stated she did not sleep at all last night 12/18 slept last night; same presentation; denies SI/HI -says hard to sleep at night since morning medications make her tired and she ends up napping; she wonders if dosing times can be changed. -will defer changes to primary team since dosing may be strategic to address behaviors 12/21: Continue tx. Discharge planning. Pt reports she wants discharge, yet does not feel prepared. 12/23: Tolerating risperdal, trileptal and mirtazapine increase 12/25: Change Seroquel to 50 mg 9am, 1pm, 5pm. Seroquel 100 mg HS to work with sleep. 12/27: Lamictal trial, 25 mg HS 12/28: Continue current treatment regimen. 12/29: Increase Prilosec to 20 mg bid CPAP trial-pt uses a CPAP at home Decrease Mirtazapine to 7.5 mg hs Increase Seroquel to 150 mg HS, continue daytime dosing. 12/30: Sleep study-parents report pt does not use a cpap at home Decrease Seroquel to 100 mg HS DC Remeron 12/31: Active on unit. social with peers. labile. Hitting upper leg with her fist. pt stated, I'm upset because I want to be with my mom in [place]. I want to kill myself and my dad cause he's a bitch . Patient reports auditory hallucinations telling her to harm herself. denies VH. PRN Haldol changed from 5mg PO TID PRN to QID PRN 01/01: Active on unit. social with peers. labile. No self harming behavior so far today. Patient reports she always feels anxious and depressed ; she continues to report Patient auditory hallucinations telling her to harm herself and reports VH of the devil . denies SI/HI at this time. Continue tx plan PLAN -added mirtazapine 7.5mg Admit, CV, 15 minute checks Continue current regime Observe post positive toxic screen Collateral Contact Diagnostics as indicated Discharge planning. Patient educated on: diagnosis and medication risk/benefits Reason for continued inpatient stay Substantial Risk for: med/psych decompensation Time Spent With Patient Time: Total time managing care of this patient today _20___ minutes.
[2025-01-01] MEDS: Milk of Magnesia 30 ML ORAL.SUSP PO (15:27)
[2025-01-01 19:52] VITALS: BP 136/72; PULSE 102; RESP 16; TEMP 36.4; O2SAT 98
[2025-01-01 20:23] VITALS: BP 136/72
[2025-01-01 21:00] VITALS: RESP 16
[2025-01-02 07:59] VITALS: BP 122/68; PULSE 81; RESP 18; TEMP 36.5; O2SAT 98
[2025-01-02] MEDS: Lidocaine 4 % Patch ADH..PATCH 1 PATCH TRANSDERMA (08:19)
[2025-01-02] MEDS: LEVONORGESTREL ETHINYL ESTRAD 1 EACH PO (08:22)
--- NOTE | 2025-01-02 12:06 | HO.PSYCHPN ---
Subjective Subjective Date of Service: 01/02/25 Reason For Visit: dysregulated Interim History: Active on unit. social with peers. No self harming behavior. Patient reports feeling good today; pt stated, I 'm done being mad at my dad. I hope he visits me today . Patient continues to report auditory hallucinations telling her to harm herself. denies SI/HI/VH at this time. Continue tx plan. Medication Compliance: Yes Side effects from medications: No Attending Groups: Yes Mental Status Exam Mental Status Exam Patient Appearance: Appropriate Patient Orientation: Person, Place, Time and Situation Level of Consciousness: Awake and Alert Patient Behavior: Appropriate and Cooperative Mood Description: Labile Affect Description: Labile Ability to Follow Directions: Good Speech Pattern: Clear Memory Description: Intact Hallucinations: Auditory Thought Process: Intact Thought Content: positive for Intact Diagnostics Vital Signs (24Hr): Vital Signs - 24 hr 01/01/25 19:52 01/01/25 20:23 01/01/25 21:00 Temperature 97.6 F Pulse Rate 102 H Respiratory Rate 16 16 Blood Pressure 136/72 136/72 Pulse Oximetry 98 Oxygen Delivery Method Room Air 01/02/25 07:59 Temperature 97.7 F Pulse Rate 81 Respiratory Rate 18 Blood Pressure 122/68 Pulse Oximetry 98 Oxygen Delivery Method Room Air BMI result Body Mass Index 42.3 Labs 12/12/24 15:35 01/01/25 08:08 Labs: Laboratory Results - last 48 hr 01/01/25 08:08 Creatinine 0.87 Estim Creat Clear Calc 134.1 Estimated GFR > 60 Imaging Radiology Impressions: ITS Impressions Foot X-Ray 12/15/24 12:40 IMPRESSION: No acute fracture or dislocation. Electronically signed by: Nathaly Harris MD 12/15/2024 12:54 PM EDT RP Head CT 12/30/24 16:14 IMPRESSION: No acute intracranial abnormality. Electronically signed by: Ashvin Lee MD 12/30/2024 04:33 PM EDT RP Medications Medications Current Medications Acetaminophen (Acetaminophen 325 Mg Tablet) 650 mg PO Q6H PRN PRN Reason: Headache/Pain, Scale 1-10 Last Admin: 12/29/24 14:46 Dose: 650 mg Al Hydroxide/Mg Hydroxide (Magnesium Hydrox/Alum Hydrox 30 Ml Oral.Susp) 30 ml PO Q6H PRN PRN Reason: Heartburn/Nausea Last Admin: 12/30/24 16:25 Dose: 30 ml Albuterol Sulfate (Albuterol Sulfate 90 Mcg 8 Gm Inhaler) 2 puff INHALE RQ4H PRN PRN Reason: Wheezing Last Admin: 12/22/24 23:22 Dose: 2 puff Benztropine Mesylate (Benztropine Mesylate 0.5 Mg Tablet) 0.5 mg PO BID CHUCK Last Admin: 01/02/25 08:17 Dose: 0.5 mg Bisacodyl (Bisacodyl 5 Mg Tablet.Dr) 5 mg PO BEDTIME CHUCK Last Admin: 01/01/25 20:23 Dose: 5 mg Capsaicin (Capsaicin 0.075% Cream 57 Gm Tube) 1 appl TOPICAL QID PRN; Protocol PRN Reason: foot pain Last Admin: 01/02/25 08:26 Dose: 1 appl Docusate Sodium (Docusate Sodium 100 Mg Capsule) 100 mg PO BID PRN PRN Reason: Constipation Last Admin: 01/02/25 08:16 Dose: 100 mg Haloperidol (Haloperidol 5 Mg Tablet) 5 mg PO QID PRN PRN Reason: agitation, aggression, SIBS Last Admin: 01/02/25 08:16 Dose: 5 mg Hydroxyzine HCl (Hydroxyzine Hcl 25 Mg Tablet) 25 mg PO Q6H PRN PRN Reason: mild anxiety Last Admin: 12/31/24 10:27 Dose: 25 mg Ibuprofen (Ibuprofen 800 Mg Tablet) 800 mg PO TIDWM PRN PRN Reason: severe headache Last Admin: 01/02/25 08:18 Dose: 800 mg Lactase (Lactase Tablet) 1 tab PO TIDWM [facility]UCK Last Admin: 01/02/25 08:17 Dose: 1 tab Lactase (Lactase Tablet) 1 tab PO TID PRN PRN Reason: to consume milk products Last Admin: 12/16/24 18:26 Dose: 1 tab Lamotrigine (Lamotrigine 25 Mg Tablet) 25 mg PO BEDTIME [facility]UCK Last Admin: 01/01/25 20:23 Dose: 25 mg Lidocaine (Lidocaine 4 % Patch Adh..Patch) 1 patch TRANSDERMA DAILY ON LICENSE OF [facility]; Protocol Last Admin: 01/02/25 08:19 Dose: 1 patch Loratadine (Loratadine 10 Mg Tablet) 10 mg PO DAILY ON LICENSE OF [facility] Last Admin: 01/02/25 08:15 Dose: 10 mg Magnesium Hydroxide (Milk Of Magnesia 30 Ml Oral.Susp) 30 ml PO DAILY PRN PRN Reason: Constipation Last Admin: 01/01/25 15:27 Dose: 30 ml Metformin HCl (Metformin Hcl Er 500 Mg Tab.Er.24h) 500 mg PO DAILY@1700 ON LICENSE OF [facility] Last Admin: 01/01/25 16:46 Dose: 500 mg Naltrexone HCl (Naltrexone Hcl 50 Mg Tablet) 25 mg PO DAILY ON LICENSE OF [facility] Last Admin: 01/02/25 08:15 Dose: 25 mg Nicotine (Nicotine 21 Mg Patch.Td24) 21 mg TRANSDERMA DAILY PRN PRN Reason: smoking cessation Last Admin: 01/01/25 08:35 Dose: 21 mg Nicotine Polacrilex (Nicotine Polacrilex 2 Mg Gum) 4 mg BUCCAL Q2H PRN PRN Reason: Nicotine Cravings Last Admin: 12/28/24 14:08 Dose: 4 mg Pt Own( Levonorgestrel- Ethinyl Estrad [ Vienva] 0.1-20 Mg- Mcg Tablet) 1 tab PO DAILY ON LICENSE OF [facility] Last Admin: 01/02/25 08:22 Dose: 1 tab Omeprazole (Omeprazole 20 Mg Capsule.Dr) 20 mg PO BID@0630,1630 ON LICENSE OF [facility] Last Admin: 01/02/25 07:22 Dose: 20 mg Ondansetron HCl (Ondansetron Odt 4 Mg Tab.Rapdis) 4 mg TRANSLINGU Q8H PRN PRN Reason: Nausea and Vomiting Last Admin: 01/02/25 08:17 Dose: 4 mg Polyethylene Glycol (Polyethylene Glycol 3350 17 Gm Powd.Pack) 17 gm PO DAILY ON LICENSE OF [facility] Last Admin: 01/02/25 08:19 Dose: 17 gm Prazosin HCl (Prazosin Hcl 1 Mg Capsule) 3 mg PO BEDTIME ON LICENSE OF [facility]; Protocol Last Admin: 01/01/25 20:23 Dose: 3 mg Quetiapine Fumarate (Quetiapine Fumarate 50 Mg Tablet) 50 mg PO TID@0900,1300,1700 ON LICENSE OF [facility] Last Admin: 01/02/25 08:15 Dose: 50 mg Quetiapine Fumarate (Quetiapine Fumarate 100 Mg Tablet) 100 mg PO BEDTIME ON LICENSE OF [facility] Last Admin: 01/01/25 20:23 Dose: 100 mg Trazodone HCl (Trazodone Hcl 50 Mg Tablet) 150 mg PO BEDTIME [facility]UCK Last Admin: 01/01/25 20:23 Dose: 150 mg Trazodone HCl (Trazodone Hcl 50 Mg Tablet) 50 mg PO BEDTIME CHUCK Last Admin: 01/01/25 20:23 Dose: 50 mg Allergies Allergies Allergy/AdvReac Type Severity Reaction Status Date / Time divalproex sodium (From Allergy Unknown Unknown Verified 12/12/24 14:51 Depakote) chlorpromazine (From Allergy Unknown Verified 12/12/24 14:51 Thorazine) Assessment & Plan Assessment & Plan (1) Autism: Status: Acute Code(s): F84.0 - Autistic disorder (2) Disruptive mood dysregulation disorder: Status: Acute Code(s): F34.81 - Disruptive mood dysregulation disorder (3) Intellectual disability: Status: Acute Code(s): F79 - Unspecified intellectual disabilities (4) Suicidal ideation: Status: Acute Code(s): R45.851 - Suicidal ideations Plan 12/15 Continue regime Discuss with family, OP team a change of living situation 12/16 Continue regime Pt is willing to begin discussions with father to attempt to address her issues with him 12/17 No change in presentation; intermittent outburst, yelling in the kitchen this morning and then later on in the hallway. Patient proudly stated she did not sleep at all last night 12/18 slept last night; same presentation; denies SI/HI -says hard to sleep at night since morning medications make her tired and she ends up napping; she wonders if dosing times can be changed. -will defer changes to primary team since dosing may be strategic to address behaviors 12/21: Continue tx. Discharge planning. Pt reports she wants discharge, yet does not feel prepared. 12/23: Tolerating risperdal, trileptal and mirtazapine increase 12/25: Change Seroquel to 50 mg 9am, 1pm, 5pm. Seroquel 100 mg HS to work with sleep. 12/27: Lamictal trial, 25 mg HS 12/28: Continue current treatment regimen. 12/29: Increase Prilosec to 20 mg bid CPAP trial-pt uses a CPAP at home Decrease Mirtazapine to 7.5 mg hs Increase Seroquel to 150 mg HS, continue daytime dosing. 12/30: Sleep study-parents report pt does not use a cpap at home Decrease Seroquel to 100 mg HS DC Remeron 12/31: Active on unit. social with peers. labile. Hitting upper leg with her fist. pt stated, I'm upset because I want to be with my mom in [place]. I want to kill myself and my dad cause he's a bitch . Patient reports auditory hallucinations telling her to harm herself. denies VH. PRN Haldol changed from 5mg PO TID PRN to QID PRN 01/01: Active on unit. social with peers. labile. No self harming behavior so far today. Patient reports she always feels anxious and depressed ; she continues to report Patient auditory hallucinations telling her to harm herself and reports VH of the devil . denies SI/HI at this time. Continue tx plan 01/02: Continue current tx plan. PLAN -added mirtazapine 7.5mg Admit, CV, 15 minute checks Continue current regime Observe post positive toxic screen Collateral Contact Diagnostics as indicated Discharge planning. Patient educated on: diagnosis, medication risk/benefits and therapeutic strategies Reason for continued inpatient stay Substantial Risk for: med/psych decompensation Time Spent With Patient Time: Total time managing care of this patient today __20__ minutes.
[2025-01-02] MEDS: Magnesium Hydrox/Alum Hydrox 30 ML ORAL.SUSP PO (14:40)
[2025-01-02 20:00] VITALS: BP 128/77; PULSE 104; RESP 16; TEMP 36.8; O2SAT 96
[2025-01-03] MEDS: Albuterol Sulfate 90 MCG 8 GM INHALER 2 PUFF INHALE ×2 (07:24→23:06)
[2025-01-03 08:00] VITALS: BP 140/71; PULSE 64; RESP 19; TEMP 36.2; O2SAT 99
[2025-01-03] MEDS: LEVONORGESTREL ETHINYL ESTRAD 1 EACH PO (08:21)
[2025-01-03] MEDS: Lidocaine 4 % Patch ADH..PATCH 1 PATCH TRANSDERMA (08:23)
[2025-01-03] MEDS: Nicotine 21 MG PATCH.TD24 TRANSDERMA (08:43)
--- NOTE | 2025-01-03 13:18 | HO.PM.IMCN ---
History of Present Illness Data of Consult Service Date: 01/03/25 Primary Care Provider: Unknown Physician HPI Reason for consult: Severe constipation 19 yo female with PMH of intellectual disability, autism, disruptive mood dysregulation disorder presented to ER with EMS from her school in [place]. Toxic screen positive for cocaine, fentanyl and opiates. Pt was banging her head against a wall and hitting herself in the head. She is currently be treated on M5 for suicidal ideation and disruptive mood disorder. Per staff she has not had a bowel movement in several days, she is able to take water, reports that she vomited after eating this morning. On exam her abdomen is soft, nontender, no guarding, no distention, no pain with any palpation. Positive bowel sounds. She reports that she just started passing flatus. She is afebrile her vitals are stable. She has received several bowel medications, Mag citrate was ordered but she was unable to drink due to nausea. She did take a dose of lactulose this morning. She had a mineral oil enema with no results. She reports that she does not want to ambulate as she is tired. Reports she has been drinking water without any nausea or vomiting. Review of Systems Review of Systems: Denies any shortness of breath, chest pain, dizziness, lightheadedness, abdominal pain or discomfort, + nausea and vomiting. No diarrhea PMFSH Medical History Acute anxiety Disruptive mood dysregulation disorder Intellectual disability Autism Social History Household Members: Family Household Members Other:: brother, father Housing: House Do you presently have visiting nurse or other home services: No Alcohol intake: current Alcohol type: beer Patient Tobacco Use Status: Current everyday Tobacco user Smoked in Last 30 Days: Yes e-Cigarette/Vaping Use: Currently Using Frequency of e-Cigarette/Vaping Use: daily Patient Interested in Nicotine Replacement: Yes Patient Given Instructions on How to Stop Smoking: Yes Date Education Initiated: 12/13/24 Second Hand Smoke Exposure: No Use of substances other than those prescribed or required for medical reasons: Yes Substance Use Type: Marijuana Substance Use Frequency: Chronic Longstanding Currently Displaying Signs/Symptoms of Drug Intoxication Withdrawal: No Have you been hit, kicked, punched, or otherwise hurt by someone within the past year? If so, by whom?: No Do you feel safe in your current relationship?: No Current Relationship Is there a partner from a previous relationship who is making you feel unsafe now?: No Are you made to feel afraid or neglected: No Advance Directives: No Advance Directives Information Provided: Yes Do you have thoughts of harming others: None Do you have a plan to hurt others: No Plan Recently lost weight without trying: Unsure Patient : No : No Poor oral hygiene: No service: No Sexual orientation: Straight/Heterosexual Meds Allergies Allergy/AdvReac Type Severity Reaction Status Date / Time divalproex sodium (From Allergy Unknown Unknown Verified 12/12/24 14:51 Depakote) chlorpromazine (From Allergy Unknown Verified 12/12/24 14:51 Thorazine) Active Medications: Current Medications Acetaminophen (Acetaminophen 325 Mg Tablet) 650 mg PO Q6H PRN PRN Reason: Headache/Pain, Scale 1-10 Last Admin: 01/02/25 21:21 Dose: 650 mg Al Hydroxide/Mg Hydroxide (Magnesium Hydrox/Alum Hydrox 30 Ml Oral.Susp) 30 ml PO Q6H PRN PRN Reason: Heartburn/Nausea Last Admin: 01/02/25 14:40 Dose: 30 ml Albuterol Sulfate (Albuterol Sulfate 90 Mcg 8 Gm Inhaler) 2 puff INHALE RQ4H PRN PRN Reason: Wheezing Last Admin: 01/03/25 07:24 Dose: 2 puff Benztropine Mesylate (Benztropine Mesylate 0.5 Mg Tablet) 0.5 mg PO BID [facility] Last Admin: 01/03/25 08:23 Dose: 0.5 mg Bisacodyl (Bisacodyl 5 Mg Tablet.Dr) 5 mg PO BEDTIME CHUCK Last Admin: 01/02/25 20:55 Dose: 5 mg Capsaicin (Capsaicin 0.075% Cream 57 Gm Tube) 1 appl TOPICAL QID PRN; Protocol PRN Reason: foot pain Last Admin: 01/03/25 08:23 Dose: 1 appl Docusate Sodium (Docusate Sodium 100 Mg Capsule) 100 mg PO BID PRN PRN Reason: Constipation Last Admin: 01/02/25 08:16 Dose: 100 mg Haloperidol (Haloperidol 5 Mg Tablet) 5 mg PO QID PRN PRN Reason: agitation, aggression, SIBS Last Admin: 01/03/25 08:22 Dose: 5 mg Hydroxyzine HCl (Hydroxyzine Hcl 25 Mg Tablet) 25 mg PO Q6H PRN PRN Reason: mild anxiety Last Admin: 01/02/25 10:50 Dose: 25 mg Ibuprofen (Ibuprofen 800 Mg Tablet) 800 mg PO TIDWM PRN PRN Reason: severe headache Last Admin: 01/02/25 08:18 Dose: 800 mg Lactase (Lactase Tablet) 1 tab PO TIDWM [facility] Last Admin: 01/03/25 11:07 Dose: Not Given Lactase (Lactase Tablet) 1 tab PO TID PRN PRN Reason: to consume milk products Last Admin: 12/16/24 18:26 Dose: 1 tab Lactulose (Lactulose 20 Gm/30 Ml Solution) 30 gm PO DAILY PRN PRN Reason: Constipation Last Admin: 01/03/25 09:15 Dose: 30 gm Lamotrigine (Lamotrigine 25 Mg Tablet) 25 mg PO BEDTIME [facility] Last Admin: 01/02/25 20:56 Dose: 25 mg Lidocaine (Lidocaine 4 % Patch Adh..Patch) 1 patch TRANSDERMA DAILY [facility]; Protocol Last Admin: 01/03/25 08:23 Dose: 1 patch Loratadine (Loratadine 10 Mg Tablet) 10 mg PO DAILY [facility] Last Admin: 01/03/25 08:23 Dose: 10 mg Magnesium Hydroxide (Milk Of Magnesia 30 Ml Oral.Susp) 30 ml PO DAILY PRN PRN Reason: Constipation Last Admin: 01/01/25 15:27 Dose: 30 ml Metformin HCl (Metformin Hcl Er 500 Mg Tab.Er.24h) 500 mg PO DAILY@1700 [facility] On Hold: 01/02/25 17:09 Last Admin: 01/02/25 15:59 Dose: 500 mg Naltrexone HCl (Naltrexone Hcl 50 Mg Tablet) 25 mg PO DAILY [facility] Last Admin: 01/03/25 08:21 Dose: 25 mg Nicotine (Nicotine 21 Mg Patch.Td24) 21 mg TRANSDERMA DAILY PRN PRN Reason: smoking cessation Last Admin: 01/03/25 08:43 Dose: 21 mg Nicotine Polacrilex (Nicotine Polacrilex 2 Mg Gum) 4 mg BUCCAL Q2H PRN PRN Reason: Nicotine Cravings Last Admin: 12/28/24 14:08 Dose: 4 mg Pt Own( Levonorgestrel- Ethinyl Estrad [ Vienva] 0.1-20 Mg- Mcg Tablet) 1 tab PO DAILY [facility] Last Admin: 01/03/25 08:21 Dose: 1 tab Omeprazole (Omeprazole 20 Mg Capsule.Dr) 20 mg PO BID@0630,1630 [facility] Last Admin: 01/03/25 07:21 Dose: 20 mg Ondansetron HCl (Ondansetron Odt 4 Mg Tab.Rapdis) 4 mg TRANSLINGU Q8H PRN PRN Reason: Nausea and Vomiting Last Admin: 01/03/25 04:16 Dose: 4 mg Polyethylene Glycol (Polyethylene Glycol 3350 17 Gm Powd.Pack) 17 gm PO DAILY [facility] Last Admin: 01/03/25 08:23 Dose: 17 gm Prazosin HCl (Prazosin Hcl 1 Mg Capsule) 3 mg PO BEDTIME [facility]; Protocol Last Admin: 01/02/25 20:56 Dose: 3 mg Quetiapine Fumarate (Quetiapine Fumarate 50 Mg Tablet) 50 mg PO TID@0900,1300,1700 [facility] Last Admin: 01/03/25 08:22 Dose: 50 mg Quetiapine Fumarate (Quetiapine Fumarate 100 Mg Tablet) 100 mg PO BEDTIME [facility] Last Admin: 01/02/25 20:56 Dose: 100 mg Senna (Sennosides 8.6 Mg Tablet) 17.2 mg PO BEDTIME [facility]UCK Trazodone HCl (Trazodone Hcl 50 Mg Tablet) 150 mg PO BEDTIME [facility] Last Admin: 01/02/25 20:54 Dose: 150 mg Trazodone HCl (Trazodone Hcl 50 Mg Tablet) 50 mg PO BEDTIME [facility] Last Admin: 01/02/25 20:55 Dose: 50 mg Home Medications ?Medication ?Instructions ?Recorded ?Confirmed ?Last Taken ?Type dexlansoprazole 30 mg 30 mg PO DAILY 12/12/24 12/12/24 Unknown History capsule,biphase delayed release (Dexilant) levomefolate calcium 7.5 mg tablet 7.5 mg PO DAILY 12/12/24 12/12/24 Unknown History levonorgestrel-ethinyl estradiol 1 tab PO DAILY 12/12/24 12/12/24 Unknown History 0.1 mg-20 mcg tablet (Vienva) quetiapine 50 mg tablet 50 mg PO QID 12/12/24 12/12/24 Unknown History trazodone 50 mg tablet 50 mg PO BEDTIME 12/12/24 12/12/24 Unknown History Physical Exam Vital Signs and Narrative: Vital Signs: Last Vital Signs Temp 97.2 F 01/03/25 08:00 Pulse 64 01/03/25 08:00 Resp 19 01/03/25 08:00 BP 140/71 H 01/03/25 08:00 Pulse Ox 99 01/03/25 08:00 O2 Del Method Room Air 01/03/25 08:00 BMI result Body Mass Index 42.3 Results Labs 12/12/24 15:35 01/01/25 08:08 Assessment and Plan (1) Constipation by delayed colonic transit: Status: Acute Plan Constipation Abdominal exam is reassuring, no need to repeat KUB at this time We will order suppository x1 Lactulose 30 mL times one , may repeat in 4 hours, up to 3 doses to elicit bowel movement We will add in senna and Colace to prevent constipation Encouraged increased water intake and ambulation. Thank you for allowing me to participate in the care of this patient. Signing off at this time. Please reconsult of any acute concerns or issues arise
--- NOTE | 2025-01-03 16:21 | HO.PSYCHPN ---
Subjective Subjective Date of Service: 01/03/25 Reason For Visit: dysregulated Subjective Notes: Conditional Voluntary Healthcare Proxy: No Guardianship: No Medical Problems Affecting Mental Status: No Interim History: Reports of nausea and vomiting on 01/02. KUB positive for constipation. Hospitalist consult appreciated. Pt has been given a variety of laxatives, a fleet and a suppository. She is encouraged to ambulate and to increase intake of water. 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 She reports that there are family gatherings upcoming, mom is planning to visit, and there is a relative's birthday democrat this month, all of which she wants to attend. Promise me I will not miss these. Medication Compliance: Yes Side effects from medications: No Attending Groups: Yes Review of Systems Medical Review of Systems: unchanged Review of Systems Review of Systems resolving constipation Mental Status Exam Mental Status Exam Patient Appearance: Appropriate Patient Orientation: Person, Place, Time and Situation Level of Consciousness: Awake and Alert Patient Behavior: Appropriate and Cooperative Mood Description: Labile Affect Description: Labile Ability to Follow Directions: Good Speech Pattern: Clear Memory Description: Intact Hallucinations: Auditory Thought Process: Intact Thought Content: positive for Intact Diagnostics Vital Signs (24Hr): Vital Signs - 24 hr 01/02/25 20:00 01/03/25 08:00 Temperature 98.3 F 97.2 F Pulse Rate 104 H 64 Respiratory Rate 16 19 Blood Pressure 128/77 140/71 H Pulse Oximetry 96 99 Oxygen Delivery Method Room Air Room Air BMI result Body Mass Index 42.3 Labs 12/12/24 15:35 01/01/25 08:08 Imaging Radiology Impressions: ITS Impressions Foot X-Ray 12/15/24 12:40 IMPRESSION: No acute fracture or dislocation. Electronically signed by: Nathaly Harris MD 12/15/2024 12:54 PM EDT RP Head CT 12/30/24 16:14 IMPRESSION: No acute intracranial abnormality. Electronically signed by: Ashvin Lee MD 12/30/2024 04:33 PM EDT RP Medications Medications Current Medications Acetaminophen (Acetaminophen 325 Mg Tablet) 650 mg PO Q6H PRN PRN Reason: Headache/Pain, Scale 1-10 Last Admin: 01/02/25 21:21 Dose: 650 mg Al Hydroxide/Mg Hydroxide (Magnesium Hydrox/Alum Hydrox 30 Ml Oral.Susp) 30 ml PO Q6H PRN PRN Reason: Heartburn/Nausea Last Admin: 01/02/25 14:40 Dose: 30 ml Albuterol Sulfate (Albuterol Sulfate 90 Mcg 8 Gm Inhaler) 2 puff INHALE RQ4H PRN PRN Reason: Wheezing Last Admin: 01/03/25 07:24 Dose: 2 puff Benztropine Mesylate (Benztropine Mesylate 0.5 Mg Tablet) 0.5 mg PO BID [facility] Last Admin: 01/03/25 08:23 Dose: 0.5 mg Capsaicin (Capsaicin 0.075% Cream 57 Gm Tube) 1 appl TOPICAL QID PRN; Protocol PRN Reason: foot pain Last Admin: 01/03/25 08:23 Dose: 1 appl Docusate Sodium (Docusate Sodium 100 Mg Capsule) 100 mg PO BID [facility]UCK Haloperidol (Haloperidol 5 Mg Tablet) 5 mg PO QID PRN PRN Reason: agitation, aggression, SIBS Last Admin: 01/03/25 08:22 Dose: 5 mg Hydroxyzine HCl (Hydroxyzine Hcl 25 Mg Tablet) 25 mg PO Q6H PRN PRN Reason: mild anxiety Last Admin: 01/02/25 10:50 Dose: 25 mg Ibuprofen (Ibuprofen 800 Mg Tablet) 800 mg PO TIDWM PRN PRN Reason: severe headache Last Admin: 01/02/25 08:18 Dose: 800 mg Lactase (Lactase Tablet) 1 tab PO TIDWM [facility] Last Admin: 01/03/25 11:07 Dose: Not Given Lactase (Lactase Tablet) 1 tab PO TID PRN PRN Reason: to consume milk products Last Admin: 12/16/24 18:26 Dose: 1 tab Lactulose (Lactulose 20 Gm/30 Ml Solution) 30 gm PO Q4H PRN PRN Reason: Constipation Lamotrigine (Lamotrigine 25 Mg Tablet) 25 mg PO BEDTIME [facility] Last Admin: 01/02/25 20:56 Dose: 25 mg Lidocaine (Lidocaine 4 % Patch Adh..Patch) 1 patch TRANSDERMA DAILY [facility]; Protocol Last Admin: 01/03/25 08:23 Dose: 1 patch Loratadine (Loratadine 10 Mg Tablet) 10 mg PO DAILY [facility] Last Admin: 01/03/25 08:23 Dose: 10 mg Magnesium Hydroxide (Milk Of Magnesia 30 Ml Oral.Susp) 30 ml PO DAILY PRN PRN Reason: Constipation Last Admin: 01/01/25 15:27 Dose: 30 ml Metformin HCl (Metformin Hcl Er 500 Mg Tab.Er.24h) 500 mg PO DAILY@1700 [facility] On Hold: 01/02/25 17:09 Last Admin: 01/02/25 15:59 Dose: 500 mg Naltrexone HCl (Naltrexone Hcl 50 Mg Tablet) 25 mg PO DAILY [facility] Last Admin: 01/03/25 08:21 Dose: 25 mg Nicotine (Nicotine 21 Mg Patch.Td24) 21 mg TRANSDERMA DAILY PRN PRN Reason: smoking cessation Last Admin: 01/03/25 08:43 Dose: 21 mg Nicotine Polacrilex (Nicotine Polacrilex 2 Mg Gum) 4 mg BUCCAL Q2H PRN PRN Reason: Nicotine Cravings Last Admin: 12/28/24 14:08 Dose: 4 mg Pt Own( Levonorgestrel- Ethinyl Estrad [ Vienva] 0.1-20 Mg- Mcg Tablet) 1 tab PO DAILY [facility] Last Admin: 01/03/25 08:21 Dose: 1 tab Omeprazole (Omeprazole 20 Mg Capsule.Dr) 20 mg PO BID@0630,1630 [facility] Last Admin: 01/03/25 07:21 Dose: 20 mg Ondansetron HCl (Ondansetron Odt 4 Mg Tab.Rapdis) 4 mg TRANSLINGU Q8H PRN PRN Reason: Nausea and Vomiting Last Admin: 01/03/25 04:16 Dose: 4 mg Polyethylene Glycol (Polyethylene Glycol 3350 17 Gm Powd.Pack) 17 gm PO DAILY [facility] Last Admin: 01/03/25 08:23 Dose: 17 gm Prazosin HCl (Prazosin Hcl 1 Mg Capsule) 3 mg PO BEDTIME [facility]; Protocol Last Admin: 01/02/25 20:56 Dose: 3 mg Quetiapine Fumarate (Quetiapine Fumarate 50 Mg Tablet) 50 mg PO TID@0900,1300,1700 [facility] Last Admin: 01/03/25 14:29 Dose: Not Given Quetiapine Fumarate (Quetiapine Fumarate 100 Mg Tablet) 100 mg PO BEDTIME [facility] Last Admin: 01/02/25 20:56 Dose: 100 mg Senna (Sennosides 8.6 Mg Tablet) 17.2 mg PO BEDTIME [facility] Trazodone HCl (Trazodone Hcl 50 Mg Tablet) 150 mg PO BEDTIME [facility] Last Admin: 01/02/25 20:54 Dose: 150 mg Trazodone HCl (Trazodone Hcl 50 Mg Tablet) 50 mg PO BEDTIME [facility] Last Admin: 01/02/25 20:55 Dose: 50 mg Allergies Allergies Allergy/AdvReac Type Severity Reaction Status Date / Time divalproex sodium (From Allergy Unknown Unknown Verified 12/12/24 14:51 Depakote) chlorpromazine (From Allergy Unknown Verified 12/12/24 14:51 Thorazine) Assessment & Plan Assessment & Plan (1) Disruptive mood dysregulation disorder: Status: Acute Code(s): F34.81 - Disruptive mood dysregulation disorder Assessment and Plan: 01/03: Continue treatment Re-enforce education regarding increase in fluids and movement to aide in mgt of constipation. Pt is talking about discharge to father's home. (2) Intellectual disability: Status: Acute Code(s): F79 - Unspecified intellectual disabilities (3) Autism: Status: Acute Code(s): F84.0 - Autistic disorder Plan Constipation Abdominal exam is reassuring, no need to repeat KUB at this time We will order suppository x1 Lactulose 30 mL times one , may repeat in 4 hours, up to 3 doses to elicit bowel movement We will add in senna and Colace to prevent constipation Encouraged increased water intake and ambulation. Thank you for allowing me to participate in the care of this patient. Signing off at this time. Please reconsult of any acute concerns or issues arise Reason for continued inpatient stay Substantial Risk for: rapid decompensation Time Spent With Patient Time: Total time managing care of this patient today ____ minutes.
--- NOTE | 2025-01-03 17:24 | PC.NURSE ---
After several constipation medications Jennifer was finally able to have a large soft BM. She is c/o abdominal discomfort so still doesn't feel great. She states she has a KIMBALL for which she was given Tylenol. She is given Gatorade to drink and also water to encourage hydration since she has not been able to hold anything down. Initially felt dizzy getting out of bed but has since now resolved. Will continue to monitor.
[2025-01-03 17:38] VITALS: BP 116/56; PULSE 92; RESP 20; O2SAT 98
[2025-01-03 19:53] VITALS: BP 125/63; PULSE 110; TEMP 36.5; O2SAT 97
[2025-01-03 22:17] VITALS: BP 125/63
--- NOTE | 2025-01-04 01:32 | PC.NURSE ---
Patient complained of ongoing nausea and (unwitnessed) vomiting. She became agitated, crying and yelling no one cares about me in this place! I wanna go home! She was redirected by staff but continued to escalate, then deescalate. PRN Haldol was administered while waiting for an order for the nausea. An order for IM zofran was obtained, and was administered at 2121. Patient's nausea subsided as a result.
[2025-01-04] MEDS: Lidocaine 4 % Patch ADH..PATCH 1 PATCH TRANSDERMA (09:10)
[2025-01-04] MEDS: LEVONORGESTREL ETHINYL ESTRAD 1 EACH PO (09:12)
[2025-01-04] MEDS: Nicotine 21 MG PATCH.TD24 TRANSDERMA (09:36)
--- NOTE | 2025-01-04 12:35 | PM.PSYDC ---
DS: Providers Provider Date of Service: 01/04/25 Date of admission: 12/13/24 14:13 Date of discharge: 01/04/25 Primary care physician: Unknown Physician Admitting clinician: Aarti Hernández Attending physician on admission: Jaime Alford Consults: 12/16/24 12:34 Consult to Hospitalist Routine Comment: Consulting Provider: [facility] [place] Hospitalists Reason For Exam: Pain L Foot-XRay is negative, Tyl/Ibu not helpful 01/03/25 12:41 Consult to Hospitalist Routine Comment: no response to fleet, laxatives Consulting Provider: [facility] [place] Hospitalists Reason For Exam: severe constipation-vomiting- Attending physician on discharge: Jaime Alford Discharging clinician: Aarti Hernández DS: Diagnosis Discharge Diagnosis (1) Constipation by delayed colonic transit: Status: Resolved (2) Disruptive mood dysregulation disorder: Status: Acute (3) Autism: Status: Acute (4) Intellectual disability: Status: Acute DS: Medications Discharge Medications Home Medications: Home Medications ?Medication ?Instructions ?Recorded ?Confirmed levomefolate calcium 7.5 mg tablet 7.5 mg PO DAILY 12/12/24 12/12/24 levonorgestrel-ethinyl estradiol 1 tab PO DAILY 12/12/24 12/12/24 0.1 mg-20 mcg tablet (Vienva) Previous Rx's ?Medication ?Instructions ?Recorded acetaminophen 325 mg tablet 650 mg (2 x 325 mg) PO Q6H PRN 01/04/25 Headache/Pain, Scale 1-10 #0 tabs albuterol sulfate 90 mcg/actuation 2 puff inhalation RQ4H PRN 01/04/25 aerosol inhaler (Ventolin HFA) Wheezing #1 inhaler benztropine 0.5 mg tablet 0.5 mg PO BID #60 tabs 01/04/25 dexlansoprazole 30 mg 30 mg PO DAILY #30 caps 01/04/25 capsule,biphase delayed release (Dexilant) docusate sodium 100 mg capsule 100 mg PO BID #60 caps 01/04/25 haloperidol 5 mg tablet 5 mg PO QID PRN agitation, 01/04/25 aggression, SIBS #60 tabs hydroxyzine HCl 25 mg tablet 25 mg PO Q6H PRN mild anxiety #60 01/04/25 tabs ibuprofen 800 mg tablet 800 mg PO TIDWM PRN severe 01/04/25 headache #0 tabs lamotrigine 25 mg tablet 25 mg PO BEDTIME #30 tabs 01/04/25 loratadine 10 mg tablet 10 mg PO DAILY #30 tabs 01/04/25 naltrexone 50 mg tablet 25 mg (1/2 x 50 mg) PO DAILY #30 01/04/25 tabs omeprazole 20 mg capsule,delayed 20 mg PO BID@0630,1630 #60 caps 01/04/25 release polyethylene glycol 3350 17 gram 17 g PO DAILY #30 ea 01/04/25 oral powder packet prazosin 1 mg capsule 3 mg PO BEDTIME #90 caps 01/04/25 quetiapine 100 mg tablet 100 mg PO BEDTIME #30 tabs 01/04/25 quetiapine 50 mg tablet 50 mg PO QID #120 tabs 01/04/25 sennosides 8.6 mg tablet (Senna 17.2 mg (2 x 8.6 mg) PO BEDTIME 01/04/25 Lax) #30 tabs trazodone 50 mg tablet 150 mg (3 x 50 mg) PO BEDTIME #90 01/04/25 tabs Mental Status Exam Mental Status Exam Patient Appearance: Appropriate Patient Orientation: Person, Place, Time and Situation Level of Consciousness: Awake and Alert Patient Behavior: Appropriate and Cooperative Mood Description: Labile Affect Description: Labile Patient Cognition Impaired: Yes Ability to Follow Directions: Good Speech Pattern: Clear and Spontaneous Speech Memory Description: Intact Hallucinations: None (denies today) Thought Process: Intact Thought Content: positive for Intact Abnormal Motor Activity Signs and Symptoms: Restlessness Judgement: Good Data Data Completed and Pending Completed studies during hospitalization [Text1]: 01/01/25 08:08 Creatinine 0.87 Estim Creat Clear Calc 134.1 Estimated GFR > 60 Imaging Diagnostic Imaging Impressions Foot X-Ray 12/15/24 12:40 IMPRESSION: No acute fracture or dislocation. Electronically signed by: Nathaly Harris MD 12/15/2024 12:54 PM EDT RP Head CT 12/30/24 16:14 IMPRESSION: No acute intracranial abnormality. Electronically signed by: Ashvin Lee MD 12/30/2024 04:33 PM EDT RP DS: Summary Hospital Course Hospital Course: Admission to adult psychiatry for exacerbation of mood dysregulation, tox screen positive for opiates, cocaine, fentanyl, SI, HI. Medications were titrated on an ongoing basis, at times with result, at times without result. Behavioral planning and management was effective. Pt engaged in SIBS on the unit (head banging) and at times required restraint. Pt reports wanting to move to [place] with her mother, not wanting to live with her father and not wanting to continue school. She was comfortable on the unit and did indicate that she would be content living on the unit on an ongoing basis. She demonstrated minimal frustration tolerance and was dysregulated often when limits were set. She reported several reasons and circumstances for positive toxic screens, blaming her father, family, school- it was not possible to learn how pt had access to develop the positive toxic screen. [facility] reports were filed. Parents were, as they have been by history, supportive, consistent, and engaged in pt's care. Both parents work in health care, mother in [place] as an RN and father, whom pt lives with a mental health professional. Concerns for pt being overmedicated to manage behaviors were heard, discussed and addressed with care. Pt was able to stabilize. She had upcoming family events and a scheduled visit by her mother which appeared to be the primary motivators for her to want to discharge. DDS Services were made available during this admission. Pt may require residential care and behavioral unit admissions in the future to help her to work through the issues she identifies as problematic in order to move forward to independent living. Status at Discharge Functional status at discharge: independent ambulation Overall status at discharge: patient is back to baseline Time Spent with Patient Time attestation: Total time managing care of this patient today ____ minutes. Time spent: Less than 30 minutes Discharge Plan Discharge Anticipated Discharge Date/Time: 01/04/25 10:48 Patient Disposition: Home, Self-Care Discharge Diagnosis: Intellectual Disability Autism Disruptive Mood Dysregulation Disorder Referrals: Janeen Garza APRN [Other] - 01/05/25 4:30 pm Referral Note: In person appointment with Janeen Garza Department of Developmental Services (DDS) [Other] - [address] [place] [address] [Other] - 01/06/25 5:00 pm Referral Note: Weekly appointments recommended [facility] [Other] - 1 Week Referral Note: *In the event that your therapist does not accept you at her new practice, please call [facility] in order to continue with weekly therapeutic services. Physician,Unknown J [Primary Care Provider, Medical] - 1 Week Discharge Medications: New acetaminophen 325 mg Tablet 650 mg PO Q6H PRN (Reason: Headache/Pain, Scale 1-10) Qty: 0 0RF haloperidol 5 mg Tablet 5 mg PO QID PRN (Reason: agitation, aggression, SIBS) Qty: 60 0RF ibuprofen 800 mg Tablet 800 mg PO TIDWM PRN (Reason: severe headache) Qty: 0 0RF naltrexone 50 mg Tablet 25 mg PO DAILY Qty: 30 0RF quetiapine 100 mg Tablet 100 mg PO BEDTIME Qty: 30 0RF lamotrigine 25 mg Tablet 25 mg PO BEDTIME Qty: 30 0RF docusate sodium 100 mg Capsule 100 mg PO BID Qty: 60 0RF hydroxyzine HCl 25 mg Tablet 25 mg PO Q6H PRN (Reason: mild anxiety) Qty: 60 0RF albuterol sulfate [Ventolin HFA] 90 mcg/actuation Hfa Aerosol Inhaler 2 puff inhalation RQ4H PRN (Reason: Wheezing) Qty: 1 0RF loratadine 10 mg Tablet 10 mg PO DAILY Qty: 30 0RF sennosides [Senna Lax] 8.6 mg Tablet 17.2 mg PO BEDTIME Qty: 30 0RF polyethylene glycol 3350 17 gram Powder In Packet 17 g PO DAILY Qty: 30 0RF omeprazole 20 mg Capsule,Delayed Release(Dr/Ec) 20 mg PO BID@0630,1630 Qty: 60 0RF Continued levonorgestrel-ethinyl estrad [Vienva] 0.1-20 mg-mcg tablet 1 tab PO DAILY levomefolate calcium 7.5 mg tablet 7.5 mg PO DAILY benztropine 0.5 mg Tablet 0.5 mg PO BID Qty: 60 0RF trazodone 50 mg Tablet 150 mg PO BEDTIME Qty: 90 0RF prazosin 1 mg Capsule 3 mg PO BEDTIME Qty: 90 0RF Protocol: Hold for SBP< HOLD for SBP < : 90 quetiapine 50 mg tablet 50 mg PO QID Qty: 120 0RF dexlansoprazole [Dexilant] 30 mg capsule,biphase delayed releas 30 mg PO DAILY Qty: 30 0RF Discontinued quetiapine 25 mg Tablet 75 mg PO QID Qty: 360 0RF nicotine (polacrilex) 2 mg Gum 4 mg buccal Q2H PRN (Reason: Nicotine Cravings) Qty: 100 0RF naltrexone 50 mg Tablet 25 mg PO DAILY Qty: 30 0RF trazodone 50 mg tablet 50 mg PO BEDTIME Discharge Orders: Discharge Order (Routine); Ordered 01/04/25 Ordered By: Aarti Hernández Diet: Advance to usual diet Activity on Discharge: As tolerated Stand Alone Forms: Patient Portal Discharge page, Community Support Print Language: Irish Care Plan Goals: Mood and Behavioral Stabilization Health Concerns: Mood and Behavioral Stabilization Plan of Treatment: Attend scheduled appointments Take medications as directed Assessment: Radha enoch SI,HI,AH,VH Today she asks to return home with her family. She reports several events she is looking forward to attending with her family Discharge Date/Time: 01/04/25 11:58
== END 2025-01-04 11:58 | disposition home or self-care (01) | DRG 753 ==
LOC: HO.ED 19:22 → HO.PM5 12-13 14:44
PROVIDERS: Physician Assistant; Admitting Provider Psychiatry & Neurology Psychiatry; Emergency Provider Internal Medicine; Visit Provider Clinical Nurse Specialist Psychiatric/Mental Health, Adult
DX: F34.81 Disruptive mood dysregulation disorder (principal); F79 Unspecified intellectual disabilities; R45.851 Suicidal ideations; M79.672 Pain in left foot; F17.210 Nicotine dependence, cigarettes, uncomplicated; Z71.6 Tobacco abuse counseling; K59.01 Slow transit constipation; Z78.1 Physical restraint status; F84.0 Autistic disorder; Z79.899 Other long term (current) drug therapy
CPT/HCPCS: 36415; 70450; 73630; 74018; 80048; 80053; 80061; 80076; 80307; 81003; 81025; 82565; 83036; 83735; 84443; 85025; 93005; 94660; 99285; J1630; J2405; J3360; S9485

== ENCOUNTER → 2024-12-13 08:42 | Outpatient (BNV) | payer MEDICAID, SELFPAY | PROVIDERS: Emergency Provider Internal Medicine; Visit Provider Internal Medicine Cardiovascular Disease | DX: Z13.6 Encounter for screening for cardiovascular disorders (principal) | CPT/HCPCS: 93010 ==

== ENCOUNTER 2024-12-13 14:13 | Outpatient (BNV) | payer MEDICAID, SELFPAY | END 2024-12-15 12:40 | PROVIDERS: Admitting Provider Psychiatry & Neurology Psychiatry; Emergency Provider Internal Medicine; Visit Provider Radiology Body Imaging | DX: M79.672 Pain in left foot (principal) | CPT/HCPCS: 73630 ==

== ENCOUNTER 2024-12-13 14:13 | Outpatient (BNV) | payer MEDICAID, SELFPAY | END 2024-12-25 11:21 | PROVIDERS: Admitting Provider Psychiatry & Neurology Psychiatry; Emergency Provider Internal Medicine; Visit Provider Radiology Diagnostic Radiology | DX: R25.0 Abnormal head movements (principal) | CPT/HCPCS: 70450 ==

== ENCOUNTER 2024-12-13 14:13 | Outpatient (BNV) | payer MEDICAID, SELFPAY | END 2024-12-30 16:14 | PROVIDERS: Admitting Provider Psychiatry & Neurology Psychiatry; Emergency Provider Internal Medicine; Visit Provider Radiology Diagnostic Radiology | DX: R51.9 Headache, unspecified (principal) | CPT/HCPCS: 70450 ==

== ENCOUNTER 2024-12-13 14:13 | Outpatient (BNV) | payer MEDICAID, SELFPAY | END 2025-01-02 17:55 | PROVIDERS: Admitting Provider Psychiatry & Neurology Psychiatry; Emergency Provider Internal Medicine; Visit Provider Radiology Neuroradiology | DX: R11.2 Nausea with vomiting, unspecified (principal) | CPT/HCPCS: 74018 ==

== ENCOUNTER → 2024-12-13 14:13 | Outpatient (BNV) | payer MEDICAID, SELFPAY | PROVIDERS: Admitting Provider Psychiatry & Neurology Psychiatry; Emergency Provider Internal Medicine; Visit Provider Nurse Practitioner Family | DX: M79.672 Pain in left foot (principal) | CPT/HCPCS: 99221 ==

== ENCOUNTER → 2024-12-13 14:13 | Outpatient (BNV) | payer MEDICAID, SELFPAY | PROVIDERS: Admitting Provider Psychiatry & Neurology Psychiatry; Emergency Provider Internal Medicine; Visit Provider Clinical Nurse Specialist Psychiatric/Mental Health, Adult | DX: F34.81 Disruptive mood dysregulation disorder (principal); R45.851 Suicidal ideations; F84.0 Autistic disorder; F79 Unspecified intellectual disabilities | CPT/HCPCS: 90792; 99231; 99232 ==

== ENCOUNTER 2025-01-13 14:31 | Emergency (ER) | payer MEDICAID, SELFPAY ==
--- OUTSIDE RECORDS SUMMARY | 2024-07-02 11:01 | XMS_ITS | Encounter Summary ---
Author Organization [facility] Address [address] [place] [address] Care Team Providers Care Flexo Operator Name Role Phone Yvon Pandey MD Primary Care Provider [phone] Marylou, Jude RPH Unavailable Marylou, Jude RPH Unavailable Marylou, Jude RPH Unavailable Marylou, Jude RPH Unavailable Marylou, Jude RPH Unavailable Encounter Details Date Type Department Care Team (Late st Contact Info) Description 07/02/2024 10:01 AM EST Hospital Encounter [facility] [address] [place] [phone] Man Sims MD [address] [place] [address] Social History Tobacco Use Types [...] on filedocumented in this encounter Care Teams Flexo Operator Relationship Specialty Start Date End Date Yvon Pandey MD [address] [place] [phone] PCP - General Pediatric, General 08/19/17 Jude Hickman [facility] [address] [facility] [place] [address] Pharmacist 08/20/17 Jude Hickman [facility] [address] [facility] [place] [address] Pharmacist 05/31/18 Jude Hickman [facility] [address] [facility] [place] [address] Pharmacist 09/13/18 Jude Hickman [facility] [address] [facility] [place] [address] Pharmacist 09/21/18 Jude Hickman [facility] [address] [facility] [place] [address] Pharmacist 10/18/18 documented as of this encounter
[2025-01-13] VITALS (9 sets, daily range): BP systolic 113–152; BP diastolic 62–89; PULSE 84–110; RESP 16–24; TEMP 36.6; O2SAT 95–100; BMI 44.9
--- NOTE | ~2025-01-13 | CT_ITS ---
CLINICAL HISTORY: banging head against a wall CT head without contrast Comparison: CT/SR - CT HEAD WITHOUT IV CONTRAST - 12/30/24 16:14 EDT Findings: No intra-axial mass, midline shift, hydrocephalus, or acute hemorrhage. No significant atrophy-like change or white matter disease. The visualized paranasal sinuses and mastoid air cells are normal. The orbits are within normal limits. There is no acute fracture. IMPRESSION: 1. No acute intracranial findings. This document has been electronically signed by: Jhoan Estrada MD on 01/13/2025 20:28:20
[2025-01-13 15:11] LABS: MANUAL DIFF FLAG NO
[2025-01-13 15:14] LABS: Appearance Urine Clear; Glucose Urine UA Negative (Negative); PH 6.0 (5.0-9.0); Specific Gravity - Urine 1.025 (1.005-1.025); UMIC TRIGGER UACC YES
[2025-01-13 15:15] LABS: Hematocrit 38.3 % (37.0-47.0); Hemoglobin 13.3 g/dl (12.0-16.0); Imm Gran Abs Auto 0.02 X10*3/uL (0.00-0.03); Imm Gran Pct Auto 0.3 % (0.0-0.4); Lymphocytes Absolute Auto 1.4 X10*3/uL (1.2-4.9); Mean Corpuscular HGB Conc 34.7 g/dl (31.0-35.0); Mean Corpuscular Hemoglobin 31.0 pg (27.0-33.0); Mean Corpuscular Volume 89.3 fL (80.0-98.0); NRBC Abs Auto 0.000 X10*3/uL (0.0-0.012); NRBC Pct Auto 0.0 /100WBC (0.0-0.2); Platelet Count 348 X10*3/uL (160-400); Red Blood Count 4.29 X10*6/uL (4.20-5.50); White Blood Count 6.8 X10*3/uL (4.8-10.8)
[2025-01-13 15:29] LABS: Alanine Aminotransferase 80 U/L (0-31); Albumin Level 4.5 g/dL (3.5-5.0); Alkaline Phosphatase 74 U/L (39-117); Anion Gap 11 (12-20); Aspartate Amino Transferase 33 U/L (5-31); Blood Urea Nitrogen 10 mg/dL (9-16); Calcium 9.2 mg/dL (8.4-10.2); Carbon Dioxide 22 mmol/L (22-29); Chloride 112 mmol/L (96-108); Creatinine Clr Calc Pharmacy 115.4; Estimated Glomerular Filt Rate > 60; Potassium 4.2 mmol/L (3.3-5.1); Sodium 141 mmol/L (135-145); Total Protein 7.1 g/dL (6.5-8.0)
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
[2025-01-13 16:35] LABS: Cannabinoid Screen Urine Not Detected (Not Detect)
--- NOTE | 2025-01-13 17:35 | PC.NURSE ---
1515: Pt becomes physically agitated during increased activity in the pod. She begins to repeatedly bang her forehead on the wall and security intervenes to avoid injury. Pt placed in physical restrains at this time as she repeatedly shouts she wants to hurt herself and reports she will continue to do so. While placing restraints, Pt attempts to harm staff by kicking. Pt given verbal reassurance that if she can contract to avoid self harm, restraints will be removed. She states she wants to hurt herself because it feels good. VSS at this time. Vital signs will be taken Q15min per policy, unless otherwise indicated. No evidence of injury to forehead from head banging. Pt denies any changes in vision, pain and n/v. 1614: Pt reports she will avoid self injurious behaviors and requests to use the bathroom. Security called to pod to remove restraints. Pt is calm and cooperative. VSS Pt uses the bathroom and then requests to have math problems to solve. Pt also requests to watch TV and listen to music. NAD noted at this time.
--- OUTSIDE RECORDS SUMMARY | 2025-01-13 17:51 | XMS_ITS | Encounter Summary ---
Author Organization [facility] Address [address] [place] [id number] Care Team Providers Care Medical Office Worker Name Role Phone Yvon Pandye MD Primary Care Provider [phone] Reason for Visit * Reason Comments Medication Refill Encounter Details Date Type Department Care Team (Late st Contact Info) Description 10/12/2022 Refill [facility] [address] [place] [address] Sammi Hyatt, ARELY [address] [place] [address] Medication Refill Social History Tobacco [...] documented as of this encounter Care Teams Medical Office Worker Relationship Specialty Start Date End Date Yvon Pandey MD [address] [place] [address] PCP - General Pediatrics 07/10/22 documented as of this encounter
--- OUTSIDE RECORDS SUMMARY | 2025-01-13 17:51 | XMS_ITS | Encounter Summary ---
Author Organization [address] [address] Care Team Providers Care Dyer And Washer Name Role Phone Jeanne Rodgers MD Primary Care Provider Vivian Robertson MD Primary Care Provider [phone] Jeanne Rodgers MD Primary Care Provider Reason for Visit * Reason Comments Medication Refill Encounter Details Date Type Department Care Team (Late st Contact Info) Description 12/23/2020 Refill [facility] Gastroenterology, [address] [phone] Angelique Rebolledo, FINANCE AND ADMINISTRATION MANAGER [address] [place] [phone] Gastroesophageal reflux disease, unspecified whether esophagitis present [...] Care Team (Late st Contact Info) Description 03/09/2025 11:00 AM EST Clinical Support [facility], Weight Management [address] [place] [phone] Ju Jacinto [address] [place] [phone] 04/03/2025 4:00 PM EST Office Visit [facility], Weight Management [address] [place] [phone] Winsome Blackburn MD [address] [place] [id number] 06/01/2025 2:30 PM EST Clinical Support [facility], Weight Management [address] [place] [phone] Ju Jacinto [address] [place] [phone] 06/26/2025 2:30 PM EST Office Visit [facility], Weight Management [address] [place] [phone] Winsome Blackburn MD [address] [place] [phone] documented as of this encounter Visit Diagnoses Diagnosis Gastroesophageal reflux disease, unspecified whether esophagitis present documented in this encounter Care Teams Dyer And Washer Relationship Specialty Start Date End Date Jeanne Rodgers MD [address] [place], [place] [phone] PCP - General 01/03/20 09/05/24 Vivian Robertson MD [address] [place] [address] PCP - General General Pediatrics 09/06/24 11/28/24 Jeanne Rodgers MD [address] [place] [phone] PCP - General General Pediatrics 11/29/24 documented as of this encounter
--- OUTSIDE RECORDS SUMMARY | 2025-01-13 17:51 | XMS_ITS | Encounter Summary ---
Author Organization [facility] '[facility] Address [address] [place] [address] Care Team Providers Care Undercollar Baster Name Role Phone Jeanne Rodgers MD Primary Care Provider [phone] Vivian Robertson MD Primary Care Provider [phone] Jeanne Rodgers MD Primary Care Provider Reason for Referral * RAILROADER-Consult (Routine) - Closed Specialty Diagnoses / Procedures Referred By Contac t Referred To Contact Other Specialties / Weight Management Diagnoses Obesity, unspecified classification, unspecified obesity type, unspecified whether serious comorbidity present Jessica Sorto [address] [place] [address] Phone: tel: fax: Referral ID Status Reason Start Date Expiration Date V isits Requested Visits Authorized [id number] Closed Specialty Services Required 12/31/2023 12/23/2024 1 1 Encounter Details Date Type Department Care Team (Late st Contact Info) Description 12/31/2023 Community Orders EPICCARE LINK DFLT Jessica Almendarez [address] [place] [phone] Obesity, unspecified classification, unspecified obesity type, unspecified [...] 03/09/2025 11:00 AM EST Clinical Support [facility], Weight Management [address] [place] [address] Ju Jacinto [address] [place] [address] 04/03/2025 4:00 PM EST Office Visit [facility], Weight Management [address] [place] [address] Winsome Blackburn MD [address] [place] [address] 06/01/2025 2:30 PM EST Clinical Support [facility], Weight Management [address] [place] [address] Ju Jacinto [address] [place] [address] 06/26/2025 2:30 PM EST Office Visit [facility], Weight Management [address] [place] [address] Winsome Blackburn MD [address] [place] [address] Scheduled Referrals Name Type Priority Associated Diagnoses Orde r Schedule Community Referral to Weight Management Outpatient Referral Routine Obesity, unspecified classification, unspecified obesity type, unspecified whether serious comorbidity present Ordered: 12/31/2023 documented as of this encounter Visit Diagnoses Diagnosis Obesity, unspecified classification, unspecified obesity type, unspecified whether serious comorbidity present- Primary documented in this encounter Care Teams Undercollar Baster Relationship Specialty Start Date End Date Jeanne Rodgers MD [address] [place] [address] PCP - General 01/03/20 09/05/24 Vivian Robertson MD [address] [place] [address] PCP - General General Pediatrics 09/06/24 11/28/24 Jeanne Rodgers MD [address] [place] [address] PCP - General General Pediatrics 11/29/24 documented as of this encounter
--- OUTSIDE RECORDS SUMMARY | 2025-01-13 17:51 | XMS_ITS | Encounter Summary ---
Author Organization [address] [address] Care Team Providers Care Manager Validation Name Role Phone Jeanne Rodgers MD Primary Care Provider [phone] Vivian Robertson MD Primary Care Provider Jeanne Rodgers MD Primary Care Provider Reason for Visit * Reason Comments Medication Refill Encounter Details Date Type Department Care Team (Late st Contact Info) Description 09/28/2021 Refill [facility] Gastroenterology[address] [phone] Angelique Rebolledo, SUPERVISOR SOLDERING [address] [place] [address] [phone] Gastroesophageal reflux disease, unspecified whether esophagitis present [...] Description 03/09/2025 11:00 AM EST Clinical Support [facility], Weight Management [address] [place] [address] Ju Jacinto [address] [place] [address] 04/03/2025 4:00 PM EST Office Visit [facility], Weight Management [address] [place] [address] Winsome Blackburn MD [address] [place] [address] 06/01/2025 2:30 PM EST Clinical Support [facility], Weight Management [address] [place] [address] Ju Jacinto [address] [place] [address] 06/26/2025 2:30 PM EST Office Visit [facility], Weight Management [address] [place] [address] Winsome Blackburn MD [address] [place], [place] [phone] documented as of this encounter Visit Diagnoses Diagnosis Gastroesophageal reflux disease, unspecified whether esophagitis present documented in this encounter Care Teams Manager Validation Relationship Specialty Start Date End Date Jeanne Rodgers MD [address] [place], [place] [phone] PCP - General 01/03/20 09/05/24 Vivian Robertson MD [address] [place] [address] PCP - General General Pediatrics 09/06/24 11/28/24 Jeanne Rodgers MD [address] [place] [address] PCP - General General Pediatrics 11/29/24 documented as of this encounter
--- OUTSIDE RECORDS SUMMARY | 2025-01-13 17:51 | XMS_ITS | Encounter Summary ---
Author Organization [facility] Address [address] [place] [address] Care Team Providers Care Automatic Buffer Name Role Phone Jeanne Rodgers MD Primary Care Provider Vivain Robertson MD Primary Care Provider [phone] Jeanne Rodgers MD Primary Care Provider [phone] Encounter Details Date Type Department Care Team (Late st Contact Info) Description 02/24/2024 Community Orders EPICCARE LINK DFLT [facility] Jeanne Rodgers MD [address] [place] [address] Social History Tobacco Use Types Packs/Day Years [...] Description 03/09/2025 11:00 AM EST Clinical Support [facility], Weight Management [address] [place] [address] Ju Jacinto [address] [place] [address] 04/03/2025 4:00 PM EST Office Visit [facility], Weight Management [address] [place] [address] Winsome Blackburn MD [address] [place] [address] 06/01/2025 2:30 PM EST Clinical Support [facility], Weight Management [address] [place] [address] Ju Jacinto [address] [place] [address] 06/26/2025 2:30 PM EST Office Visit [facility], Weight Management [address] [place] [address] Winsome Blackburn MD [address] [place] [address] [phone] documented as of this encounter Visit Diagnoses Not on filedocumented in this encounter Care Teams Automatic Buffer Relationship Specialty Start Date End Date Jeanne Rodgers MD [address] [place] [address] PCP - General 01/03/20 09/05/24 Vivian Robertson MD [address] [place] [address] PCP - General General Pediatrics 09/06/24 11/28/24 Jeanne Rodgers MD [address] [place] [address] PCP - General General Pediatrics 11/29/24 documented as of this encounter
--- OUTSIDE RECORDS SUMMARY | 2025-01-13 17:51 | XMS_ITS | Encounter Summary ---
Author Organization [address] [address] Care Team Providers Care Cook Dinner Name Role Phone Jeanne Rodgers MD Primary Care Provider Vivian Robertson MD Primary Care Provider Jeanne Rodgers MD Primary Care Provider [phone] Reason for Visit * Reason Comments Medication Refill Encounter Details Date Type Department Care Team (Late st Contact Info) Description 12/24/2020 Refill [facility] Gastroenterology[address] [phone] Kiersten Salazar, MATERIALS MGMT TECH [address] [place] [address] [phone] Gastroesophageal reflux disease, unspecified whether esophagitis present [...] [facility], Weight Management [address] [place] [address] [address] [place] [address] 04/03/2025 4:00 PM EST Office Visit [facility], Weight Management [address] [place] [address] Winsome Blackburn MD [address] [place] [address] 06/01/2025 2:30 PM EST Clinical Support [facility], Weight Management [address] [place] [address] [address] 06/26/2025 2:30 PM EST Office Visit [facility], Weight Management [address] [place] [address] Winsome Blackburn MD [address] [place] [address] documented as of this encounter Visit Diagnoses Diagnosis Gastroesophageal reflux disease, unspecified whether esophagitis present documented in this encounter Care Teams Cook Dinner Relationship Specialty Start Date End Date Jeanne Rodgers MD [address] [place] [address] PCP - General 01/03/20 09/05/24 Vivian Robertson MD [address] [place] [address] PCP - General General Pediatrics 09/06/24 11/28/24 Jeanne Rodgers MD [address] [place] [address] PCP - General General Pediatrics 11/29/24 documented as of this encounter
--- OUTSIDE RECORDS SUMMARY | 2025-01-13 17:51 | XMS_ITS | Encounter Summary ---
Author Organization [address] [address] Care Team Providers Care Hydro Excavation Operator Name Role Phone Jeanne Rodgers MD Primary Care Provider Vivian Robertson MD Primary Care Provider Jeanne Rodgers MD Primary Care Provider [phone] Reason for Visit * Reason Comments Medication Refill Encounter Details Date Type Department Care Team (Late st Contact Info) Description 07/30/2022 Refill [facility] Gastroenterology, [address] [phone] Angelique Rebolledo, EXCEPTIONAL CHILDREN TEACHER ASSISTANT [address] [place] [address] [phone] Gastroesophageal reflux disease, unspecified whether esophagitis present [...] [facility], Weight Management [address] [place] [address] [address] [place] [address] 04/03/2025 4:00 PM EST Office Visit [facility], Weight Management [address] [place] [address] Winsome Blackburn MD [address] [place] [address] 06/01/2025 2:30 PM EST Clinical Support [facility], Weight Management [address] [place] [address] [address] 06/26/2025 2:30 PM EST Office Visit [facility], Weight Management [address] [place] [address] Winsome Blackburn MD [address] [place] [address] documented as of this encounter Visit Diagnoses Diagnosis Gastroesophageal reflux disease, unspecified whether esophagitis present documented in this encounter Care Teams Hydro Excavation Operator Relationship Specialty Start Date End Date Jeanne Rodgers MD [address] [place] [address] PCP - General 01/03/20 09/05/24 Vivian Robertson MD [address] [place] [address] PCP - General General Pediatrics 09/06/24 11/28/24 Jeanne Rodgers MD [address] [place] [address] PCP - General General Pediatrics 11/29/24 documented as of this encounter
--- OUTSIDE RECORDS SUMMARY | 2025-01-13 17:51 | XMS_ITS | Clinical Summary ---
Author Organization [facility] Address [address] [place] [address] Care Team Providers Care Promotional Demonstrator Name Role Phone Jeanne Rodgers MD Primary Care Provider [phone] Source Comments Please note that some or [...] so, obtain the minor's consent prior to disclosure.[facility] Allergies Active Allergy Reactions Criticality Noted [...] Tablet tablet Take 7.5 mg by mouth in the morning. Active cholecalciferol, vitamin D3, (VITAMIN D3) 25 mcg (1,000 unit) tablet Take 2,000 Units by mouth Active docusate (COLACE) 100 MG capsule Take by mouth 2 (two) times daily Active levonorgestrel-e thinyl estradiol (AVIANE,ALESSE,L ESSINA) 0.1-20 mg-mcg per tablet Take by mouth in the morning. Active traZODone (DESYREL) 150 MG tablet Take 150 mg by mouth Active benztropine (COGENTIN) 0.5 MG tablet Take 0.5 mg by mouth in the morning and 0.5 mg before bedtime. Active fluphenazine (PROLIXIN) 5 MG tablet Active hydrOXYzine (ATARAX) 25 MG tablet Active naltrexone (DEPADE) 50 mg tablet Take 25 mg by mouth in the morning. Active omega 5-lvz-fsl-fish oil (FISH OIL) 1,200 (144-216) mg Capsule Take by mouth Activ e fluPHENAZine (PROLIXIN) 2.5 MG tablet 4 Active famotidine (PEPCID) 40 MG tabletIndication s:Gastroesophage al reflux disease, unspecified whether esophagitis present,Other constipation TAKE 1 TABLET(40 MG) BY MOUTH TWICE DAILY 180 tablet 4 Active Additional Information Patient not taking.Reported on 11/29/2024 QUEtiapine (SEROQUEL) 50 MG tablet Take 50 mg by mouth 4 Active polyethylene glycol (MIRALAX) 17 gram/dose powder Take 17 g by mouth daily Active dexlansoprazole (DEXILANT) 30 mg capsuleIndicatio ns:Gastroesophag eal reflux disease, unspecified whether esophagitis present,Vomiting , unspecified vomiting type, unspecified whether nausea present Take 1 capsule (30 mg) by mouth daily 30 capsule 2 5 Active Active Problems Patient Care Coordination No te Formatting of this note migh t be different from the original. [facility] Nedra Brown LCSW, Clinical Gas Meter Repairer, (05.20.2018) Re-referral: Kaylee Garcia LCSW - Tel. [phone] (03.01.2024) Problem Noted Date Diagnosed Date Gastroesophageal reflux dise ase, unspecified whether esophagitis present 09/17/2020 Overview (09/17/2020): Added automatically from request for surgery [id number] Behavior problem in pediatric patient 06/15/2018 Syncope, unspecified syncope type 06/24/2017 DMDD (disruptive mood dysregulation disorder) Encounters Date Type Department Care Team Description 11/29/2024 11:45 AM EDT Nutrition [facility], Clinical Nutrition [address] [place] [address] Class 3 severe obesity due to excess calories with body mass index (BMI) of 45.0 to 49.9 in adult, unspecified whether serious comorbidity present (Primary Dx); Dietary counseling and surveillance; Severe obesity due to excess calories without serious comorbidity with body mass index (BMI) greater than or equal to 140% of 95th percentile for age in pediatric patient [E66.01, Z68.56] 11/29/2024 11:00 AM EDT Clinical Support [facility], Weight Management [address] [place] [address] Ju Jacinto Obesity, unspecified class, unspecified obesity type, unspecified whether serious comorbidity present (Primary Dx); Psychological factors affecting medical condition 11/29/2024 10:15 AM EDT Office Visit [facility], Weight Management [address] [place] [address] Winsome Blackburn MD Severe obesity due to excess calories without serious comorbidity with body mass index (BMI) greater than or equal to 140% of 95th percentile for age in pediatric patient (Primary Dx); DMDD (disruptive mood dysregulation disorder); Autism from Last 3 Months Family History Medical History Relation Name Comments ADD / ADHD Brother 1 Anxiety disorder Brother 1 Autism Brother 1 Depression Brother 1 Developmental delay Brother 2 Justice Mayorga Learning disabilities Brother 2 Justice Mayorga Obesity Brother 3 José Miguel Mayorga Anxiety [...] Mother Jazmine Pendleton Obesity Mother Jazmine Pendleton Weight loss surgery Mother Jazmine Pendleton Anxiety disorder Paternal Aunt [...] 3 José Miguel Mayorga Father José Miguel Anns Maternal Grandmother Naomi Pendleton Maternal Uncle 1 [...] Sign Reading Time Taken Comments Blood Pressure 124/70 11/29/2024 10:43 AM EDT Pulse 114 11/29/2024 10:43 AM EDT Temperature 36.7 C (98.1 F) 07/12/2024 9:16 AM EDT Respiratory Rate 21 07/12/2024 9:16 AM EDT Oxygen Saturation 98% 11/29/2024 10:43 AM EDT Inhaled Oxygen Concentration - - Weight 117 kg (257 lb 15 oz) 11/29/2024 10:43 AM EDT Height 160.5 cm (5' 3.19 ) 11/29/2024 10:43 AM E DT Body Mass Index 45.42 11/29/2024 10:43 AM EDT Plan of Treatment Upcoming Encounters Date Type Department Care Team (Late st Contact Info) Description 03/09/2025 11:00 AM EST Clinical Support [facility], Weight Management [address] [place] [address] Ju Jacinto [address] [place] [address] 04/03/2025 4:00 PM EST Office Visit [facility], Weight Management [address] [place] [address] Winsome Blackburn MD [address] [place] [address] 06/01/2025 2:30 PM EST Clinical Support [facility], Weight Management [address] [place] [address] Ju Jacinto [address] [place] [address] 06/26/2025 2:30 PM EST Office Visit [facility], Weight Management [address] [place] [address] Winsome Blackburn MD [address] [place] [address] Health Maintenance Due Date Last Done Comments DTaP/TDAP/TD VACCINES (1 - Tdap) 11/30/2010 ADOLESCENT HIV SCREENING 11/30/2016 COVID-19 Vaccine ( - 2023-2 5 season) 2025 INFLUENZA Discontinued NIRSEVIMAB VACCINES UNDER 8 MONTHS Aged Out No longer eligible b ased on patient's age to complete this topic Insurance [employer] Care Teams Promotional Demonstrator Relationship Specialty Start Date End Date Jeanne Rodgers MD [address] [place] [phone] PCP - General General Pediatrics 11/29/24
--- OUTSIDE RECORDS SUMMARY | 2025-01-13 17:51 | XMS_ITS | Encounter Summary ---
Author Organization [facility] Address [address] [place] [address] Care Team Providers Care Spar Cap Beveler Name Role Phone Jeanne Rodgers MD Primary Care Provider Vivian Robertson MD Primary Care Provider [phone] Jeanne Rodgers MD Primary Care Provider [phone] Reason for Visit * Reason Comments Medication Refill Encounter Details Date Type Department Care Team (Late st Contact Info) Description 02/20/2022 Refill [facility] Gastroenterology, [address], [address] [place] [address] Brody Wilson MD [address] [place] [address] Gastroesophageal reflux disease, unspecified whether esophagitis present [...] Description 03/09/2025 11:00 AM EST Clinical Support [facility], Weight Management [address] [place] [address] Ju Jacinto [address] [place] [address] 04/03/2025 4:00 PM EST Office Visit [facility], Weight Management [address] [place] [address] Winsome Blackburn MD [address] [place] [address] 06/01/2025 2:30 PM EST Clinical Support [facility], Weight Management [address] [place] [address] Ju Jacinto [address] [place] [address] 06/26/2025 2:30 PM EST Office Visit [facility], Weight Management [address] [place] [address] Winsome Blackburn MD [address] [place] [address] documented as of this encounter Visit Diagnoses Diagnosis Gastroesophageal reflux disease, unspecified whether esophagitis present documented in this encounter Care Teams Spar Cap Beveler Relationship Specialty Start Date End Date Jeanne Rodgers MD [address] [place] [address] PCP - General 01/03/20 09/05/24 Vivian Robertson MD [address] [place] [address] PCP - General General Pediatrics 09/06/24 11/28/24 Jeanne Rodgers MD [address] [place] [address] PCP - General General Pediatrics 11/29/24 documented as of this encounter
--- OUTSIDE RECORDS SUMMARY | 2025-01-13 17:51 | XMS_ITS | Encounter Summary ---
Author Organization [facility] Address [address] [place] [address] Care Team Providers Care Ice Guard Skating Rink Name Role Phone Yvon Pandey MD Primary Care Provider [phone] Reason for Visit * Reason Comments Medication Refill Encounter Details Date Type Department Care Team (Late st Contact Info) Description 10/25/2022 Refill [facility] [address] [place] [address] Sammi Hyatt, ARELY [address] [place] [address] Medication Refill Social History Tobacco [...] documented as of this encounter Care Teams Ice Guard Skating Rink Relationship Specialty Start Date End Date Yvon Pandey MD [address] [place] [address] PCP - General Pediatrics 07/10/22 documented as of this encounter
--- OUTSIDE RECORDS SUMMARY | 2025-01-13 17:51 | XMS_ITS | Clinical Summary ---
Author Organization [address] Address [address] [place] [address] Phone Care Team Providers Care Coater Smoking Pipe Name Role Phone Yvon Pandey MD Primary Care Provider [phone] Allergies Active Allergy Reactions Criticality Noted Date [...] series (1 - 3-do se series) 11/30/2018 Meningococcal B Vaccine (1 o f 2 - Standard) 2019 Chlamydia screening 11/30/2020 Hepatitis C screening 11/30/2021 Hepatitis B vaccine series ( 1 of 3 - 19+ 3-dose series) 11/30/2022 Tetanus adult (Td q 10,TDAP once) 2023 Cervical cancer screening 11/30/2024 Influenza Vaccine Pediatric (#1) 2024 Covid-19 vaccine series ( - season) 2025 RSV Immunization (1 - 1-dose 75+ series) [...] 6:34 PM 09/15/2022 9:39 PM Care Teams Coater Smoking Pipe Relationship Specialty Start Date End Date Yvon Pandey MD [address] [place] [phone] PCP - General Pediatrics 07/10/22
--- OUTSIDE RECORDS SUMMARY | 2025-01-13 17:51 | XMS_ITS | Encounter Summary ---
Author Organization [address] [address] Care Team Providers Care Material Control Clerk Name Role Phone Jeanne Rodgers MD Primary Care Provider Vivian Robertson MD Primary Care Provider Jeanne Rodgers MD Primary Care Provider Reason for Visit * Reason Comments Medication Refill Encounter Details Date Type Department Care Team (Late st Contact Info) Description 01/22/2021 Refill [facility] Gastroenter[address] [phone] Kiersten Salazar, COMMUNICATION CONSULTANT [address] [place] [address] [phone] Gastroesophageal reflux disease, unspecified whether esophagitis present [...] Description 03/09/2025 11:00 AM EST Clinical Support [facility], Weight Management [address] [place] [address] Ju Jacinto [address] [place] [address] 04/03/2025 4:00 PM EST Office Visit [facility], Weight Management [address] [place] [address] Winsome Blackburn MD [address] [place] [address] 06/01/2025 2:30 PM EST Clinical Support [facility], Weight Management [address] [place] [address] Ju Jacinto [address] [place] [address] 06/26/2025 2:30 PM EST Office Visit [facility], Weight Management [address] [place] [address] Winsome Blackburn MD [address] [place] [address] documented as of this encounter Visit Diagnoses Diagnosis Gastroesophageal reflux disease, unspecified whether esophagitis present documented in this encounter Care Teams Material Control Clerk Relationship Specialty Start Date End Date Jeanne Rodgers MD [address] [place] [address] PCP - General 01/03/20 09/05/24 Vivian Robertson MD [address] [place] [address] PCP - General General Pediatrics 09/06/24 11/28/24 Jeanne Rodgers MD [address] [place] [address] PCP - General General Pediatrics 11/29/24 documented as of this encounter
--- OUTSIDE RECORDS SUMMARY | 2025-01-13 17:51 | XMS_ITS | Encounter Summary ---
Author Organization [facility] Address [address] [place] [address] Care Team Providers Care Leather Production Artisan Name Role Phone Jeanne Rodgers MD Primary Care Provider Vivian Robertson MD Primary Care Provider [phone] Jeanne Rodgers MD Primary Care Provider Reason for Visit * Reason Comments Medication Refill Encounter Details Date Type Department Care Team (Late st Contact Info) Description 10/08/2021 Refill [facility] Gastroenterology, [address] 1[address], [address] [place] [address] Angelique Rebolledo, NARROW GAUGE BRAKEMAN [address] [place] [address] Gastroesophageal reflux disease, unspecified whether esophagitis present [...] Description 03/09/2025 11:00 AM EST Clinical Support [facility], Weight Management [address] [place] [address] OrvilleJu newman [address] [place] [address] 04/03/2025 4:00 PM EST Office Visit [facility], Weight Management [address] [place] [address] Winsome Blackburn MD [address] [place] [address] 06/01/2025 2:30 PM EST Clinical Support [facility], Weight Management [address] [place] [address] Ju Jacinto [address] [place] [address] 06/26/2025 2:30 PM EST Office Visit [facility], Weight Management [address] [place] [address] Winsome Blackburn MD [address] [place] [address] documented as of this encounter Visit Diagnoses Diagnosis Gastroesophageal reflux disease, unspecified whether esophagitis present documented in this encounter Care Teams Leather Production Artisan Relationship Specialty Start Date End Date Jeanne Rodgers MD [address] [place] [address] PCP - General 01/03/20 09/05/24 Vivian Robertson MD [address] [place] [address] PCP - General General Pediatrics 09/06/24 11/28/24 Jeanne Rodgers MD [address] [place] [address] PCP - General General Pediatrics 11/29/24 documented as of this encounter
--- OUTSIDE RECORDS SUMMARY | 2025-01-13 17:51 | XMS_ITS | Encounter Summary ---
Author Organization [facility] Address [address] [place] [address] Care Team Providers Care Storage Garage Manager Name Role Phone Jeanne Rodgers MD Primary Care Provider Vivian Robertson MD Primary Care Provider Jeanne Rodgers MD Primary Care Provider [phone] Reason for Visit * Reason Comments Medication Refill Encounter Details Date Type Department Care Team (Late st Contact Info) Description 08/16/2021 Refill [facility] Gastroenterology, [address] [phone] Angelique Rebolledo, GRAVURE PRINTING MACHINIST [address] [place] [phone] Gastroesophageal reflux disease, unspecified whether esophagitis present [...] Silva RN - 08/16/2021 12:53 PM EDT pt Last seen 06-04-21- pantoprazole was stoped and changed to aciphex documented in this encounter Plan of Treatment Upcoming Encounters Date Type Department Care Team (Late st Contact Info) Description 03/09/2025 11:00 AM EST Clinical Support [facility], Weight Management [address] [place] [address] Ju Jacinto [address] [place] [address] 04/03/2025 4:00 PM EST Office Visit [facility], Weight Management [address] [place] [address] Winsome Blackburn MD [address] [place] [address] 06/01/2025 2:30 PM EST Clinical Support [facility], Weight Management [address] [place] [address] Ju Jacinto [address] [place] [address] 06/26/2025 2:30 PM EST Office Visit [facility], Weight Management [address] [place] [address] Winsome Blackburn MD [address] [place] [address] documented as of this encounter Visit Diagnoses Diagnosis Gastroesophageal reflux disease, unspecified whether esophagitis present documented in this encounter Care Teams Storage Garage Manager Relationship Specialty Start Date End Date Jeanne Rodgers MD [address] [place] [address] PCP - General 01/03/20 09/05/24 Vivian Robertson MD [address] [place] [address] PCP - General General Pediatrics 09/06/24 11/28/24 Jeanne Rodgers MD [address] [place] [address] PCP - General General Pediatrics 11/29/24 documented as of this encounter
--- OUTSIDE RECORDS SUMMARY | 2025-01-13 17:51 | XMS_ITS | Encounter Summary ---
Author Organization [address] [address] Care Team Providers Care Pediatric Physician Assistant Name Role Phone Jeanne Rodgers MD Primary Care Provider Vivian Robertson MD Primary Care Provider Jeanne Rodgers MD Primary Care Provider Reason for Visit * Reason Comments Medication Refill Encounter Details Date Type Department Care Team (Late st Contact Info) Description 01/01/2022 Refill [facility] Gastroenter[address] [phone] Angelique Rebolledo, REVENUE DIRECTOR [address] [place] [phone] Gastroesophageal reflux disease, unspecified whether esophagitis present [...] Description 03/09/2025 11:00 AM EST Clinical Support [facility], Weight Management [address] [place] [address] Ju Jacinto [address] [place] [address] 04/03/2025 4:00 PM EST Office Visit [facility], Weight Management [address] [place] [address] Winsome Blackburn MD [address] [place] [address] 06/01/2025 2:30 PM EST Clinical Support [facility], Weight Management [address] [place] [address] Ju Jacinto [address] [place] [address] 06/26/2025 2:30 PM EST Office Visit [facility], Weight Management [address] [place] [address] Winsome Blackburn MD [address] [place] [address] documented as of this encounter Visit Diagnoses Diagnosis Gastroesophageal reflux disease, unspecified whether esophagitis present documented in this encounter Care Teams Pediatric Physician Assistant Relationship Specialty Start Date End Date Jeanne Rodgers MD [address] [place] [address] PCP - General 01/03/20 09/05/24 Vivian Robertson MD [address] [place] [address] PCP - General General Pediatrics 09/06/24 11/28/24 Jeanne Rodgers MD [address] [place] [address] PCP - General General Pediatrics 11/29/24 documented as of this encounter
--- OUTSIDE RECORDS SUMMARY | 2025-01-13 17:51 | XMS_ITS | Clinical Summary ---
Author Organization [facility] Address [address] [place] [address] Care Team Providers Care Cast Iron Dipper Name Role Phone Yvon Pandey MD Primary Care Provider [phone] Marylou, Jude RPH Unavailable Marylou, Jude RPH [...] (09/08/2023): Jeanne Safety Plan Creation Date: 09/08/23 Step 1: Warning signs: Warning Signs Start hurting self - hitting self, hitting head against wall, scratching Hearing voices Yelling Step 2: Internal coping strategies - Things I can do to take my mind off my problems without contacting another person: Strategies Music Sleep Weighted vest Step 3: People and social settings that provide distraction: Name Contact Information Paulo Encarnacion Step 4: People whom I can ask for help during a crisis: Name Contact Information Alysha - MARY Wandy - school [place] Janeen Garza Step 5: Professionals or agencies I can contact during a crisis: Clinician/Agency Name Phone Emergency Contact Mom Suicide Prevention Lifeline Phone: Call or Text 818 Crisis Text Line: Text HOME to 262676 Step 6: Making the environment safer (plan for lethal means safety): -no access to firearms, keep medications locked/out of access Optional: What is most important to me and worth living for?: Jeanne Safety Plan. Addie Bettencourt and Ambrose Mccurdy. Used with permission of the authors. 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 Aggressive behavior 05/26/2018 Depression 05/26/2018 Depression with suicidal ideation 08/19/2017 Depressive disorder 08/19/2017 Threatening to others 08/19/2017 Suicidal ideation 08/19/2017 Family History Medical History Relation Name Comments [...] 96 07/02/2024 9:53 AM EST Temperature 36.6 C (97.9 F) 07/02/2024 9:53 AM EST Respiratory Rate 18 09/20/2023 2:49 PM EDT [...] of 3 - 19+ 3-dose series) 11/30/2022 Pap Smear (Ages 21-65) 11/30/2024 Influenza Vaccine 12/02/2024 02/06/2019, , 03/03/2017, Additional history exists COVID-19 Vaccine ( season) 2025 HIV Screening Completed 11/02/2018 Hepatitis C Virus Screening Completed 11/02/2018 Influenza Vaccine Discontinued 02/06/2019, , 03/03/2017, Additional history exists Pneumococcal Vaccine: Pediatric (0-5 Years) and At-Risk Patients (6 to 49 Years) Aged Out No longer eligible based on patient's age to complete this topic Procedures Procedure Name Priority Date/Time Associated Diagnosis Comments HIV 1/2 AG/AB CMIA REFLEX TO CONFIRMATION Routine 11/02/2018 8:00 AM EDT HEPATITIS C ANTIBODY REFLEX HCV RT-PCR, QUANT Routine 11/02/2018 8:00 AM EDT from Last 3 Months or Most Recently Relevant to Health Maintenance Results * Hepatitis C Antibody reflex HCV RT-PCR, Quant (11/02/2018 8:00 AM EDT) Hepatitis C Antibody 0.19 0.00 - 0.79 S/CO ratio HOSPITAL LAB Comment: Nonreactive Performed at [facility], [place], [place] License 0385 CLIA [id number] 11/02/2018 8:00 AM EDT 11/02/2018 1:58 PM EDT Raquel Tello DANDY TENDER LAB BLOOD ORDERABLES Zamzam l Result HOSPITAL LAB * HIV 1/2 Ag/Ab CMIA Reflex to Confirmation (11/02/2018 8:00 AM EDT) Pathologist [facility] [place] HIV 1/2 Ag/Ab CMIA Nonreactive Nonreactive HOSPITAL LAB Comment: Results show no evidence of infection by HIV 1/2. If clinically indicated, repeat CMIA or test by nucleic acid amplification. Performed at [facility], [place], [place] License 0385 CLIA [id number] 11/02/2018 8:00 AM EDT 11/02/2018 1:58 PM EDT Raquel Tello APRN LAB BLOOD ORDERABLES Zamzam l Result Performing Organization Address City/State/RUST Co de Phone Number [facility] from Last 3 Months or Most Recently Relevant to Health Maintenance Insurance [facility] Advance Directives * Full Code (Latest [...] Decision Thoroughly Discussed with: Patient Care Teams Cast Iron Dipper Relationship Specialty Start Date End Date Yvon Pandey MD [address] [facility] [place] [address] PCP - General Pediatric, General 08/19/17 Jude Hickman [facility] [address] [facility] [place], [place] [phone] Pharmacist 08/20/17 [facility] [address] [facility] [place] [address] Pharmacist 05/31/18 [facility] [address] [facility] [place] [address] Pharmacist 09/13/18 [facility] [address] [facility] [place] [address] Pharmacist 09/21/18 [facility] [address] [facility] [place] [address] Pharmacist 10/18/18
--- OUTSIDE RECORDS SUMMARY | 2025-01-13 17:51 | XMS_ITS | Encounter Summary ---
Author Organization [address] [address] Care Team Providers Care Heating And Refrigeration Inspector Name Role Phone Jeanne Rodgers MD Primary Care Provider Vivian Robertson MD Primary Care Provider Jeanne Rodgers MD Primary Care Provider Reason for Visit * Reason Comments Medication Refill Encounter Details Date Type Department Care Team (Late st Contact Info) Description 04/28/2021 Refill [facility] Gastroenterology, [address] [phone] Angelique Rebolledo, MANAGER MISSION [address] [place] [address] [phone] Gastroesophageal reflux disease, unspecified whether esophagitis present [...] AM EST Scoped 10-16-20 Last seen clinic- [facility] 09-17-20 No pending appts- front office left msg in February documented in this encounter Plan of Treatment Upcoming Encounters Date Type Department Care Team (Late st Contact Info) Description 03/09/2025 11:00 AM EST Clinical Support [facility], Weight Management [address] [place] [address] Ju Jacinto [address] [place] [address] 04/03/2025 4:00 PM EST Office Visit [facility], Weight Management [address] [place] [address] Winsome Blackburn MD [address] [place] [address] 06/01/2025 2:30 PM EST Clinical Support [facility], Weight Management [address] [place] [address] Ju Jacinto [address] [place] [address] 06/26/2025 2:30 PM EST Office Visit [facility], Weight Management [address] [place] [address] Winsome Blackburn MD [address] [place] [address] documented as of this encounter Visit Diagnoses Diagnosis Gastroesophageal reflux disease, unspecified whether esophagitis present documented in this encounter Care Teams Heating And Refrigeration Inspector Relationship Specialty Start Date End Date Jeanne Rodgers MD [address] [place] [address] PCP - General 01/03/20 09/05/24 Vivian Robertson MD [address] [place] [address] PCP - General General Pediatrics 09/06/24 11/28/24 Jeanne Rodgers MD [address] [place] [address] PCP - General General Pediatrics 11/29/24 documented as of this encounter
--- OUTSIDE RECORDS SUMMARY | 2025-01-13 17:51 | XMS_ITS | Encounter Summary ---
Author Organization [facility] Address [address] [place] [address] Care Team Providers Care Fruit Thinner Machine Operator Name Role Phone Jeanne Rodgers MD Primary Care Provider Vivian Robertson MD Primary Care Provider [phone] Jeanne Rodgers MD Primary Care Provider Reason for Visit * Reason Comments Medication Refill Encounter Details Date Type Department Care Team (Late st Contact Info) Description 01/24/2022 Refill [facility] Gastroenterology, [address] 1[address] Floor, [address] [place] [address] Brody Wilson MD [address] [place] [address] Gastroesophageal reflux disease, unspecified whether esophagitis present [...] [facility], Weight Management [address] [place] [address] OrvilleJu newman [address] [place] [address] 04/03/2025 4:00 PM EST Office Visit [facility], Weight Management [address] [place] [address] Winsome Blackburn MD [address] [place] [address] 06/01/2025 2:30 PM EST Clinical Support [facility], Weight Management [address] [place] [address] Ju Jacinto [address] [place] [address] 06/26/2025 2:30 PM EST Office Visit [facility], Weight Management [address] [place] [address] Winsome Blackburn MD [address] [place] [address] documented as of this encounter Visit Diagnoses Diagnosis Gastroesophageal reflux disease, unspecified whether esophagitis present documented in this encounter Care Teams Fruit Thinner Machine Operator Relationship Specialty Start Date End Date Jeanne Rodgers MD [address] [place], [place] [phone] PCP - General 01/03/20 09/05/24 Vivian Robertson MD [address] [place] [address] PCP - General General Pediatrics 09/06/24 11/28/24 Jeanne Rodgers MD [address] [place] [address] PCP - General General Pediatrics 11/29/24 documented as of this encounter
--- OUTSIDE RECORDS SUMMARY | 2025-01-13 17:51 | XMS_ITS | Encounter Summary ---
Author Organization [facility] Address [address] [place] [address] Care Team Providers Care Special Investigation Unit Investigator Name Role Phone Vivian Robertson MD Primary Care Provider [phone] Jeanne Rodgers MD Primary Care Provider [phone] Reason for Referral * DIRECTOR OF MATERIALS-Consult (Urgent) - Closed Specialty Diagnoses / Procedures Referred By Shireen christianson Referred To Contact Orthopedic Surgery Diagnoses Left hip pain ORTHO HFC - constipation with acute L hip area/gluteal pain Vivian Robertson MD [address] [place] [address] Phone: tel: fax: [facility] Department of Orthopedics, [place] [phone] Phone: tel: fax: Referral ID Status Reason Start Date Expiration Date V isits Requested Visits Authorized [id number] Closed Specialty Services Required 09/06/2024 03/05/2025 1 1 Encounter Details Date Type Department Care Team (Late st Contact Info) Description 09/06/2024 Community Orders EPICCARE LINK DFLT DEP Vivian Robertson MD [address] [place] [address] Left hip pain (Primary Dx) Social History [...] [facility], Weight Management [address] [place] [address] Ju Jacinto [address] [place] [address] 04/03/2025 4:00 PM EST Office Visit [facility], Weight Management [address] [place] [address] Winsome Blackburn MD [address] [place] [address] 06/01/2025 2:30 PM EST Clinical Support [facility], Weight Management [address] [place] [address] uJ Jacinto [address] [place] [address] 06/26/2025 2:30 PM EST Office Visit [facility], Weight Management [address] [place] [address] Winsome Blackburn MD [address] [place] [address] Scheduled Referrals Name Type Priority Associated Diagnoses Order Schedule Community Referral to Orthopedics Outpatient Referral Routine Left hip pain Ordered: 09/06/2024 documented as of this encounter Visit Diagnoses Diagnosis Left hip pain- Primary Pain in joint, pelvic region and thigh documented in this encounter Care Teams Special Investigation Unit Investigator Relationship Specialty Start Date End Date Vivian Robertson MD [address] [place] [address] PCP - General General Pediatrics 09/06/24 11/28/24 Jeanne Rodgers MD [address] [place] [address] PCP - General General Pediatrics 11/29/24 documented as of this encounter
--- OUTSIDE RECORDS SUMMARY | 2025-01-13 17:52 | XMS_ITS | Encounter Summary ---
Author Organization [facility] Address [address] [place] [address] Care Team Providers Care Epic Ambulatory Specialists Name Role Phone Jeanne Rodgers MD Primary Care Provider [phone] Vivian Robertson MD Primary Care Provider Jeanne Rodgers MD Primary Care Provider [phone] Reason for Visit * Reason Comments Medication Refill Encounter Details Date Type Department Care Team (Late st Contact Info) Description 07/01/2021 Refill [facility] Gastroenter[address] [phone] Brody Wilson MD [address] [place] [address] Gastroesophageal reflux disease, unspecified whether esophagitis present [...] Description 03/09/2025 11:00 AM EST Clinical Support [facility], Weight Management [address] [place] [address] [facility] [address] [place] [address] 04/03/2025 4:00 PM EST Office Visit [facility], Weight Management [address] [place] [address] Winsome Blackburn MD [address] [place] [address] 06/01/2025 2:30 PM EST Clinical Support [facility], Weight Management [address] [place] [address] Ju Jacinto [address] [place] [address] 06/26/2025 2:30 PM EST Office Visit [facility], Weight Management [address] [place] [address] Winsome Blackburn MD [address] [place] [address] documented as of this encounter Visit Diagnoses Diagnosis Gastroesophageal reflux disease, unspecified whether esophagitis present documented in this encounter Care Teams Epic Ambulatory Specialists Relationship Specialty Start Date End Date Jeanne Rodgers MD [address] [place], [place] [phone] PCP - General 01/03/20 09/05/24 Vivian Robertson MD [address] [place] [address] PCP - General General Pediatrics 09/06/24 11/28/24 Jeanne Rodgers MD [address] [place] [address] PCP - General General Pediatrics 11/29/24 documented as of this encounter
--- OUTSIDE RECORDS SUMMARY | 2025-01-13 17:52 | XMS_ITS | Encounter Summary ---
Author Organization [facility] Address [address] [place] [address] Care Team Providers Care Law Office Manager Name Role Phone Jeanne Rodgers MD Primary Care Provider Vivian Robertson MD Primary Care Provider [phone] Jeanne Rodgers MD Primary Care Provider [phone] Reason for Visit * Reason Onset Date Comments Medication Refill Medication Refill 06/03/2021 Encounter Details Date Type Department Care Team (Late st Contact Info) Description 05/30/2021 Refill [facility] [address] [phone] Angelique Rebolledo, SOFTWARE RELIABILITY ENGINEER [address] [place] [address] Gastroesophageal reflux disease, unspecified whether esophagitis present [...] Description 03/09/2025 11:00 AM EST Clinical Support [facility], Weight Management [address] [place] [address] Ju Jacinto [address] [place] [address] 04/03/2025 4:00 PM EST Office Visit [facility], Weight Management [address] [place] [address] Winsome Blackburn MD [address] [place] [address] 06/01/2025 2:30 PM EST Clinical Support [facility], Weight Management [address] [place] [address] Ju Jacinto [address] [place] [address] 06/26/2025 2:30 PM EST Office Visit [facility], Weight Management [address] [place] [address] Winsome Blackburn MD [address] [place] [phone] documented as of this encounter Visit Diagnoses Diagnosis Gastroesophageal reflux disease, unspecified whether esophagitis present documented in this encounter Care Teams Law Office Manager Relationship Specialty Start Date End Date Jeanne Rodgers MD [address] [place], [place] [phone] PCP - General 01/03/20 09/05/24 Vivian Robertson MD [address] [place] [address] PCP - General General Pediatrics 09/06/24 11/28/24 Jeanne Rodgers MD [address] [place] [address] PCP - General General Pediatrics 11/29/24 documented as of this encounter
--- OUTSIDE RECORDS SUMMARY | 2025-01-13 17:52 | XMS_ITS | Encounter Summary ---
Author Organization [address] [address] Care Team Providers Care Sas Developer Name Role Phone Jeanne Rodgers MD Primary Care Provider [phone] Vivian Robertson MD Primary Care Provider Jeanne Rodgers MD Primary Care Provider Reason for Visit * Reason Comments Medication Refill Encounter Details Date Type Department Care Team (Late st Contact Info) Description 10/04/2021 Refill Day [facility] Gastroenterology, [address] [phone] Angelique Rebolledo, DOCK SUPERVISOR [address] [place] [address] [phone] Gastroesophageal reflux disease, unspecified whether esophagitis present [...] [facility], Weight Management [address] [place] [phone] Ju Jacinto [address] [place] [address] 04/03/2025 4:00 PM EST Office Visit [facility], Weight Management [address] [place] [address] Winsome Blackburn MD [address] [place] [address] 06/01/2025 2:30 PM EST Clinical Support [facility], Weight Management [address] [place] [address] Ju Jacinto [address] [place] [address] 06/26/2025 2:30 PM EST Office Visit [facility], Weight Management [address] [place] [address] Winsome Blackburn MD [address] [place] [phone] documented as of this encounter Visit Diagnoses Diagnosis Gastroesophageal reflux disease, unspecified whether esophagitis present documented in this encounter Care Teams Sas Developer Relationship Specialty Start Date End Date Jeanne Rodgers MD [address] [place] [phone] PCP - General 01/03/20 09/05/24 Vivian Robertson MD [address] [place] [address] PCP - General General Pediatrics 09/06/24 11/28/24 Jeanne Rodgers MD [address] [place] [phone] PCP - General General Pediatrics 11/29/24 documented as of this encounter
--- OUTSIDE RECORDS SUMMARY | 2025-01-13 17:52 | XMS_ITS | Encounter Summary ---
Author Organization [address] [address] Care Team Providers Care Computer Repair Engineer Name Role Phone Jeanne Rodgers MD Primary Care Provider [phone] Vivian Robertson MD Primary Care Provider [phone] Jeanne Rodgers MD Primary Care Provider Reason for Visit * Reason Comments Medication Refill Encounter Details Date Type Department Care Team (Late st Contact Info) Description 05/26/2021 Refill [facility] Gastroenterology[address] [phone] Angelique Rebolledo, SUPERVISOR [employer] [address] [place] [address] [phone] Gastroesophageal reflux disease, unspecified whether esophagitis present [...] request for protonix Last seen: 09/17/2020 Angelique Rebolledo, SUPERVISOR [employer] Next appt: Visit date not found Allergies verified Medication Verified Needs f/u appt documented in this encounter Plan of Treatment Upcoming Encounters Date Type Department Care Team (Late st Contact Info) Description 03/09/2025 11:00 AM EST Clinical Support [facility], Weight Management [address] [place] [phone] Ju Jacinto [address] [place] [address] 04/03/2025 4:00 PM EST Office Visit [facility], Weight Management [address] [place] [phone] Winsome Blackburn MD [address] [place] [phone] 06/01/2025 2:30 PM EST Clinical Support [facility], Weight Management [address] [place] [address] Ju Jacinto [address] [place] [phone] 06/26/2025 2:30 PM EST Office Visit [facility], Weight Management [address] [place] [address] Winsome Blackburn MD [address] [place] [phone] documented as of this encounter Visit Diagnoses Diagnosis Gastroesophageal reflux disease, unspecified whether esophagitis present documented in this encounter Care Teams Computer Repair Engineer Relationship Specialty Start Date End Date Jeanne Rodgers MD [address] [place] [address] PCP - General 01/03/20 09/05/24 Vivian Robertson MD [address] [place] [address] PCP - General General Pediatrics 09/06/24 11/28/24 Jeanne Rodgers MD [address] [place] [address] PCP - General General Pediatrics 11/29/24 documented as of this encounter
--- NOTE | 2025-01-13 19:26 | PC.NURSE ---
Assumed care for pt at 1900. Pt is awake and alert sitting in the common area, rocking in the chair, watching TV and listening to music. I introduced myself. Pt is pleasant, conversational and states likes to be called Errol . Pt states I hate my name . Pt made aware of head ct order and that is due to have a head CT for which pt states I didn't bang my head hard . Pt states feeling anxious and is trying to calm down by listening to music. Pt states not wanting to have scan done at this time. Due to previous episode earlier today of being triggered to self harm and having been physically restraint we will have the scan done at a later time when the pt is more relaxed. made aware and orders placed in the MAR. Pt medicated and continues to be in the common area. Pt encouraged to ask for assistance if needed. All needs met at this time. Monitoring is ongoing.
--- NOTE | 2025-01-13 19:45 | PC.NURSE ---
Pt is off the unit and on her way to cat scan with tech and security.
--- NOTE | 2025-01-13 20:12 | MHC.EDTECH ---
pt calm and cooperative. pt eating snacks and watching tv with earphones. pt agreeable to VS. VSS. RN AWARE.
--- NOTE | 2025-01-13 21:55 | PHA.MEDREC ---
Pharmacy Consult ? Medication Reconciliation Pharmacy has completed the medication reconciliation. Pt discharged 01/04/25, utilized med list and pharmacy claims to verify home meds. New prescription for Quetiapine 100mg at bedtime hasn't been filled but was prescribed on 01/04/25 on discharge here.
--- NOTE | 2025-01-13 23:32 | PC.NURSE ---
Assumed care of patient at 2300, patient calm and cooperative, went from sitting in rocking chair in common area to laying in bed listening to music, pt remains an inpatient bedsearch
--- NOTE | 2025-01-14 07:04 | PC.NURSE ---
Assumed care, report received. Pt is currently sleeping and brought breakfast. Safety maintained.
[2025-01-14 08:45] VITALS: RESP 12
[2025-01-14 10:17] VITALS: BP 153/81; PULSE 86; RESP 18; TEMP 36.2; O2SAT 97
--- NOTE | 2025-01-14 11:25 | MHC.EDTECH ---
Patient states to this tech I feel like I want to hurt myself again, would you talk to me in my room. In patient room, discussed tactics to avoid self harm. Patient provided play-josefa as a deterrent. Coloring supplies and worksheets will be provided.
--- NOTE | 2025-01-14 12:36 | PC.NURSE ---
Pt wakes in good spirits, she is calm and cooperative. she is able to make her needs known. she showers and spends time playing with fanatix. She reports thoughts of wanting to hurt her father and gives details, she is able to talk to staff and the care team.
[2025-01-14 14:41] VITALS: BP 157/84; PULSE 96; RESP 18; TEMP 36.3; O2SAT 98
--- NOTE | 2025-01-14 19:03 | PC.NURSE ---
This RN assumed pt care @ 1900 Pt ambulates with a steady gait Pt requested and given food. Plan of care ongoing.
--- NOTE | 2025-01-14 19:07 | MHC.EDTECH ---
pt aapproached t/w and expressed how great of a day she had. pt calm and cooperative, VSS, given dinner tray.
[2025-01-14 20:01] VITALS: BP 138/84; PULSE 105; RESP 19; TEMP 37.1; O2SAT 98
[2025-01-14 20:02] VITALS: BP 138/84
--- NOTE | 2025-01-14 20:40 | PC.NURSE ---
Pt medicated per jul Pt requested and given multiplication worksheets Pt back in room at desk Plan of care ongoing.
--- NOTE | 2025-01-14 22:58 | PC.NURSE ---
Assumed care of patient at 2245, patient calm and cooperative, appears to be sleeping, respirations even and unlabored, continue plan of care for IPLOC
--- NOTE | 2025-01-15 08:01 | PC.NURSE ---
Assumed care, report received. Pt is awake, she ate her breakfast and is provided music via headphones. she is calm and cooperative. she continues to endorse HI towards her father.
[2025-01-15 09:37] VITALS: BP 127/73; PULSE 94; RESP 16; TEMP 36.1; O2SAT 96
[2025-01-15 14:47] VITALS: TEMP 36.1
--- NOTE | 2025-01-15 15:05 | PC.NURSE ---
Pt remains calm and cooperative. she is able to make her needs known. She plays with playdough and cards. She is compliant with her medications, meals and takes a shower. She continues to endorse HI towards her father with multiple plans. She has a loose statement of SI with no actual plan.
[2025-01-15 18:06] VITALS: BP 129/63; PULSE 81; RESP 18; TEMP 36.1; O2SAT 96
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
[2025-01-15 20:09] VITALS: BP 118/71
--- NOTE | 2025-01-15 20:15 | PC.NURSE ---
PT states she is having thought of self harm, requesting PRN medications. PRN and 9pm medications given. VSS. Safety precautions in place. Plan of care ongoing
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
[2025-01-16 00:53] VITALS: BP 134/70; PULSE 95; RESP 18; TEMP 36.4; O2SAT 97
[2025-01-16 06:32] VITALS: BP 124/66; PULSE 92; RESP 16; TEMP 36.7; O2SAT 96
--- NOTE | 2025-01-16 08:26 | ECG_ITS ---
Test Reason : prolonged QT Blood Pressure : */* mmHG Vent. Rate : 84 BPM Atrial Rate : 84 BPM P-R Int : 122 ms QRS Dur : 86 ms QT Int : 372 ms P-R-T Axes : 38 59 28 degrees QTcB Int : 439 ms Normal sinus rhythm with sinus arrhythmia Normal ECG When compared with ECG of 13-Dec-2024 08:42, No significant change was found Referred By: Lexie Albrecht Electronically Signed By: RUPAL DE LA ROSA
--- NOTE | 2025-01-16 09:37 | PC.NURSE ---
patient requested prn for anxiety, medicated per MAR
--- NOTE | 2025-01-16 11:08 | PC.NURSE ---
Assumed care of this patient at this time, patient currently resting quietly on bed, POC pending psych consult.
[2025-01-16] MEDS: OLANZapine 10 MG VIAL IM (15:30)
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
[2025-01-16 16:24] LABS: UPreg QC Valid YES
[2025-01-16 16:53] VITALS: BP 159/90; PULSE 88; RESP 18; TEMP 36.7; O2SAT 97
[2025-01-16 20:06] VITALS: BP 118/63; PULSE 76; RESP 18; TEMP 36.4; O2SAT 98
[2025-01-16 20:11] VITALS: BP 118/63
--- NOTE | 2025-01-17 07:10 | PC.NURSE ---
Assumed care, report received. She is currently sleeping, safety maintained.
--- NOTE | 2025-01-17 09:40 | PC.NURSE ---
Pt is told she is unable to get admitted upstairs. she is able to remain calm and controlled. She does say she cannot go home because she will kill her father.
--- NOTE | 2025-01-17 18:19 | PC.NURSE ---
Out in milieu. Calm, declining dinner.
[2025-01-17 18:22] VITALS: BP 116/65; PULSE 96; RESP 18; TEMP 37; O2SAT 95
[2025-01-17 22:06] VITALS: BP 129/55
--- NOTE | 2025-01-17 22:13 | PC.NURSE ---
Patient medicated per MAR. Patient is calm and cooperative at this time, offers no complaints at present.
--- NOTE | 2025-01-18 09:54 | PC.NURSE ---
Pt states she feels anxious and wants medication. haldol given per order, pt requested hydroxyzine as well, I advised pt to wait one hour to evaluate effects of haldol first.
--- NOTE | 2025-01-18 12:57 | MHC.CARE ---
CARE Team notified Pts father 2x that additional information had to be filled out on form. CARE Team awaiting response back.
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
[2025-01-18 18:13] VITALS: BP 116/63; PULSE 78; RESP 16; TEMP 37.2; O2SAT 100
--- NOTE | 2025-01-18 19:13 | PC.NURSE ---
Assumed care of patient at 1845, patient in good spirits, calm and cooperative, offering no complaints to this RN. Continue plan of care for DDS IPLOC
--- NOTE | 2025-01-19 03:58 | PC.NURSE ---
Pt sleeping, respirations even and unlabored, no apparent distress is noted
--- NOTE | 2025-01-19 07:23 | PC.NURSE ---
Assumed care, report received. Pt is sleeping at this time, she is given breakfast.
--- NOTE | 2025-01-19 10:29 | MHC.CARE ---
[facility] confirmed referral was received and under review.
[2025-01-19 11:22] VITALS: BP 111/70; PULSE 92; RESP 18; TEMP 36; O2SAT 97
--- NOTE | 2025-01-19 11:40 | PC.NURSE ---
Pt has been calm and cooperative. she ate a small amount of her breakfast. She has been playing with playdough and cards with staff. she continues to wait for a bed assignment and is aware of the POC, she verbalizes feeling frustrated but is able to stay calm.
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
--- NOTE | 2025-01-19 14:45 | MHC.CARE ---
CARE Team followed up with admission at [facility] and recieved the following Please note we have a large volume of referrals under review prior to this patient, it is late in the week and we are closed on weekends. Therefore, I may not have any updates until early next week but will certainly update you as soon as I receive feedback to share. ? Pt continues to be on PCC as a statewide bedsearch.
[2025-01-19 14:51] VITALS: PULSE 92
[2025-01-19] MEDS: Magnesium Hydrox/Alum Hydrox 30 ML ORAL.SUSP PO (20:46)
[2025-01-19 20:56] VITALS: BP 121/72
[2025-01-19 20:59] VITALS: BP 121/72; PULSE 94; RESP 16; TEMP 36.3; O2SAT 98
--- NOTE | 2025-01-20 03:20 | MHC.CARE ---
Estrella, the ED clinical coordinator as well as Dr. Albrecht contacted the Care Team in regard to pt as pt presented to the ED initially on a section 21 from [facility]. Pt was medically cleared and sent back to the facility to complete treatment however, pt was returned to ED. Estrella reported that management of the ED communicated with management at [facility] in regard to transferring the pt back to their facility, however, it was determined that she was discharged from the facility and they no longer had her bed available. Due to pt remaining in the ED minimally overnight, Gurmeet reported that it was determined that a care team evaluation should be completed however, indicated that pt would remain in the ED overnight and further follow up would occur during first shift when appropriate parties involved are available during business hours. This song writer contacted [facility] in order to obtain collateral information regarding pts presentation that lead to her IP admission and also a med rec as the ED was unable to obtain pt?s active medication list at this time. Per Magi the nursing assisted living housekeeper at [facility], pt?s medications are as followed: Colace 100MG BID PRN Vistaril 50MG every 4 hours as needed for moderate to severe anxiety Ibuprofen 400MG every 4 hours as needed Melatonin 3MG at bed time PRN Zofran 4MG oral every 2 to 6 hours as needed for nausea Senna 8.6MG take 2 tabs daily PRN Zoloft 150MG daily Flonase inhaler 50mcg 120d nasal inhaler Loratadine 10MG PO daily Trazadone 100MG at bed time Propranolol 10mg q12hrs hold for sbp less than 100 and heart rate less than 60 Gapabentin 100mg TID Hydrochlorothiazide 25mg daily Aspirin 81mg daily Vitamin d3 20mcg daily Topiramate 50mg q12hrs Pantotrazole 40mg daily Magi also provided the following clinical information: Pt presented from [facility] ED after endorsing HI toward mother to her outpatient therapist. Informed provider that she wanted to poison her mother in order to cause her to have a heart attack. Reported a medical history of GERD, CKD stage 3, end stemi, history of PE, history of CVA (Stroke) as well as opioid use overdose Diagnosis: PTSD, General anxiety disorder, MDD, and was recently diagnosed with schizoaffective disorder, also noted to have a history of SI. Reported pt arrived on 01/05/25 and the plan was to discharge her next week. Per nursing assisted living housekeeper, to her knowledge patient is returning tomorrow however, she is not certain that is the plan at this time and did note that she has already been taken out of their computer system. Stated pt was not committed to the unit at this time. Information obtained was passed to Care Team clinician completing the evaluation. It was reported that pt refused to engage in the evaluation and requested to speak to the Care product safety coordinator at which time pt was addressed accompanied by the ED coordinator. Pt reported that she was informed by Soniricardo brooks that she should not speak to the Care Team at all and should not sign any paperwork and stated that she was informed to tell behavioral health staff that staff at [facility] reported ?there is no reason for an evaluation to occur as they plan to have her return to the unit tomorrow and indicated that due to miscommunication between the ED and the unit. Pt informed this song writer that she has remained in contact with staff at [facility] and stated that they informed her due to belief that she was having a heart attack prior to being transported to the ED for medical clearance therefore believed that it was likely a medical admission would occur at that time therefore her bed hold would void and indicated that due to lack of appropriate follow up her bed was mistakenly given away however, also confirmed that she would return tomorrow. Pt also stated that staff at [facility] encouraged her to tell [facility] ED staff that she was at [facility] voluntarily and that she was not on a ?sanction? at this time therefore she should not be held on one in the ED and disclosed that due to not being from the area and suffering from ongoing medical complications involving her feet and legs she had no intention of leaving the ED and advocated to return to [facility] to await placement at [facility] located in [place]. Pt was informed at this time that further follow up would occur tomorrow during business hours when the appropriate parties involved were able to be reached and although [facility] is informing her that she will return tomorrow this has not been verified at this time. Pt reported that she understood she would remain in the ED overnight and further follow up would occur in AM.
[2025-01-20 07:30] VITALS: BP 135/76; PULSE 102; RESP 16; TEMP 36.1; O2SAT 98
--- NOTE | 2025-01-20 07:44 | PC.NURSE ---
Assumed care, report received. Pt is calm and cooperative. she is in good spirits and talkative with staff, she states she talked to her father yesterday to talk about the plan after her hospitalization. She states the conversation went well.
--- NOTE | 2025-01-20 14:28 | MHC.EDTECH ---
Patient was refused the vital signs, TARUN Lao aware.
[2025-01-20 16:53] VITALS: BP 131/75; PULSE 88; RESP 18; TEMP 36.6; O2SAT 97
--- NOTE | 2025-01-20 19:20 | PC.NURSE ---
Pt has had intermittent bouts of anger and yelling out that she wants to get out of here and nobody cares about her. she is easily redirected. she continues to endorse vague SI and HI towards her father. she has talked to her mother on the phone multiple times today. she has eaten her meals, taken meds and PRNs x 2 with good effect. she has showered and played cards and with her playdough and done puzzles with staff.
--- NOTE | 2025-01-21 00:30 | PC.NURSE ---
Assumed care of this patient. Patient is sleeping, respirations even and unlabored, no apparent distress is noted.
[2025-01-21 06:42] VITALS: RESP 16
--- NOTE | 2025-01-21 19:00 | PC.NURSE ---
Assume care of this patient at 19:00. Patient is calm and cooperating, offers no complaints at present, plan of care ongoing.
[2025-01-21 19:52] VITALS: BP 123/67; PULSE 98; RESP 20; TEMP 36.8; O2SAT 97
[2025-01-21 20:40] VITALS: BP 123/67
--- NOTE | 2025-01-22 08:27 | PC.NURSE ---
this nurse obtained report from waqar, patient woke this morning, alert to person/place, pt requested all her medications early and stated if she cant have them she didnt want them later. Pt was given her 630 am meds and 9 am medications all at once per pt request. pt rr equal/non labored- rr 16, plan of care ongoing
[2025-01-22 08:29] VITALS: RESP 16
--- NOTE | 2025-01-22 13:09 | PC.NURSE ---
patient medicated per order
[2025-01-22 13:12] VITALS: BP 135/97; PULSE 89; RESP 16; O2SAT 95
--- NOTE | 2025-01-22 15:16 | PC.NURSE ---
Assumed care of patient at 1445, patient currently resting in bed, appears to be in no apparent distress, respirations even and unlabored. Continue plan of care for DDS IPLOC
[2025-01-22 19:45] VITALS: BP 134/93; PULSE 105; RESP 18; TEMP 37.1; O2SAT 97
--- NOTE | 2025-01-23 07:26 | PC.NURSE ---
Assumed care, report received. Pt is currently sleeping. Breakfast provided.
[2025-01-23 08:22] VITALS: BP 142/73; PULSE 106; RESP 18; TEMP 36.9; O2SAT 99
[2025-01-23 14:00] VITALS: RESP 18
--- NOTE | 2025-01-23 14:59 | PC.NURSE ---
Pt is in good spirits, she is compliant with meals and medications. she states she is board and spends time coloring and watching TV. she contines to endorse HI towards her father but called him this morning for a short conversation.
--- NOTE | 2025-01-23 15:25 | MHC.CARE ---
Pt was accepted to [facility] for Thursday the @10am by Nalini Grimaldo. The accepting provider is Dr. Wilkinson and the address is [address] [place] [address], [place] [address]. Nurse to nurse number is [phone] or [phone]. RN will have to call the morning of before transport arrives to leaf size picker patient. Nalini advised me that all admission times have to be held to as they have a strict admission policy so that their patients do not overlap. This securities underwriter will relay to transport before ambulance is booked.
--- NOTE | 2025-01-23 15:51 | MHC.CARE ---
Lucila has relayed that they can pickup the patient @8:30am on Thursday the .
[2025-01-23 20:37] VITALS: BP 138/79; PULSE 86; RESP 18; TEMP 36.8; O2SAT 99
--- NOTE | 2025-01-24 06:02 | PC.NURSE ---
pt resting comfortably throughout the night, no apparent distress noted.
[2025-01-24 06:12] VITALS: RESP 16
--- NOTE | 2025-01-24 07:15 | PC.NURSE ---
Assumed care, report received. PT is currently sleeping, safety maintained.
[2025-01-24 14:00] VITALS: RESP 20
[2025-01-24 20:18] VITALS: BP 134/80
[2025-01-25 04:10] VITALS: BP 127/63; PULSE 84; RESP 17; TEMP 36.9; O2SAT 99
--- NOTE | 2025-01-25 07:04 | PC.NURSE ---
Assumed care, report received. Pt is awake, calm and cooperative. she is aware if the POC for transport this morning and excited about it.
[2025-01-25 07:55] VITALS: BP 153/73; PULSE 92; RESP 16; TEMP 36.8; O2SAT 97
[2025-01-25 09:12] VITALS: BP 153/73; PULSE 92; RESP 16; TEMP 36.8; O2SAT 97
== END 2025-01-25 09:14 ==
PROVIDERS: Physician Assistant; Emergency Provider Emergency Medicine
DX: F34.81 Disruptive mood dysregulation disorder (principal); F84.0 Autistic disorder; F79 Unspecified intellectual disabilities; R45.850 Homicidal ideations; R45.851 Suicidal ideations; S09.90XA Unspecified injury of head, initial encounter; W22.09XA Striking against other stationary object, initial encounter; Y93.9 Activity, unspecified; Y92.9 Unspecified place or not applicable; Y99.9 Unspecified external cause status; R94.31 Abnormal electrocardiogram [ECG] [EKG]; Z79.899 Other long term (current) drug therapy
CPT/HCPCS: 36415; 70450; 80053; 80307; 81001; 81025; 85025; 93005; 96372; 99285; J2359; S9485

== ENCOUNTER → 2025-01-13 16:10 | Outpatient (BNV) | payer MEDICAID, SELFPAY | PROVIDERS: Emergency Provider Emergency Medicine; Visit Provider Nurse Practitioner Psychiatric/Mental Health | DX: F34.81 Disruptive mood dysregulation disorder (principal); F84.0 Autistic disorder; F79 Unspecified intellectual disabilities | CPT/HCPCS: 99282; 99285 ==

== ENCOUNTER → 2025-01-13 16:34 | Outpatient (BNV) | payer MEDICAID, SELFPAY | PROVIDERS: Emergency Provider Emergency Medicine; Visit Provider Radiology Diagnostic Radiology | DX: R41.82 Altered mental status, unspecified (principal); W22.8XXA Striking against or struck by other objects, initial encounter | CPT/HCPCS: 70450 ==

== ENCOUNTER → 2025-01-16 08:26 | Outpatient (BNV) | payer MEDICAID, SELFPAY | PROVIDERS: Emergency Provider Emergency Medicine; Visit Provider Internal Medicine | DX: Z13.6 Encounter for screening for cardiovascular disorders (principal) | CPT/HCPCS: 93010 ==

== ENCOUNTER 2025-03-23 15:16 | Emergency (ER) | payer MEDICAID, SELFPAY ==
--- OUTSIDE RECORDS SUMMARY | 2024-07-02 10:01 | XMS_ITS | Encounter Summary ---
Author Organization [facility], Located [facility] Address [address] [place] [address] Care Team Providers Care Staff Command And Control Officer Name Role Phone Yvon Pandey MD Primary Care Provider [phone] Marylou, Jude RPH Unavailable Marylou, Jude RPH Unavailable Marylou, Jude RPH Unavailable Marylou, Jude RPH Unavailable Marylou, Jude RPH Unavailable Encounter Details Date Type Department Care Team (Late st Contact Info) Description 07/02/2024 10:01 AM EST Hospital Encounter [facility] [address] [place] [phone] Man Sims MD [address] [place] [address] Social History Tobacco Use Types Packs/Day Years Used Date Smoking Tobacco: Never Smokeless Tobacco: Never Alcohol Use Standard Drinks/Week Comments No 0 (1 standard drink = 0.6 oz pur e alcohol) AUDIT-C Answer Date Recorded Q1: How often do you have a drink containing alcohol? Never 09/01/2023 Q2: How many drinks containi ng alcohol do you have on a typical day when you are drinking? Patient does not drink Q3: How often do you have si x or more drinks on one occasion? Never 09/01/2023 Comments No Sex and Gender Information Value Date Recorded Sex Assigned at Female 01/07/2022 9:10 PM EDT Legal Sex Female 9:36 PM EDT Gender Identity Female 01/07/2022 9:10 PM EDT Sexual Orientation Heterosexual (straight) 01/07 9:10 PM EDT documented as of this encounter Plan of Treatment Not on file documented as of this encounter Procedures Procedure Name Priority Date/Time Associated Diagnosis Comments XR FINGER (4TH) 2+ VIEWS-RIGHT STAT 07/02/2024 10:08 AM EST Pain of finger of right hand documented in this encounter Results * XR Finger (4th) 2+ views-Right (07/02/2024 10:08 AM EST) Anatomical Region Laterality Modality Hand Right Computed Radiogr aphy 07/02/2024 10:0 8 AM EST Impressions 07/02/2024 10:09 AM EST No acute fracture or dislocation. Narrative 07/02/2024 10:09 AM EST XR FINGER (4TH) 2+ VIEWS-RIGHT 07/02/2024 10:01 AM REASON FOR STUDY: Fourth digit DIP pain, crushed by window CLINICAL HISTORY: Pain of finger of right hand COMPARISON: None TECHNIQUE: PA, lateral and oblique views. FINDINGS: No acute fracture or dislocation. No significant joint disease. Procedure Note Patrick Olvera MD - 07/02/2024 XR FINGER (4TH) 2+ VIEWS-RIGHT 07/02/2024 10:01 AM REASON FOR STUDY: Fourth digit DIP pain, crushed by window CLINICAL HISTORY: Pain of finger of right hand COMPARISON: None TECHNIQUE: PA, lateral and oblique views. FINDINGS: No acute fracture or dislocation. No significant joint disease. IMPRESSION: No acute fracture or dislocation. us Jodee Baker PA-C IMG DIAGNOSTIC IMAGING ORD ERABLES Final Result documented in this encounter Visit Diagnoses Not on filedocumented in this encounter Care Teams Staff Command And Control Officer Relationship Specialty Start Date End Date Yvon Pandey MD [address] [place] [phone] PCP - General Pediatric, General 08/19/17 Jude Hickman [facility] [address] [facility] [place] [address] Pharmacist 08/20/17 Jude Hickman [facility] [address] [place] [address] Pharmacist 05/31/18 Jude Hickman [facility] [address] [place] [address] Pharmacist 09/13/18 Jude Hickman [facility] [address] [place] [address] Pharmacist 09/21/18 Jude Hickman [facility] [address] [facility] [place] [address] Pharmacist 10/18/18 documented as of this encounter
--- NOTE | ~2025-03-23 | XR_ITS ---
CLINICAL HISTORY: pain s p inversion 4 view left foot Comparison: CR/SR - XR FOOT 3 OR MORE VIEWS LEFT - 12/15/24 12:43 EDT Findings: No fractures or dislocations. No significant arthritic change or erosions. No ankle effusion. No radiopaque foreign body. IMPRESSION: 1. No acute findings. This document has been electronically signed by: Breanna Carrizales MD on 03/23/2025 20:51:35
--- NOTE | ~2025-03-23 | XR_ITS ---
CLINICAL HISTORY: pain s p inversion 4 view left ankle Comparison: CR - XR FOOT LT MIN 3V - 03/23/25 18:49 EST CR/SR - XR FOOT 3 OR MORE VIEWS LEFT - 12/15/24 12:43 EDT Findings: Bones intact. No dislocations. No significant loss of joint space, osteophytes, or erosions. No ankle effusion. No radiopaque foreign body. IMPRESSION: 1. No acute findings. This document has been electronically signed by: Breanna Carrizales MD on 03/23/2025 20:51:58
[2025-03-23 15:26] VITALS: BP 139/78; PULSE 106; RESP 20; TEMP 36.8; O2SAT 99; BMI 42.1
[2025-03-23 15:35] VITALS: RESP 16
[2025-03-23 16:32] LABS: Appearance Urine Clear; Glucose Urine UA Negative (Negative); PH 6.5 (5.0-9.0); Specific Gravity - Urine 1.025 (1.005-1.025)
[2025-03-23 16:34] LABS: UPreg QC Valid YES
[2025-03-23 16:40] LABS: Cannabinoid Screen Urine Not Detected (Not Detect)
[2025-03-23 16:43] LABS: Hematocrit 41.9 % (37.0-47.0); Hemoglobin 14.3 g/dl (12.0-16.0); Imm Gran Abs Auto 0.03 X10*3/uL (0.00-0.03); Imm Gran Pct Auto 0.4 % (0.0-0.4); Lymphocytes Absolute Auto 1.6 X10*3/uL (1.2-4.9); MANUAL DIFF FLAG SCAN; Mean Corpuscular HGB Conc 34.1 g/dl (31.0-35.0); Mean Corpuscular Hemoglobin 30.7 pg (27.0-33.0); Mean Corpuscular Volume 89.9 fL (80.0-98.0); NRBC Abs Auto 0.000 X10*3/uL (0.0-0.012); NRBC Pct Auto 0.0 /100WBC (0.0-0.2); PLT CLUMP 1; Red Blood Count 4.66 X10*6/uL (4.20-5.50); SCAN SMEAR FLAG 1
[2025-03-23 16:45] LABS: Alanine Aminotransferase 20 U/L (0-31); Albumin Level 4.9 g/dL (3.5-5.0); Alkaline Phosphatase 68 U/L (39-117); Anion Gap 14 (12-20); Aspartate Amino Transferase 22 U/L (5-31); Blood Urea Nitrogen 15 mg/dL (9-16); Calcium 9.9 mg/dL (8.4-10.2); Carbon Dioxide 17 mmol/L (22-29); Chloride 114 mmol/L (96-108); Creatinine Clr Calc Pharmacy 148.2; Estimated Glomerular Filt Rate > 60; Potassium 4.1 mmol/L (3.3-5.1); Sodium 141 mmol/L (135-145); Total Protein 7.7 g/dL (6.5-8.0)
[2025-03-23 16:54] LABS: White Blood Count 8.5 X10*3/uL (4.8-10.8)
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
--- NOTE | 2025-03-23 18:51 | PHA.MEDREC ---
Pharmacy Consult ? Medication Reconciliation Pharmacy has reviewed the medication reconciliation done by nursing.
--- OUTSIDE RECORDS SUMMARY | 2025-03-23 20:50 | XMS_ITS | Clinical Summary ---
Author Organization [address] Address [address] [place] [address] Phone Care Team Providers Care Sheet Pile Hammer Operator Name Role Phone Yvon Pandey MD Primary Care Provider [phone] Allergies Active Allergy Reactions Criticality Noted Date [...] 6:34 PM 09/15/2022 9:39 PM Care Teams Sheet Pile Hammer Operator Relationship Specialty Start Date End Date Yvon Pandey MD [address] [place] [phone] PCP - General Pediatrics 07/10/22
--- OUTSIDE RECORDS SUMMARY | 2025-03-23 20:50 | XMS_ITS | Encounter Summary ---
Author Organization [address] [address] Care Team Providers Care Airbrush Artist Photography Name Role Phone Jeanne Rodgers MD Primary Care Provider [phone] Vivian Robertson MD Primary Care Provider [phone] Jeanne Rodgers MD Primary Care Provider [phone] Reason for Visit * Reason Comments Medication Refill Encounter Details Date Type Department Care Team (Late st Contact Info) Description 01/22/2021 Refill [facility] Gastroenterology, [address] [phone] Kiersten Salazar, DIRECTOR OF COMMUNITY LIFE [address] [place] [phone] Gastroesophageal reflux disease, unspecified whether esophagitis present [...] Care Team (Late st Contact Info) Description 04/03/2025 4:00 PM EST Office Visit [facility], Weight Management [address] [place] [address] Winsome Blackburn MD [address] [place] [address] 06/01/2025 2:30 PM EST Clinical Support [facility], Weight Management [address] [place] [address] Ju Jacinto [address] [place] [address] 06/26/2025 2:30 PM EST Office Visit [facility], Weight Management [address] [place] [address] Winsome Blackburn MD [address] [place] [address] documented as of this encounter Visit Diagnoses Diagnosis Gastroesophageal reflux disease, unspecified whether esophagitis present documented in this encounter Care Teams Airbrush Artist Photography Relationship Specialty Start Date End Date Jeanne Rodgers MD [address] [place] [address] PCP - General 01/03/20 09/05/24 Vivian Robertson MD [address] [place] [address] PCP - General General Pediatrics 09/06/24 11/28/24 Jeanne Rodgers MD [address] [place] [address] PCP - General General Pediatrics 11/29/24 documented as of this encounter
--- OUTSIDE RECORDS SUMMARY | 2025-03-23 20:50 | XMS_ITS | Encounter Summary ---
Author Organization [address] [address] Care Team Providers Care Pharmacist Assistant Name Role Phone Jeanne Rodgers MD Primary Care Provider Vivian Robertson MD Primary Care Provider Jeanne Rodgers MD Primary Care Provider Reason for Visit * Reason Comments Medication Refill Encounter Details Date Type Department Care Team (Late st Contact Info) Description 12/24/2020 Refill [facility] Gastroenterology, [address] [phone] Kiersten Salazar, TIE UP WORKER [address] [place] [phone] Gastroesophageal reflux disease, unspecified whether esophagitis present [...] Description 04/03/2025 4:00 PM EST Office Visit [facility], Weight Management [address] [place] [address] Winsome Blackburn MD [address] [place] [address] 06/01/2025 2:30 PM EST Clinical Support [facility], Weight Management [address] [place] [address] Ju Jacinto [address] [place] [address] 06/26/2025 2:30 PM EST Office Visit [facility], Weight Management [address] [place] [address] Winsome Blackburn MD [address] [place] [address] documented as of this encounter Visit Diagnoses Diagnosis Gastroesophageal reflux disease, unspecified whether esophagitis present documented in this encounter Care Teams Pharmacist Assistant Relationship Specialty Start Date End Date Jeanne Rodgers MD [address] [place] [address] PCP - General 01/03/20 09/05/24 Vivian Robertson MD [address] [place] [address] PCP - General General Pediatrics 09/06/24 11/28/24 Jeanne Rodgers MD [address] [place] [address] PCP - General General Pediatrics 11/29/24 documented as of this encounter
--- OUTSIDE RECORDS SUMMARY | 2025-03-23 20:50 | XMS_ITS | Encounter Summary ---
Author Organization [facility] Address [address] [place] [address] Care Team Providers Care Microbiology Coordinator Name Role Phone Yvon Pandey MD Primary Care Provider [phone] Reason for Visit * Reason Comments Medication Refill Encounter Details Date Type Department Care Team (Late st Contact Info) Description 10/12/2022 Refill [facility] [address] [place] [address] Sammi Hyatt, ARELY [address] [place] [address] Medication Refill Social History Tobacco [...] documented as of this encounter Care Teams Microbiology Coordinator Relationship Specialty Start Date End Date Yvon Pandey MD [address] [place] [address] PCP - General Pediatrics 07/10/22 documented as of this encounter
--- OUTSIDE RECORDS SUMMARY | 2025-03-23 20:50 | XMS_ITS | Encounter Summary ---
Author Organization [address] [address] Care Team Providers Care Automotive Service Professional Name Role Phone Jeanne Rodgers MD Primary Care Provider [phone] Vivian Robertson MD Primary Care Provider Jeanne Rodgers MD Primary Care Provider Reason for Visit * Reason Comments Medication Refill Encounter Details Date Type Department Care Team (Late st Contact Info) Description 12/23/2020 Refill [facility] Gastroenterology, [address] [phone] Angelique Rebolledo, LABOR RELATIONS DIRECTOR [address] [place] [phone] Gastroesophageal reflux disease, unspecified whether esophagitis present [...] Description 04/03/2025 4:00 PM EST Office Visit [facility], Weight Management [address] [place] [address] Winsome Blackburn MD [address] [place] [address] 06/01/2025 2:30 PM EST Clinical Support [facility], Weight Management [address] [place] [address] Ju Jacinto [address] [place] [address] 06/26/2025 2:30 PM EST Office Visit [facility], Weight Management [address] [place] [address] Winsome Blackburn MD [address] [place] [address] documented as of this encounter Visit Diagnoses Diagnosis Gastroesophageal reflux disease, unspecified whether esophagitis present documented in this encounter Care Teams Automotive Service Professional Relationship Specialty Start Date End Date Jeanne Rodgers MD [address] [place] [address] PCP - General 01/03/20 09/05/24 Vivian Robertson MD [address] [place] [address] PCP - General General Pediatrics 09/06/24 11/28/24 Jeanne Rodgers MD [address] [place] [address] PCP - General General Pediatrics 11/29/24 documented as of this encounter
--- OUTSIDE RECORDS SUMMARY | 2025-03-23 20:50 | XMS_ITS | Clinical Summary ---
Author Organization [facility] Address [address] [place] [address] Care Team Providers Care Hot Dog Vendor Name Role Phone Yvon Pandey MD Primary Care Provider [phone] Marylou, Jude RPH Unavailable Marylou, Jude RPH [...] Suicide Prevention Lifeline Phone: Call or Text 158 Crisis Text Line: Text HOME to 727197 Step 6: Making the environment safer (plan [...] ratio HOSPITAL LAB Comment: Nonreactive Performed at [facility], [place], [place] License 0385 CLIA [id number] 11/02/2018 8:00 AM EDT 11/02/2018 1:58 PM EDT Raquel Tello SPECIALTY SALES REPRESENTATIVE LAB BLOOD ORDERABLES Zamzam l Result HOSPITAL LAB * HIV 1/2 Ag/Ab CMIA Reflex to Confirmation (11/02/2018 8:00 AM EDT) Pathologist [facility] HIV 1/2 Ag/Ab CMIA Nonreactive Nonreactive HOSPITAL LAB Comment: Results show no evidence of infection by HIV 1/2. If clinically indicated, repeat CMIA or test by nucleic acid amplification. Performed at [facility], [place], [place] License 0385 CLIA [id number] 11/02/2018 8:00 AM EDT 11/02/2018 1:58 PM EDT Raquel Tello APRN LAB BLOOD ORDERABLES Zamzam l Result Performing Organization Address City/State/[facility] Co de Phone Number [facility] LAB from Last 3 Months or Most Recently Relevant to Health Maintenance Insurance [facility] Advance Directives * Full Code (Latest [...] Decision Thoroughly Discussed with: Patient Care Teams Hot Dog Vendor Relationship Specialty Start Date End Date Yvon Pandey MD 27 [place] [address] PCP - General Pediatric, General 08/19/17 Jude Hickman [facility] [address] [facility], [place] [phone] Pharmacist 08/20/17 [facility] [address] [facility] [place] [address] Pharmacist 05/31/18 [facility] [address] [facility] [place] [address] Pharmacist 09/13/18 [facility] [address] [facility] [place] [address] Pharmacist 09/21/18 [facility] [address] [facility] [place] [address] Pharmacist 10/18/18
--- OUTSIDE RECORDS SUMMARY | 2025-03-23 20:50 | XMS_ITS | Encounter Summary ---
Author Organization [facility] Address [address] [place] [address] Care Team Providers Care Manufacturing Mechanic Name Role Phone Yvon Pandey MD Primary Care Provider [phone] Reason for Visit * Reason Comments Medication Refill Encounter Details Date Type Department Care Team (Late st Contact Info) Description 10/25/2022 Refill [facility] [address] [place] [address] Sammi Hyatt, ARELY [address] [place] [address] Medication Refill Social History Tobacco [...] documented as of this encounter Care Teams Manufacturing Mechanic Relationship Specialty Start Date End Date Yvon Pandey MD [address] [place] [address] PCP - General Pediatrics 07/10/22 documented as of this encounter
--- OUTSIDE RECORDS SUMMARY | 2025-03-23 20:51 | XMS_ITS | Encounter Summary ---
Author Organization [facility] Address [address] [place] [address] Care Team Providers Care Enrolled Nurse Name Role Phone Vivian Robertson MD Primary Care Provider [phone] Jeanne Rodgers MD Primary Care Provider [phone] Reason for Referral * OUTSIDE PLANT SUPERVISOR-Consult (Urgent) - Closed Specialty Diagnoses / Procedures Referred By Shireen christianson Referred To Contact Orthopedic Surgery Diagnoses Left hip pain ORTHO HFC - constipation with acute L hip area/gluteal pain Vivian Robertson MD [address] [place] [address] Phone: tel: fax: [facility] Department of Orthopedics, [place] [phone] Phone: tel: fax: Referral ID Status Reason Start Date Expiration Date V isits Requested Visits Authorized [id number] Closed Specialty Services Required 09/06/2024 03/05/2025 1 1 Encounter Details Date Type Department Care Team (Late st Contact Info) Description 09/06/2024 Community Orders EPICCARE LINK DFLT DEP Vivian Robertson MD [address] [place] [address] Left hip pain (Primary Dx) Social History [...] Description 04/03/2025 4:00 PM EST Office Visit [facility], Weight Management [address] [place] [address] Winsome Blackburn MD [address] [place] [address] 06/01/2025 2:30 PM EST Clinical Support [facility], Weight Management [address] [place] [address] Ju Jacinto [address] [place] [address] 06/26/2025 2:30 PM EST Office Visit [facility], Weight Management [address] [place] [address] Winsome Blackburn MD [address] [place] [address] Scheduled Referrals Name Type Priority Associated Diagnoses Order Schedule Community Referral to Orthopedics Outpatient Referral Routine Left hip pain Ordered: 09/06/2024 documented as of this encounter Visit Diagnoses Diagnosis Left hip pain- Primary Pain in joint, pelvic region and thigh documented in this encounter Care Teams Enrolled Nurse Relationship Specialty Start Date End Date Vivian Robertson MD [address] [place] [address] PCP - General General Pediatrics 09/06/24 11/28/24 Jeanne Rodgers MD [address] [place] [address] PCP - General General Pediatrics 11/29/24 documented as of this encounter
--- OUTSIDE RECORDS SUMMARY | 2025-03-23 20:51 | XMS_ITS | Encounter Summary ---
Author Organization [facility] Address [address] [place] [address] Care Team Providers Care Clin Nurse Name Role Phone Jeanne Rodgers MD Primary Care Provider Vivian Robertson MD Primary Care Provider [phone] Jeanne Rodgers MD Primary Care Provider Reason for Visit * Reason Comments Medication Refill Encounter Details Date Type Department Care Team (Late st Contact Info) Description 02/20/2022 Refill [facility] Gastroenterology, [address], [address] [place] [address] Brody Wilson MD [address] [place] [address] Gastroesophageal reflux disease, unspecified whether esophagitis present [...] Silva RN - 02/21/2022 9:16 AM EDT pt Last seen 06-04-21 Dose correct No pending appts documented in this encounter Plan of Treatment Upcoming Encounters Date Type Department Care Team (Late st Contact Info) Description 04/03/2025 4:00 PM EST Office Visit [facility], Weight Management [address] [place] [address] Winsome Blackburn MD [address] [place] [address] 06/01/2025 2:30 PM EST Clinical Support [facility], Weight Management [address] [place] [address] Ju Jacinto [address] [place] [address] 06/26/2025 2:30 PM EST Office Visit [facility], Weight Management [address] [place] [address] Winsome Blackburn MD [address] [place] [address] documented as of this encounter Visit Diagnoses Diagnosis Gastroesophageal reflux disease, unspecified whether esophagitis present documented in this encounter Care Teams Clin Nurse Relationship Specialty Start Date End Date Jeanne Rodgers MD [address] [place] [address] PCP - General 01/03/20 09/05/24 Vivian Robertson MD [address] [place] [address] PCP - General General Pediatrics 09/06/24 11/28/24 Jeanne Rodgers MD [address] [place] [address] PCP - General General Pediatrics 11/29/24 documented as of this encounter
--- OUTSIDE RECORDS SUMMARY | 2025-03-23 20:51 | XMS_ITS | Encounter Summary ---
Author Organization [address] [address] Care Team Providers Care Portainer Operator Name Role Phone Jeanne Rodgers MD Primary Care Provider Vivian Robertson MD Primary Care Provider Jeanne Rodgers MD Primary Care Provider Reason for Visit * Reason Comments Medication Refill Encounter Details Date Type Department Care Team (Late st Contact Info) Description 09/28/2021 Refill [facility] Gastroenter[address] [phone] Angelique Rebolledo, MORTGAGE LOAN PROCESSING CLERK [address] [place] [phone] Gastroesophageal reflux disease, unspecified whether esophagitis present [...] Description 04/03/2025 4:00 PM EST Office Visit [facility], Weight Management [address] [place] [address] Winsome Blackburn MD [address] [place] [address] 06/01/2025 2:30 PM EST Clinical Support [facility], Weight Management [address] [place] [address] Ju Jacinto [address] [place] [address] 06/26/2025 2:30 PM EST Office Visit [facility], Weight Management [address] [place] [address] Winsome Blackburn MD [address] [place] [address] documented as of this encounter Visit Diagnoses Diagnosis Gastroesophageal reflux disease, unspecified whether esophagitis present documented in this encounter Care Teams Portainer Operator Relationship Specialty Start Date End Date Jeanne Rodgers MD [address] [place] [address] PCP - General 01/03/20 09/05/24 Vivian Robertson MD [address] [place] [address] PCP - General General Pediatrics 09/06/24 11/28/24 Jeanne Rodgers MD [address] [place] [address] PCP - General General Pediatrics 11/29/24 documented as of this encounter
--- OUTSIDE RECORDS SUMMARY | 2025-03-23 20:51 | XMS_ITS | Encounter Summary ---
Author Organization [address] [address] Care Team Providers Care Entry Level Sales Consultant Name Role Phone Jeanne Rodgers MD Primary Care Provider [phone] Vivian Robertson MD Primary Care Provider Jeanne Rodgers MD Primary Care Provider Reason for Visit * Reason Comments Medication Refill Encounter Details Date Type Department Care Team (Late st Contact Info) Description 10/04/2021 Refill [facility] Gastroenterology, [address] [phone] Angelique Rebolledo, RELOCATION COMMISSIONER [address] [place] [phone] Gastroesophageal reflux disease, unspecified whether esophagitis present [...] Description 04/03/2025 4:00 PM EST Office Visit [facility], Weight Management [address] [place] [address] Winsome Blackburn MD [address] [place] [address] 06/01/2025 2:30 PM EST Clinical Support [facility], Weight Management [address] [place] [address] Ju Jacinto [address] [place] [address] 06/26/2025 2:30 PM EST Office Visit [facility], Weight Management [address] [place] [address] Winsome Blackburn MD [address] [place] [address] documented as of this encounter Visit Diagnoses Diagnosis Gastroesophageal reflux disease, unspecified whether esophagitis present documented in this encounter Care Teams Entry Level Sales Consultant Relationship Specialty Start Date End Date Jeanne Rodgers MD [address] [place] [address] PCP - General 01/03/20 09/05/24 Vivian Robertson MD [address] [place] [address] PCP - General General Pediatrics 09/06/24 11/28/24 Jeanne Rodgers MD [address] [place] [address] PCP - General General Pediatrics 11/29/24 documented as of this encounter
--- OUTSIDE RECORDS SUMMARY | 2025-03-23 20:51 | XMS_ITS | Clinical Summary ---
Author Organization [facility] Address [address] [place] [address] Care Team Providers Care Steam Press Tender Name Role Phone Jeanne Rodgers MD Primary Care Provider [phone] Source Comments Please note that some or [...] so, obtain the minor's consent prior to disclosure.[facility] Allergies Active Allergy Reactions Criticality Noted [...] by mouth in the morning. Active omega 6-wjt-yvy-fish oil (FISH OIL) 1,200 (144-216) mg Capsule [...] for Care Coordination Nedra Brown LCSW, Clinical Manager Of Case Management, (05.20.2018) Re-referral: Kaylee Garcia LCSW - Tel. [phone] (03.01.2024) Problem Noted Date Diagnosed Date Gastroesophageal reflux dise ase, unspecified whether esophagitis present 09/17/2020 Overview (09/17/2020): Added automatically from request for surgery [id number] Behavior problem in pediatric patient 06/15/2018 Syncope, unspecified syncope type 06/24/2017 DMDD (disruptive mood dysregulation disorder) Encounters Date Type Department Care Team Description 03/10/2025 Telephone [facility], Weight Management [address] [place] [address] Encounter, Telephone Weight Management (Fit 5 no show # 1) from Last 3 Months Family History Medical [...] Pendleton All the time Cancer Maternal Grandmother Naomisheryl Pendleton Breast x 3/had breast surgery to remove them Depression Maternal Grandmother Naomi Pendleton Diabetes Maternal Grandmother Naomi Pendleton Type 2 Esophagitis Maternal Grandmother Naomi Pendleton ROSANGELA disease Maternal Grandmother Naomi Pendleton Hypertension Maternal Grandmother Naomi Pagmary Anxiety disorder Maternal Uncle 1 Anemia Maternal Uncle 2 Dejuan Pendleton Thallasse sarah Gallbladder disease Maternal Uncle 2 Dejuan Pagmary Hypertension Maternal Uncle 2 Dejuan Pendleton Anesthesia problems Maternal great-grandmother PONV Anemia Mother Jazmine Pendleton Thalassemia Anesthesia problems Mother Jazmine Pendleton PONV Anxiety disorder Mother Jazmine Pendleton Asthma Mother Jazmine Pendleton Seasonal Autoimmune disease Mother Jazmine Pendleton Psoriat ic Arthritis, Thalassemia Anemia, Antiphosphilipid Syndrome, Hx DVT/PE, Depression Mother Jazmine Pendleton Esophagitis Mother Jazmine Beckettani ROSANGELA disease Mother Jazmine Pendleton Gallbladder disease Mother Jazmine Pendleton Irritable bowel syndrome Mother Jazmine Pendleton Obesity Mother Jazmine Pendleton Weight loss surgery Mother Jazmine Pagani Anxiety disorder Paternal Aunt Anxiety disorder Paternal [...] 2 Mine Mayorga Obesity Sister 2 Mine Anns Relation Name Status Comments Brother 1 Brother 2 Chilo Mayorga Brother 3 José Miguel Mayorga Father [...] Description 04/03/2025 4:00 PM EST Office Visit [facility], Weight Management [address] [place] [address] Winsome Blackburn MD [address] [place], [place] [phone] 06/01/2025 2:30 PM EST Clinical Support [facility], Weight Management [address] [place] [address] Ju Jacinto [address] [place], [place] [phone] 06/26/2025 2:30 PM EST Office Visit [facility], Weight Management [address] [place], [place] [phone] Winsome Blackburn MD [address] [place], [place] [phone] Health Maintenance Due Date Last Done Comments DTaP/TDAP/TD VACCINES (1 - Tdap) 11/30/2010 ADOLESCENT HIV SCREENING 11/30/2016 COVID-19 Vaccine (2023-2 5 season) 2025 INFLUENZA Discontinued NIRSEVIMAB VACCINES UNDER 8 MONTHS Aged Out No longer eligible b ased on patient's age to complete this topic Insurance [employer] Care Teams Steam Press Tender Relationship Specialty Start Date End Date Jeanne Rodgers MD [address] [place] [address] PCP - General General Pediatrics 11/29/24
--- OUTSIDE RECORDS SUMMARY | 2025-03-23 20:51 | XMS_ITS | Encounter Summary ---
Author Organization [facility] Address [address] [place] [address] Care Team Providers Care Varnish Dipper Name Role Phone Jeanne Rodgers MD Primary Care Provider Vivian Robertson MD Primary Care Provider [phone] Jeanne Rodgers MD Primary Care Provider [phone] Reason for Visit * Reason Onset Date Comments Medication Refill Medication Refill 06/03/2021 Encounter Details Date Type Department Care Team (Late st Contact Info) Description 05/30/2021 Refill [facility] [address] [phone] Angelique Rebolledo, GASTROENTEROLOGY PROFESSOR [address] [place] [address] Gastroesophageal reflux disease, unspecified whether esophagitis present [...] Description 04/03/2025 4:00 PM EST Office Visit [facility], Weight Management [address] [place] [address] Winsome Blackburn MD [address] [place] [address] 06/01/2025 2:30 PM EST Clinical Support [facility], Weight Management [address] [place] [address] Ju Jacinto [address] [place] [address] 06/26/2025 2:30 PM EST Office Visit [facility], Weight Management [address] [place] [address] Winsome Blackburn MD [address] [place] [address] documented as of this encounter Visit Diagnoses Diagnosis Gastroesophageal reflux disease, unspecified whether esophagitis present documented in this encounter Care Teams Varnish Dipper Relationship Specialty Start Date End Date Jeanne Rodgers MD [address] [place] [address] PCP - General 01/03/20 09/05/24 Vivian Robertson MD [address] [place] [address] PCP - General General Pediatrics 09/06/24 11/28/24 Jeanne Rodgers MD [address] [place] [address] PCP - General General Pediatrics 11/29/24 documented as of this encounter
--- OUTSIDE RECORDS SUMMARY | 2025-03-23 20:51 | XMS_ITS | Encounter Summary ---
Author Organization [address] [address] Care Team Providers Care Dredge Master Name Role Phone Jeanne Rodgers MD Primary Care Provider [phone] Vivian Robertson MD Primary Care Provider Jeanne Rdogers MD Primary Care Provider [phone] Reason for Visit * Reason Comments Medication Refill Encounter Details Date Type Department Care Team (Late st Contact Info) Description 08/16/2021 Refill [facility] Gastroenterology, [address] [phone] Angelique Rebolledo, LEADITE MAN [address] [place] [address] [phone] Gastroesophageal reflux disease, unspecified whether esophagitis present [...] Description 04/03/2025 4:00 PM EST Office Visit [facility], Weight Management [address] [place] [address] Winsome Blackburn MD [address] [place] [address] 06/01/2025 2:30 PM EST Clinical Support [facility], Weight Management [address] [place] [address] Ju Jacinto [address] [place] [address] 06/26/2025 2:30 PM EST Office Visit [facility], Weight Management [address] [place] [address] Winsome Blackburn MD [address] [place] [address] documented as of this encounter Visit Diagnoses Diagnosis Gastroesophageal reflux disease, unspecified whether esophagitis present documented in this encounter Care Teams Dredge Master Relationship Specialty Start Date End Date Jeanne Rodgers MD [address] [place] [address] PCP - General 01/03/20 09/05/24 Vivian Robertson MD [address] [place] [address] PCP - General General Pediatrics 09/06/24 11/28/24 Jeanne Rodgers MD [address] [place] [address] PCP - General General Pediatrics 11/29/24 documented as of this encounter
--- OUTSIDE RECORDS SUMMARY | 2025-03-23 20:51 | XMS_ITS | Encounter Summary ---
Author Organization [address] [address] Care Team Providers Care Stone Engraver Name Role Phone Jeanne Rodgers MD Primary Care Provider [phone] Vivian Robertson MD Primary Care Provider [phone] Jeanne Rodgers MD Primary Care Provider Reason for Visit * Reason Comments Medication Refill Encounter Details Date Type Department Care Team (Late st Contact Info) Description 07/30/2022 Refill [facility] Gastroenterology, [address] [phone] Angelique Rebolledo, BEARING GRINDER [address] [place] [address] [phone] Gastroesophageal reflux disease, unspecified whether esophagitis present [...] Description 04/03/2025 4:00 PM EST Office Visit [facility], Weight Management [address] [place] [address] Winsome Blackburn MD [address] [place] [address] 06/01/2025 2:30 PM EST Clinical Support [facility], Weight Management [address] [place] [address] Ju Jacinto [address] [place] [address] 06/26/2025 2:30 PM EST Office Visit [facility], Weight Management [address] [place] [address] Winsome Blackburn MD [address] [place] [address] documented as of this encounter Visit Diagnoses Diagnosis Gastroesophageal reflux disease, unspecified whether esophagitis present documented in this encounter Care Teams Stone Engraver Relationship Specialty Start Date End Date Jeanne Rodgers MD [address] [place] [address] PCP - General 01/03/20 09/05/24 Vivian Robertson MD [address] [place] [address] PCP - General General Pediatrics 09/06/24 11/28/24 Jeanne Rodgers MD [address] [place] [address] PCP - General General Pediatrics 11/29/24 documented as of this encounter
--- OUTSIDE RECORDS SUMMARY | 2025-03-23 20:51 | XMS_ITS | Encounter Summary ---
Author Organization [facility] Address [address] [place] [address] Care Team Providers Care Personnel Generalist Manager Name Role Phone Jeanne Rodgers MD Primary Care Provider Vivian Robertson MD Primary Care Provider Jeanne Rodgers MD Primary Care Provider Encounter Details Date Type Department Care Team (Late st Contact Info) Description 02/24/2024 Community Orders EPICCARE LINK DFLT [facility] Jeanne Rodgers MD [address] [place] [address] Social History Tobacco Use Types Packs/Day Years [...] Description 04/03/2025 4:00 PM EST Office Visit [facility], Weight Management [address] [place] [address] Winsome Blackburn MD [address] [place], [place] [phone] 06/01/2025 2:30 PM EST Clinical Support [facility], Weight Management [address] [place] [address] Ju Jacinto [address] [place] [address] 06/26/2025 2:30 PM EST Office Visit [facility], Weight Management [address] [place] [address] [phone] Winsome Blackburn MD [address] [place] [address] [phone] documented as of this encounter Visit Diagnoses Not on filedocumented in this encounter Care Teams Personnel Generalist Manager Relationship Specialty Start Date End Date Jeanne Rodgers MD [address] [place], [place] [phone] PCP - General 01/03/20 09/05/24 Vivian Robertson MD [address] [place], [place] [phone] PCP - General General Pediatrics 09/06/24 11/28/24 Jeanne Rodgers MD [address] [place] [address] PCP - General General Pediatrics 11/29/24 documented as of this encounter
--- OUTSIDE RECORDS SUMMARY | 2025-03-23 20:51 | XMS_ITS | Encounter Summary ---
Author Organization [facility] Address [address] [place] [address] Care Team Providers Care Ethics Manager Name Role Phone Jeanne Rodgers MD Primary Care Provider Vivian Robertson MD Primary Care Provider [phone] Jeanne Rodgers MD Primary Care Provider [phone] Reason for Visit * Reason Comments Medication Refill Encounter Details Date Type Department Care Team (Late st Contact Info) Description 10/08/2021 Refill [facility] Gastroenterology, [address], [address] [place] [address] Angelique Rebolledo, TECHNICAL TRANSLATOR [address] [place] [address] Gastroesophageal reflux disease, unspecified whether esophagitis present [...] [facility], Weight Management [address] [place] [address] Winsome Blackburn MD [address] [place] [address] 06/01/2025 2:30 PM EST Clinical Support [facility], Weight Management [address] [place] [address] Ju Jacinto [address] [place] [address] 06/26/2025 2:30 PM EST Office Visit [facility], Weight Management [address] [place] [address] Winsome Blackburn MD [address] [place] [address] documented as of this encounter Visit Diagnoses Diagnosis Gastroesophageal reflux disease, unspecified whether esophagitis present documented in this encounter Care Teams Ethics Manager Relationship Specialty Start Date End Date Jeanne Rodgers MD [address] [place] [address] PCP - General 01/03/20 09/05/24 Vivian Robertson MD [address] [place] [address] PCP - General General Pediatrics 09/06/24 11/28/24 Jeanne Rodgers MD [address] [place] [address] PCP - General General Pediatrics 11/29/24 documented as of this encounter
--- OUTSIDE RECORDS SUMMARY | 2025-03-23 20:51 | XMS_ITS | Encounter Summary ---
Author Organization [facility] Address [address] [place] [address] Care Team Providers Care International Broadcast Music Librarian Name Role Phone Jeanne Rodgers MD Primary Care Provider [phone] Vivian Robertson MD Primary Care Provider [phone] Jeanne Rodgers MD Primary Care Provider Reason for Referral * MENAGERIE SUPERINTENDENT-Consult (Routine) - Closed Specialty Diagnoses / Procedures Referred By Contac t Referred To Contact Other Specialties / Weight Management Diagnoses Obesity, unspecified classification, unspecified obesity type, unspecified whether serious comorbidity present Jessica Sorto [address] [place] [address] Phone: tel: fax: Referral ID Status Reason Start Date Expiration Date V isits Requested Visits Authorized [id number] Closed Specialty Services Required 12/31/2023 12/23/2024 1 1 Encounter Details Date Type Department Care Team (Late st Contact Info) Description 12/31/2023 Community Orders EPICCARE LINK DFLT Jessica Almendarez [address] [place] [address] Obesity, unspecified classification, unspecified obesity type, unspecified [...] [facility], Weight Management [address] [place] [address] Winsome Blackburn MD [address] [place] [address] 06/01/2025 2:30 PM EST Clinical Support [facility], Weight Management [address] [place] [address] Ju Jacinto [address] [place] [address] 06/26/2025 2:30 PM EST Office Visit [facility], Weight Management [address] [place] [address] Winsome Blackburn MD [address] [place] [address] Scheduled Referrals Name Type Priority Associated Diagnoses Orde r Schedule Community Referral to Weight Management Outpatient Referral Routine Obesity, unspecified classification, unspecified obesity type, unspecified whether serious comorbidity present Ordered: 12/31/2023 documented as of this encounter Visit Diagnoses Diagnosis Obesity, unspecified classification, unspecified obesity type, unspecified whether serious comorbidity present- Primary documented in this encounter Care Teams International Broadcast Music Librarian Relationship Specialty Start Date End Date Jeanne Rodgers MD [address] [place] [address] PCP - General 01/03/20 09/05/24 Vivian Robertson MD [address] [place], [place] [phone] PCP - General General Pediatrics 09/06/24 11/28/24 Jeanne Rodgers MD [address] [place] [address] PCP - General General Pediatrics 11/29/24 documented as of this encounter
--- OUTSIDE RECORDS SUMMARY | 2025-03-23 20:51 | XMS_ITS | Encounter Summary ---
Author Organization [facility] Address [address] [place] [address] Care Team Providers Care Marketing Systems Analyst Name Role Phone Jeanne Rodgers MD Primary Care Provider [phone] Vivian Robertson MD Primary Care Provider Jeanne Rodgers MD Primary Care Provider Reason for Visit * Reason Comments Medication Refill Encounter Details Date Type Department Care Team (Late st Contact Info) Description 07/01/2021 Refill [facility] Gastroenter[address] [phone] Brody Wilson MD [address] [place] [address] Gastroesophageal reflux disease, unspecified whether esophagitis [...] Description 04/03/2025 4:00 PM EST Office Visit [facility], Weight Management [address] [place] [address] Winsome Blackburn MD [address] [place] [address] 06/01/2025 2:30 PM EST Clinical Support [facility], Weight Management [address] [place] [address] Ju Jacinto [address] [place] [address] 06/26/2025 2:30 PM EST Office Visit [facility], Weight Management [address] [place] [address] Winsome Blackburn MD [address] [place] [address] documented as of this encounter Visit Diagnoses Diagnosis Gastroesophageal reflux disease, unspecified whether esophagitis present documented in this encounter Care Teams Marketing Systems Analyst Relationship Specialty Start Date End Date Jeanne Rodgers MD [address] [place] [address] PCP - General 01/03/20 09/05/24 Vivian Robertson MD [address] [place] [address] PCP - General General Pediatrics 09/06/24 11/28/24 Jeanne Rodgers MD [address] [place] [address] PCP - General General Pediatrics 11/29/24 documented as of this encounter
--- OUTSIDE RECORDS SUMMARY | 2025-03-23 20:51 | XMS_ITS | Encounter Summary ---
Author Organization [address] [address] Care Team Providers Care Client Server Programmer Name Role Phone Jeanne Rodgers MD Primary Care Provider Vivian Robertson MD Primary Care Provider Jeanne Rodgers MD Primary Care Provider [phone] Reason for Visit * Reason Comments Medication Refill Encounter Details Date Type Department Care Team (Late st Contact Info) Description 04/28/2021 Refill [facility] Gastroenterology, [address] [phone] Angelique Rebolledo, TRANSMISSION REPAIRER [address] [place] [address] [phone] Gastroesophageal reflux disease, unspecified whether esophagitis present [...] AM EST Scoped 10-16-20 Last seen clinic- [facility] 09-17-20 No pending appts- front office left msg in February documented in this encounter Plan of Treatment Upcoming Encounters Date Type Department Care Team (Late st Contact Info) Description 04/03/2025 4:00 PM EST Office Visit [facility], Weight Management [address] [place] [phone] Winsome Blackburn MD [address] [place] [address] 06/01/2025 2:30 PM EST Clinical Support [facility], Weight Management [address] [place] [address] Ju Jaicnto [address] [place] [address] 06/26/2025 2:30 PM EST Office Visit [facility], Weight Management [address] [place] [address] Winsome Blackburn MD [address] [place] [address] documented as of this encounter Visit Diagnoses Diagnosis Gastroesophageal reflux disease, unspecified whether esophagitis present documented in this encounter Care Teams Client Server Programmer Relationship Specialty Start Date End Date Jeanne Rodgers MD [address] [place] [address] 174782 PCP - General 01/03/20 09/05/24 Vivian Robertson MD [address] [place] [address] PCP - General General Pediatrics 09/06/24 11/28/24 Jeanne Rodgers MD [address] [place] [address] PCP - General General Pediatrics 11/29/24 documented as of this encounter
--- OUTSIDE RECORDS SUMMARY | 2025-03-23 20:51 | XMS_ITS | Encounter Summary ---
Author Organization [address] [address] Care Team Providers Care Order Manager Name Role Phone Jeanne Rodgers MD Primary Care Provider Vivian Robertson MD Primary Care Provider Jeanne Rodgers MD Primary Care Provider Reason for Visit * Reason Comments Medication Refill Encounter Details Date Type Department Care Team (Late st Contact Info) Description 01/01/2022 Refill [facility] Gastroenter[address] [phone] Angelique Rebolledo, MANAGER PROJECT [address] [place] [address] [phone] Gastroesophageal reflux disease, unspecified whether esophagitis present [...] [facility], Weight Management [address] [place] [address] Winsome Blackburn MD [address] [place] [address] 06/01/2025 2:30 PM EST Clinical Support [facility], Weight Management [address] [place] [address] Ju Jacinto [address] [place] [address] 06/26/2025 2:30 PM EST Office Visit [facility], Weight Management [address] [place] [address] Winsome Blackburn MD [address] [place] [address] documented as of this encounter Visit Diagnoses Diagnosis Gastroesophageal reflux disease, unspecified whether esophagitis present documented in this encounter Care Teams Order Manager Relationship Specialty Start Date End Date Jeanne Rodgers MD [address] [place], [place] [phone] PCP - General 01/03/20 09/05/24 Vivian Robertson MD [address] [place] [address] PCP - General General Pediatrics 09/06/24 11/28/24 Jeanne Rodgers MD [address] [place] [address] PCP - General General Pediatrics 11/29/24 documented as of this encounter
--- OUTSIDE RECORDS SUMMARY | 2025-03-23 20:51 | XMS_ITS | Encounter Summary ---
Author Organization [facility] Address [address] [place] [address] Care Team Providers Care Incubator Machine Operator Name Role Phone Jeanne Rodgers MD Primary Care Provider Vivian Robertson MD Primary Care Provider [phone] Jeanne Rodgers MD Primary Care Provider Reason for Visit * Reason Comments Medication Refill Encounter Details Date Type Department Care Team (Late st Contact Info) Description 01/24/2022 Refill [facility] Gastroenterology, [address] 1[address], [address] [place] [address] Brody Wilson MD [address] [place] [address] Gastroesophageal reflux disease, unspecified whether esophagitis present [...] Description 04/03/2025 4:00 PM EST Office Visit [facility], Weight Management [address] [place] [address] [phone] Winsome Blackburn MD [address] [place] [address] 06/01/2025 2:30 PM EST Clinical Support [facility], Weight Management [address] [place] [address] Ju Jacinto [address] [place] [address] 06/26/2025 2:30 PM EST Office Visit [facility], Weight Management [address] [place] [address] Winsome Blackburn MD [address] [place] [address] documented as of this encounter Visit Diagnoses Diagnosis Gastroesophageal reflux disease, unspecified whether esophagitis present documented in this encounter Care Teams Incubator Machine Operator Relationship Specialty Start Date End Date Jeanne Rodgers MD [address] [place] [address] PCP - General 01/03/20 09/05/24 Vivian Robertson MD [address] [place] [address] PCP - General General Pediatrics 09/06/24 11/28/24 Jeanne Rodgers MD [address] [place] [address] PCP - General General Pediatrics 11/29/24 documented as of this encounter
--- OUTSIDE RECORDS SUMMARY | 2025-03-23 20:51 | XMS_ITS | Encounter Summary ---
Author Organization [address] [address] Care Team Providers Care Staffing Account Manager Name Role Phone Jeanne Rodgers MD Primary Care Provider [phone] Vivian Robertson MD Primary Care Provider Jeanne Rodgers MD Primary Care Provider [phone] Reason for Visit * Reason Comments Medication Refill Encounter Details Date Type Department Care Team (Late st Contact Info) Description 05/26/2021 Refill [facility] Gastroenterology, [address] [phone] Angelique Rebolledo, DOOR TO DOOR SALESMAN [address] [place] [address] [phone] Gastroesophageal reflux disease, unspecified whether esophagitis present [...] for protonix Last seen: 09/17/2020 Angelique Rebolledo, DOOR TO DOOR SALESMAN Next appt: Visit date not found Allergies verified Medication Verified Needs f/u appt documented in this encounter Plan of Treatment Upcoming Encounters Date Type Department Care Team (Late st Contact Info) Description 04/03/2025 4:00 PM EST Office Visit [facility], Weight Management [address] [place] [address] Winsome Blackburn MD [address] [place] [address] 06/01/2025 2:30 PM EST Clinical Support [facility], Weight Management [address] [place] [address] Ju Jacinto [address] [place] [address] 06/26/2025 2:30 PM EST Office Visit [facility], Weight Management [address] [place] [address] Winsome Blackburn MD [address] [place] [address] documented as of this encounter Visit Diagnoses Diagnosis Gastroesophageal reflux disease, unspecified whether esophagitis present documented in this encounter Care Teams Staffing Account Manager Relationship Specialty Start Date End Date Jeanne Rodgers MD [address] [place], [place] [phone] PCP - General 01/03/20 09/05/24 Vivian Robertson MD [address] [place] [address] PCP - General General Pediatrics 09/06/24 11/28/24 Jeanne Rodgers MD [address] [place] [address] PCP - General General Pediatrics 11/29/24 documented as of this encounter
[2025-03-23 20:59] VITALS: BP 139/78
--- NOTE | 2025-03-24 | ECG_ITS ---
Test Reason : CHECK QT Blood Pressure : */* mmHG Vent. Rate : 104 BPM Atrial Rate : 104 BPM P-R Int : 114 ms QRS Dur : 80 ms QT Int : 352 ms P-R-T Axes : 39 62 19 degrees QTcB Int : 462 ms Sinus tachycardia Otherwise normal ECG When compared with ECG of 16-Jan-2025 11:24, No significant change was found Referred By: Ventura Corona Electronically Signed By: RUPAL DE LA ROSA
--- NOTE | 2025-03-24 07:07 | PC.NURSE ---
Assumed care of patient at 0645, patient appears to be in no apparent distress this am, sleeping, respirations even and unlabored. Continue plan of care for IPLOC
[2025-03-24 08:40] VITALS: BP 136/84; PULSE 113; RESP 16; TEMP 37; O2SAT 98
[2025-03-24 14:03] VITALS: BP 120/74; PULSE 111; RESP 18; TEMP 36.6; O2SAT 99
--- NOTE | 2025-03-24 16:45 | PC.NURSE ---
Pt listening to music, no apparent distress is noted at this time
[2025-03-24 20:19] VITALS: BP 111/64; PULSE 92; RESP 19; TEMP 36.1; O2SAT 99
--- NOTE | 2025-03-24 22:31 | PC.NURSE ---
Assumed care at 1845. Patient presents as calm and cooperative. Speech is hyperverbal, pressured, and tangential. Observed utilizing headphones in room and eating packets of mustard. Endorses +SI and +HI with plan to set herself and family members on fire. Endorses +AH of the devil and states The headphones really help block them out. Denies +VH. Feels safe on the unit and agreeable to alert staff if feeling unsafe. Denies current pain. 15 minute safety checks ongoing. Continue plan for IPLOC.
--- NOTE | 2025-03-24 22:50 | PC.NURSE ---
Adherent to HS scheduled medications. No PRN's utilized. HS Senna held d/t c/o loose stools for the past two days. Patient reports this is d/t not taking daily Miralax. Fluids encouraged. MD Corona made aware, awaiting orders.
--- NOTE | 2025-03-25 07:30 | PC.NURSE ---
Assumed care, report received. Pt is currently sleeping and is brought breakfast, safety is maintained.
[2025-03-25 08:28] VITALS: BP 177/92; PULSE 105; RESP 18; TEMP 36.6; O2SAT 97
[2025-03-25 15:48] VITALS: BP 114/49; PULSE 106; RESP 20; TEMP 36.2
--- NOTE | 2025-03-25 17:21 | PC.NURSE ---
Pt has been calm, hyper-verbal, able to make her needs know in a clam manner and easily re-directed. She continues to endorse HI towards her sister and father. she endorses vague SI.
[2025-03-25 20:07] VITALS: BP 132/89; PULSE 101; RESP 20; TEMP 36.6; O2SAT 98
[2025-03-25 20:15] VITALS: BP 132/89
--- NOTE | 2025-03-26 06:37 | PC.NURSE ---
Pt slept throughout the night. No distress noted. Pt wakes up reporting command auditory hallucinations to hit her head on the wall. Pt is requesting assistance as she reports not wanting to hurt self and had not heard these voices for a while . Pt is calm and cooperative, fast talking with slurred speech. Therapeutic support and reassurance provided. Headphones provided to pt to listen to calming music as a coping strategy. Safety precautions continued. Pts environment assessed and made safe. No harmful items at the bedside. Close monitoring continued with emotional support.
--- NOTE | 2025-03-26 07:51 | PC.NURSE ---
Assumed care, report received. Pt is awake, calm and endorsing SI and HI. She will not disclose her SI plan and states she doesn't really want to do it and is using her coping skills. she listens to music and talks with staff.
[2025-03-26 17:51] VITALS: BP 113/66; PULSE 104; RESP 14; TEMP 37.1; O2SAT 100
[2025-03-27 06:35] VITALS: BP 147/64; PULSE 95; RESP 17; TEMP 36.6; O2SAT 97
--- NOTE | 2025-03-27 07:12 | PC.NURSE ---
Assumed care of patient at 0645. Patient resting bed. No needs at this time. Plan for IPLOC.
--- NOTE | 2025-03-27 09:03 | PC.NURSE ---
Upon morning assessment, patient states she wants to hurt her dad and older sister. Patient does not have plan.
[2025-03-27 09:35] VITALS: BP 140/73; PULSE 110; RESP 18; TEMP 36; O2SAT 96
[2025-03-27 19:16] VITALS: BP 141/85; PULSE 98; RESP 18; TEMP 36.6; O2SAT 98
--- NOTE | 2025-03-27 19:25 | PC.NURSE ---
Assumed care of pt at 1850. Pt resting quietly in bed, needs met at this time.
--- NOTE | 2025-03-27 20:30 | PC.NURSE ---
Late entry: pt is tearful in her room about a phone call she had earlier with her mom. Pt stated she was said because she knew her mom was sad. Pt requested a PRN to help her sleep. Provider notified.
[2025-03-27 20:37] VITALS: BP 116/85
--- NOTE | 2025-03-27 20:58 | PC.NURSE ---
Addendum entered by Yaneth Manuel RN 03/27/25 20:59: Pt continues to endorse HI towards her father and sister. Endorsing vague SI at this time, denies having a plan. Original Note: Pt given nighttime meds as well as one time PRN for anxiety. Pt was calmer after taking meds, stating she was planning on calling her mom tomorrow to apologize. Pt now resting quietly in bed and watching TV.
--- NOTE | 2025-03-28 02:52 | PC.NURSE ---
Pt sleeping quietly in her room, no signs of distress. Equal chest rise and fall.
[2025-03-28 06:30] VITALS: BP 130/86; PULSE 102; RESP 18; TEMP 36.8; O2SAT 100
--- NOTE | 2025-03-28 11:13 | MHC.CARE ---
Confirmation of referral received by [facility] by Nalini Avilez via email.
--- NOTE | 2025-03-28 13:58 | PC.NURSE ---
Air Conditioning Installer Supervisor visited patient, and engaged in a conversation about therapeutic interventions that patient can utilize to cope. Pt was provided with sensory tools and she stated that uses music as a way to cope.
[2025-03-28 14:42] VITALS: BP 147/71; PULSE 116; RESP 20; TEMP 36.4; O2SAT 99
--- NOTE | 2025-03-28 18:18 | PC.NURSE ---
Pt has remained calm and in a good mood ,she has been compliant with limits about calling her mother only at certain times. Her mother called this am to report Pt called her 67 times yesterday. Pt has been listening to music and coloring pictures.
[2025-03-28 20:16] VITALS: BP 151/79; PULSE 114; RESP 18; TEMP 36.7; O2SAT 98
--- NOTE | 2025-03-28 20:24 | PC.NURSE ---
Assumed care at 1845. Initially presented as calm and cooperative, listening to music with POD headphones and watching tv. After using POD phone, patient began to escalate and remain hyper-fixated on my mom and dad choosing sides. MD Corona made aware, 1x order for 1mg Ativan obtained/administered, pending effectiveness. Adherent to HS scheduled medications. Mouth checks completed. Hygiene is unkempt, t/w encouraged pt to shower. 15 minute safety checks ongoing. Continue plan for IPLOC.
[2025-03-29 06:21] VITALS: RESP 16
--- NOTE | 2025-03-29 07:18 | PC.NURSE ---
Assumed care of patient at 0645, patient appears to be in no apparent distress this am, pt is disgruntled this am, citing that she does not want to go home with her dad and that if they make he go home with her dad she will go home immediately and pour gasoline on herself then light herself on fire. Pt remains in the pod at this time
[2025-03-29 07:47] VITALS: BP 122/69; PULSE 115; RESP 18; TEMP 36.6; O2SAT 99
--- NOTE | 2025-03-29 12:25 | PC.NURSE ---
Pt listening to music with pod headphones, intermittently napping, no apparent distress is noted
--- NOTE | 2025-03-29 13:21 | MHC.EDTECH ---
Complete bed linen changed completed.
--- NOTE | 2025-03-29 13:33 | MHC.CARE ---
CARE Team spoke with Jahaira Salguero at [place], who works with Pt. There a is a provider meeting scheduled for 04/05 that can not be moved up to do logistic of peoples schedule. It was discussed that Pt is on the emergeny list for external placement though Pts iris is in agreement her mother is not at this time. They plan on discussing this further at the meeting at 04/05. T/w informed her that if the Pt does agree to engage in safety plan we would tenatively discharged Pt back to her home as its clinically its indicated Pts SI/HI appear to be in the context to get her needs met which is to reside outside of the home. T/w completed referral to [facility] in [place] and requested from [facility] in [place].
[2025-03-29 14:15] VITALS: BP 116/87; PULSE 112; RESP 18; TEMP 36.1; O2SAT 97
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
--- NOTE | 2025-03-29 18:54 | PC.NURSE ---
this rn assumed care of pt, pt listening to music and watching tv at this time, pt offers no complaints.
[2025-03-29 20:08] VITALS: BP 124/75; PULSE 95; RESP 18; TEMP 36.2; O2SAT 99
--- NOTE | 2025-03-29 20:14 | PC.NURSE ---
pt medicated per mar, tolerated whole well with water, vss.
[2025-03-30 05:59] VITALS: BP 112/60; PULSE 96; RESP 16; TEMP 36.5; O2SAT 100
--- NOTE | 2025-03-30 08:02 | PC.NURSE ---
Assumed care, report received. Pt is currently sleeping, she is brought breakfast, safety is maintained.
[2025-03-30 11:14] LABS: Creatinine Clr Calc Pharmacy 142.0; Estimated Glomerular Filt Rate > 60
--- NOTE | 2025-03-30 19:28 | PC.NURSE ---
Assumed care at 1845. Presents as calm and cooperative. C/o left hand cramping, given hot pack for comfort. Provided items for a shower. No apparent distress. Will continue to monitor for safety.
[2025-03-30 20:05] VITALS: BP 140/69; PULSE 106; RESP 20; TEMP 36.1; O2SAT 100
[2025-03-30 20:08] VITALS: BP 140/69
--- NOTE | 2025-03-30 20:25 | PC.NURSE ---
After shower, pt c/o feeling dizzy. Instructed to sit and rise slowly while in POD shower. Reports she frequently experiences this after warm showers. Speech is loud and hyperverbal. VS taken, unable to sit still during. Endorses +HI towards family. Made statements such as I'm gonna be so happy when my dad dies. Endorses +AVH and states I have imaginary friends. They are all here right now. One of them is called Little Man. Denies SI. Easily redirected to a different topic. Medicated per JUL. Mouth checks completed. No complaints of pain/discomfort. Currently utilizing POD headphones. 15 minute safety checks ongoing. Continue plan of care.
--- NOTE | 2025-03-31 07:27 | PC.NURSE ---
Assumed care, report received. Pt is awake, she eats breakfast and is in good spirits. she is calm and cooperative.
[2025-03-31 10:06] VITALS: BP 119/59; PULSE 99; RESP 18; TEMP 36.6; O2SAT 100
[2025-03-31 17:54] VITALS: BP 101/64; PULSE 96; RESP 18; TEMP 36.4; O2SAT 98
--- NOTE | 2025-03-31 23:24 | PC.NURSE ---
Took over care at 23:00, pt sleeping at this time.
--- NOTE | 2025-04-01 03:00 | PC.NURSE ---
pt sleeping at this time.
[2025-04-01 06:05] VITALS: BP 140/81; PULSE 95; RESP 18; TEMP 36.9; O2SAT 100
--- NOTE | 2025-04-01 06:17 | PC.NURSE ---
medicated per mar.
--- NOTE | 2025-04-01 07:24 | PC.NURSE ---
took over care at 7am from arvind, pt alert/oriented to person/place, ambulatory with steady gait- rr equal/non labored, pt requesting protein shakes for breakfast- obtained protein shake and pt was happy with the flavor. presently denying pain, plan of care ongoing.
--- NOTE | 2025-04-01 08:04 | PC.NURSE ---
pt took all meds whole with juice, pt refused bowel meds as she stated I had diarrhea yesterday, I dont want those
[2025-04-01 17:50] VITALS: BP 137/76; PULSE 95; RESP 19; TEMP 36.7; O2SAT 100
--- NOTE | 2025-04-01 18:24 | PC.NURSE ---
Addendum entered by Dawn Aviles RN 04/01/25 18:25: provider was notified Original Note: pt requesting tums for indigestion from eating tomatoes with her dinner.
--- NOTE | 2025-04-01 18:51 | PC.NURSE ---
pt medicated with tums per her request, shortly there after pt came to the nurses station and stated I can hear myself breathe in this year pt was pointing to her left hear.
--- NOTE | 2025-04-01 19:12 | PC.NURSE ---
Took over care from RN Jackie at 19:00. pt resting in bed.
[2025-04-01 19:56] VITALS: BP 144/73
[2025-04-01 20:03] VITALS: BP 144/73; PULSE 99; RESP 20; TEMP 36.1; O2SAT 99
--- NOTE | 2025-04-01 20:03 | PC.NURSE ---
medicated per mar.
--- NOTE | 2025-04-02 00:31 | PC.NURSE ---
pt sleeping at this time.
[2025-04-02 02:53] VITALS: BP 121/62; PULSE 103; RESP 17; TEMP 36.4; O2SAT 100
--- NOTE | 2025-04-02 07:18 | PC.NURSE ---
Assumed care of patient at 0645, patient appears to be in no apparent distress this am, resting in bed, respirations even and unlabored. Continue plan of care for IPLOC
[2025-04-02 08:35] VITALS: BP 136/79; PULSE 110; RESP 20; TEMP 36.3; O2SAT 98
[2025-04-02 14:00] VITALS: BP 129/89; PULSE 101; RESP 16; TEMP 37.2; O2SAT 97
--- NOTE | 2025-04-02 19:39 | PC.NURSE ---
Patient became verbally escalated during phone call with mother. Threw personal glasses on the floor and broke the frame. Shouted I hate my life! Provided space and quiet environment. Will continue to monitor for safety.
[2025-04-02 19:59] VITALS: BP 127/79
[2025-04-02 20:03] VITALS: BP 127/79; PULSE 102; RESP 17; TEMP 36.8; O2SAT 100
--- NOTE | 2025-04-02 20:21 | PC.NURSE ---
Patient presents as calm and cooperative after taking space. Adherent to HS scheduled medications. Mouth checks completed. No PRN's utilized. No pain/discomfort reported. Denies SI/HI/AVH and states I just don't want to make my mom cry. Agreeable to alert staff if feeling unsafe. 15 minute safety checks ongoing. Continue plan of care.
[2025-04-03 05:54] VITALS: BP 116/61; PULSE 106; RESP 16; TEMP 36.3; O2SAT 100
--- NOTE | 2025-04-03 09:09 | PC.NURSE ---
unable to remove Seroquel from Pyxis, pharmacy aware
[2025-04-03 16:32] VITALS: BP 130/84; PULSE 114; RESP 18; TEMP 36.3; O2SAT 99
--- NOTE | 2025-04-03 19:45 | PC.NURSE ---
pt stated to RN that she was havign diarrhea. RN messaged Dr. Laura; waiting on new orders.
[2025-04-03 20:27] VITALS: BP 130/84
--- NOTE | 2025-04-03 20:33 | PC.NURSE ---
dodie not in or ED pyxis. Rn sent message to pharmacy- they stated they could not bring it down as they had no one. Coral Gallardo was sent up to get medication.
--- NOTE | 2025-04-03 21:00 | PC.NURSE ---
pt actively throwing up- 2 emesis bags half full- RN reached out to provider so she could place a standing order for zofran. MD arita'gagandeep.
[2025-04-03 21:30] VITALS: BP 137/86; PULSE 118; RESP 18; TEMP 37; O2SAT 99
--- NOTE | 2025-04-04 08:11 | MHC.CARE ---
CARE Team spoke with Nalini from [facility] they will have no beds this week.
--- NOTE | 2025-04-04 10:23 | PC.NURSE ---
Care assumed at 0700, pt has been sleeping, safety maintained.
[2025-04-04 10:54] VITALS: BP 144/93; PULSE 99; RESP 16; TEMP 36.2; O2SAT 98
[2025-04-04 16:37] VITALS: BP 139/88; PULSE 102; RESP 18; TEMP 36.2; O2SAT 97
[2025-04-04 19:36] VITALS: BP 143/80; PULSE 109; RESP 18; TEMP 36.8; O2SAT 98
[2025-04-04 20:18] VITALS: BP 143/80
--- NOTE | 2025-04-04 20:18 | PC.NURSE ---
Patient medicated per provider orders. 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 My Dad is right, that I'm retarded because I can't read. No matter how much I try to learn, I can't! Patient then suddenly stopped crying, and is now in behavioral control, requested & given cranberry juice. Care ongoing by this RN.
--- NOTE | 2025-04-04 23:31 | PC.NURSE ---
Took over care from TARUN Wild, pt sleeping at this time.
--- NOTE | 2025-04-05 05:16 | PC.NURSE ---
medicated per mar.
[2025-04-05 06:30] VITALS: BP 118/74; PULSE 97; RESP 18; TEMP 36.6; O2SAT 99
--- NOTE | 2025-04-05 09:48 | PC.NURSE ---
Assumed care of patient at 0700. Patient ate breakfast. Medicated per the MAR. Patient continuing to endorse HI against her father. Patient denies SI. Calm and cooperative. Safety measures in place.
[2025-04-05 15:33] VITALS: BP 147/79; PULSE 113; RESP 18; TEMP 36.4; O2SAT 98
[2025-04-05 19:23] VITALS: BP 125/80; PULSE 111; RESP 20; TEMP 36.4; O2SAT 96
[2025-04-05 20:03] VITALS: BP 125/80
--- NOTE | 2025-04-05 20:40 | PC.NURSE ---
Assumed care at 1845. Patient initially presented as calm and cooperative. Observed completing math printables provided from [employer]. Patient came out of room c/o crumbs on floor and requested something to clean it up. Staff offered to bring over a cloth
--- NOTE | 2025-04-05 20:42 | PC.NURSE ---
Assumed care at 1845. Initially presents as calm and cooperative. Observed completing math printables provided by [employer]. Patient came out of room c/o crumbs on the floor and requested something to clean it up. When Tech offered to bring over a cloth, patient became verbally escalated and shouted out You guys are fucking lazy. I hate my life. I don't give a fuck! 1:1 conversation and quiet space provided. Adherent to HS scheduled medications. Utilized PRN 2mg Ativan for Agitation. Mouth checks completed. Currently taking space in room. Will continue to monitor for safety. 15 minute safety checks ongoing. Plan of care ongoing.
--- NOTE | 2025-04-06 06:27 | PC.NURSE ---
T/w attempted to pass 0630 Omeprazole, but patient refused and requested to take it later on with 0900 medications.
[2025-04-06 06:57] VITALS: BP 119/68; PULSE 105; RESP 18; TEMP 36.6; O2SAT 98
--- NOTE | 2025-04-06 07:50 | PC.NURSE ---
Assumed care, report received. Pt is awake calm and cooperative. she eats breakfast and goes back to sleep.
[2025-04-06 16:22] VITALS: BP 117/64; PULSE 110; RESP 18; TEMP 36.4; O2SAT 99
--- NOTE | 2025-04-06 19:56 | PC.NURSE ---
pt tossed glasses, yelling, extremely upset after phone call with her mother, demonstrating aggressive behavior, Notified Baron Restrepo, came into assess her, medicated per jul.
[2025-04-06 20:49] VITALS: BP 138/90
[2025-04-06 20:54] VITALS: BP 138/90; PULSE 103; RESP 20; O2SAT 100
--- NOTE | 2025-04-06 20:55 | PC.NURSE ---
medicated per mar.
--- NOTE | 2025-04-06 23:50 | PC.NURSE ---
blanket, new gown, bed made, pt back in bed and resting at this time.
--- NOTE | 2025-04-07 04:18 | PC.NURSE ---
pt sleeping at this time.
[2025-04-07 06:00] VITALS: BP 118/66; PULSE 103; TEMP 36.7; O2SAT 100
--- NOTE | 2025-04-07 08:06 | PC.NURSE ---
report obtained from yisel samuels presently sleeping, rr equal/non labored, per report pt was medicated for agitation last evening, per report respite bed maybe abailable 04/12/25 but pt is unaware of this to not become fixated. plan of care ongoing
[2025-04-07 20:44] VITALS: BP 119/82
[2025-04-07 20:50] VITALS: BP 119/82; PULSE 109; RESP 17; TEMP 36.1; O2SAT 99
--- NOTE | 2025-04-08 01:15 | PC.NURSE ---
Assumed care at 1845. Presents as calm and cooperative. Some irritability throughout shift, but easy to redirect. Medicated per JUL. C/o acid reflux. MD Roland made aware, order for PRN TUMS obtained/administered. Denies current pain/discomfort. 15 minute safety checks ongoing. Will continue to monitor for safety.
--- NOTE | 2025-04-08 08:18 | PC.NURSE ---
Assumed care, report received. Pt is calm and asks for toast for breakfast. she takes her meds without complaint. She continues to endorse HI towards she father.
[2025-04-08 08:57] VITALS: BP 116/72; PULSE 110; RESP 18; TEMP 36.7; O2SAT 98
[2025-04-08 13:53] VITALS: BP 118/62; PULSE 120; RESP 16; TEMP 36.4; O2SAT 98
--- NOTE | 2025-04-08 18:23 | PC.NURSE ---
Pt has napped a good part of the shift. She attempts to call her mother an excessive amount of times. She gets angry and states she is worried about her mother maybe she is She goes to her room and begins to bang her head on the wall. Pt does this for a short time before she is willing to talk to this assembly instructions writer. she verbalizes she is frustrated by being here. She agrees to stay calm and not head bang, her mother is called and returns to call to talk to her. Pt eats a good dinner and showers. SHe
[2025-04-08 20:23] VITALS: BP 136/68; PULSE 95; TEMP 36.1; O2SAT 98
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
[2025-04-09 06:35] VITALS: BP 135/71; PULSE 88; RESP 18; TEMP 36.6; O2SAT 100
--- NOTE | 2025-04-09 07:16 | PC.NURSE ---
Assumed care, report received. Pt is awake, she is calm and cooperative. a plan for the day is made with staff. She continues to endorse HI towards her father.
[2025-04-09 15:08] VITALS: BP 147/83; PULSE 106; RESP 14; TEMP 36.3; O2SAT 99
[2025-04-09 20:22] VITALS: BP 116/63; PULSE 117; RESP 18; TEMP 36.2; O2SAT 98
--- NOTE | 2025-04-09 22:14 | PC.NURSE ---
Pt has remained calm and cooperative. She spent time on the unit with peers and staff in good spirits. She utilized music for short periods of time with no difficulties.
[2025-04-10 05:12] VITALS: BP 127/69; PULSE 92; RESP 16; TEMP 37.1; O2SAT 98
--- NOTE | 2025-04-10 07:18 | PC.NURSE ---
Assumed care, report received. Pt is currently sleeping, safety is mantained.
[2025-04-10 20:15] VITALS: BP 137/81; PULSE 109; RESP 20; TEMP 36.3; O2SAT 99
--- NOTE | 2025-04-10 23:00 | PC.NURSE ---
Assumed care at 1845. Patient is agitated and screaming out from room doorway. Per previous shift, patient is upset about POD headphones. 1:1 conversation attempted. Patient took space in room and remained in behavioral control. No other outbursts noted. Requested HS meds early, medicated per JUL. No PRN's utilized. Denies pain/discomfort. Patient is future oriented and states I can't wait to leave I'm gonna ask if my grandma can be added to my phone list. I love her, she's my partner. 15 minute safety checks ongoing. Continue plan or DDS/BS Respite.
[2025-04-11 06:30] VITALS: BP 120/60; PULSE 82; RESP 16; TEMP 36.6; O2SAT 100
--- NOTE | 2025-04-11 06:41 | PC.NURSE ---
Given AM scheduled Omeprazole. No apparent distress noted.
--- NOTE | 2025-04-11 08:41 | PC.NURSE ---
Assumed care, report received. PT is awake, calm and cooperative. she showers and is given the headphones. SHe complains about heart burn and is given Tums. she continues to refuse to drink water and only drinks fruit juice. [facility]
--- NOTE | 2025-04-11 09:45 | MHC.CARE ---
Pt was accepted to [facility] by Nalini baldwin tomorrow Thursday @11am. The accepting provider is Dr. Alanna Wilkinson and the address is [address] [place] [address]. [phone] is nurse to nurse and should be called before pt gets on ambulance. Let transport know they will need to come to the autism inpatient entrance NOT the ambulance entrance per accepting facility. Pod RN & CARE Team have been notified. No auth is needed due to in state admission.
[2025-04-11 10:47] LABS: Glucose, Whole Blood 98 mg/dL (60-115)
--- NOTE | 2025-04-11 10:50 | PC.NURSE ---
Pt reported feeling nausea and dizziness, she then vomited on the bed, undigested food from breakfast. Pt is assisted with getting cleaned up, POC is checked -98 and pt told to lay down for awhile.
[2025-04-11] MEDS: OLANZapine ODT 10 MG TAB.RAPDIS TRANSLINGU (19:22)
--- NOTE | 2025-04-11 19:32 | PC.NURSE ---
Assumed care at 1845. Patient is agitated and verbally escalated. She is upset about an additional meal that was ordered on the previous shift, not arriving on time. Patient is unable to maintain behavioral control. Disturbing patients and using vulgar language towards staff. DO Roland made aware, order for PO Olanzapine and Diazepam obtained/given. Patient currently taking space in room. Refusing other available meals when offered. Provided liquids. T/w attempted to call kitchen, but unable to receive a response. Will continue to monitor for safety.
--- NOTE | 2025-04-11 19:41 | PC.NURSE ---
Per Dr. Roland, verbal Benadryl 50mg po
--- NOTE | 2025-04-11 19:43 | PC.NURSE ---
Given PRN Benadryl per JUL.
[2025-04-11 20:21] VITALS: BP 146/84; PULSE 102; RESP 20; TEMP 36.3; O2SAT 99
[2025-04-11 20:46] VITALS: BP 146/84
--- NOTE | 2025-04-11 20:46 | PC.NURSE ---
WAI Walker to administer HS scheduled medications. No apparent distress noted.
--- NOTE | 2025-04-12 07:28 | PC.NURSE ---
Assumed care of patient at 0645, patient appears to be anxious this am, pacing around [facility] pod, pt reporting that she is anxious about leaving later this am. MD Conway texted for PRN medication to assist with anxiety. Continue plan of care for transfer at 1000
[2025-04-12 07:36] VITALS: BP 142/81; PULSE 117; RESP 20; TEMP 36.5; O2SAT 97
[2025-04-12 10:18] VITALS: BP 142/81; PULSE 117; RESP 20; TEMP 36.5; O2SAT 97
== END 2025-04-12 10:18 ==
PROVIDERS: Physician Assistant Medical; Emergency Provider Emergency Medicine
DX: R45.850 Homicidal ideations (principal); R45.851 Suicidal ideations; F34.81 Disruptive mood dysregulation disorder; F84.0 Autistic disorder; Z79.899 Other long term (current) drug therapy
CPT/HCPCS: 36415; 73610; 73630; 80053; 80307; 81003; 81025; 82565; 82947; 85025; 93005; 99285; S9485

== ENCOUNTER → 2025-03-23 15:58 | Outpatient (BNV) | payer MEDICAID, SELFPAY | PROVIDERS: Emergency Provider Emergency Medicine; Visit Provider Social Worker | DX: F34.81 Disruptive mood dysregulation disorder (principal); F84.0 Autistic disorder | CPT/HCPCS: 99285 ==

== ENCOUNTER → 2025-03-23 18:36 | Outpatient (BNV) | payer MEDICAID, SELFPAY | PROVIDERS: Emergency Provider Emergency Medicine; Visit Provider Radiology Diagnostic Radiology | DX: M25.572 Pain in left ankle and joints of left foot (principal); M79.672 Pain in left foot | CPT/HCPCS: 73610; 73630 ==

== ENCOUNTER → 2025-03-24 08:51 | Outpatient (BNV) | payer MEDICAID, SELFPAY | PROVIDERS: Emergency Provider Emergency Medicine; Visit Provider Internal Medicine | DX: R00.0 Tachycardia, unspecified (principal) | CPT/HCPCS: 93010 ==